=== PATIENT | male | born 1945 | race Caucasian/White ===

== ENCOUNTER 2021-06-25 15:01 | Inpatient (IN) ==
--- NOTE | 2021-06-25 16:34 | XRay Report ---
XR chest 1V portable CLINICAL HISTORY: sob TECHNIQUE: Single frontal radiograph of the chest was obtained. Comparison: None available at the time of this dictation. FINDINGS: No lines and tubes are seen. Cardiomegaly is noted. Bilateral Mariana B lines and cephalization of the vasculature noted. No evidence of pleural effusion or pneumothorax. IMPRESSION: Moderate pulmonary edema. Cardiomegaly. ACT 112: Negative or not required by law. Electronically signed by: Elias Gatica M.D. 06/25/2021 4:33 PM
[2021-06-25] MEDS ORDERED: dexAMETHasone**PF** 10 MG/ML VIAL IV ONE (16:37)
--- NOTE | 2021-06-25 16:43 | Emergency Department Note ---
Impression & Plan 2019 novel coronavirus-infected pneumonia (NCIP), Hypoxia, Atrial fibrillation, SALIMA (acute kidney injury) ED Provider Note Provider: Ed Quiroga MD DATE OF SERVICE: 06/25/2021 CHIEF COMPLAINT: Shortness of breath, Covid, fatigue HISTORY OF PRESENT ILLNESS: Patient is a 75-year-old gentleman history of A. fib currently maintained on Xarelto presenting here today reporting he began to feel ill approximately 5 to 6 days ago. Tested positive for Covid on Thursday. States he has had splint headache at times also heartburn symptoms at times. States has not had much of an appetite and reports some mild myalgias. Reports increased fatigue medicine as well as some significant shortness of breath at times prickly with exertion. Patient again endorses some heartburn at times but not currently. Denies significant chest pain at this time states his headaches resolved. States and states he has been having some fevers and took some Motrin around noon and that improved things. Patient states he has been taking his home Xarelto. Patient has not vaccinated for Covid. REVIEW OF SYSTEMS: A total of 10 review of systems was obtained and negative except as stated above in the HPI. PAST MEDICAL HISTORY: As noted above MEDICATIONS: Reviewed home medications with the patient SOCIAL HISTORY: Lives at home with , non-smoker PHYSICAL EXAM: GENERAL: alert and oriented in no acute distress on stretcher however fatigued appearing Head: normocephalic and atraumatic EYES: No injection, discharge or icterus. NECK: Trachea midline. Supple. ENT: Mucous membranes pink and moist. LUNGS: Airway patent. No retractions but mildly tachypneic. Breath sounds clear HEART: Irregular rate and rhythm. No chest wall tenderness ABDOMEN: Soft and non-tender, without guarding or rebound. SKIN: Acyanotic, warm, dry, without rashes EXTREMITIES: Without tenderness or deformity with mild trace bilateral edema. NEUROLOGICAL: No focal deficits. No aphasia. No facial droop or slurred speech. Ambulatory. EKG: Atrail fibrilation 70 bpm. No STEMI, No PVC noted. QTC 412. No priors CONTINUOUS CARDIAC MONITORING: was ordered and showed a heart rate of 70-90s bpm in atrial fibrillation Patient's laboratory studies and imaging reviewed. Differential includes Reactive airway disease, pneumonia, pneumothorax, COPD, CHF, infections, cardiac ischemia, pulmonary embolism, musculoskeletal, gastrointestinal, as well as other pathologies. IMPRESSION/MEDICAL DECISION MAKING: Patient presents approximately 6 days now hypoxic. Given dexamethasone with this. Covid testing from here sent to confirm; not vaccinated for Covid. Chest x-ray question some mild pulmonary edema. Patient states actually some decreased intake not convinced at this point is that significantly fluid overloaded. BNP was sent. On Xarelto lower suspicion for PE. Appears to be in rate controlled A. fib at this point. Basic labs obtained. No significant leukocytosis and minimal anemia. Mild hyponatremia 132. Mild AST elevation. No lipase elevation. Troponin is undetectable and proBNP is not significantly elevated. BUN is 37 and creatinine is 2.4. Patient states has had some brown urine again has been using a good amount of ibuprofen. Denies a history that he knows of CKD although states he does not get routine blood work. Will possibly give a small amount of IV fluids given the elevated creatinine and discussed with patient avoiding NSAIDs. Hospitalist team aware and will evaluate the p atient further care here as an inpatient given his hypoxia. DIAGNOSIS: COVID-19 pneumonia, hypoxia, SALIMA, atrial fibrillation DISPOSITION: Hospitalist will evaluate Patient was agreeable with this plan. Past Med/Surg History Social History Smoking Status: Never smoker Feels Safe at Home: Yes Allergies Allergies Allergy/AdvReac Type Severity Reaction Status Date / Time No Known Allergies Allergy Unverified 06/25/21 17:54 Home Meds Home Medications Medication Instructions Recorded Confirmed amlodipine 10 mg tablet (Norvasc) 10 mg PO QAM 06/25/21 06/25/21 flecainide 50 mg tablet 50 mg PO Q12H 06/25/21 06/25/21 lisinopril 5 mg tablet (Zestril) 5 mg PO QAM 06/25/21 06/25/21 metoprolol succinate 25 mg 25 mg PO QAM 06/25/21 06/25/21 tablet,extended release 24 hr (Toprol XL) rivaroxaban 20 mg tablet (Xarelto) 20 mg PO PM 06/25/21 06/25/21 Results & Data (ED) Vital Signs Vital Signs - 24 hr 06/25/21 15:06 06/25/21 15:13 06/25/21 17:00 Temperature 36.8 C Temperature Source Temporal Artery Scan Pulse Rate 93 H 72 Pulse Rate from SpO2 Sensor 70 Pulse Rhythm Regular Pulse Strength Normal Respiratory Rate 22 21 Respiratory Effort / Characteristics Non-Labored Spontaneous Respiratory Depth Normal Respiratory Pattern Regular Blood Pressure 106/63 111/54 L Blood Pressure Mean 77 73 Blood Pressure Position Sitting Pulse Oximetry 86 L 94 Oxygen Delivery Method Room Air Nasal Cannula Oxygen Flow Rate 2 Sepsis Recent Fever Within 48 Hours No Sepsis New/Unexplained Change in Mental Status N/A Sepsis Action Taken by Nursing No Action Required 06/25/21 17:30 Temperature Temperature Source Pulse Rate 75 Pulse Rate from SpO2 Sensor 77 Pulse Rhythm Pulse Strength Respiratory Rate 16 Respiratory Effort / Characteristics Respiratory Depth Respiratory Pattern Blood Pressure 115/60 Blood Pressure Mean 78 Blood Pressure Position Pulse Oximetry 94 Oxygen Delivery Method Oxygen Flow Rate Sepsis Recent Fever Within 48 Hours Sepsis New/Unexplained Change in Mental Status Sepsis Action Taken by Nursing Laboratory Data Result diagrams: 06/25/21 16:53 06/25/21 16:53 Lab Results 06/25/21 06/25/21 06/25/21 Range/Units 16:31 16:53 16:53 WBC 9.28 (4.8-10.8) K/uL RBC 4.81 (4.7-6.1) M/uL Hgb 13.4 L (14.0-18.0) g/dL Hct 39.6 L (42-52) % MCV 82.3 (80-100) fL MCH 27.9 (25-34) pg MCHC 33.8 (32-36) g/dL RDW Std Deviation 38.9 (36.4-46.3) fL RDW Coeff of Julieth 12.9 (11.5-14.5) % Plt Count 199 (130-400) K/uL MPV 9.8 (7.4-10.4) fL Immature Gran % (Auto) 0.2 % Neut % (Auto) 81.8 % Lymph % (Auto) 6.7 % Assumption % (Auto) 11.1 % Eos % (Auto) 0.0 % Baso % (Auto) 0.2 % Neut # (Auto) 7.59 H (1.4-6.5) K/uL Lymph # (Auto) 0.62 L (1.2-3.4) K/uL Assumption # (Auto) 1.03 H (0.11-0.59) K/uL Eos # (Auto) 0.00 (0-0.5) K/uL Baso # (Auto) 0.02 (0-0.2) K/uL Immature Gran # (Auto) 0.02 (0.00-0.02) K/uL Sodium 132 L (136-145) mmol/L Potassium 4.1 (3.5-5.1) mmol/L Chloride 102 (98-107) mmol/L Carbon Dioxide 22 (21-32) mmol/L Anion Gap 8.0 (3-11) BUN 37 H (7-18) mg/dl Creatinine 2.40 H (0.6-1.4) mg/dl Est Cr Clr Drug Dosing 32.9 ml/min Est GFR ( Amer) 29.3 ml/min Est GFR (Non-Af Amer) 25.3 ml/min Fasting Glucose 175 H (70-99) mg/dl Calcium 8.7 (8.5-10.1) mg/dl Magnesium 2.2 (1.8-2.4) mg/dl Total Bilirubin 0.7 (0.2-1) mg/dl AST 41 H (15-37) U/L ALT 43 (12-78) U/L Alkaline Phosphatase 66 (45-117) U/L Troponin I < 0.015 (0-0.045) ng/ml NT-Pro-B Natriuret Pep 505 (0-1800) pg/ml Total Protein 6.8 (6.4-8.2) gm/dl Albumin 2.6 L (3.4-5.0) gm/dl Globulin 4.2 H (2.5-4.0) gm/dl Albumin/Globulin Ratio 0.6 L (0.9-2) Lipase 339 (73-393) U/L COVID-19 Eval Order Covid19 at [facility] Imaging Data Radiologist's Impression: Chest X-Ray 06/25/21 16:16 XR chest 1V portable CLINICAL HISTORY: sob TECHNIQUE: Single frontal radiograph of the chest was obtained. Comparison: None available at the time of this dictation. FINDINGS: No lines and tubes are seen. Cardiomegaly is noted. Bilateral Mariana B lines and cephalization of the vasculature noted. No evidence of pleural effusion or pneu mothorax. IMPRESSION: Moderate pulmonary edema. Cardiomegaly. ACT 112: Negative or not required by law. Electronically signed by: Elias Gatica M.D. 06/25/2021 4:33 PM Discharge Plan Visit Data Chief Complaint: Shortness of Breath/Dyspnea Stated Complaint: HAS COVID,SOB,OXYGEN LEVELS ARE DOWN, ED Provider: Ed Quiroga Discharge Problem: 2019 novel coronavirus-infected pneumonia (NCIP), Hypoxia, Atrial fibrillation, SALIMA (acute kidney injury) Patient Disposition: Being Evaluated by Hospitalist Forms Stand Alone Forms: My [facility] [place] [facility] Prescriptions Prescriptions: No Action amlodipine [Norvasc] 10 mg tablet 10 mg PO QAM RF: 0 flecainide 50 mg tablet 50 mg PO Q12H RF: 0 lisinopril [Zestril] 5 mg tablet 5 mg PO QAM RF: 0 metoprolol succinate [Toprol XL] 25 mg tablet extended release 24 hr 25 mg PO QAM RF: 0 Xarelto 20 mg tablet 20 mg PO PM RF: 0 Referrals Referrals: PCP,NO [Physician] - Discharge Problem: Atrial fibrillation Qualifiers: Atrial fibrillation type: unspecified Qualified Code(s): I48.91 - Unspecified atrial fibrillation
[2021-06-25 17:01] LABS: Basophils # (auto) 0.02 K/uL (0-0.2); Basophils % (auto) 0.2 %; Hematocrit (blood only) 39.6 % (42-52); Hemoglobin 13.4 g/dL (14.0-18.0); Immature Granulocytes # (auto) 0.02 K/uL (0.00-0.02); Immature Granulocytes % (auto) 0.2 %; Lymphocytes # (auto) 0.62 K/uL (1.2-3.4); Lymphocytes % (auto) 6.7 %; Mean Corpuscular Hemoglobin 27.9 pg (25-34); Mean Corpuscular Hgb Conc 33.8 g/dL (32-36); Mean Corpuscular Volume 82.3 fL (80-100); Mean Platelet Volume 9.8 fL (7.4-10.4); Monocytes # (auto) 1.03 K/uL (0.11-0.59); Monocytes % (auto) 11.1 %; Neutrophils # (auto) 7.59 K/uL (1.4-6.5); Neutrophils % (auto) 81.8 %; Platelet Count 199 K/uL (130-400); RDW Coefficient of Variation 12.9 % (11.5-14.5); RDW Standard Deviation 38.9 fL (36.4-46.3); Red Blood Count 4.81 M/uL (4.7-6.1); White Blood Count 9.28 K/uL (4.8-10.8)
--- NOTE | 2021-06-25 17:15 | History & Physical Report ---
Date of Service June 25, 2021 Assessment & Plan (1) Acute respiratory failure with hypoxia: Plan: 75 y/o male w/ afib on Eliquis who presents w/ covid PNA, day 9 of symptoms (06/17/21 onset). He is saturating 95% on 3L nasal cannula and in no resp distress. - hypoxia likely 2/2 covid vs hypervolemia. cxr w/ moderate hypervolemia w/o opacities - no remdesivir because of gfr <30, reassess if renal function improves - otherwise, meets criteria w/ hypoxia <94 on room air - Mucinex - Incentive spirometry - Check echo in AM - hold on diuresis at this time, if worsened symptoms/clinically, diurese w/ caution given Cr of 2.4 - titrate supp O2 w/ goal sat of 90% (2) 2019 novel coronavirus-infected pneumonia (NCIP): Plan: - defer remdesivir because gfr <30, SALIMA - decadron IV 6mg daily - not candidate for baricitinib at this time because not requiring high flow - check crp, CK - recheck cxr in AM (3) Hypervolemia: Plan: - States his 2+ BLE is at baseline since his afib dx 7 yrs ago - Crackles at bases and BLE. cxr suggestive of moderate pulm edema - strict Is/Os. Defer hernandez at this time - caution w/ Lasix if need diuresis given SALIMA (4) Atrial fibrillation: Plan: - hold home Xarelto; start on therapeutic heparin drip - continue home flecainide, but renally dose (half of home dose). half dose (25 bid), starting first dose tomorrow AM - continue home metoprolol succinate - monitor on telemetry (5) SALIMA (acute kidney injury): Plan: - pt denies hx of CKD; baseline unknown - avoid nephrotoxic agents and renally dose - check FeNa labs. (6) Hypertension: Plan: - hold home lisinopril in setting of SALIMA - continue amlodipine (7) Blood glucose elevated: Plan: - low dose SSI Aspart w/ goal 140-180 - patient not on diabetes medications at home - check BSG ACHS - check A1C in AM Plan: FEN/GI: Low Na diet. No IV fluids ppx: heparin drip. SCDs code: full dispo: med/surg tele History of Present Illness Chief Complaint: dyspnea Primary Care Provider: NO PCP Geronimo Mcclain is a 75 y/o male w/ Afib on Eliquis and hypertension who presents w/ slightly worsening productive cough (white/guido sputum), SOB, BARAJAS, low grade fever (daily, ~100.4) since 8 days ago. He presents today because of persistent symptoms and because his family was concerned. Not covid immunized. Tested covid pos on 06/21/21. PCP in [place]. [employer] in [place]. Loose stool x 1 today. No subj fever/chills/myalgia. Not orthopneic. Some fatigue. Denies dyspnea at baseline and denies hx of asthma/copd, inhaler use, or CHF.5 days of dark dirty brown urine. Last meds this AM. He has not been taking medications for his symptoms other than Motrin today (denies using on previous days) ED course: 1L LR bolus. dexamethasone IV 6 mg x1. vitals: 86 on RA. now 95 on 3L. wbc 9.28. Hb 13.4. Na 132L. BUN 37. Cr 2.4. fasting glucose 175H. covid pending. Lipase wnl. NT proBNP 505. Allergies Allergy/AdvReac Type Severity Reaction Status Date / Time No Known Allergies Allergy Unverified 06/25/21 17:54 Home Medications Medication Instructions Recorded Confirmed Type amlodipine 10 mg tablet (Norvasc) 10 mg PO QAM 06/25/21 06/25/21 History flecainide 50 mg tablet 50 mg PO Q12H 06/25/21 06/25/21 History lisinopril 5 mg tablet (Zestril) 5 mg PO QAM 06/25/21 06/25/21 History metoprolol succinate 25 mg 25 mg PO QAM 06/25/21 06/25/21 History tablet,extended release 24 hr (Toprol XL) rivaroxaban 20 mg tablet (Xarelto) 20 mg PO PM 06/25/21 06/25/21 History Past Med/Surg History Medical History Atrial fibrillation Hypertension Surgical History H/O hernia repair H/O right knee surgery Social History Smoking Status: Never smoker Hx Alcohol Use: No Hx Substance Use: No Preferred Language: [place] Citizen [employer] Required: No Beliefs That Will Affect Care: None Current Living Situation: Spouse Other Information That Helps Us Care for You: No Feels Safe at Home: Yes Safety Concerns: Feels Safe At This Time Assistive Devices: None Review of Systems Review of Systems: All systems reviewed & are unremarkable except as noted in HPI & below Constitutional: Denies fever, chills. + fatigue. + decreased appetite x several days. Denies major dietary changes Eyes: Denies blurry vision, vision changes ENT: Denies sore throat, sinus pain. Denies loss of taste/smell. Cardiovascular: Denies chest pain, palpitations Respiratory: Denies shortness of breath Gastrointestinal: Denies abdominal pain, nausea, vomiting, Chronic constipation; last BM this AM, loose; previous BM 1 wk prior. Genitourinary: Denies urinary symptoms including dysuria. + dark brown urine x several days Musculoskeletal: Denies weakness, muscle aches/pain, joint aches/pain Neurological: Denies headache, numbness, tingling, focal weakness Physical Exam Physical Exam: General: A&Ox4. NAD. Cooperative. Slightly hard of hearing. HEENT: Atraumatic, normocephalic. EOMI. PERRL. Neck supple. No oropharyngeal erythema or exudate. Pulm: crackles at bases. No respiratory distress. Cardiac: IIR, -mrg. Radial pulses intact and symmetrical. 2+ BLE. Abdominal: Nontender, nondistended, soft. Obese abd. Integ: Warm, dry, intact Neuro: Normal strength and sensation of extremities. Results & Data Results & Data ([facility]) Vital Signs (Past 12 Hours) Vital Signs Temp Pulse Resp BP Pulse Ox 06/25/21 15:06 36.8 C 93 H 22 106/63 86 L Laboratory Results 06/25/21 16:53 06/25/21 16:53 Cardiac Enzymes 06/25/21 Range/Units 16:53 AST 41 H (15-37) U/L Troponin I < 0.015 (0-0.045) ng/ml CBC 06/25/21 Range/Units 16:53 WBC 9.28 (4.8-10.8) K/uL RBC 4.81 (4.7-6.1) M/uL Hgb 13.4 L (14.0-18.0) g/dL Hct 39.6 L (42-52) % Plt Count 199 (130-400) K/uL Neut # (Auto) 7.59 H (1.4-6.5) K/uL Lymph # (Auto) 0.62 L (1.2-3.4) K/uL Garvin # (Auto) 1.03 H (0.11-0.59) K/uL Eos # (Auto) 0.00 (0-0.5) K/uL Baso # (Auto) 0.02 (0-0.2) K/uL Comprehensive Metabolic Panel 06/25/21 Range/Units 16:53 Sodium 132 L (136-145) mmol/L Potassium 4.1 (3.5-5.1) mmol/L Chloride 102 (98-107) mmol/L Carbon Dioxide 22 (21-32) mmol/L BUN 37 H (7-18) mg/dl Creatinine 2.40 H (0.6-1.4) mg/dl Calcium 8.7 (8.5-10.1) mg/dl AST 41 H (15-37) U/L ALT 43 (12-78) U/L Alkaline Phosphatase 66 (45-117) U/L Total Protein 6.8 (6.4-8.2) gm/dl Albumin 2.6 L (3.4-5.0) gm/dl Intake and Output 06/25/21 06/25/21 06/25/21 06:59 14:59 22:59 Other: Weight 112.5 kg Patient Weight 06/26/21 06:59 Weight 112.5 kg Diagnostic Findings Chest X-Ray 06/25/21 16:16 XR chest 1V portable CLINICAL HISTORY: sob TECHNIQUE: Single frontal radiograph of the chest was obtained. Comparison: None available at the time of this dictation. FINDINGS: No lines and tubes are seen. Cardiomegaly is noted. Bilateral Mariana B lines and cephalization of the vasculature noted. No evidence of pleural effusion or pneumothorax. IMPRESSION: Moderate pulmonary edema. Cardiomegaly. ACT 112: Negative or not required by law. Electronically signed by: Elias Gatica M.D. 06/25/2021 4:33 PM ECG Additional Comments: ecg ordered Code Status & VTE Plan Code Status full VTE Prophylaxis Plan VTE Prophylaxis will be ordered: Yes Supervising Physician Co-Signing Physician Notes During face to face encounter with patient, obtained a history and physical examination. Discussed case with Dr. Singh and answered all of the patient's questions. I reviewed above note and agree with it. Patient will be admitted with COVID 19 infection. Will hold remdesevir due to low GFR. WILL PLACE ON DECADRON Resident Activity Tracking Resident Involvement: Resident Care Provided Care Provided: Adult Hospital Medicine (1) Atrial fibrillation Atrial fibrillation type: unspecified Qualified Code(s): I48.91 - Unspecified atrial fibrillation
[2021-06-25 17:24] LABS: Alanine Aminotransferase 43 U/L (12-78); Albumin Level 2.6 gm/dl (3.4-5.0); Aspartate Aminotransferase 41 U/L (15-37); Blood Urea Nitrogen 37 mg/dl (7-18); Calcium 8.7 mg/dl (8.5-10.1); Carbon Dioxide 22 mmol/L (21-32); Chloride 102 mmol/L (98-107); Creatinine Clr Calc Pharmacy 32.9 ml/min; Est GFR (African American) 29.3 ml/min; Est GFR (Non-African American) 25.3 ml/min; Glucose Fasting 175 mg/dl (70-99); Lipase 339 U/L (73-393); Magnesium 2.2 mg/dl (1.8-2.4); Potassium 4.1 mmol/L (3.5-5.1); Sodium 132 mmol/L (136-145)
[2021-06-25 17:29] LABS: Albumin Globulin Ratio 0.6 (0.9-2); Alkaline Phosphatase 66 U/L (45-117); Bilirubin,Total 0.7 mg/dl (0.2-1); Globulin 4.2 gm/dl (2.5-4.0); NT Pro B Type Natriuretic Pept 505 pg/ml (0-1800); Total Protein 6.8 gm/dl (6.4-8.2); Troponin I < 0.015 ng/ml (0-0.045)
[2021-06-25] MEDS ORDERED: LACTATED RINGER'S 500 ML IV ONE (17:36)
[2021-06-25] MEDS ORDERED: GLUCOSE 40% GEL 15 GM TUBE PO PRN (23:48)
[2021-06-25] MEDS ORDERED: GLUCOSE 10 TABS/TUBE PO PRN (23:48)
[2021-06-25] MEDS ORDERED: Heparin IV Adult Wt-Based Standard *NO* Bolus Protocol IV ONE (23:48)
[2021-06-25] MEDS ORDERED: GLUCAGON FOR INJ 1 MG VIAL SQ PRN (23:48)
[2021-06-25] MEDS ORDERED: CARBOHYDRATES FOR HYPOGLYCEMIA PO PRN (23:48)
[2021-06-25] MEDS ORDERED: POLYETHYLENE (MIRALAX) 17 GM PACK PO PRN (23:48)
[2021-06-25] MEDS ORDERED: HEPARIN SODIUM/DEXTROSE 25,000 UNITS/500 ML BAG IV SCH (23:48)
[2021-06-25] MEDS ORDERED: DEXTROSE 50% 50 ML SYRINGE IV PRN (23:48)
[2021-06-26] MEDS: guaiFENesin 600 MG TABCR PO SCH ×3 (01:24→21:37)
[2021-06-26] MEDS: HEPARIN SODIUM/DEXTROSE 25,000 UNITS/500 ML BAG IV SCH ×2 (01:42→17:11)
[2021-06-26] MEDS: INSULIN ASPART 100 UNITS/ML 3 ML PEN SC SCH ×5 (01:43→21:38)
[2021-06-26 08:17] LABS: Basophils # (auto) 0.01 K/uL (0-0.2); Basophils % (auto) 0.1 %; Hematocrit (blood only) 42.5 % (42-52); Hemoglobin 14.6 g/dL (14.0-18.0); Immature Granulocytes # (auto) 0.05 K/uL (0.00-0.02); Immature Granulocytes % (auto) 0.4 %; Lymphocytes # (auto) 0.68 K/uL (1.2-3.4); Lymphocytes % (auto) 5.5 %; Mean Corpuscular Hemoglobin 28.1 pg (25-34); Mean Corpuscular Hgb Conc 34.4 g/dL (32-36); Mean Corpuscular Volume 81.9 fL (80-100); Mean Platelet Volume 10.2 fL (7.4-10.4); Monocytes # (auto) 0.35 K/uL (0.11-0.59); Monocytes % (auto) 2.8 %; Neutrophils # (auto) 11.21 K/uL (1.4-6.5); Neutrophils % (auto) 91.2 %; Platelet Count 249 K/uL (130-400); RDW Standard Deviation 39.2 fL (36.4-46.3); Red Blood Count 5.19 M/uL (4.7-6.1)
--- NOTE | 2021-06-26 08:17 | Hospitalist Progress Note ---
Date of Service June 26, 2021 Assessment & Plan (1) Acute respiratory failure with hypoxia: Plan: 75 y/o male w/ afib on Eliquis who presents w/ covid PNA, day 9 of symptoms (06/17/21 onset). He is saturating 95% on 3L nasal cannula and in no resp distress. - hypoxia likely 2/2 covid vs hypervolemia. cxr w/ moderate hypervolemia w/o opacities - no remdesivir because of gfr <30, reassess if renal function improves - otherwise, meets criteria w/ hypoxia <94 on room air Patient is escalated to Vapotherm oxygen supplementation Patient meets criteria for renal dose adjusted baricitinib 2 mg daily - Mucinex - Incentive spirometry - -Given decompensation of oxygen status patient was given dose of diuretics in the face of his elevated creatinine (2) 2018 novel coronavirus-infected pneumonia (NCIP): Plan: - defer remdesivir because gfr <30, SALIMA - decadron IV 6mg daily, baricitinib at this time because now requiring high flow -CRP 15 (3) Hypervolemia: Plan: - States his 2+ BLE is at baseline since his afib dx 7 yrs ago - Crackles at bases and BLE. cxr suggestive of moderate pulm edema - strict Is/Os. Defer hernandez at this time -1 dose Lasix given in the face of unknown renal function baseline (4) Atrial fibrillation: Plan: - hold home Xarelto; start on therapeutic heparin drip - continue home flecainide, but renally dose (half of home dose). half dose (25 bid), starting first dose tomorrow AM - continue home metoprolol succinate - (5) SALIMA (acute kidney injury): Plan: - pt denies hx of CKD; baseline unknown -Creatinine remained flat over the first 2 checks Lasix given due to respiratory distress continue to follow renal function (6) Hypertension: Plan: - hold home lisinopril in setting of SALIMA - continue amlodipine (7) Blood glucose elevated: Plan: - low dose SSI Aspart w/ goal 140-180 - patient not on diabetes medications at home - check BSG ACHS -Hemoglobin A1c 7.4 Plan: FEN/GI: Low Na diet. No IV fluids ppx: heparin drip. SCDs code: full dispo: med/surg tele Family updated and relayed the severity of his illness. His 's first contact however his daughter, Aramis jhaveri [phone] could also be called Admission and Anticipated Discharge Date Admission Date: June 25, 2021 Subjective Patient is very fatigued and out of breath. He did escalate to needing high flow oxygen quickly this morning. I had a good discussion with him regarding the severity of his illness and also informed his family. He was coughing in the room otherwise having no other problems than his dyspnea Review of Systems Review of Systems: Moderate respiratory distress and fatigue no headache, no visual changes no speech or swallowing issues no chest pain, pressure or palpitations Shortness of breath at rest with minor exertion and with talking. Nonproductive coughing no abdominal pain, nausea or vomiting, diarrhea or constipation no dysuria, hematuria or frequency no focal joint pain or swelling no back pain, CVA tenderness or radicular pain no bruising, bleeding or rashes no focal signs of weakness or numbness or altered sensation no complaints of anxiety or depression.. Physical Exam Physical Exam: The patient appeared well nourished and normally developed. He is in moderate respiratory distress Vital signs as documented. Head exam is normocephalic atraumatic Neck is without JVD, thyromegaly, or carotid bruits. Lungs bilateral rales long-term up accessory muscle use for breathing Cardiac exam, Rhythm is regular.. No murmurs, rubs or gallops. Abdominal exam reveals normal bowel sounds, soft non tender, no masses Extremities are nonedematous and both pedal pulses are present Neurologic exam is alert and oriented, no focal loss of strength or sensation Skin is without bruises or rashes Psychologically is without concerns for anxiety or depression Results & Data Results & Data ([facility]) Vital Signs (Past 12 Hours) Vital Signs Temp Pulse Pulse Resp BP BP Pulse Ox 06/26/21 07:44 98.8 F 72 20 135/62 90 06/26/21 03:15 98.1 F 83 19 118/63 91 06/25/21 23:54 97.9 F 96 H 18 110/68 92 06/25/21 21:54 98.1 F 97 H 18 131/69 97 06/25/21 21:32 97.9 F 70 20 117/66 93 06/25/21 20:49 77 16 122/59 L 93 PG Care Time/CCT Total # of Minutes Spent Total Time Spent with Patient: Total time spent is greater than 50% in coordination of care (as documented) at patient's floor/unit and/or counseling patient: Coding Level of Care Code 72224 Subseq Hosp Care Lvl 3 Diagnoses Acute respiratory failure with hypoxia J96.01 2019 novel coronavirus-infected pneumonia (NCIP) U07.1; J12.82 Hypervolemia E87.70 Atrial fibrillation I48.91 Atrial fibrillation type: unspecified SALIMA (acute kidney injury) N17.9 Hypertension I10 Blood glucose elevated R73.9 (1) Atrial fibrillation Atrial fibrillation type: unspecified Qualified Code(s): I48.91 - Unspecified atrial fibrillation
[2021-06-26 08:46] LABS: Partial Thromboplastin Ratio 2.4
[2021-06-26 08:51] LABS: Albumin Globulin Ratio 0.5 (0.9-2); Albumin Level 2.4 gm/dl (3.4-5.0); BUN Creatinine Ratio 19.5 (10-20); Bilirubin,Total 0.6 mg/dl (0.2-1); C Reactive Protein 15.8 mg/dl (0-0.29); Calcium 8.4 mg/dl (8.5-10.1); Creatinine Clr Calc Pharmacy 33.9 ml/min; Est GFR (African American) 30.3 ml/min; Est GFR (Non-African American) 26.2 ml/min; Globulin 4.6 gm/dl (2.5-4.0); Potassium 4.7 mmol/L (3.5-5.1)
[2021-06-26 09:02] LABS: Estimated Average Glucose 166 mg/dl; Hemoglobin A1C 7.4 % (4.5-5.6)
[2021-06-26] MEDS: amLODIPine BESYLATE 5 MG TAB PO SCH (09:29)
[2021-06-26] MEDS: FLECAINIDE ACETATE 100 MG TABLET PO SCH ×2 (09:29→21:37)
[2021-06-26] MEDS: METOPROLOL SUCC 25MG EXT REL TAB PO SCH (09:29)
[2021-06-26] MEDS: dexAMETHasone 6 MG in SYRINGE 0 ML IV SCH (09:36)
--- NOTE | 2021-06-26 09:44 | XRay Report ---
XR chest 1V portable CLINICAL HISTORY: covid pna TECHNIQUE: Single frontal radiograph of the chest was obtained. Comparison: Comparison is made to chest one view 06/25/2021 FINDINGS: No lines and tubes are seen. The cardiomediastinal silhouette is normal. Interval development of janna t airspace opacities most prominent in the right upper lobe and possibly in the retrocardiac region a s well. Redemonstration of prominent pulmonary vasculature and Mariana B lines. No evidence of pleural effusion or pneumothorax. IMPRESSION: 1. Interval development of multifocal faint airspace opacities which may favored to represent pneumo essence in this patient with history of viral pneumonia, with or without superimposed atelectasis and/or aspiration. 2. Cardiomegaly and redemonstration of moderate pulmonary edema. ACT 112: Negative or not required by law. Electronically signed by: Elias Gatica M.D. 06/26/2021 9:42 AM
[2021-06-26 11:17] LABS: Appearance Urine Clear (Clear); Bacteria Urine Automated Negative (Negative); Bilirubin Urine Negative (Negative); Blood Urine 3+ (Negative); Color Urine Yellow; Glucose Urine UA Trace (Negative); Ketones Urine Negative (Negative); Leukocyte Esterase Urine Negative (Negative); Nitrite Urine Negative (Negative); Protein Urine 2+ (Negative); Specific Gravity Urine 1.017 (1.000-1.030); Urobilinogen Urine Negative (Negative)
--- NOTE | 2021-06-26 11:21 | Billing Data ---
Date of Service June 25, 2021 Coding Level of Care Code 98720 Initial Inpt Care Lvl 3
[2021-06-26] MEDS ORDERED: ALBUTEROL 0.083% NEBU SOLN 3 ML VIAL NEB STA (11:42)
[2021-06-26] MEDS ORDERED: FUROSEMIDE 40 MG in SYRINGE 0 ML IV ONE (11:42)
[2021-06-26] MEDS: ACETAMINOPHEN 325 MG TAB PO PRN (12:00)
[2021-06-26] MEDS ORDERED: FUROSEMIDE 40 MG/4 ML VIAL IV ONE (12:00)
[2021-06-26] MEDS: 2 mg Once Daily x14 days PO SCH (18:05)
[2021-06-27] MEDS: ACETAMINOPHEN 325 MG TAB PO PRN (04:02)
[2021-06-27] MEDS: HEPARIN SODIUM/DEXTROSE 25,000 UNITS/500 ML BAG IV SCH ×2 (07:07→23:59)
--- NOTE | 2021-06-27 07:57 | Hospitalist Progress Note ---
Date of Service June 27, 2021 Assessment & Plan (1) Acute respiratory failure with hypoxia: Plan: 75 y/o male w/ afib on Eliquis who presents w/ covid PNA, day 9 of symptoms (06/17/21 onset). He is saturating 95% on 3L nasal cannula and in no resp distress. - hypoxia 2/2 covid vs hypervolemia. cxr w/ moderate hypervolemia w/o opacities - no remdesivir because of gfr <30, continue to assess if renal function improves - otherwise, meets criteria w/ hypoxia <94 on room air Patient is escalated to Vapotherm oxygen supplementation, persistent oxygen need now on 60 L 100% will offer bipap at night to rest the patient Patient meets criteria for renal dose adjusted baricitinib 2 mg daily - Mucinex - Incentive spirometry -Out look extremly guarded (2) 2018 novel coronavirus-infected pneumonia (NCIP): Plan: - defer remdesivir because gfr <30, SALIMA - decadron IV 6mg daily, baricitinib at this time because now requiring high flow, renal dose adjusted -CRP 15 at persentation (3) Hypervolemia: Plan: - States his 2+ BLE is at baseline since his afib dx 7 yrs ago -1 dose Lasix given in the face of unknown renal function baseline clinically seems stable wtih volume status, bun has gone up with diuretics (4) Atrial fibrillation: Plan: - hold home Xarelto; started on therapeutic heparin drip - continue home flecainide, but renally dose (half of home dose). 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 No IV fluids ppx: heparin drip. SCDs code: full dispo: med/surg tele Family updated and relayed the severity of his illness. His 's first contact however his daughter, Aramis jhaveri [phone] could also be called Admission and Anticipated Discharge Date Admission Date: June 25, 2021 Subjective Patient is very fatigued and out of breath. He did escalate to needing high flow oxygen quickly this morning. I had a good discussion with him regarding the severity of his illness and also informed his family. He was coughing in the room otherwise having no other problems than his dyspnea Review of Systems Review of Systems: Moderate respiratory distress and fatigue no headache, no visual changes no speech or swallowing issues no chest pain, pressure or palpitations Shortness of breath at rest with minor exertion and with talking. Nonproductive coughing no abdominal pain, nausea or vomiting, diarrhea or constipation no dysuria, hematuria or frequency no focal joint pain minor LE swelling no back pain, CVA tenderness or radicular pain no bruising, bleeding or rashes no focal signs of weakness or numbness or altered sensation no complaints of anxiety or depression.. Physical Exam Physical Exam: The patient appeared well nourished and normally developed. He remains in moderate respiratory distress Vital signs as documented. Head exam is normocephalic atraumatic Neck is without JVD, thyromegaly, or carotid bruits. Lungs bilateral rales prison up accessory muscle use for breathing Cardiac exam, Rhythm is regular.. No murmurs, rubs or gallops. Abdominal exam reveals normal bowel sounds, soft non tender, no masses Extremities are trace edematous bilaterally and both pedal pulses are present Neurologic exam is alert and oriented, no focal loss of strength or sensation Skin is without bruises or rashes Psychologically is with concerns for anxiety Results & Data Results & Data ([facility]) Vital Signs (Past 12 Hours) Vital Signs Temp Pulse Pulse Resp BP Pulse Ox 06/27/21 07:37 98.4 F 64 20 123/49 L 92 06/27/21 05:45 98.6 F 90 06/27/21 05:07 90 06/27/21 03:54 100.9 F H 75 20 145/68 H 90 06/27/21 03:44 79 18 90 06/26/21 23:37 98.8 F 85 24 149/67 H 94 06/26/21 23:00 72 06/26/21 22:52 78 28 H 91 06/26/21 20:10 64 18 91 PG Care Time/CCT Total # of Minutes Spent Total Time Spent with Patient: Total time spent is greater than 50% in coordination of care (as documented) at patient's floor/unit and/or counseling patient: Coding Level of Care Code 25006 Subseq Hosp Care Lvl 3 Diagnoses Acute respiratory failure with hypoxia J96.01 2019 novel coronavirus-infected pneumonia (NCIP) U07.1; J12.82 Hypervolemia E87.70 Atrial fibrillation I48.91 Atrial fibrillation type: unspecified SALIMA (acute kidney injury) N17.9 Hypertension I10 Blood glucose elevated R73.9 (1) Atrial fibrillation Atrial fibrillation type: unspecified Qualified Code(s): I48.91 - Unspecified atrial fibrillation
[2021-06-27 08:38] LABS: Partial Thromboplastin Time 78.9 Seconds (21.0-31.0)
[2021-06-27 08:51] LABS: BUN Creatinine Ratio 22.1 (10-20); Calcium 8.2 mg/dl (8.5-10.1); Creatinine Clr Calc Pharmacy 31.1 ml/min; Est GFR (African American) 27.5 ml/min; Est GFR (Non-African American) 23.7 ml/min; Potassium 4.2 mmol/L (3.5-5.1)
[2021-06-27] MEDS: dexAMETHasone 6 MG in SYRINGE 0 ML IV SCH (08:52)
[2021-06-27] MEDS: FLECAINIDE ACETATE 100 MG TABLET PO SCH ×2 (08:53→20:12)
[2021-06-27] MEDS: amLODIPine BESYLATE 5 MG TAB PO SCH (08:54)
[2021-06-27] MEDS: METOPROLOL SUCC 25MG EXT REL TAB PO SCH (08:55)
[2021-06-27] MEDS: guaiFENesin 600 MG TABCR PO SCH ×2 (08:55→20:12)
[2021-06-27] MEDS: 2 mg Once Daily x14 days PO SCH (09:08)
[2021-06-27] MEDS: INSULIN ASPART 100 UNITS/ML 3 ML PEN SC SCH ×4 (09:15→20:13)
--- NOTE | 2021-06-27 12:00 | Electrocardiogram Report ---
Test Reason : Blood Pressure : / mmHG Vent. Rate : 070 BPM Atrial Rate : 394 BPM P-R Int : 000 ms QRS Dur : 096 ms QT Int : 382 ms P-R-T Axes : 000 -07 039 degrees QTc Int : 412 ms Atrial fibrillation Abnormal ECG No previous ECGs available Confirmed by Asher Keyes ([id number]) on 06/27/2021 11:59:40 AM Referred By: REFERRED SELF Confirmed By:Asher Keyes
[2021-06-27 16:44] LABS: Partial Thromboplastin Time 51.3 Seconds (21.0-31.0)
[2021-06-27] MEDS: CEFEPIME 2,000 MG in SYRINGE 0 ML IV SCH (20:19)
[2021-06-27] MEDS ORDERED: ACETAMINOPHEN 1000 MG/100 ML IV IV PRN (20:26)
[2021-06-28] MEDS ORDERED: MoRPHine SULFATE 2 MG/ML CARP IV STA (00:42)
[2021-06-28 06:32] LABS: Partial Thromboplastin Ratio 2.7
[2021-06-28 06:53] LABS: Albumin Level 2.3 gm/dl (3.4-5.0); BUN Creatinine Ratio 23.9 (10-20); Bilirubin Direct 0.3 mg/dl (0-0.2); Calcium 8.9 mg/dl (8.5-10.1); Creatinine Clr Calc Pharmacy 33.9 ml/min; Est GFR (African American) 30.7 ml/min; Est GFR (Non-African American) 26.5 ml/min; Potassium 4.6 mmol/L (3.5-5.1)
[2021-06-28 06:55] LABS: Bilirubin,Total 0.8 mg/dl (0.2-1); Total Protein 7.2 gm/dl (6.4-8.2)
[2021-06-28 07:02] LABS: Partial Thromboplastin Time 71.5 Seconds (21.0-31.0)
--- NOTE | 2021-06-28 07:14 | Hospitalist Progress Note ---
Date of Service June 28, 2021 Assessment & Plan (1) Acute respiratory failure with hypoxia: Plan: 75 y/o male w/ afib on Eliquis who presents w/ covid PNA, day 9 of symptoms (06/17/21 onset). Pt with rapid excalation to high flow then to bipap at 100% oxygen still with desaturations, decision to intubate 06/28, now on vent and proned able to reduce fio2 to 70% - no remdesivir because of gfr <30, continue to assess if renal function improves - otherwise, meets criteria w/ hypoxia <94 on room air Patient meets criteria for renal dose adjusted baricitinib 2 mg daily Dexamethasone iv -Out look extremly guarded (2) 2019 novel coronavirus-infected pneumonia (NCIP): Plan: - defer remdesivir because gfr <30, SALIMA - decadron IV 6mg daily, baricitinib at this time because oxygen , renal dose adjusted -CRP 15 at persentation (3) Hypervolemia: Plan: - States his 2+ BLE is at baseline since his afib dx 7 yrs ago - Lasix given in the face of unknown renal function baseline clinically seems stable wtih volume status, bun has gone up with diuretics (4) Atrial fibrillation: Plan: - hold home Xarelto; started on therapeutic heparin drip - continue home flecainide, but renally dose (half of home dose). half dose (25 bid), starting first dose tomorrow AM - have iv metoprolol available and change to scheduled if appears to need it - (5) SALIMA (acute kidney injury): Plan: - pt denies hx of CKD; baseline unknown -Creatinine remained flat over the first 2 checks Lasix given due to respiratory distress continue to follow renal function hailee with Chronic kidney disease stage 3-4 (6) Hypertension: Plan: - hold home lisinopril in setting of SALIMA - hold other antihypertensives (7) Blood glucose elevated: Plan: - low dose SSI Aspart w/ goal 140-180 - patient not on diabetes medications at home - check BSG ACHS -Hemoglobin A1c 7.4 Plan: FEN/GI: tube feeding ppx: heparin drip. SCDs code: full dispo: icu Family updated and relayed the severity of his illness. His 's first contact however his daughter, Aramis jhaveri [phone] could also be called Admission and Anticipated Discharge Date Admission Date: June 25, 2021 Subjective Patient is very fatigued and out of breath. He did escalate to needing high flow oxygen quickly this morning. I had a good discussion with him regarding the severity of his illness and also informed his family. He was coughing in the room otherwise having no other problems than his dyspnea. Review of Systems Review of Systems: Unobtainable due to endotracheal tube Physical Exam Physical Exam: The patient appeared in marked to severe distress Vital signs as documented. Chronic significant oxygen supplementation Head exam is normocephalic atraumatic Neck is without JVD, thyromegaly, no stridor Lungs are very poor air movement preintubation post extubation good air movement with rales Cardiac exam, Rhythm is regular.. No murmurs, rubs or gallops. Abdominal exam reveals normal bowel sounds, soft non tender, no masses Extremities are nonedematous and both pedal pulses are present Neurologic exam is alert and oriented prior to sedation after intubation Skin is without bruises or rashes Results & Data Results & Data ([facility]) Vital Signs (Past 12 Hours) Vital Signs Temp Pulse Pulse Resp BP BP Pulse Ox 06/28/21 04:24 97.7 F 60 18 149/64 H 91 06/28/21 04:09 63 06/28/21 03:34 58 L 36 H 91 06/28/21 02:18 60 32 H 90 06/27/21 23:24 97.5 F L 65 18 135/61 87 L 06/27/21 22:20 68 30 H 90 06/27/21 20:10 101.3 F H 75 16 144/53 H 92 PG Care Time/CCT Total # of Minutes Spent Total Time Spent with Patient: Total time spent is greater than 50% in coordination of care (as documented) at patient's floor/unit and/or counseling patient: Coding Level of Care Code 40579 Subseq Hosp Care Lvl 3 Diagnoses Acute respiratory failure with hypoxia J96.01 2019 novel coronavirus-infected pneumonia (NCIP) U07.1; J12.82 Hypervolemia E87.70 Atrial fibrillation I48.91 Atrial fibrillation type: unspecified SALIMA (acute kidney injury) N17.9 Hypertension I10 Blood glucose elevated R73.9 (1) Atrial fibrillation Atrial fibrillation type: unspecified Qualified Code(s): I48.91 - Unspecified atrial fibrillation
[2021-06-28] MEDS ORDERED: ICU PROTOCOL FOR HYPERGLYCEMIA PRN (08:18)
[2021-06-28] MEDS: dexAMETHasone 6 MG in SYRINGE 0 ML IV SCH (08:47)
[2021-06-28] MEDS: CEFEPIME 2,000 MG in SYRINGE 0 ML IV SCH ×2 (08:47→20:14)
[2021-06-28] MEDS: HEPARIN SODIUM/DEXTROSE 25,000 UNITS/500 ML BAG IV SCH ×2 (08:47→17:32)
[2021-06-28] MEDS: FLECAINIDE ACETATE 100 MG TABLET PO SCH ×2 (08:56→21:19)
[2021-06-28] MEDS: INSULIN ASPART 100 UNITS/ML 3 ML PEN SC SCH ×5 (09:02→21:17)
[2021-06-28] MEDS: 2 mg Once Daily x14 days PO SCH (09:05)
[2021-06-28] MEDS ORDERED: PROPOFOL IV EMULSION 10 MG/ML 100 ML VIAL IV ONE (10:13)
[2021-06-28] MEDS ORDERED: RAPID SEQUENCE INDUCTION BAG ONE (10:13)
[2021-06-28] MEDS ORDERED: VECURONIUM BROMIDE 10 MG VIAL IV ONE ×2 (10:24→14:29)
--- NOTE | 2021-06-28 11:08 | Procedure Note ---
Procedure Note Date of Service June 28, 2021 Note Procedure Date: Noted above Procedure: Endotracheal intubation Pre-procedure Diagnosis: Hypoxic respiratory failure secondary to COVID-19 pneumonia Post-procedure Diagnosis: same as above Prior to Procedure: Informed Consent: Risks and benefits were discussed with the patient and he opts to proceed Attending Staff: Susie Chiang DO The identity of the patient was confirmed and a bedside time out was performed. Description of Procedure: Patient was evaluated and required intubation for impending respiratory failure. The patient was prepared in the usual fashion. A video laryngoscope was used. A 8 mm inner diameter endotrachial tube was placed endotracheally to 23 cm at the teeth. A grade 1 view was obtained. The endotracheal tube was noted to pass through the vocal cords. Chest rise was bilateral. Bilateral breath sounds were heard without air sounds in the abdomen. Mist was noted in the endotracheal tube. End-tidal CO2 measurement was positive. Chest x-ray shows proper endotracheal tube placement. Complications: None Findings: Not applicable Specimens: Not applicable Estimated blood loss: Zero Coding CPT Codes Resuscitation - Resuscitation: [id number] Endotracheal Intubation, emergency ([id number]) [place] Procedure Codes (Charges) Resuscitation Resuscitation: [id number] Endotracheal Intubation, emergency
--- NOTE | 2021-06-28 11:09 | Procedure Note ---
Procedure Note Date of Service June 28, 2021 Note Procedure date: Noted above Procedure: Central venous access Pre-procedure indication: Need for vasoactive medication administration Post-procedure Diagnosis: same as above Prior to Procedure: Informed Consent: The risks, benefits, indications, potential complications, and alternatives were explained to the patient and verbal informed consent obtained. Attending Staff: Susie Chiang DO Resident/APC: Felix KDID Skin Prep: Chlorhexidine Anesthesia: 4 mL 1% lidocaine without epinephrine The identity of the patient was confirmed and a bedside time out was performed. Description of Procedure: After sterile prep and sterile drape utilizing standard sterile technique the superficial skin of the right subclavian area was anesthetized. The target vessel was identified and entered with an 18-gauge needle. Dark venous blood return was noted. A guidewire was inserted through the needle and into the vessel. The needle was withdrawn and a skin marilee was made. A tissue dilator was advanced via Seldinger technique and removed. A triple lumen catheter was inserted via Seldinger technique and the guidewire removed. All ports stuart and flushed easily. A Biopatch was placed, and the catheter was secured via silk suture. A sterile dressing was then applied. Complications: None Estimated blood loss: Trace Patient tolerated the procedure well. Coding CPT Codes Tubes, Drains, and Vasc Access - Tubes, Drains, and Vasc Access: [id number] Insertion Of Non-tunneled Catheter Age 4 Yrs> ([id number]) [facility] [place] Codes (Charges) Tubes, Drains, and Vasc Access Procedure 1: Tubes, Drains, and Vasc Access: [id number] Insertion Of Non-tunneled Catheter Age 4 Yrs>
--- NOTE | 2021-06-28 11:10 | Procedure Note ---
Procedure Note Date of Service June 28, 2021 Note Procedure date: Noted above Procedure: Radial artery cannulation Pre-procedure Diagnosis: Need for invasive monitoring Post-procedure Diagnosis: same as above Prior to Procedure: Informed Consent: The risks, benefits, indications, potential complications, and alternatives were explained to the patient and verbal informed consent obtained. Attending Staff: Susie Chiang DO Skin Prep: Chlorhexidine Anesthesia: 3 mL 1% lidocaine without epinephrine The identity of the patient was confirmed and a bedside time out was performed. Description of Procedure: After sterile prep and sterile drape utilizing standard sterile technique the superficial skin of the left radial artery was anesthetized. The target artery was identified via dynamic ultrasound guidance and entered with a 20-gauge arrow Angiocath. Pulsatile bright red blood return was noted. Via modified Seldinger technique the self-contained guidewire was advanced and the Angiocath advanced over the guidewire. The guidewire was removed and brisk arterial blood return was noted. The pressure monitor was connected, and the arterial line was secured via commercial securement device. A sterile dressing was then applied. Complications: None Estimated blood loss: Trace Patient tolerated the procedure well. Coding CPT Codes Tubes, Drains, and Vasc Access - Tubes, Drains, and Vasc Access: [id number] Place Catheter In Artery ([id number]) [facility] [place] ([place]arges) Tubes, Drains, and Vasc Access Procedure 1: Tubes, Drains, and Vasc Access: [id number] Place Catheter In Artery
[2021-06-28] MEDS ORDERED: STAT IV Infusion **Titration per Protocol STA ×3 (11:11→17:44)
[2021-06-28] MEDS ORDERED: PROPOFOL BOLUS FROM BAG IV PRN (11:11)
[2021-06-28] MEDS ORDERED: CISATRACURIUM BESYLATE IV SOLN 2 MG/ML 10 ML VIAL IV STA (11:11)
--- NOTE | 2021-06-28 11:14 | Critical Care Consultation ---
Date of Consultation June 28, 2021 Assessment & Plan (1) 2019 novel coronavirus-infected pneumonia (NCIP): Reason Critically Ill: 75-year-old male with history of atrial fibrillation on Eliquis and flecainide, hypertension, likely underlying CKD who presented with COVID-19 pneumonia. Requires ICU level care for intensive management of his respiratory status and mechanical ventilation. Neuro - Sedation: Propofol NMB: Nimbex Analgesia: Fentanyl Cardiac - Atrial fibrillation: * Rate controlled at present * Continue renally dosed flecainide, continue metoprolol * Continue to hold Xarelto with ongoing heparin drip. Hypertension: Stable at present. * Hold lisinopril in setting of SALIMA. * Continue amlodipine. Respiratory - Acute hypoxic respiratory failure: Primarily due to COVID-19 pneumonia. Continue dexamethasone, as outlined below. See ID. Accelerated respiratory decline now requiring ETT with mechanical ventilation Cannot rule out pulmonary bacterial superinfection at this time based on CXR. Continue cefepime for now, initiated 06/27. -- Check procal, CBC, sputum culture -- Consider narrowing / discontinuing based on results, clinical progress Patient appropriately anticoagulated, lower concern for PE at this time Appearance of pulmonary edema on CXRs raises question of hypervolemic contribution -- BNP normal on arrival -- No history of HFrEF. Has tolerated Lasix well, including his kidney function. -- Attempt to keep on sock drier side. Can trial Lasix 20mg IV depending on how initial trial on ventilator goes. - Check ABG GI - Will require OGT placement. Low Na diet. Close monitoring of fluid administration given concern for hypervolemia. Consult nutrition, appreciate aid in care RENAL/LYTES - Baseline Cr, CrCl unknown. Since arrival Cr 2.3 - 2.5. Possibly underlying CKD. Patient does not know of such history. Hold ACEI. Avoid nephrotoxic medications. Function stable despite diuresis. - ICU electrolyte replacement protocol - Monitor BMP - Stevens. Monitor I&Os. ENDO - No history of DM or thyroid disease. ICU hyperglycemia protocol. HEME - Stable H&H. Monitor with ongoing heparin gtt. ID - COVID-19 pneumonia, likely superimposed with ARDS Patient is not a candidate for remdesivir given CrCl < 30 Discontinue baricitinib given ETT w/ MV now Continue dexamethasone 6 mg X 10 days (initiated 06/26) Proceed with ETT and mechanical ventilation Lasix 20 mg IV daily Prone patient. Cefepime on-board out of concern for bacterial superinfection. See pulm above. Check labs, sputum culture now. INTEGUMENTARY - No acute needs LINES/IV ACCESS - RIGHT Subclavian CVC, LEFT A-line, ETT, PIV DVT PROPHYLAXIS - Heparin gtt Thank you for allowing us to be part of this patient's care. Please refer to Dr. Chiang's documentation for any further recommendations. (2) Acute respiratory failure with hypoxia: (3) Hypervolemia: (4) Atrial fibrillation: (5) Hypertension: Supervising Physician Co-Signing Physician Notes Dr. Washington was resident physician during care of patient. I separately evaluated patient for brar portions of the history and the exam. I was present during the critical portion of medical decision making, and I discussed the case with the resident. I generally agree with the findings and plan. Had discussion regarding intubation continued respiratory failure needing tracheostomy and he is comfortable with a tracheostomy should he need it. Patient critically ill due to hypoxic respiratory failure secondary to COVID-19 pneumonia I have personally spent 55 minutes of critical care time in the direct management of this patient. This is a life/limb threatening event. This includes time spent evaluating patient, direct bedside care, chart review, placing orders, interpretation of diagnostic studies, discussion with cons ultants, patient, and/or family members regarding treatment decisions, as well as other required patient management activities. This time is exclusive of all separately billable procedures, and teaching time and separate from and in addition to any other critical care service time. History of Present Illness Attending Physician: Aly Bar MD History of Present Illness This is a 75-year-old male with a history of atrial fibrillation on Eliquis, hypertension, and possible underlying CKD who presented with worsening shortness of breath, subsequently found to be in acute hypoxic respiratory failure secondary to COVID-19 pneumonia. Symptoms began on 06/17. Unfortunately, throughout his hospital course here despite intensive therapy, his respiratory distress continued to worsen. His supplemental oxygen need has quickly increased from nasal cannula to Vapotherm to BiPAP. He was not a candidate for remdesivir because of his renal function. He was started on baricitinib on 06/27. He was also started on Decadron 6 mg daily. Also started on cefepime shahram ly out of concerns for bacterail superinfection. Billboard Poster Helper was consulted because of worsening respiratory status to determine need for endotracheal intubation and mechanical ventilation. Allergies Allergy/AdvReac Type Severity Reaction Status Date / Time No Known Allergies Allergy Unverified 06/25/21 17:54 Home Medications Medication Instructions Recorded Confirmed Type amlodipine 10 mg tablet (Norvasc) 10 mg PO QAM 06/25/21 06/25/21 History flecainide 50 mg tablet 50 mg PO Q12H 06/25/21 06/25/21 History lisinopril 5 mg tablet (Zestril) 5 mg PO QAM 06/25/21 06/25/21 History metoprolol succinate 25 mg 25 mg PO QAM 06/25/21 06/25/21 History tablet,extended release 24 hr (Toprol XL) rivaroxaban 20 mg tablet (Xarelto) 20 mg PO PM 06/25/21 06/25/21 History Patient History Medical History Atrial fibrillation Hypertension Surgical History H/O hernia repair H/O right knee surgery Social History Smoking Status: Never smoker Hx Alcohol Use: No Hx Substance Use: No Preferred Language: Syriac Wool Spotter Required: No Beliefs That Will Affect Care: None Current Living Situation: Spouse Other Information That Helps Us Care for You: No Feels Safe at Home: Yes Safety Concerns: Feels Safe At This Time Assistive Devices: BiPap and Oxygen - Continuous Review of Systems Review of Systems: Unobtainable due to endotracheal tube and Unobtainable due to reduced consciousness Physical Exam Physical Exam: General: Sedated and mechanically ventilated 75-year-old gentleman who was prone in his hospital bed. HEENT: NCAT. Eyes - Sclera are white, anicteric, and without injection. Mouth - MMM. No JVD. Cardiac: Normal rate and regular rhythm; S1 and S2 present with no murmurs, rubs, or gallops. Pulmonary: Mechanically ventilated 75-year-old gentleman. Lung sounds heard throughout all lung hester. Abdominal: Abdomen was soft, nondistended, and non-tender to palpation. Extremities: Upper and lower extremities are warm and well perfused. Results & Data Results & Data ([facility]) Vital Signs (Past 12 Hours) Vital Signs Temp Pulse Pulse Resp BP BP Pulse Ox 06/28/21 08:10 75 34 H 94 06/28/21 07:41 36.8 C 74 22 180/54 H 92 06/28/21 04:24 36.5 C 60 18 149/64 H 91 06/28/21 04:09 63 06/28/21 03:34 58 L 36 H 91 06/28/21 02:18 60 32 H 90 06/27/21 23:24 36.4 C L 65 18 135/61 87 L (1) Atrial fibrillation Atrial fibrillation type: unspecified Qualified Code(s): I48.91 - Unspecified atrial fibrillation
[2021-06-28] MEDS ORDERED: CISATRACURIUM BOLUS FROM BAG IV ONE (11:30)
[2021-06-28] MEDS: fentaNYL DRIP 1,250 MCG/250 ML BAG IV SCH (11:39)
[2021-06-28] MEDS: CISATRACURIUM BESYLATE 40 MG in 0.9 % SODIUM CHLORIDE 80 ML IV SCH ×4 (11:44→22:01)
[2021-06-28] MEDS: propofoL 1,000 MG/100 ML VIAL IV SCH ×3 (11:45→22:00)
[2021-06-28] MEDS ORDERED: PHARMACY GLYCEMIC MGMT CONSULT PRN (11:57)
[2021-06-28] MEDS ORDERED: INSULIN GLARGINE SOLOSTAR 100 UNITS/ML 3 ML PEN SC ONE ×3 (12:00→21:00)
--- NOTE | 2021-06-28 12:01 | XRay Report ---
XR chest 1V portable CLINICAL HISTORY: lines COMPARISON STUDY: Chest radiograph 06/26/2021. FINDINGS: Tip of endotracheal tube is 5.7 cm above the sue. Tip of nasogastric tube/feeding tube i s within the gastric fundus. Right subclavian central line is in place. There is no pneumothorax. No definite pleural effusion is identified. There has been marked progression of extensive bilateral air space opacities since prior exam. Cardiomegaly is again noted. Patient is rotated. IMPRESSION: 1. Satisfactory positioning of lines and tubes. 2. Marked progression of extensive bilateral airspace opacities. These favor multifocal pneumonia. Pu lmonary edema could appear similar. ACT 112: Negative or not required by law. Electronically signed by: Joshua Smith M.D. 06/28/2021 12:00 PM
[2021-06-28] MEDS: ARTIFICIAL TEARS OP OINT 3.5 GM TUBE OP SCH ×3 (12:36→21:13)
--- NOTE | 2021-06-28 12:54 | Pharmacy Report ---
Pharmacy Glycemic Short Note 2 - Date of Service June 28, 2021 - Glycemic Short BSG Results (Last 24 hours): 06/27/21 06/27/21 06/28/21 17:06 20:04 05:23 Glucose 228 H POC Glucose 230 H 255 H 06/28/21 06/28/21 08:57 12:26 Glucose POC Glucose 202 H 250 H OUTPATIENT ANTIDIABETIC REGIMEN: * N/A * a1c 7.4% ASSESSMENT: * Patient admitted with COVID-19, no documented previous diagnosis of diabetes, A1c indicates diabetes * Patient intubated this morning, currently paralyzed with nimbex, sedated with propofol, fentanyl * BSGs have been running in the low to mid 200s since admission, patient was ordered a diet previously with a loose sliding scale * Patient now NPO, will tighten novolog to weight based stress of 3, administer 20 units of lantus (very conservative). If BSGs remain elevated may need to start insulin infusion. PLAN FOR INPATIENT GLYCEMIC CONTROL: * Hold outpatient oral diabetes medications * Basal insulin * Lantus 20 units x 1, scale for pm * Bolus insulin * NovoLog per scale ACHS or Q6hrs while NPO * Goal Range: Low 120 mg/dL - High 160 mg/dL * Correction Factor: 15 mg/dL/unit * Nutritional / Prandial insulin per carb ratio of 1 unit per 5 grams CHO consumed
[2021-06-28 13:06] LABS: Hemoglobin 13.2 g/dL (14.0-18.0); Mean Corpuscular Hemoglobin 28.3 pg (25-34); Mean Corpuscular Hgb Conc 33.8 g/dL (32-36); Mean Corpuscular Volume 83.7 fL (80-100); Mean Platelet Volume 9.6 fL (7.4-10.4); Platelet Count 403 K/uL (130-400); RDW Coefficient of Variation 13.6 % (11.5-14.5); RDW Standard Deviation 41.1 fL (36.4-46.3); Red Blood Count 4.66 M/uL (4.7-6.1)
[2021-06-28 13:32] LABS: Partial Thromboplastin Ratio 1.9
[2021-06-28 13:33] LABS: Partial Thromboplastin Time 49.3 Seconds (21.0-31.0)
[2021-06-28 13:34] LABS: Basophils # (auto) 0.04 K/uL (0-0.2); Basophils % (auto) 0.1 %; Immature Granulocytes # (auto) 0.44 K/uL (0.00-0.02); Immature Granulocytes % (auto) 1.4 %; Lymphocytes # (auto) 1.07 K/uL (1.2-3.4); Lymphocytes % (auto) 3.5 %; Monocytes % (auto) 6.8 %; Neutrophils # (auto) 27.15 K/uL (1.4-6.5); Neutrophils % (auto) 88.2 %
[2021-06-28] MEDS ORDERED: ETOMIDATE 2 MG/ML 20 ML VIAL IV ONE (14:29)
[2021-06-28] MEDS ORDERED: fentaNYL citrate 100 MCG/2 ML VIAL IV ONE (14:29)
[2021-06-28] MEDS ORDERED: SUCCINYLCHOLINE CHLORIDE 20 MG/ML 10 ML VIAL IV ONE (14:29)
[2021-06-28] MEDS: PEPTAMEN INTENSE VHP 1.0 CAL 1,000 ML BAG GT SCH ×2 (14:42→14:54)
[2021-06-28] MEDS ORDERED: SODIUM CHLORIDE 0.65% NA SOLN 45 ML (OCEAN) ONE (15:00)
[2021-06-28 16:23] LABS: iSTAT Art Bld Gas pCO2 Correct 62 mmHg (35-46); iSTAT Art Bld Gas pH Corrected 7.212 (7.35-7.45); iSTAT Arterial Blood Gas HCO3 25 meg/L (19-24); iSTAT Arterial Blood Gas pCO2 63 mmHg (35-46); iSTAT Arterial Blood Gas pO2 76 mmHg (80-95); iSTAT Arterial Blood Gas pO2 C 73; iSTAT Carbon Dioxide 27 mmol/L (24-31); iSTAT Hematocrit 39 % (42-52); iSTAT Hemoglobin 13.3 g/dl (14.0-18.0); iSTAT Potassium 5.3 mmol/L (3.3-5.0); iSTAT Site Art Line; iSTAT Sodium 132 mmol/L (135-144)
[2021-06-28] MEDS ORDERED: VECURONIUM BROMIDE 10 MG VIAL IV STA (16:38)
[2021-06-28] MEDS ORDERED: SEVERE STRESS LEVEL ONE (17:44)
[2021-06-28] MEDS ORDERED: INSULIN PROTOCOL GOAL RANGE ONE (17:44)
[2021-06-28] MEDS ORDERED: NovoLIN-R BOLUS FROM BAG IV ONE (18:00)
[2021-06-28] MEDS: ICU ELECTROLYTE REPLACEMENT PROTOCOL SCH (18:20)
[2021-06-28] MEDS: INSULIN REGULAR 250 UNITS in SODIUM CHLORIDE 0.9% 247.5 ML IV SCH ×2 (18:32→21:00)
[2021-06-29] MEDS: ARTIFICIAL TEARS OP OINT 3.5 GM TUBE OP SCH ×6 (00:09→20:08)
[2021-06-29] MEDS: CISATRACURIUM BESYLATE 40 MG in 0.9 % SODIUM CHLORIDE 80 ML IV SCH ×5 (03:30→20:34)
[2021-06-29 04:24] LABS: iSTAT Art Bld Gas pCO2 Correct 51 mmHg (35-46); iSTAT Art Bld Gas pH Corrected 7.314 (7.35-7.45); iSTAT Arterial Blood Gas HCO3 26 meg/L (19-24); iSTAT Arterial Blood Gas pCO2 52 mmHg (35-46); iSTAT Arterial Blood Gas pH 7.31 (7.35-7.45); iSTAT Arterial Blood Gas pO2 74 mmHg (80-95); iSTAT Arterial Blood Gas pO2 C 71; iSTAT Carbon Dioxide 27 mmol/L (24-31); iSTAT Hematocrit 38 % (42-52); iSTAT Hemoglobin 12.9 g/dl (14.0-18.0); iSTAT Potassium 4.7 mmol/L (3.3-5.0); iSTAT Site Art Line; iSTAT Sodium 135 mmol/L (135-144)
[2021-06-29] MEDS: fentaNYL DRIP 1,250 MCG/250 ML BAG IV SCH ×2 (04:38→20:30)
[2021-06-29] MEDS: propofoL 1,000 MG/100 ML VIAL IV SCH ×5 (04:39→20:30)
[2021-06-29] MEDS ORDERED: INSULIN GLARGINE SOLOSTAR 100 UNITS/ML 3 ML PEN SC ONE ×2 (07:30→21:00)
[2021-06-29 07:33] LABS: Basophils # (auto) 0.01 K/uL (0-0.2); Basophils % (auto) 0.1 %; Hematocrit (blood only) 35.8 % (42-52); Immature Granulocytes # (auto) 0.21 K/uL (0.00-0.02); Immature Granulocytes % (auto) 1.1 %; Lymphocytes # (auto) 1.23 K/uL (1.2-3.4); Lymphocytes % (auto) 6.5 %; Mean Corpuscular Hemoglobin 27.5 pg (25-34); Mean Corpuscular Hgb Conc 33.5 g/dL (32-36); Mean Corpuscular Volume 82.1 fL (80-100); Mean Platelet Volume 9.5 fL (7.4-10.4); Monocytes # (auto) 0.83 K/uL (0.11-0.59); Monocytes % (auto) 4.4 %; Neutrophils % (auto) 87.9 %; Platelet Count 339 K/uL (130-400); RDW Coefficient of Variation 13.7 % (11.5-14.5); RDW Standard Deviation 41.8 fL (36.4-46.3); Red Blood Count 4.36 M/uL (4.7-6.1); White Blood Count 18.98 K/uL (4.8-10.8)
[2021-06-29 07:48] LABS: BUN Creatinine Ratio 27.4 (10-20); Calcium 8.5 mg/dl (8.5-10.1); Creatinine Clr Calc Pharmacy 30.2 ml/min; Est GFR (African American) 26.8 ml/min; Est GFR (Non-African American) 23.1 ml/min; Magnesium 3.2 mg/dl (1.8-2.4); Potassium 4.6 mmol/L (3.5-5.1)
[2021-06-29 07:49] LABS: Phosphorus 5.8 mg/dl (2.5-4.9)
[2021-06-29 07:57] LABS: Partial Thromboplastin Time 51.8 Seconds (21.0-31.0)
--- NOTE | 2021-06-29 08:00 | XRay Report ---
XR chest 1V portable CLINICAL HISTORY: Respiratory failure. COMPARISON STUDY: Chest radiograph June 28, 2021. FINDINGS: Tip of endotracheal tube is 4.4 cm above the sue. Tip of nasogastric tube projects over the distal stomach. There is no pneumothorax. There has been significant improvement in bilateral air space opacities since prior exam. A right subclavian central line is in place. IMPRESSION: 1. Satisfactory positioning of lines and tubes. 2. No pneumothorax. 3. Persistent but significantly improved bilateral airspace opacities which favor pneumonia. ACT 112: Negative or not required by law. Electronically signed by: Joshua Smith M.D. 06/29/2021 7:58 AM
--- NOTE | 2021-06-29 08:52 | Critical Care Progress Note ---
Date of Service June 29, 2021 Assessment & Plan (1) 2019 novel coronavirus-infected pneumonia (NCIP): Plan: Reason Critically Ill: 75-year-old male with history of atrial fibrillation on Eliquis and flecainide, hypertension, likely underlying CKD who presented with COVID-19 pneumonia. Requires ICU level care for intensive management of his respiratory status and mechanical ventilation. Neuro - Sedation: Propofol NMB: Nimbex Analgesia: Fentanyl Cardiac - Atrial fibrillation: * Rate controlled at present * Continue renally dosed flecainide, continue metoprolol *Transition back to Xarelto to minimize additional fluids. Hypertension: Stable at present. * Hold lisinopril in setting of SALIMA. * Continue amlodipine. Respiratory - Acute hypoxic respiratory failure: Primarily due to COVID-19 pneumonia. Continue dexamethasone, as outlined below. See ID. Accelerated respiratory decline now requiring ETT with mechanical ventilation Cannot rule out pulmonary bacterial superinfection at this time based on CXR. Continue cefepime for now, initiated 06/27. Patient appropriately anticoagulated, lower concern for PE at this time GI -trickle tube feeds RENAL/LYTES - Baseline Cr, CrCl unknown. Since arrival Cr 2.3 - 2.5. Possibly underlying CKD. Patient does not know of such history. Hold ACEI. Avoid nephrotoxic medications. Function stable despite diuresis. - ICU electrolyte replacement protocol - Monitor BMP - Stevens. Monitor I&Os. ENDO - No history of DM or thyroid disease. ICU hyperglycemia protocol. HEME - Stable H&H. ID - COVID-19 pneumonia, likely superimposed with ARDS Patient is not a candidate for remdesivir given CrCl < 30 Discontinue baricitinib given ETT w/ MV now Continue dexamethasone 6 mg X 10 days (initiated 06/26) Lasix 20 mg IV daily Prone patient. INTEGUMENTARY - No acute needs LINES/IV ACCESS - RIGHT Subclavian CVC, LEFT A-line, ETT, PIV DVT PROPHYLAXIS -Xarelto (2) Acute respiratory failure with hypoxia: (3) Hypervolemia: (4) Atrial fibrillation: (5) Hypertension: Admission and Anticipated Discharge Date Admission Date: June 25, 2021 Supervising Physician Co-Signing Physician Notes I have personally spent 40 minutes of critical care time in the direct management of this patient. This is a life/limb threatening event. This includes time spent evaluating patient, direct bedside care, chart review, placing orders, interpretation of diagnostic studies, discussion with consultants, patient, and/or family members regarding treatment decisions, as well as other required patient management activities. This time is exclusive of all separately billable procedures, and teaching time and separate from and in addition to any other critical care service time. Subjective No overnight events, patient was returned to supine position in the morning Review of Systems Review of Systems: Unobtainable due to endotracheal tube Physical Exam Physical Exam: General: Sedated. nontoxic. Skin: Warm, dry, Head: Atraumatic Ears, nose, mouth and throat: airway obscured by endotracheal tube Cardiovascular: Normal peripheral perfusion Respiratory: Ventilator settings reviewed Gastrointestinal: Non distended Musculoskeletal: No deformity Results & Data Results & Data ([facility]) Vital Signs (Past 12 Hours) Vital Signs Temp Pulse Resp BP Pulse Ox Pulse Ox 06/29/21 06:51 52 L 20 96 06/29/21 05:30 36.3 C L 54 L 20 92 06/29/21 05:10 20 06/29/21 05:00 36.3 C L 59 L 20 06/29/21 04:30 36.4 C L 60 20 06/29/21 04:00 36.4 C L 61 20 94 06/29/21 03:33 62 20 95 06/29/21 03:30 36.5 C 59 L 20 06/29/21 03:00 36.4 C L 62 20 126/61 96 06/29/21 02:30 36.4 C L 63 20 06/29/21 02:00 36.3 C L 63 20 06/29/21 01:30 36.4 C L 63 20 130/61 95 06/29/21 01:00 36.4 C L 64 20 06/29/21 00:30 36.4 C L 63 20 06/29/21 00:00 36.4 C L 63 20 06/28/21 23:48 94 06/28/21 23:30 36.2 C L 64 20 06/28/21 23:15 20 97 06/28/21 23:00 36.5 C 61 26 H 130/54 L 93 06/28/21 22:30 36.7 C 58 L 20 06/28/21 22:00 36.8 C 59 L 20 06/28/21 21:30 36.8 C 60 20 06/28/21 21:00 36.8 C 63 20 103/51 L 94 Laboratory Results 06/29/21 06/29/21 06/29/21 Range/Units 08:47 08:29 07:16 WBC (4.8-10.8) K/uL RBC (4.7-6.1) M/uL Hgb (14.0-18.0) g/dL POC Hgb (14.0-18.0) g/dl Hct (42-52) % POC Hct (42-52) % MCV (80-100) fL MCH (25-34) pg MCHC (32-36) g/dL RDW Std Deviation (36.4-46.3) fL RDW Coeff of Julieth (11.5-14.5) % Plt Count (130-400) K/uL MPV (7.4-10.4) fL Immature Gran % (Auto) % Neut % (Auto) % Lymph % (Auto) % [place] % (Auto) % Eos % (Auto) % Baso % (Auto) % Neut # (Auto) (1.4-6.5) K/uL Lymph # (Auto) (1.2-3.4) K/uL [place] # (Auto) (0.11-0.59) K/uL Eos # (Auto) (0-0.5) K/uL Baso # (Auto) (0-0.2) K/uL Immature Gran # (Auto) (0.00-0.02) K/uL APTT (21.0-31.0) Seconds PTT Ratio Sample Site POC pH (7.35-7.45) POC pCO2 (35-46) mmHg POC pO2 (80-95) mmHg POC HCO3 (19-24) yadi/L POC Total CO2 (24-31) mmol/L POC Base Excess (-9-1.8) yadi/L ABG pH (Temp Correct) (7.35-7.45) ABG pCO2 (Temp Corrct (35-46) mmHg POC ABG pO2 at Pt Temp POC ABG O2 Sat (90-95) % Dave Test O2 Delivery Device POC O2 Rate Minute Ventilation Tidal Volume PEEP POC Sodium (135-144) mmol/L Sodium (136-145) mmol/L POC Potassium (3.3-5.0) mmol/L Potassium (3.5-5.1) mmol/L Chloride (98-107) mmol/L Carbon Dioxide (21-32) mmol/L Anion Gap (3-11) BUN (7-18) mg/dl Creatinine (0.6-1.4) mg/dl Est Cr Clr Drug Dosing ml/min Est GFR ( Amer) ml/min Est GFR (Non-Af Amer) ml/min BUN/Creatinine Ratio (10-20) Glucose (70-99) mg/dl POC Glucose 82 87 101 H (70-99) mg/dl Calcium (8.5-10.1) mg/dl Phosphorus (2.5-4.9) mg/dl Magnesium (1.8-2.4) mg/dl C-Reactive Protein (0-0.29) mg/dl Procalcitonin (0-0.5) ng/ml Nasal Screen MRSA (PCR) (Negative) 06/29/21 06/29/21 06/29/21 Range/Units 07:03 07:03 07:03 WBC 18.98 H D (4.8-10.8) K/uL RBC 4.36 L (4.7-6.1) M/uL Hgb 12.0 L (14.0-18.0) g/dL POC Hgb (14.0-18.0) g/dl Hct 35.8 L (42-52) % POC Hct (42-52) % MCV 82.1 (80-100) fL MCH 27.5 (25-34) pg MCHC 33.5 (32-36) g/dL RDW Std Deviation 41.8 (36.4-46.3) fL RDW Coeff of Julieth 13.7 (11.5-14.5) % Plt Count 339 (130-400) K/uL MPV 9.5 (7.4-10.4) fL Immature Gran % (Auto) 1.1 % Neut % (Auto) 87.9 % Lymph % (Auto) 6.5 % [place] % (Auto) 4.4 % Eos % (Auto) 0.0 % Baso % (Auto) 0.1 % Neut # (Auto) 16.70 H (1.4-6.5) K/uL Lymph # (Auto) 1.23 (1.2-3.4) K/uL [place] # (Auto) 0.83 H (0.11-0.59) K/uL Eos # (Auto) 0.00 (0-0.5) K/uL Baso # (Auto) 0.01 (0-0.2) K/uL Immature Gran # (Auto) 0.21 H (0.00-0.02) K/uL APTT 51.8 H* (21.0-31.0) Seconds PTT Ratio 2.0 Sample Site POC pH (7.35-7.45) POC pCO2 (35-46) mmHg POC pO2 (80-95) mmHg POC HCO3 (19-24) yadi/L POC Total CO2 (24-31) mmol/L POC Base Excess (-9-1.8) yadi/L ABG pH (Temp Correct) (7.35-7.45) ABG pCO2 (Temp Corrct (35-46) mmHg POC ABG pO2 at Pt Temp POC ABG O2 Sat (90-95) % Dave Test O2 Delivery Device POC O2 Rate Minute Ventilation Tidal Volume PEEP POC Sodium (135-144) mmol/L Sodium 135 L (136-145) mmol/L POC Potassium (3.3-5.0) mmol/L Potassium 4.6 (3.5-5.1) mmol/L Chloride 104 (98-107) mmol/L Carbon Dioxide 23 (21-32) mmol/L Anion Gap 8.0 (3-11) BUN 71 H (7-18) mg/dl Creatinine 2.58 H (0.6-1.4) mg/dl Est Cr Clr Drug Dosing 30.2 ml/min Est GFR ( Amer) 26.8 ml/min Est GFR (Non-Af Amer) 23.1 ml/min BUN/Creatinine Ratio 27.4 H (10-20) Glucose 86 (70-99) mg/dl POC Glucose (70-99) mg/dl Calcium 8.5 (8.5-10.1) mg/dl Phosphorus 5.8 H (2.5-4.9) mg/dl Magnesium 3.2 H (1.8-2.4) mg/dl C-Reactive Protein (0-0.29) mg/dl Procalcitonin (0-0.5) ng/ml Nasal Screen MRSA (PCR) (Negative) 06/29/21 06/29/21 06/29/21 Range/Units 06:01 05:15 04:09 WBC (4.8-10.8) K/uL RBC (4.7-6.1) M/uL Hgb (14.0-18.0) g/dL POC Hgb 12.9 L (14.0-18.0) g/dl Hct (42-52) % POC Hct 38 L (42-52) % MCV (80-100) fL MCH (25-34) pg MCHC (32-36) g/dL RDW Std Deviation (36.4-46.3) fL RDW Coeff of Julieth (11.5-14.5) % Plt Count (130-400) K/uL MPV (7.4-10.4) fL Immature Gran % (Auto) % Neut % (Auto) % Lymph % (Auto) % [place] % (Auto) % Eos % (Auto) % Baso % (Auto) % Neut # (Auto) (1.4-6.5) K/uL Lymph # (Auto) (1.2-3.4) K/uL [place] # (Auto) (0.11-0.59) K/uL Eos # (Auto) (0-0.5) K/uL Baso # (Auto) (0-0.2) K/uL Immature Gran # (Auto) (0.00-0.02) K/uL APTT (21.0-31.0) Seconds PTT Ratio Sample Site Art Line POC pH 7.31 L (7.35-7.45) POC pCO2 52 H (35-46) mmHg POC pO2 74 L (80-95) mmHg POC HCO3 26 H (19-24) yadi/L POC Total CO2 27 (24-31) mmol/L POC Base Excess 0.0 (-9-1.8) yadi/L ABG pH (Temp Correct) 7.314 L (7.35-7.45) ABG pCO2 (Temp Corrct 51 H (35-46) mmHg POC ABG pO2 at Pt Temp 71 POC ABG O2 Sat 93.0 (90-95) % Dave Test NA O2 Delivery Device Ventilator POC O2 Rate 20 Minute Ventilation 10 Tidal Volume 500 PEEP 12 POC Sodium 135 (135-144) mmol/L Sodium (136-145) mmol/L POC Potassium 4.7 (3.3-5.0) mmol/L Potassium (3.5-5.1) mmol/L Chloride (98-107) mmol/L Carbon Dioxide (21-32) mmol/L Anion Gap (3-11) BUN (7-18) mg/dl Creatinine (0.6-1.4) mg/dl Est Cr Clr Drug Dosing ml/min Est GFR ( Amer) ml/min Est GFR (Non-Af Amer) ml/min BUN/Creatinine Ratio (10-20) Glucose (70-99) mg/dl POC Glucose 102 H 115 H (70-99) mg/dl Calcium (8.5-10.1) mg/dl Phosphorus (2.5-4.9) mg/dl Magnesium (1.8-2.4) mg/dl C-Reactive Protein (0-0.29) mg/dl Procalcitonin (0-0.5) ng/ml Nasal Screen MRSA (PCR) (Negative) 06/29/21 06/29/21 06/29/21 Range/Units 04:07 03:08 02:07 WBC (4.8-10.8) K/uL RBC (4.7-6.1) M/uL Hgb (14.0-18.0) g/dL POC Hgb (14.0-18.0) g/dl Hct (42-52) % POC Hct (42-52) % MCV (80-100) fL MCH (25-34) pg MCHC (32-36) g/dL RDW Std Deviation (36.4-46.3) fL RDW Coeff of Julieth (11.5-14.5) % Plt Count (130-400) K/uL MPV (7.4-10.4) fL Immature Gran % (Auto) % Neut % (Auto) % Lymph % (Auto) % [place] % (Auto) % Eos % (Auto) % Baso % (Auto) % Neut # (Auto) (1.4-6.5) K/uL Lymph # (Auto) (1.2-3.4) K/uL [place] # (Auto) (0.11-0.59) K/uL Eos # (Auto) (0-0.5) K/uL Baso # (Auto) (0-0.2) K/uL Immature Gran # (Auto) (0.00-0.02) K/uL APTT (21.0-31.0) Seconds PTT Ratio Sample Site POC pH (7.35-7.45) POC pCO2 (35-46) mmHg POC pO2 (80-95) mmHg POC HCO3 (19-24) yadi/L POC Total CO2 (24-31) mmol/L POC Base Excess (-9-1.8) yadi/L ABG pH (Temp Correct) (7.35-7.45) ABG pCO2 (Temp Corrct (35-46) mmHg POC ABG pO2 at Pt Temp POC ABG O2 Sat (90-95) % Dave Test O2 Delivery Device POC O2 Rate Minute Ventilation Tidal Volume PEEP POC Sodium (135-144) mmol/L Sodium (136-145) mmol/L POC Potassium (3.3-5.0) mmol/L Potassium (3.5-5.1) mmol/L Chloride (98-107) mmol/L Carbon Dioxide (21-32) mmol/L Anion Gap (3-11) BUN (7-18) mg/dl Creatinine (0.6-1.4) mg/dl Est Cr Clr Drug Dosing ml/min Est GFR ( Amer) ml/min Est GFR (Non-Af Amer) ml/min BUN/Creatinine Ratio (10-20) Glucose (70-99) mg/dl POC Glucose 102 H 128 H 150 H (70-99) mg/dl Calcium (8.5-10.1) mg/dl Phosphorus (2.5-4.9) mg/dl Magnesium (1.8-2.4) mg/dl C-Reactive Protein (0-0.29) mg/dl Procalcitonin (0-0.5) ng/ml Nasal Screen MRSA (PCR) (Negative) 06/29/21 06/29/21 06/28/21 Range/Units 01:00 00:05 22:55 WBC (4.8-10.8) K/uL RBC (4.7-6.1) M/uL Hgb (14.0-18.0) g/dL POC Hgb (14.0-18.0) g/dl Hct (42-52) % POC Hct (42-52) % MCV (80-100) fL MCH (25-34) pg MCHC (32-36) g/dL RDW Std Deviation (36.4-46.3) fL RDW Coeff of Julieth (11.5-14.5) % Plt Count (130-400) K/uL MPV (7.4-10.4) fL Immature Gran % (Auto) % Neut % (Auto) % Lymph % (Auto) % [place] % (Auto) % Eos % (Auto) % Baso % (Auto) % Neut # (Auto) (1.4-6.5) K/uL Lymph # (Auto) (1.2-3.4) K/uL [place] # (Auto) (0.11-0.59) K/uL Eos # (Auto) (0-0.5) K/uL Baso # (Auto) (0-0.2) K/uL Immature Gran # (Auto) (0.00-0.02) K/uL APTT (21.0-31.0) Seconds PTT Ratio Sample Site POC pH (7.35-7.45) POC pCO2 (35-46) mmHg POC pO2 (80-95) mmHg POC HCO3 (19-24) yadi/L POC Total CO2 (24-31) mmol/L POC Base Excess (-9-1.8) yadi/L ABG pH (Temp Correct) (7.35-7.45) ABG pCO2 (Temp Corrct (35-46) mmHg POC ABG pO2 at Pt Temp POC ABG O2 Sat (90-95) % Dave Test O2 Delivery Device POC O2 Rate Minute Ventilation Tidal Volume PEEP POC Sodium (135-144) mmol/L Sodium (136-145) mmol/L POC Potassium (3.3-5.0) mmol/L Potassium (3.5-5.1) mmol/L Chloride (98-107) mmol/L Carbon Dioxide (21-32) mmol/L Anion Gap (3-11) BUN (7-18) mg/dl Creatinine (0.6-1.4) mg/dl Est Cr Clr Drug Dosing ml/min Est GFR ( Amer) ml/min Est GFR (Non-Af Amer) ml/min BUN/Creatinine Ratio (10-20) Glucose (70-99) mg/dl POC Glucose 172 H 206 H 243 H (70-99) mg/dl Calcium (8.5-10.1) mg/dl Phosphorus (2.5-4.9) mg/dl Magnesium (1.8-2.4) mg/dl C-Reactive Protein (0-0.29) mg/dl Procalcitonin (0-0.5) ng/ml Nasal Screen MRSA (PCR) (Negative) 06/28/21 06/28/21 06/28/21 Range/Units 22:09 21:06 20:04 WBC (4.8-10.8) K/uL RBC (4.7-6.1) M/uL Hgb (14.0-18.0) g/dL POC Hgb (14.0-18.0) g/dl Hct (42-52) % POC Hct (42-52) % MCV (80-100) fL MCH (25-34) pg MCHC (32-36) g/dL RDW Std Deviation (36.4-46.3) fL RDW Coeff of Julieth (11.5-14.5) % Plt Count (130-400) K/uL MPV (7.4-10.4) fL Immature Gran % (Auto) % Neut % (Auto) % Lymph % (Auto) % [place] % (Auto) % Eos % (Auto) % Baso % (Auto) % Neut # (Auto) (1.4-6.5) K/uL Lymph # (Auto) (1.2-3.4) K/uL [place] # (Auto) (0.11-0.59) K/uL Eos # (Auto) (0-0.5) K/uL Baso # (Auto) (0-0.2) K/uL Immature Gran # (Auto) (0.00-0.02) K/uL APTT (21.0-31.0) Seconds PTT Ratio Sample Site POC pH (7.35-7.45) POC pCO2 (35-46) mmHg POC pO2 (80-95) mmHg POC HCO3 (19-24) yadi/L POC Total CO2 (24-31) mmol/L POC Base Excess (-9-1.8) yadi/L ABG pH (Temp Correct) (7.35-7.45) ABG pCO2 (Temp Corrct (35-46) mmHg POC ABG pO2 at Pt Temp POC ABG O2 Sat (90-95) % Dave Test O2 Delivery Device POC O2 Rate Minute Ventilation Tidal Volume PEEP POC Sodium (135-144) mmol/L Sodium (136-145) mmol/L POC Potassium (3.3-5.0) mmol/L Potassium (3.5-5.1) mmol/L Chloride (98-107) mmol/L Carbon Dioxide (21-32) mmol/L Anion Gap (3-11) BUN (7-18) mg/dl Creatinine (0.6-1.4) mg/dl Est Cr Clr Drug Dosing ml/min Est GFR ( Amer) ml/min Est GFR (Non-Af Amer) ml/min BUN/Creatinine Ratio (10-20) Glucose (70-99) mg/dl POC Glucose 276 H 297 H 276 H (70-99) mg/dl Calcium (8.5-10.1) mg/dl Phosphorus (2.5-4.9) mg/dl Magnesium (1.8-2.4) mg/dl C-Reactive Protein (0-0.29) mg/dl Procalcitonin (0-0.5) ng/ml Nasal Screen MRSA (PCR) (Negative) 06/28/21 06/28/21 06/28/21 Range/Units 18:56 17:13 17:12 WBC (4.8-10.8) K/uL RBC (4.7-6.1) M/uL Hgb (14.0-18.0) g/dL POC Hgb (14.0-18.0) g/dl Hct (42-52) % POC Hct (42-52) % MCV (80-100) fL MCH (25-34) pg MCHC (32-36) g/dL RDW Std Deviation (36.4-46.3) fL RDW Coeff of Julieth (11.5-14.5) % Plt Count (130-400) K/uL MPV (7.4-10.4) fL Immature Gran % (Auto) % Neut % (Auto) % Lymph % (Auto) % [place] % (Auto) % Eos % (Auto) % Baso % (Auto) % Neut # (Auto) (1.4-6.5) K/uL Lymph # (Auto) (1.2-3.4) K/uL [place] # (Auto) (0.11-0.59) K/uL Eos # (Auto) (0-0.5) K/uL Baso # (Auto) (0-0.2) K/uL Immature Gran # (Auto) (0.00-0.02) K/uL APTT (21.0-31.0) Seconds PTT Ratio Sample Site POC pH (7.35-7.45) POC pCO2 (35-46) mmHg POC pO2 (80-95) mmHg POC HCO3 (19-24) yadi/L POC Total CO2 (24-31) mmol/L POC Base Excess (-9-1.8) yadi/L ABG pH (Temp Correct) (7.35-7.45) ABG pCO2 (Temp Corrct (35-46) mmHg POC ABG pO2 at Pt Temp POC ABG O2 Sat (90-95) % Dave Test O2 Delivery Device POC O2 Rate Minute Ventilation Tidal Volume PEEP POC Sodium (135-144) mmol/L Sodium (136-145) mmol/L POC Potassium (3.3-5.0) mmol/L Potassium (3.5-5.1) mmol/L Chloride (98-107) mmol/L Carbon Dioxide (21-32) mmol/L Anion Gap (3-11) BUN (7-18) mg/dl Creatinine (0.6-1.4) mg/dl Est Cr Clr Drug Dosing ml/min Est GFR ( Amer) ml/min Est GFR (Non-Af Amer) ml/min BUN/Creatinine Ratio (10-20) Glucose (70-99) mg/dl POC Glucose 335 H* 353 H* 318 H* (70-99) mg/dl Calcium (8.5-10.1) mg/dl Phosphorus (2.5-4.9) mg/dl Magnesium (1.8-2.4) mg/dl C-Reactive Protein (0-0.29) mg/dl Procalcitonin (0-0.5) ng/ml Nasal Screen MRSA (PCR) (Negative) 06/28/21 06/28/2106/28/21 Range/Units 16:08 12:50 12:50 WBC 30.80 H* (4.8-10.8) K/uL RBC 4.66 L (4.7-6.1) M/uL Hgb 13.2 L (14.0-18.0) g/dL POC Hgb 13.3 L (14.0-18.0) g/dl Hct 39.0 L (42-52) % POC Hct 39 L (42-52) % MCV 83.7 (80-100) fL MCH 28.3 (25-34) pg MCHC 33.8 (32-36) g/dL RDW Std Deviation 41.1 (36.4-46.3) fL RDW Coeff of Julieth 13.6 (11.5-14.5) % Plt Count 403 H (130-400) K/uL MPV 9.6 (7.4-10.4) fL Immature Gran % (Auto) 1.4 % Neut % (Auto) 88.2 % Lymph % (Auto) 3.5 % [place] % (Auto) 6.8 % Eos % (Auto) 0.0 % Baso % (Auto) 0.1 % Neut # (Auto) 27.15 H (1.4-6.5) K/uL Lymph # (Auto) 1.07 L (1.2-3.4) K/uL [place] # (Auto) 2.10 H (0.11-0.59) K/uL Eos # (Auto) 0.00 (0-0.5) K/uL Baso # (Auto) 0.04 (0-0.2) K/uL Immature Gran # (Auto) 0.44 H (0.00-0.02) K/uL APTT (21.0-31.0) Seconds PTT Ratio Sample Site Art Line POC pH 7.20 L (7.35-7.45) POC pCO2 63 H (35-46) mmHg POC pO2 76 L (80-95) mmHg POC HCO3 25 H (19-24) yadi/L POC Total CO2 27 (24-31) mmol/L POC Base Excess -3.0 (-9-1.8) yadi/L ABG pH (Temp Correct) 7.212 L (7.35-7.45) ABG pCO2 (Temp Corrct 62 H (35-46) mmHg POC ABG pO2 at Pt Temp 73 POC ABG O2 Sat 91.0 (90-95) % Dave Test NA O2 Delivery Device Ventilator POC O2 Rate 16 Minute Ventilation 8 Tidal Volume 500 PEEP 10 POC Sodium 132 L (135-144) mmol/L Sodium (136-145) mmol/L POC Potassium 5.3 H (3.3-5.0) mmol/L Potassium (3.5-5.1) mmol/L Chloride (98-107) mmol/L Carbon Dioxide (21-32) mmol/L Anion Gap (3-11) BUN (7-18) mg/dl Creatinine (0.6-1.4) mg/dl Est Cr Clr Drug Dosing ml/min Est GFR ( Amer) ml/min Est GFR (Non-Af Amer) ml/min BUN/Creatinine Ratio (10-20) Glucose (70-99) mg/dl POC Glucose (70-99) mg/dl Calcium (8.5-10.1) mg/dl Phosphorus (2.5-4.9) mg/dl Magnesium (1.8-2.4) mg/dl C-Reactive Protein 21.00 H (0-0.29) mg/dl Procalcitonin (0-0.5) ng/ml Nasal Screen MRSA (PCR) (Negative) 06/28/21 06/28/21 06/28/21 Range/Units 12:50 12:40 12:26 WBC (4.8-10.8) K/uL RBC (4.7-6.1) M/uL Hgb (14.0-18.0) g/dL POC Hgb (14.0-18.0) g/dl Hct (42-52) % POC Hct (42-52) % MCV (80-100) fL MCH (25-34) pg MCHC (32-36) g/dL RDW Std Deviation (36.4-46.3) fL RDW Coeff of Julieth (11.5-14.5) % Plt Count (130-400) K/uL MPV (7.4-10.4) fL Immature Gran % (Auto) % Neut % (Auto) % Lymph % (Auto) % [place] % (Auto) % Eos % (Auto) % Baso % (Auto) % Neut # (Auto) (1.4-6.5) K/uL Lymph # (Auto) (1.2-3.4) K/uL [place] # (Auto) (0.11-0.59) K/uL Eos # (Auto) (0-0.5) K/uL Baso # (Auto) (0-0.2) K/uL Immature Gran # (Auto) (0.00-0.02) K/uL APTT 49.3 H* (21.0-31.0) Seconds PTT Ratio 1.9 Sample Site POC pH (7.35-7.45) POC pCO2 (35-46) mmHg POC pO2 (80-95) mmHg POC HCO3 (19-24) yadi/L POC Total CO2 (24-31) mmol/L POC Base Excess (-9-1.8) yadi/L ABG pH (Temp Correct) (7.35-7.45) ABG pCO2 (Temp Corrct (35-46) mmHg POC ABG pO2 at Pt Temp POC ABG O2 Sat (90-95) % Dave Test O2 Delivery Device POC O2 Rate Minute Ventilation Tidal Volume PEEP POC Sodium (135-144) mmol/L Sodium (136-145) mmol/L POC Potassium (3.3-5.0) mmol/L Potassium (3.5-5.1) mmol/L Chloride (98-107) mmol/L Carbon Dioxide (21-32) mmol/L Anion Gap (3-11) BUN (7-18) mg/dl Creatinine (0.6-1.4) mg/dl Est Cr Clr Drug Dosing ml/min Est GFR ( Amer) ml/min Est GFR (Non-Af Amer) ml/min BUN/Creatinine Ratio (10-20) Glucose (70-99) mg/dl POC Glucose 250 H (70-99) mg/dl Calcium (8.5-10.1) mg/dl Phosphorus (2.5-4.9) mg/dl Magnesium (1.8-2.4) mg/dl C-Reactive Protein (0-0.29) mg/dl Procalcitonin (0-0.5) ng/ml Nasal Screen MRSA (PCR) Negative (Negative) 06/28/21 06/28/21 Range/Units 08:57 05:35 WBC (4.8-10.8) K/uL RBC (4.7-6.1) M/uL Hgb (14.0-18.0) g/dL POC Hgb (14.0-18.0) g/dl Hct (42-52) % POC Hct (42-52) % MCV (80-100) fL MCH (25-34) pg MCHC (32-36) g/dL RDW Std Deviation (36.4-46.3) fL RDW Coeff of Julieth (11.5-14.5) % Plt Count (130-400) K/uL MPV (7.4-10.4) fL Immature Gran % (Auto) % Neut % (Auto) % Lymph % (Auto) % [place] % (Auto) % Eos % (Auto) % Baso % (Auto) % Neut # (Auto) (1.4-6.5) K/uL Lymph # (Auto) (1.2-3.4) K/uL [place] # (Auto) (0.11-0.59) K/uL Eos # (Auto) (0-0.5) K/uL Baso # (Auto) (0-0.2) K/uL Immature Gran # (Auto) (0.00-0.02) K/uL APTT (21.0-31.0) Seconds PTT Ratio Sample Site POC pH (7.35-7.45) POC pCO2 (35-46) mmHg POC pO2 (80-95) mmHg POC HCO3 (19-24) yadi/L POC Total CO2 (24-31) mmol/L POC Base Excess (-9-1.8) yadi/L ABG pH (Temp Correct) (7.35-7.45) ABG pCO2 (Temp Corrct (35-46) mmHg POC ABG pO2 at Pt Temp POC ABG O2 Sat (90-95) % Dave Test O2 Delivery Device POC O2 Rate Minute Ventilation Tidal Volume PEEP POC Sodium (135-144) mmol/L Sodium (136-145) mmol/L POC Potassium (3.3-5.0) mmol/L Potassium (3.5-5.1) mmol/L Chloride (98-107) mmol/L Carbon Dioxide (21-32) mmol/L Anion Gap (3-11) BUN (7-18) mg/dl Creatinine (0.6-1.4) mg/dl Est Cr Clr Drug Dosing ml/min Est GFR ( Amer) ml/min Est GFR (Non-Af Amer) ml/min BUN/Creatinine Ratio (10-20) Glucose (70-99) mg/dl POC Glucose 202 H (70-99) mg/dl Calcium (8.5-10.1) mg/dl Phosphorus (2.5-4.9) mg/dl Magnesium (1.8-2.4) mg/dl C-Reactive Protein (0-0.29) mg/dl Procalcitonin 0.67 H (0-0.5) ng/ml Nasal Screen MRSA (PCR) (Negative) Coding Level of Care Code Critical Care 1st 30-74 mins Diagnoses 2019 novel coronavirus-infected pneumonia (NCIP) U07.1; J12.82 Acute respiratory failure with hypoxia J96.01 Hypervolemia E87.70 Atrial fibrillation I48.91 Atrial fibrillation type: unspecified Hypertension I10 (1) Atrial fibrillation Atrial fibrillation type: unspecified Qualified Code(s): I48.91 - Unspecified atrial fibrillation
[2021-06-29] MEDS ORDERED: bisacodyL 5 MG TABEC PO SCH (09:00)
[2021-06-29] MEDS: CEFEPIME 2,000 MG in SYRINGE 0 ML IV SCH ×2 (09:06→21:47)
[2021-06-29] MEDS: INSULIN ASPART 100 UNITS/ML 3 ML PEN SC SCH ×5 (09:07→20:07)
[2021-06-29] MEDS: FLECAINIDE ACETATE 100 MG TABLET PO SCH ×2 (09:09→20:11)
[2021-06-29] MEDS: dexAMETHasone 6 MG in SYRINGE 0 ML IV SCH (09:09)
[2021-06-29] MEDS: SENNA 8.6 MG TAB PO SCH (09:09)
[2021-06-29] MEDS: RIVAROXABAN 15 MG TAB PO SCH (10:17)
[2021-06-29] MEDS: ICU ELECTROLYTE REPLACEMENT PROTOCOL SCH ×2 (10:34→18:49)
--- NOTE | 2021-06-29 15:09 | Pharmacy Report ---
Pharmacy Glycemic Short Note 2 - Date of Service June 29, 2021 - Glycemic Short BSG Results (Last 24 hours): 06/28/21 06/28/21 06/28/21 17:12 17:13 18:56 Glucose POC Glucose 318 H* 353 H* 335 H* 06/28/21 06/28/21 06/28/21 20:04 21:06 22:09 Glucose POC Glucose 276 H 297 H 276 H 06/28/21 06/29/21 06/29/21 22:55 00:05 01:00 Glucose POC Glucose 243 H 206 H 172 H 06/29/21 06/29/21 06/29/21 02:07 03:08 04:07 Glucose POC Glucose 150 H 128 H 102 H 06/29/21 06/29/21 06/29/21 05:15 06:01 07:03 Glucose 86 POC Glucose 115 H 102 H 06/29/21 06/29/21 06/29/21 07:16 08:29 08:47 Glucose POC Glucose 101 H 87 82 06/29/21 06/29/21 06/29/21 09:05 09:33 10:15 Glucose POC Glucose 87 97 129 H 06/29/21 06/29/21 11:26 12:52 Glucose POC Glucose 124 H 129 H OUTPATIENT ANTIDIABETIC REGIMEN: * N/A * a1c 7.4% ASSESSMENT: 06/29: * Patient's BSG climbed up above 300 mg/dl yesterday evening. Insulin drip was started. * Insulin drip ran for around 8 hrs at an average of 8 units/hr. In addition pt received 20 units of Lantus and 19 units of Novolog bolus yesterday. * Patient needs estimated to be around 200 units of insulin per 24 hrs based on above. * Fasting BSG today was down to 101 mg/dl. Lantus 65 units x 1 dose given this AM. HS Lantus dose scale ordered based on BSG. * Currently on Peptamen tube feeds at rate of 10 ml/hr only. Novolog Q4h ordered to cover for tube feed. * Insulin drip rate was down to 3.1 this afternoon and BSG at goal. Drip was discontinued. * Novolog correction factor ordered starting at 16:00. * Patient continues to be IV Dexamethasone Q24h. Background 06/28/21: * Patient admitted with COVID-19, no documented previous diagnosis of diabetes, A1c indicates diabetes * Patient intubated this morning, currently paralyzed with nimbex, sedated with propofol, fentanyl * BSGs have been running in the low to mid 200s since admission, patient was ordered a diet previously with a loose sliding scale * Patient now NPO, will tighten novolog to weight based stress of 3, administer 20 units of lantus (very conservative). If BSGs remain elevated may need to start insulin infusion. PLAN FOR INPATIENT GLYCEMIC CONTROL: * Hold outpatient oral diabetes medications * Basal insulin * Lantus 65 units x 1 this AM * Lantus 20-30 units scale at HS based on BSG * Bolus insulin * NovoLog per scale Q4H * Goal Range: Low 120 mg/dL - High 150 mg/dL * Correction Factor: 15 mg/dL/unit * Nutritional / Prandial insulin per carb ratio of 1 unit per 4 grams CHO consumed to cover Peptamen tube feeds.
[2021-06-29] MEDS: LANSOPRAZOLE 30 MG SOLTAB PO SCH (16:04)
--- NOTE | 2021-06-29 16:44 | Hospitalist Progress Note ---
Date of Service June 29, 2021 Assessment & Plan (1) Acute respiratory failure with hypoxia: Plan: 75 y/o male w/ afib on xarelto who presents w/ covid PNA, day 9 of symptoms (06/17/21 onset). Pt with rapid excalation to high flow then to bipap at 100% oxygen still with desaturations, decision to intubate 06/28, now on vent and proned able to reduce fio2 - no remdesivir because of gfr <30, continue to assess if renal function improves - otherwise, meets criteria w/ hypoxia <94 on room air Patient meets criteria for renal dose adjusted baricitinib 2 mg daily Dexamethasone iv -Out look extremely guarded (2) 2019 novel coronavirus-infected pneumonia (NCIP): Plan: - defer remdesivir because gfr <30, SALIMA - decadron IV 6mg daily, baricitinib at this time because oxygen , renal dose adjusted -CRP 15 at persentation (3) Atrial fibrillation: Plan: -returns to home xarelto by icu team - continue home flecainide, but renally dose (half of home dose). 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 His 's first contact however his daughter, Juliana jhaveri [phone] could also be called Admission and Anticipated Discharge Date Admission Date: June 25, 2021 Subjective No overnight events, patient was initially proned, has had good reduction in Fio2, returned to supine position in the morning, remains paralysed Review of Systems Review of Systems: Unobtainable due to endotracheal tube Physical Exam Physical Exam: The patient appears appropriately sedated and paralysed Vital signs as documented. lessening oxygen supplementation Head exam is normocephalic atraumatic Neck is without JVD, thyromegaly, no stridor Lungs are coarse but good bilateral air movement Cardiac exam, Rhythm is regular.. No murmurs, rubs or gallops. Abdominal exam reveals normal bowel sounds, soft non tender, no masses Extremities are nonedematous and both pedal pulses are present Skin is without bruises or rashes Results & Data Results & Data ([facility]) Vital Signs (Past 12 Hours) Vital Signs Temp Pulse Resp BP Pulse Ox 06/29/21 15:00 52 L 20 99 06/29/21 14:30 55 L 20 98 06/29/21 14:00 97.5 F L 52 L 06/29/21 13:00 96.8 F L 47 L 20 107/55 L 89 L 06/29/21 12:00 96.8 F L 47 L 20 101/54 L 90 06/29/21 11:30 47 L 20 92 06/29/21 11:00 96.8 F L 47 L 20 104/52 L 92 06/29/21 10:00 96.8 F L 48 L 20 92 06/29/21 09:00 97.0 F L 49 L 20 97/53 L 91 06/29/21 08:00 96.6 F L 49 L 20 91 06/29/21 07:00 96.6 F L 52 L 20 115/55 L 90 06/29/21 06:51 52 L 20 96 06/29/21 05:30 97.3 F L 54 L 20 92 06/29/21 05:10 20 06/29/21 05:00 97.3 F L 59 L 20 PG Care Time/CCT Total # of Minutes Spent Total Time Spent with Patient: Total time spent is greater than 50% in coordination of care (as documented) at patient's floor/unit and/or counseling patient: Coding Level of Care Code 63933 Subseq Hosp Care Lvl 2 Diagnoses Acute respiratory failure with hypoxia J96.01 2019 novel coronavirus-infected pneumonia (NCIP) U07.1; J12.82 Atrial fibrillation I48.91 Atrial fibrillation type: unspecified SALIMA (acute kidney injury) N17.9 Hypertension I10 Blood glucose elevated R73.9 (1) Atrial fibrillation Atrial fibrillation type: unspecified Qualified Code(s): I48.91 - Unspecified atrial fibrillation
[2021-06-30] MEDS: INSULIN ASPART 100 UNITS/ML 3 ML PEN SC SCH ×7 (00:45→23:53)
[2021-06-30] MEDS: CISATRACURIUM BESYLATE 40 MG in 0.9 % SODIUM CHLORIDE 80 ML IV SCH ×4 (01:07→13:45)
[2021-06-30] MEDS: propofoL 1,000 MG/100 ML VIAL IV SCH ×6 (01:08→21:34)
[2021-06-30] MEDS: ARTIFICIAL TEARS OP OINT 3.5 GM TUBE OP SCH ×7 (02:13→23:56)
[2021-06-30 03:44] LABS: iSTAT Art Bld Gas pCO2 Correct 47 mmHg (35-46); iSTAT Art Bld Gas pH Corrected 7.313 (7.35-7.45); iSTAT Arterial Blood Gas HCO3 24 meg/L (19-24); iSTAT Arterial Blood Gas pCO2 47 mmHg (35-46); iSTAT Arterial Blood Gas pH 7.31 (7.35-7.45); iSTAT Arterial Blood Gas pO2 65 mmHg (80-95); iSTAT Arterial Blood Gas pO2 C 63; iSTAT Carbon Dioxide 25 mmol/L (24-31); iSTAT FiO2 50 %; iSTAT Hematocrit 32 % (42-52); iSTAT Hemoglobin 10.9 g/dl (14.0-18.0); iSTAT Potassium 5.4 mmol/L (3.3-5.0); iSTAT Site Art Line; iSTAT Sodium 133 mmol/L (135-144)
[2021-06-30 05:12] LABS: Basophils # (auto) 0.01 K/uL (0-0.2); Basophils % (auto) 0.1 %; Hematocrit (blood only) 33.3 % (42-52); Hemoglobin 10.9 g/dL (14.0-18.0); Immature Granulocytes # (auto) 0.35 K/uL (0.00-0.02); Lymphocytes % (auto) 6.9 %; Mean Corpuscular Hemoglobin 27.1 pg (25-34); Mean Corpuscular Hgb Conc 32.7 g/dL (32-36); Mean Corpuscular Volume 82.8 fL (80-100); Mean Platelet Volume 9.7 fL (7.4-10.4); Monocytes # (auto) 0.72 K/uL (0.11-0.59); Monocytes % (auto) 4.2 %; Neutrophils # (auto) 14.99 K/uL (1.4-6.5); Neutrophils % (auto) 86.8 %; Platelet Count 369 K/uL (130-400); RDW Coefficient of Variation 13.9 % (11.5-14.5); RDW Standard Deviation 42.4 fL (36.4-46.3); Red Blood Count 4.02 M/uL (4.7-6.1); White Blood Count 17.27 K/uL (4.8-10.8)
[2021-06-30 05:19] LABS: Partial Thromboplastin Ratio 1.1; Partial Thromboplastin Time 29.6 Seconds (21.0-31.0)
[2021-06-30 05:33] LABS: BUN Creatinine Ratio 31.9 (10-20); Calcium 8.3 mg/dl (8.5-10.1); Creatinine Clr Calc Pharmacy 27.6 ml/min; Est GFR (Non-African American) 20.7 ml/min; Magnesium 3.3 mg/dl (1.8-2.4); Phosphorus 6.1 mg/dl (2.5-4.9); Potassium 5.3 mmol/L (3.5-5.1)
[2021-06-30] MEDS: ICU ELECTROLYTE REPLACEMENT PROTOCOL SCH ×2 (05:59→18:07)
--- NOTE | 2021-06-30 07:54 | Hospitalist Progress Note ---
Date of Service June 30, 2021 Assessment & Plan (1) Acute respiratory failure with hypoxia: Plan: 75 y/o male w/ afib on xarelto who presents w/ covid PNA, day 9 of symptoms (06/17/21 onset). Pt with rapid excalation to high flow then to bipap at 100% oxygen still with desaturations, decision to intubate 06/28, now on vent and proned able to reduce fio2 - no remdesivir because of gfr <30, continue to assess if renal function improves - otherwise, meets criteria w/ hypoxia <94 on room air baricitinib daily started and stopped due to intubation Dexamethasone iv -Out look extremely guarded (2) 2019 novel coronavirus-infected pneumonia (NCIP): Plan: - defer remdesivir because gfr <30, SALIMA - decadron IV 6mg daily, baricitinib stopped when intubated -CRP 15 at presentation (3) Atrial fibrillation: Plan: -returns to home xarelto by icu team - continue home flecainide, but renally dose (half of home dose). 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 His 's first contact however his daughter, Juliana jhaveri [phone] could also be called Admission and Anticipated Discharge Date Admission Date: June 25, 2021 Subjective no events overnight, slight escalation in renal numbers prompting Nephrology consult, vent support about the same, sedated and paralysed Review of Systems Review of Systems: Unobtainable due to endotracheal tube Physical Exam Physical Exam: The patient appears appropriately sedated and paralysed Vital signs as documented. lessening oxygen supplementation Head exam is normocephalic atraumatic Neck is without JVD, thyromegaly, no stridor Lungs are coarse but good bilateral air movement Cardiac exam, Rhythm is regular.. No murmurs, rubs or gallops. Abdominal exam reveals normal bowel sounds, soft non tender, no masses Extremities are nonedematous and both pedal pulses are present Skin is without bruises or rashes Results & Data Results & Data ([facility]) Vital Signs (Past 12 Hours) Vital Signs Temp Pulse Resp BP Pulse Ox 06/30/21 05:00 98.1 F 52 L 20 98/47 L 92 06/30/21 04:00 98.1 F 52 L 20 99/46 L 90 06/30/21 03:30 52 L 20 90 06/30/21 03:00 98.1 F 54 L 20 90 06/30/21 02:28 55 L 06/30/21 02:00 98.1 F 55 L 20 101/48 L 98 06/30/21 01:00 98.1 F 58 L 20 96 06/30/21 00:00 98.1 F 54 L 20 90 06/29/21 23:34 54 L 20 91 06/29/21 23:00 98.1 F 54 L 20 91 06/29/21 22:00 98.4 F 53 L 20 90 06/29/21 21:00 52 L 20 89 L 06/29/21 20:10 52 L 20 91 06/29/21 20:00 51 L 20 91 PG Care Time/CCT Total # of Minutes Spent Total Time Spent with Patient: Total time spent is greater than 50% in coordination of care (as documented) at patient's floor/unit and/or counseling patient: Coding Level of Care Code 18421 Subseq Hosp Care Lvl 2 Diagnoses Acute respiratory failure with hypoxia J96.01 2019 novel coronavirus-infected pneumonia (NCIP) U07.1; J12.82 Atrial fibrillation I48.91 Atrial fibrillation type: unspecified SALIMA (acute kidney injury) N17.9 Hypertension I10 Blood glucose elevated R73.9 (1) Atrial fibrillation Atrial fibrillation type: unspecified Qualified Code(s): I48.91 - Unspecified atrial fibrillation
[2021-06-30] MEDS ORDERED: INSULIN GLARGINE SOLOSTAR 100 UNITS/ML 3 ML PEN SC ONE (08:00)
[2021-06-30] MEDS: dexAMETHasone 6 MG in SYRINGE 0 ML IV SCH (08:27)
[2021-06-30] MEDS: LANSOPRAZOLE 30 MG SOLTAB PO SCH (08:28)
[2021-06-30] MEDS: RIVAROXABAN 15 MG TAB PO SCH (08:28)
[2021-06-30] MEDS: FLECAINIDE ACETATE 100 MG TABLET PO SCH ×2 (08:29→20:20)
[2021-06-30] MEDS: SENNA 8.6 MG TAB PO SCH (08:29)
[2021-06-30] MEDS: fentaNYL DRIP 1,250 MCG/250 ML BAG IV SCH ×2 (08:30→21:35)
[2021-06-30] MEDS: CEFEPIME 2,000 MG in SYRINGE 0 ML IV SCH (08:33)
--- NOTE | 2021-06-30 09:06 | XRay Report ---
XR chest 1V portable CLINICAL HISTORY: tube placement TECHNIQUE: Single frontal radiograph of the chest was obtained. Comparison: Comparison is made to chest one view 06/29/2021 FINDINGS: Endotracheal tube measures 42 cm from the sue, essentially unchanged from prior exam. Enteric tube tip is within the stomach. The cardiomediastinal silhouette is normal. Bilateral airspace opacities are more conspicuous than on the prior exam. No pneumothorax or right effusion. There is likely left pleural effusion. IMPRESSION: 1. Satisfactory position of endotracheal and enteric tubes. 2. Bilateral airspace opacities are more conspicuous than on the prior exam. 3. Stable left pleural effusion. ACT 112: Negative or not required by law. Electronically signed by: Elias Gatica M.D. 06/30/2021 9:05 AM
[2021-06-30] MEDS ORDERED: FUROSEMIDE 40 MG in SYRINGE 0 ML IV ONE (10:45)
--- NOTE | 2021-06-30 11:01 | Nephrology Consultation ---
Date of Consultation June 30, 2021 Assessment & Plan (1) SALIMA (acute kidney injury): Clinically consistent with ATN. Non-oliguric. Baseline reported normal but creatinine not available. UA on admission demonstrating microscopic hematuria, proteinuria, and hyaline casts. Repeat UA/micro requested at this time. Rodney No emergent indication for dialysis. Furosemide 40 mg IV provided this AM to encourage urine output and kaluresis. Continue diuretics to encouraged even to slightly negative fluid balance. Medications appropriate for kidney function. Dose reduction of cefepime may be considered. (2) 2019 novel coronavirus-infected pneumonia (NCIP): Remains on Baricitinib renally dosed and Decadron. Cefepime dose adjustment may be considered. Prognosis is unfortunately guarded. (3) Hypertension: BP low but acceptable. Lisinopril held. History of Present Illness Reason for Consultation: SALIMA Requesting Physician: Aly Bar MD Attending Physician: Aly Bar MD History of Present Illness Mr. Geronimo Mcclain is a 75-year-old male with hypertension and atrial fibrillation admitted to [facility] on June 25 with COVID pneumonia. Geronimo limon page to the hospital with >1 week symptoms of shortness of breath, fevers, and cough. Unfortunately by June 30, his condition had progressed requiring intubation and mechanical ventilation. Geronimo remains on ventilator support, sedated, and paralyzed in the ICU this morning. I discussed his condition and reviewed the plan of care in detail with the bedside nurse and Dr. Chiang this AM. Creatinine on admission was 2.4 mg/dL. No verifiable baseline at this time but reported normal kidney function previously. Creatinine is now 2.8 mg/dL. Potassium slightly elevated at 5.4 mmol/L. Urine output >800 ml in the last shift. Net fluid balance for admission documented at +1.6 L. Geronimo has not been on diuretics. CXR demonstrating persistent BL airspace opacities and a stable left pleural effusion. Treatment includes cefepime, Baricitinib, and Decadron. Geronimo was reported to have take a small amount of Motrin prior to admission. Allergies Allergy/AdvReac Type Severity Reaction Status Date / Time No Known Allergies Allergy Unverified 06/25/21 17:54 Home Medications Medication Instructions Recorded Confirmed Type amlodipine 10 mg tablet (Norvasc) 10 mg PO QAM 06/25/21 06/25/21 History flecainide 50 mg tablet 50 mg PO Q12H 06/25/21 06/25/21 History lisinopril 5 mg tablet (Zestril) 5 mg PO QAM 06/25/21 06/25/21 History metoprolol succinate 25 mg 25 mg PO QAM 06/25/21 06/25/21 History tablet,extended release 24 hr (Toprol XL) rivaroxaban 20 mg tablet (Xarelto) 20 mg PO PM 06/25/21 06/25/21 History Patient History Medical History Atrial fibrillation Hypertension Surgical History H/O hernia repair H/O right knee surgery Social History Smoking Status: Never smoker Hx Alcohol Use: No Hx Substance Use: No Preferred Language: [place] Transport Technician Required: No Beliefs That Will Affect Care: None Current Living Situation: Spouse Other Information That Helps Us Care for You: No Feels Safe at Home: Yes Safety Concerns: Feels Safe At This Time Assistive Devices: Oxygen - Continuous Review of Systems Review of Systems: Unobtainable due to endotracheal tube Physical Exam Constitutional: well developed and + mechanically ventilated Eyes: + anicteric sclerae; no corneal abnormality Neck: normal visual inspection and trachea midline Respiratory: Auscultation: lungs clear to auscultation bilaterally, + rhonchi and + bronchovesicular breath sounds Cardiovascular: Rate/Rhythm: + bradycardic Heart Sounds: normal S1 and normal S2 Extremities: + pedal edema Gastrointestinal (Abdomen): Inspection/Auscultation: + abdomen distended Percussion/Palpation: abdomen soft and + dullness to percussion; abdomen not rigid Musculoskeletal: Extremities: no cyanosis and no clubbing Skin: normal turgor; no lesions Neurologic: Motor/Sensory: + abnormal movement (paralyzed) Genitourinary: Stevens with yellow urine in bag Results & Data ([facility]) Vital Signs (Past 12 Hours) Vital Signs Temp Pulse Resp BP Pulse Ox Pulse Ox 06/30/21 10:00 56 L 20 94 06/30/21 09:00 55 L 20 93 06/30/21 08:21 50 L 20 90 06/30/21 08:00 50 L 20 92 92 06/30/21 07:00 51 L 20 91 06/30/21 06:00 52 L 20 92 06/30/21 05:00 36.7 C 52 L 20 98/47 L 92 06/30/21 04:00 36.7 C 52 L 20 99/46 L 90 06/30/21 03:30 52 L 20 90 06/30/21 03:00 36.7 C 54 L 20 90 06/30/21 02:28 55 L 06/30/21 02:00 36.7 C 55 L 20 101/48 L 98 06/30/21 01:00 36.7 C 58 L 20 96 06/30/21 00:00 36.7 C 54 L 20 90 06/29/21 23:34 54 L 20 91 Laboratory Results Laboratory Results - last 24 hr 06/29/21 06/29/21 06/29/21 11:26 12:52 15:38 WBC RBC Hgb POC Hgb Hct POC Hct MCV MCH MCHC RDW Std Deviation RDW Coeff of Julieth Plt Count MPV Immature Gran % (Auto) Neut % (Auto) Lymph % (Auto) [place] % (Auto) Eos % (Auto) Baso % (Auto) Neut # (Auto) Lymph # (Auto) [place] # (Auto) Eos # (Auto) Baso # (Auto) Immature Gran # (Auto) APTT PTT Ratio Sample Site POC pH POC pCO2 POC pO2 POC HCO3 POC Total CO2 POC Base Excess ABG pH (Temp Correct) ABG pCO2 (Temp Corrct POC ABG pO2 at Pt Temp POC ABG O2 Sat Dave Test O2 Delivery Device POC O2 Rate POC FiO2 Tidal Volume PEEP POC Sodium Sodium POC Potassium Potassium Chloride Carbon Dioxide Anion Gap BUN Creatinine Est Cr Clr Drug Dosing Est GFR ( Amer) Est GFR (Non-Af Amer) BUN/Creatinine Ratio Glucose POC Glucose 124 H 129 H 171 H Calcium Phosphorus Magnesium 06/29/21 06/30/21 06/30/21 20:02 00:41 03:32 WBC RBC Hgb POC Hgb 10.9 L Hct POC Hct 32 L MCV MCH MCHC RDW Std Deviation RDW Coeff of Julieth Plt Count MPV Immature Gran % (Auto) Neut % (Auto) Lymph % (Auto) [place] % (Auto) Eos % (Auto) Baso % (Auto) Neut # (Auto) Lymph # (Auto) [place] # (Auto) Eos # (Auto) Baso # (Auto) Immature Gran # (Auto) APTT PTT Ratio Sample Site Art Line POC pH 7.31 L POC pCO2 47 H POC pO2 65 L POC HCO3 24 POC Total CO2 25 POC Base Excess -3.0 ABG pH (Temp Correct) 7.313 L ABG pCO2 (Temp Corrct 47 H POC ABG pO2 at Pt Temp 63 POC ABG O2 Sat 90.0 Dave Test NA O2 Delivery Device Ventilator POC O2 Rate 20 POC FiO2 50 Tidal Volume 500 PEEP 14 POC Sodium 133 L Sodium POC Potassium 5.4 H Potassium Chloride Carbon Dioxide Anion Gap BUN Creatinine Est Cr Clr Drug Dosing Est GFR ( Amer) Est GFR (Non-Af Amer) BUN/Creatinine Ratio Glucose POC Glucose 207 H 204 H Calcium Phosphorus Magnesium 06/30/21 06/30/21 06/30/21 03:43 04:50 04:50 WBC RBC Hgb POC Hgb Hct POC Hct MCV MCH MCHC RDW Std Deviation RDW Coeff of Julieth Plt Count MPV Immature Gran % (Auto) Neut % (Auto) Lymph % (Auto) [place] % (Auto) Eos % (Auto) Baso % (Auto) Neut # (Auto) Lymph # (Auto) [place] # (Auto) Eos # (Auto) Baso # (Auto) Immature Gran # (Auto) APTT 29.6 PTT Ratio 1.1 Sample Site POC pH POC pCO2 POC pO2 POC HCO3 POC Total CO2 POC Base Excess ABG pH (Temp Correct) ABG pCO2 (Temp Corrct POC ABG pO2 at Pt Temp POC ABG O2 Sat Dave Test O2 Delivery Device POC O2 Rate POC FiO2 Tidal Volume PEEP POC Sodium Sodium 132 L POC Potassium Potassium 5.3 H D Chloride 103 Carbon Dioxide 23 Anion Gap 6.0 BUN 90 H Creatinine 2.83 H Est Cr Clr Drug Dosing 27.6 Est GFR ( Amer) 24.0 Est GFR (Non-Af Amer) 20.7 BUN/Creatinine Ratio 31.9 H Glucose 184 H POC Glucose 169 H Calcium 8.3 L Phosphorus 6.1 H Magnesium 3.3 H 06/30/21 06/30/21 04:50 08:10 WBC 17.27 H RBC 4.02 L Hgb 10.9 L POC Hgb Hct 33.3 L POC Hct MCV 82.8 MCH 27.1 MCHC 32.7 RDW Std Deviation 42.4 RDW Coeff of Julieth 13.9 Plt Count 369 MPV 9.7 Immature Gran % (Auto) 2.0 Neut % (Auto) 86.8 Lymph % (Auto) 6.9 [place] % (Auto) 4.2 Eos % (Auto) 0.0 Baso % (Auto) 0.1 Neut # (Auto) 14.99 H Lymph # (Auto) 1.20 [place] # (Auto) 0.72 H Eos # (Auto) 0.00 Baso # (Auto) 0.01 Immature Gran # (Auto) 0.35 H APTT PTT Ratio Sample Site POC pH POC pCO2 POC pO2 POC HCO3 POC Total CO2 POC Base Excess ABG pH (Temp Correct) ABG pCO2 (Temp Corrct POC ABG pO2 at Pt Temp POC ABG O2 Sat Dave Test O2 Delivery Device POC O2 Rate POC FiO2 Tidal Volume PEEP POC Sodium Sodium POC Potassium Potassium Chloride Carbon Dioxide Anion Gap BUN Creatinine Est Cr Clr Drug Dosing Est GFR ( Amer) Est GFR (Non-Af Amer) BUN/Creatinine Ratio Glucose POC Glucose 164 H Calcium Phosphorus Magnesium PG Care Time/CCT Total # of Minutes Spent Total Time Spent with Patient: Total time spent is greater than 50% in coordination of care (as documented) at patient's floor/unit and/or counseling patient: Coding Level of Care Code 49443 Inpt Consult Level 4 Diagnoses SALIMA (acute kidney injury) N17.9 2019 novel coronavirus-infected pneumonia (NCIP) U07.1; J12.82 Hypertension I10
[2021-06-30] MEDS: PEPTAMEN INTENSE VHP 1.0 CAL 1,000 ML BAG GT SCH (12:50)
--- NOTE | 2021-06-30 14:05 | Critical Care Progress Note ---
Date of Service June 30, 2021 Assessment & Plan (1) 2019 novel coronavirus-infected pneumonia (NCIP): Plan: Reason Critically Ill: 75-year-old male with history of atrial fibrillation on Eliquis and flecainide, hypertension, likely underlying CKD who presented with COVID-19 pneumonia. Requires ICU level care for intensive management of his respiratory status and mechanical ventilation. Neuro - Sedation: Propofol NMB: Nimbex Analgesia: Fentanyl Cardiac - Atrial fibrillation: * Rate controlled at present * Continue renally dosed flecainide, continue metoprolol *Transition back to Xarelto to minimize additional fluids. Hypertension: Stable at present. * Hold lisinopril in setting of SALIMA. * Continue amlodipine. Respiratory - Acute hypoxic respiratory failure: Primarily due to COVID-19 pneumonia. Continue dexamethasone, as outlined below. See ID. Accelerated respiratory decline now requiring ETT with mechanical ventilation Cannot rule out pulmonary bacterial superinfection at this time based on CXR. Continue cefepime for now, initiated 06/27. Patient appropriately anticoagulated, lower concern for PE at this time GI -trickle tube feeds RENAL/LYTES - Baseline Cr, CrCl unknown. Since arrival Cr 2.3 - 2.5. Possibly underlying CKD. Patient does not know of such history. Hold ACEI. Avoid nephrotoxic medications. Function stable despite diuresis. -Worsening renal function renal consult -40 mg Lasix x1 - Stevens. Monitor I&Os. ENDO - No history of DM or thyroid disease. ICU hyperglycemia protocol. HEME - Stable H&H. ID - COVID-19 pneumonia, likely superimposed with ARDS Patient is not a candidate for remdesivir given CrCl < 30 Discontinue baricitinib given ETT w/ MV now Continue dexamethasone 6 mg X 10 days (initiated 06/26) Lasix 20 mg IV daily Prone patient. INTEGUMENTARY - No acute needs LINES/IV ACCESS - RIGHT Subclavian CVC, LEFT A-line, ETT, PIV DVT PROPHYLAXIS -Xarelto (2) Acute respiratory failure with hypoxia: (3) Hypervolemia: (4) Atrial fibrillation: (5) Hypertension: Admission and Anticipated Discharge Date Admission Date: June 25, 2021 Supervising Physician Co-Signing Physician Notes I have personally spent 40 minutes of critical care time in the direct management of this patient. This is a life/limb threatening event. This includes time spent evaluating patient, direct bedside care, chart review, placing orders, interpretation of diagnostic studies, discussion with consultants, patient, and/or family members regarding treatment decisions, as well as other required patient management activities. This time is exclusive of all separately billable procedures, and teaching time and separate from and in addition to any other critical care service time. Subjective No overnight events Review of Systems Review of Systems: Unobtainable due to endotracheal tube Physical Exam Physical Exam: General: Sedated. nontoxic. Skin: Warm, dry, Head: Atraumatic Ears, nose, mouth and throat: airway obscured by endotracheal tube Cardiovascular: Normal peripheral perfusion Respiratory: Ventilator settings reviewed Gastrointestinal: Non distended Musculoskeletal: No deformity Results & Data Results & [facility]) Vital Signs (Past 12 Hours) Vital Signs Temp Pulse Resp BP Pulse Ox Pulse Ox 06/30/21 12:06 20 06/30/21 12:00 36.6 C 51 L 20 93 06/30/21 11:00 36.6 C 53 L 20 92 06/30/21 10:00 56 L 20 94 06/30/21 09:00 55 L 20 93 06/30/21 08:21 50 L 20 90 06/30/21 08:00 50 L 20 92 92 06/30/21 07:00 51 L 20 91 06/30/21 06:00 52 L 20 92 06/30/21 05:00 36.7 C 52 L 20 98/47 L 92 06/30/21 04:00 36.7 C 52 L 20 99/46 L 90 06/30/21 03:30 52 L 20 90 06/30/21 03:00 36.7 C 54 L 20 90 06/30/21 02:28 55 L Laboratory Results 06/30/21 06/30/21 06/30/21 Range/Units 15:48 11:21 08:10 WBC (4.8-10.8) K/uL RBC (4.7-6.1) M/uL Hgb (14.0-18.0) g/dL POC Hgb (14.0-18.0) g/dl Hct (42-52) % POC Hct (42-52) % MCV (80-100) fL MCH (25-34) pg MCHC (32-36) g/dL RDW Std Deviation (36.4-46.3) fL RDW Coeff of Julieth (11.5-14.5) % Plt Count (130-400) K/uL MPV (7.4-10.4) fL Immature Gran % (Auto) % Neut % (Auto) % Lymph % (Auto) % [place] % (Auto) % Eos % (Auto) % Baso % (Auto) % Neut # (Auto) (1.4-6.5) K/uL Lymph # (Auto) (1.2-3.4) K/uL [place] # (Auto) (0.11-0.59) K/uL Eos # (Auto) (0-0.5) K/uL Baso # (Auto) (0-0.2) K/uL Immature Gran # (Auto) (0.00-0.02) K/uL APTT (21.0-31.0) Seconds PTT Ratio Sample Site POC pH (7.35-7.45) POC pCO2 (35-46) mmHg POC pO2 (80-95) mmHg POC HCO3 (19-24) yadi/L POC Total CO2 (24-31) mmol/L POC Base Excess (-9-1.8) yadi/L ABG pH (Temp Correct) (7.35-7.45) ABG pCO2 (Temp Corrct (35-46) mmHg POC ABG pO2 at Pt Temp POC ABG O2 Sat (90-95) % Dave Test O2 Delivery Device POC O2 Rate POC FiO2 % Tidal Volume PEEP POC Sodium (135-144) mmol/L Sodium (136-145) mmol/L POC Potassium (3.3-5.0) mmol/L Potassium (3.5-5.1) mmol/L Chloride (98-107) mmol/L Carbon Dioxide (21-32) mmol/L Anion Gap (3-11) BUN (7-18) mg/dl Creatinine (0.6-1.4) mg/dl Est Cr Clr Drug Dosing ml/min Est GFR ( Amer) ml/min Est GFR (Non-Af Amer) ml/min BUN/Creatinine Ratio (10-20) Glucose (70-99) mg/dl POC Glucose 171 H 149 H 164 H (70-99) mg/dl Calcium (8.5-10.1) mg/dl Phosphorus (2.5-4.9) mg/dl Magnesium (1.8-2.4) mg/dl 06/30/21 06/30/21 06/30/21 Range/Units 04:50 04:50 04:50 WBC 17.27 H (4.8-10.8) K/uL RBC 4.02 L (4.7-6.1) M/uL Hgb 10.9 L (14.0-18.0) g/dL POC Hgb (14.0-18.0) g/dl Hct 33.3 L (42-52) % POC Hct (42-52) % MCV 82.8 (80-100) fL MCH 27.1 (25-34) pg MCHC 32.7 (32-36) g/dL RDW Std Deviation 42.4 (36.4-46.3) fL RDW Coeff of Julieth 13.9 (11.5-14.5) % Plt Count 369 (130-400) K/uL MPV 9.7 (7.4-10.4) fL Immature Gran % (Auto) 2.0 % Neut % (Auto) 86.8 % Lymph % (Auto) 6.9 % Dolores % (Auto) 4.2 % Eos % (Auto) 0.0 % Baso % (Auto) 0.1 % Neut # (Auto) 14.99 H (1.4-6.5) K/uL Lymph # (Auto) 1.20 (1.2-3.4) K/uL [place] # (Auto) 0.72 H (0.11-0.59) K/uL Eos # (Auto) 0.00 (0-0.5) K/uL Baso # (Auto) 0.01 (0-0.2) K/uL Immature Gran # (Auto) 0.35 H (0.00-0.02) K/uL APTT 29.6 (21.0-31.0) Seconds PTT Ratio 1.1 Sample Site POC pH (7.35-7.45) POC pCO2 (35-46) mmHg POC pO2 (80-95) mmHg POC HCO3 (19-24) yadi/L POC Total CO2 (24-31) mmol/L POC Base Excess (-9-1.8) yadi/L ABG pH (Temp Correct) (7.35-7.45) ABG pCO2 (Temp Corrct (35-46) mmHg POC ABG pO2 at Pt Temp POC ABG O2 Sat (90-95) % Dave Test O2 Delivery Device POC O2 Rate POC FiO2 % Tidal Volume PEEP POC Sodium (135-144) mmol/L Sodium 132 L (136-145) mmol/L POC Potassium (3.3-5.0) mmol/L Potassium 5.3 H D (3.5-5.1) mmol/L Chloride 103 (98-107) mmol/L Carbon Dioxide 23 (21-32) mmol/L Anion Gap 6.0 (3-11) BUN 90 H (7-18) mg/dl Creatinine 2.83 H (0.6-1.4) mg/dl Est Cr Clr Drug Dosing 27.6 ml/min Est GFR ( Amer) 24.0 ml/min Est GFR (Non-Af Amer) 20.7 ml/min BUN/Creatinine Ratio 31.9 H (10-20) Glucose 184 H (70-99) mg/dl POC Glucose (70-99) mg/dl Calcium 8.3 L (8.5-10.1) mg/dl Phosphorus 6.1 H (2.5-4.9) mg/dl Magnesium 3.3 H (1.8-2.4) mg/dl 06/30/21 06/30/21 06/30/21 Range/Units 03:43 03:32 00:41 WBC (4.8-10.8) K/uL RBC (4.7-6.1) M/uL Hgb (14.0-18.0) g/dL POC Hgb 10.9 L (14.0-18.0) g/dl Hct (42-52) % POC Hct 32 L (42-52) % MCV (80-100) fL MCH (25-34) pg MCHC (32-36) g/dL RDW Std Deviation (36.4-46.3) fL RDW Coeff of Julieth (11.5-14.5) % Plt Count (130-400) K/uL MPV (7.4-10.4) fL Immature Gran % (Auto) % Neut % (Auto) % Lymph % (Auto) % [place] % (Auto) % Eos % (Auto) % Baso % (Auto) % Neut # (Auto) (1.4-6.5) K/uL Lymph # (Auto) (1.2-3.4) K/uL [place] # (Auto) (0.11-0.59) K/uL Eos # (Auto) (0-0.5) K/uL Baso # (Auto) (0-0.2) K/uL Immature Gran # (Auto) (0.00-0.02) K/uL APTT (21.0-31.0) Seconds PTT Ratio Sample Site Art Line POC pH 7.31 L (7.35-7.45) POC pCO2 47 H (35-46) mmHg POC pO2 65 L (80-95) mmHg POC HCO3 24 (19-24) yadi/L POC Total CO2 25 (24-31) mmol/L POC Base Excess -3.0 (-9-1.8) yadi/L ABG pH (Temp Correct) 7.313 L (7.35-7.45) ABG pCO2 (Temp Corrct 47 H (35-46) mmHg POC ABG pO2 at Pt Temp 63 POC ABG O2 Sat 90.0 (90-95) % Dave Test NA O2 Delivery Device Ventilator POC O2 Rate 20 POC FiO2 50 % Tidal Volume 500 PEEP 14 POC Sodium 133 L (135-144) mmol/L Sodium (136-145) mmol/L POC Potassium 5.4 H (3.3-5.0) mmol/L Potassium (3.5-5.1) mmol/L Chloride (98-107) mmol/L Carbon Dioxide (21-32) mmol/L Anion Gap (3-11) BUN (7-18) mg/dl Creatinine (0.6-1.4) mg/dl Est Cr Clr Drug Dosing ml/min Est GFR ( Amer) ml/min Est GFR (Non-Af Amer) ml/min BUN/Creatinine Ratio (10-20) Glucose (70-99) mg/dl POC Glucose 169 H 204 H (70-99) mg/dl Calcium (8.5-10.1) mg/dl Phosphorus (2.5-4.9) mg/dl Magnesium (1.8-2.4) mg/dl 06/29/21 Range/Units 20:02 WBC (4.8-10.8) K/uL RBC (4.7-6.1) M/uL Hgb (14.0-18.0) g/dL POC Hgb (14.0-18.0) g/dl Hct (42-52) % POC Hct (42-52) % MCV (80-100) fL MCH (25-34) pg MCHC (32-36) g/dL RDW Std Deviation (36.4-46.3) fL RDW Coeff of Julieth (11.5-14.5) % Plt Count (130-400) K/uL MPV (7.4-10.4) fL Immature Gran % (Auto) % Neut % (Auto) % Lymph % (Auto) % [place] % (Auto) % Eos % (Auto) % Baso % (Auto) % Neut # (Auto) (1.4-6.5) K/uL Lymph # (Auto) (1.2-3.4) K/uL [place] # (Auto) (0.11-0.59) K/uL Eos # (Auto) (0-0.5) K/uL Baso # (Auto) (0-0.2) K/uL Immature Gran # (Auto) (0.00-0.02) K/uL APTT (21.0-31.0) Seconds PTT Ratio Sample Site POC pH (7.35-7.45) POC pCO2 (35-46) mmHg POC pO2 (80-95) mmHg POC HCO3 (19-24) yadi/L POC Total CO2 (24-31) mmol/L POC Base Excess (-9-1.8) yadi/L ABG pH (Temp Correct) (7.35-7.45) ABG pCO2 (Temp Corrct (35-46) mmHg POC ABG pO2 at Pt Temp POC ABG O2 Sat (90-95) % Dave Test O2 Delivery Device POC O2 Rate POC FiO2 % Tidal Volume PEEP POC Sodium (135-144) mmol/L Sodium (136-145) mmol/L POC Potassium (3.3-5.0) mmol/L Potassium (3.5-5.1) mmol/L Chloride (98-107) mmol/L Carbon Dioxide (21-32) mmol/L Anion Gap (3-11) BUN (7-18) mg/dl Creatinine (0.6-1.4) mg/dl Est Cr Clr Drug Dosing ml/min Est GFR ( Amer) ml/min Est GFR (Non-Af Amer) ml/min BUN/Creatinine Ratio (10-20) Glucose (70-99) mg/dl POC Glucose 207 H (70-99) mg/dl Calcium (8.5-10.1) mg/dl Phosphorus (2.5-4.9) mg/dl Magnesium (1.8-2.4) mg/dl Coding Level of Care Code Critical Care 1st 30-74 mins Diagnoses 2019 novel coronavirus-infected pneumonia (NCIP) U07.1; J12.82 Acute respiratory failure with hypoxia J96.01 Hypervolemia E87.70 Atrial fibrillation I48.91 Atrial fibrillation type: unspecified Hypertension I10 (1) Atrial fibrillation Atrial fibrillation type: unspecified Qualified Code(s): I48.91 - Unspecified atrial fibrillation
--- NOTE | 2021-06-30 14:38 | Pharmacy Report ---
Pharmacy Glycemic Short Note 2 - Date of Service June 30, 2021 - Glycemic Short BSG Results (Last 24 hours): 06/29/21 06/29/21 06/30/21 15:38 20:02 00:41 Glucose POC Glucose 171 H 207 H 204 H 06/30/21 06/30/21 06/30/21 03:43 04:50 08:10 Glucose 184 H POC Glucose 169 H 164 H 06/30/21 11:21 Glucose POC Glucose 149 H OUTPATIENT ANTIDIABETIC REGIMEN: * N/A * a1c 7.4% ASSESSMENT: 06/30: * Pt received total of 95 units of just basal insulin yesterday in addition to 13 units of bolus and the insulin drip. * After the insulin drip was discontinued yesterday, the BSGs trended up to 207 last night. * Fasting BSG today was 184 mg/dl. Basal insulin decreased 15% this AM to prevent hypoglycemia since patient only getting trickle feeds with peptamen and serum creatinine worsening. Novolog correction factor tightened. * Basal HS dose continued on a scale based on BSG. 06/29: * Patient's BSG climbed up above 300 mg/dl yesterday evening. Insulin drip was started. * Insulin drip ran for around 8 hrs at an average of 8 units/hr. In addition pt received 20 units of Lantus and 19 units of Novolog bolus yesterday. * Patient needs estimated to be around 200 units of insulin per 24 hrs based on above. * Fasting BSG today was down to 101 mg/dl. Lantus 65 units x 1 dose given this AM. HS Lantus dose scale ordered based on BSG. * Currently on Peptamen tube feeds at rate of 10 ml/hr only. Novolog Q4h ordered to cover for tube feed. * Insulin drip rate was down to 3.1 this afternoon and BSG at goal. Drip was discontinued. * Novolog correction factor ordered starting at 16:00. * Patient continues to be IV Dexamethasone Q24h. Background 06/28/21: * Patient admitted with COVID-19, no documented previous diagnosis of diabetes, A1c indicates diabetes * Patient intubated this morning, currently paralyzed with nimbex, sedated with propofol, fentanyl * BSGs have been running in the low to mid 200s since admission, patient was ordered a diet previously with a loose sliding scale * Patient now NPO, will tighten novolog to weight based stress of 3, administer 20 units of lantus (very conservative). If BSGs remain elevated may need to start insulin infusion. PLAN FOR INPATIENT GLYCEMIC CONTROL: * Hold outpatient oral diabetes medications * Basal insulin * Lantus 55 units x 1 this AM * Lantus 20-30 units scale at HS based on BSG * Bolus insulin: CF tightened * NovoLog per scale Q4H * Goal Range: Low 120 mg/dL - High 150 mg/dL * Correction Factor: 10 mg/dL/unit * Nutritional / Prandial insulin per carb ratio of 1 unit per 4 grams CHO consumed to cover Peptamen tube feeds.
[2021-06-30 16:51] LABS: Calcium 8.4 mg/dl (8.5-10.1); Creatinine Clr Calc Pharmacy 29.4 ml/min; Est GFR (Non-African American) 22.4 ml/min; Potassium 5.4 mmol/L (3.5-5.1)
[2021-06-30] MEDS ORDERED: BUMETANIDE 1 MG in SYRINGE 0 ML IV ONE (18:00)
[2021-06-30] MEDS: INSULIN GLARGINE SOLOSTAR 100 UNITS/ML 3 ML PEN SC SCH (20:39)
[2021-07-01] MEDS: propofoL 1,000 MG/100 ML VIAL IV SCH ×9 (01:54→10:40)
[2021-07-01] MEDS: ARTIFICIAL TEARS OP OINT 3.5 GM TUBE OP SCH ×4 (04:13→15:49)
[2021-07-01] MEDS: INSULIN ASPART 100 UNITS/ML 3 ML PEN SC SCH ×5 (04:13→21:15)
[2021-07-01 04:47] LABS: Hemoglobin 11.7 g/dL (14.0-18.0); Mean Corpuscular Hemoglobin 27.7 pg (25-34); Mean Corpuscular Hgb Conc 33.4 g/dL (32-36); Mean Corpuscular Volume 82.9 fL (80-100); Mean Platelet Volume 9.4 fL (7.4-10.4); Platelet Count 421 K/uL (130-400); RDW Coefficient of Variation 14.1 % (11.5-14.5); RDW Standard Deviation 42.7 fL (36.4-46.3); Red Blood Count 4.22 M/uL (4.7-6.1); White Blood Count 16.02 K/uL (4.8-10.8)
[2021-07-01 04:59] LABS: Partial Thromboplastin Ratio 1.1; Partial Thromboplastin Time 28.5 Seconds (21.0-31.0)
[2021-07-01 04:59] LABS: iSTAT Art Bld Gas pCO2 Correct 47 mmHg (35-46); iSTAT Art Bld Gas pH Corrected 7.314 (7.35-7.45); iSTAT Arterial Blood Gas HCO3 24 meg/L (19-24); iSTAT Arterial Blood Gas pCO2 49 mmHg (35-46); iSTAT Arterial Blood Gas pO2 57 mmHg (80-95); iSTAT Arterial Blood Gas pO2 C 54; iSTAT Carbon Dioxide 25 mmol/L (24-31); iSTAT FiO2 35 %; iSTAT Hematocrit 34 % (42-52); iSTAT Hemoglobin 11.6 g/dl (14.0-18.0); iSTAT Potassium 5.1 mmol/L (3.3-5.0); iSTAT Site Art Line; iSTAT Sodium 134 mmol/L (135-144)
[2021-07-01 05:03] LABS: BUN Creatinine Ratio 38.9 (10-20); Calcium 8.4 mg/dl (8.5-10.1); Creatinine Clr Calc Pharmacy 28.6 ml/min; Est GFR (African American) 25.1 ml/min; Est GFR (Non-African American) 21.6 ml/min; Magnesium 3.5 mg/dl (1.8-2.4); Phosphorus 6.1 mg/dl (2.5-4.9); Potassium 5.1 mmol/L (3.5-5.1)
[2021-07-01 05:54] LABS: Basophils # (auto) 0.02 K/uL (0-0.2); Basophils % (auto) 0.1 %; Eosinophils # (auto) 0.01 K/uL (0-0.5); Eosinophils % (auto) 0.1 %; Immature Granulocytes # (auto) 0.97 K/uL (0.00-0.02); Immature Granulocytes % (auto) 6.1 %; Lymphocytes # (auto) 1.47 K/uL (1.2-3.4); Lymphocytes % (auto) 9.2 %; Neutrophils # (auto) 12.75 K/uL (1.4-6.5); Neutrophils % (auto) 79.5 %; RBC Morphology Unremarkable
[2021-07-01] MEDS: fentaNYL DRIP 1,250 MCG/250 ML BAG IV SCH ×3 (06:05→16:21)
[2021-07-01] MEDS: ICU ELECTROLYTE REPLACEMENT PROTOCOL SCH ×2 (06:07→18:29)
[2021-07-01] MEDS ORDERED: STAT IV Infusion **Titration per Protocol STA (06:28)
[2021-07-01] MEDS: MIDAZOLAM HCL 125 MG/250 ML BAG IV SCH (06:41)
[2021-07-01] MEDS ORDERED: CEFEPIME 2,000 MG in SYRINGE 0 ML IV SCH (08:00)
[2021-07-01] MEDS: FLECAINIDE ACETATE 100 MG TABLET PO SCH ×2 (08:13→21:02)
[2021-07-01] MEDS: RIVAROXABAN 15 MG TAB PO SCH (08:14)
[2021-07-01] MEDS: SENNA 8.6 MG TAB PO SCH (08:14)
[2021-07-01] MEDS: LANSOPRAZOLE 30 MG SOLTAB PO SCH (08:14)
[2021-07-01] MEDS: dexAMETHasone 6 MG in SYRINGE 0 ML IV SCH (08:16)
--- NOTE | 2021-07-01 08:32 | XRay Report ---
SINGLE VIEW CHEST CLINICAL HISTORY: Respiratory failure. Covid pneumonia FINDINGS: An AP, portable, upright chest radiograph is compared to study dated 06/30/2021. An endotra cheal tube comment a right subclavian central venous catheter, and an enteric tube are unchanged in p osition. The heart is enlarged noting atherosclerotic calcification of the thoracic aorta. Bilateral airspace opacities are similar to previous. Small pleural effusions are noted. No pneumothorax is see n. The skeletal structures are osteopenic. The bony thorax is grossly intact. IMPRESSION: 1. Stable lines and tubes. 2. Cardiomegaly. 3. Bilateral airspace opacities are unchanged and consistent with the reported history of a viral pne [place]or[place]. Radiographic follow-up to resolution is recommended. ACT 112: Negative or not required by law. Electronically signed by: Han Schmid M.D. 07/01/2021 8:30 AM
[2021-07-01] MEDS ORDERED: INSULIN GLARGINE SOLOSTAR 100 UNITS/ML 3 ML PEN SC SCH (09:00)
[2021-07-01] MEDS: CISATRACURIUM BESYLATE 40 MG in 0.9 % SODIUM CHLORIDE 80 ML IV SCH ×2 (09:12→09:14)
[2021-07-01] MEDS ORDERED: DOCUSATE SODIUM 100 MG CAP PO ONE (10:05)
--- NOTE | 2021-07-01 10:09 | Nephrology Progress Note ---
Date of Service July 01, 2021 Assessment & Plan (1) SALIMA (acute kidney injury): Plan: Clinically consistent with ATN. Non-oliguric. Prior labs requested from PCP to help determine baseline kidney function. UA on admission demonstrating microscopic hematuria, proteinuria, and hyaline casts. Repeat UA/micro sent overnight pending. Stevens to gravity. No emergent indication for dialysis. Continue Furosemide IV provided to encourage urine output and kaluresis. Goal to encouraged even to slightly negative fluid balance. Medications appropriate for kidney function. Dose reduction of cefepime may be considered. Given renal dysfunction, may consider alternatives to rivaroxaban for anticoagulation such as switching to apixaban or heparin as needed. I updated the patient's and daughter by phone this AM. We reviewed potential future indications for dialysis. (2) 2019 novel coronavirus-infected pneumonia (NCIP): Plan: Remains Decadron. Cefepime dose adjustment may be considered. Prognosis is unfortunately guarded. (3) Hypertension: Plan: Lisinopril held. Admission and Anticipated Discharge Date Admission Date: June 25, 2021 Subjective No acute events overnight. Hemodynamics stable. Weaning sedation this AM. Adequate urine output in response to IV furosemide yesterday. Noted that urine output did slow overnight but RN reported some improvement this AM after Stevens was repositioned. Review of Systems Review of Systems: Unobtainable due to endotracheal tube Physical Exam Constitutional: well developed and + mechanically ventilated Eyes: + anicteric sclerae; no corneal abnormality Neck: normal visual inspection and trachea midline Respiratory: Auscultation: lungs clear to auscultation bilaterally, + rhonchi and + bronchovesicular breath sounds Cardiovascular: Rate/Rhythm: + bradycardic Heart Sounds: normal S1 and normal S2 Extremities: + pedal edema Gastrointestinal (Abdomen): Inspection/Auscultation: + abdomen distended Percussion/Palpation: abdomen soft and + dullness to percussion; abdomen not rigid Musculoskeletal: Extremities: no cyanosis and no clubbing Skin: normal turgor; no lesions Neurologic: Motor/Sensory: + abnormal movement (paralyzed) Genitourinary: Stevens draining yellow urine Results & Data ([facility]) Vital Signs (Past 12 Hours) Vital Signs Temp Pulse Resp Pulse Ox 07/01/21 08:10 48 L 27 H 90 07/01/21 04:00 36.1 C L 53 L 20 93 07/01/21 03:00 42 L 20 91 07/01/21 02:00 44 L 20 91 07/01/21 01:00 44 L 20 90 07/01/21 00:00 45 L 20 91 06/30/21 23:50 45 L 20 90 06/30/21 23:20 48 L 06/30/21 23:00 45 L 20 90 Laboratory Results Laboratory Results - last 24 hr 06/30/21 06/30/21 06/30/21 11:21 15:48 16:20 WBC RBC Hgb POC Hgb Hct POC Hct MCV MCH MCHC RDW Std Deviation RDW Coeff of Julieth Plt Count MPV Immature Gran % (Auto) Neut % (Auto) Lymph % (Auto) [place] % (Auto) Eos % (Auto) Baso % (Auto) Neut # (Auto) Lymph # (Auto) [place] # (Auto) Eos # (Auto) Baso # (Auto) Immature Gran # (Auto) RBC Morphology APTT PTT Ratio Sample Site POC pH POC pCO2 POC pO2 POC HCO3 POC Total CO2 POC Base Excess ABG pH (Temp Correct) ABG pCO2 (Temp Corrct POC ABG pO2 at Pt Temp POC ABG O2 Sat Dave Test O2 Delivery Device POC O2 Rate POC FiO2 Tidal Volume PEEP POC Sodium Sodium 133 L POC Potassium Potassium 5.4 H Chloride 103 Carbon Dioxide 23 Anion Gap 7.0 BUN 96 H Creatinine 2.65 H Est Cr Clr Drug Dosing 29.4 Est GFR ( Amer) 26.0 Est GFR (Non-Af Amer) 22.4 BUN/Creatinine Ratio 36.0 H Glucose 185 H POC Glucose 149 H 171 H Calcium 8.4 L Phosphorus Magnesium Triglycerides 06/30/21 06/30/21 07/01/21 20:26 23:49 04:10 WBC RBC Hgb POC Hgb Hct POC Hct MCV MCH MCHC RDW Std Deviation RDW Coeff of Julieth Plt Count MPV Immature Gran % (Auto) Neut % (Auto) Lymph % (Auto) [place] % (Auto) Eos % (Auto) Baso % (Auto) Neut # (Auto) Lymph # (Auto) [place] # (Auto) Eos # (Auto) Baso # (Auto) Immature Gran # (Auto) RBC Morphology APTT PTT Ratio Sample Site POC pH POC pCO2 POC pO2 POC HCO3 POC Total CO2 POC Base Excess ABG pH (Temp Correct) ABG pCO2 (Temp Corrct POC ABG pO2 at Pt Temp POC ABG O2 Sat Dave Test O2 Delivery Device POC O2 Rate POC FiO2 Tidal Volume PEEP POC Sodium Sodium POC Potassium Potassium Chloride Carbon Dioxide Anion Gap BUN Creatinine Est Cr Clr Drug Dosing Est GFR ( Amer) Est GFR (Non-Af Amer) BUN/Creatinine Ratio Glucose POC Glucose 168 H 168 H 168 H Calcium Phosphorus Magnesium Triglycerides 07/01/21 07/01/21 07/01/21 04:36 04:36 04:36 WBC 16.02 H RBC 4.22 L Hgb 11.7 L POC Hgb Hct 35.0 L POC Hct MCV 82.9 MCH 27.7 MCHC 33.4 RDW Std Deviation 42.7 RDW Coeff of Julieth 14.1 Plt Count 421 H MPV 9.4 Immature Gran % (Auto) 6.1 Neut % (Auto) 79.5 Lymph % (Auto) 9.2 [place] % (Auto) 5.0 Eos % (Auto) 0.1 Baso % (Auto) 0.1 Neut # (Auto) 12.75 H Lymph # (Auto) 1.47 [place] # (Auto) 0.80 H Eos # (Auto) 0.01 Baso # (Auto) 0.02 Immature Gran # (Auto) 0.97 H RBC Morphology Unremarkable APTT 28.5 PTT Ratio 1.1 Sample Site POC pH POC pCO2 POC pO2 POC HCO3 POC Total CO2 POC Base Excess ABG pH (Temp Correct) ABG pCO2 (Temp Corrct POC ABG pO2 at Pt Temp POC ABG O2 Sat Dave Test O2 Delivery Device POC O2 Rate POC FiO2 Tidal Volume PEEP POC Sodium Sodium 135 L POC Potassium Potassium 5.1 Chloride 105 Carbon Dioxide 23 Anion Gap 7.0 BUN 106 H Creatinine 2.73 H Est Cr Clr Drug Dosing 28.6 Est GFR ( Amer) 25.1 Est GFR (Non-Af Amer) 21.6 BUN/Creatinine Ratio 38.9 H Glucose 158 H POC Glucose Calcium 8.4 L Phosphorus 6.1 H Magnesium 3.5 H Triglycerides 449 H 07/01/21 07/01/21 04:41 08:27 WBC RBC Hgb POC Hgb 11.6 L Hct POC Hct 34 L MCV MCH MCHC RDW Std Deviation RDW Coeff of Julieth Plt Count MPV Immature Gran % (Auto) Neut % (Auto) Lymph % (Auto) [place] % (Auto) Eos % (Auto) Baso % (Auto) Neut # (Auto) Lymph # (Auto) [place] # (Auto) Eos # (Auto) Baso # (Auto) Immature Gran # (Auto) RBC Morphology APTT PTT Ratio Sample Site Art Line POC pH 7.30 L POC pCO2 49 H POC pO2 57 L POC HCO3 24 POC Total CO2 25 POC Base Excess -2.0 ABG pH (Temp Correct) 7.314 L ABG pCO2 (Temp Corrct 47 H POC ABG pO2 at Pt Temp 54 POC ABG O2 Sat 86.0 L Dave Test NA O2 Delivery Device Ventilator POC O2 Rate 20 POC FiO2 35 Tidal Volume 500 PEEP 14 POC Sodium 134 L Sodium POC Potassium 5.1 H Potassium Chloride Carbon Dioxide Anion Gap BUN Creatinine Est Cr Clr Drug Dosing Est GFR ( Amer) Est GFR (Non-Af Amer) BUN/Creatinine Ratio Glucose POC Glucose 122 H Calcium Phosphorus Magnesium Triglycerides PG Care Time/CCT Total # of Minutes Spent Total Time Spent with Patient: Total time spent is greater than 50% in coordination of care (as documented) at patient's floor/unit and/or counseling patient: Coding Level of Care Code 16932 Subseq Hosp Care Lvl 3 Diagnoses SALIMA (acute kidney injury) N17.9 2019 novel coronavirus-infected pneumonia (NCIP) U07.1; J12.82 Hypertension I10
[2021-07-01] MEDS ORDERED: BUMETANIDE 1 MG in SYRINGE 0 ML IV ONE (10:30)
[2021-07-01 10:40] LABS: Appearance Urine Cloudy (Clear); Bacteria Urine Automated Negative (Negative); Bilirubin Urine Negative (Negative); Blood Urine 1+ (Negative); Color Urine Yellow; Glucose Urine UA Negative (Negative); Ketones Urine Negative (Negative); Leukocyte Esterase Urine Trace (Negative); Nitrite Urine Negative (Negative); Protein Urine Trace (Negative); Specific Gravity Urine 1.016 (1.000-1.030); Urobilinogen Urine Negative (Negative)
--- NOTE | 2021-07-01 11:10 | Critical Care Progress Note ---
Date of Service July 01, 2021 Assessment & Plan (1) ARDS (adult respiratory distress syndrome): (2) Ventilator dependence: (3) 2019 novel coronavirus-infected pneumonia (NCIP): (4) Acute respiratory failure with hypoxia: (5) Hypervolemia: (6) Atrial fibrillation: (7) Hypertension: Plan: Reason Critically Ill: 75-year-old male with history of atrial fibrillation on Eliquis and flecainide, hypertension, likely underlying CKD who presented with COVID-19 pneumonia. Requires ICU level care for intensive management of his respiratory status and mechanical ventilation. Neuro - Weaning propofol and fentanyl as able. Currently on Versed as well. We will try to keep the Versed infusion reasonably low to 3 to 4 mg/h. Triglyceride levels elevated on propofol. Propofol dose reduced from 40 mg to 20 mg continuously. Cardiac - Atrial fibrillation: Renally dosed flecainide. Will transition from Xarelto to heparin infusion tomorrow. Patient received Xarelto today. We will start heparin infusion possibly tomorrow. Hypertension: Controlled with the use of continuous sedation. Respiratory - ARDS secondary to COVID-19 pneumonia. Was previously on baricitinib, but this was discontinued when the patient was intubated. Continue 10 days of Decadron. Continue lung protective ventilation strategy. FiO2 requirements have de creased. GI -increasing tube feeds. Continue bowel regimen while on high doses of sedatives. Lansoprazole for prophylaxis. We will repeat triglyceride levels tomorrow. Likely elevated secondary to propofol. RENAL/LYTES -SALIMA. Baseline is unknown. Monitor urine output. No indication for hemodialysis at this present time. Looks fairly euvolemic. - Stevens. Monitor I&Os. ENDO - No history of DM or thyroid disease. ICU hyperglycemia protocol. HEME - Stable H&H. ID -baricitinib discontinued due to intubation. Continue Decadron. No significant concern for superimposed infection at this time. Sputum and blood cultures negative. Leukocytosis appears to have plateaued. Repeat procalcitonin trending. Will likely discontinue cefepime if procalcitonin is improving. Procalcitonin may be elevated due to SALIMA. Procalcitonin continues to be elevated, will need 7 days of cefepime. INTEGUMENTARY - No acute needs LINES/IV ACCESS - RIGHT Subclavian CVC, LEFT A-line, ETT, PIV DVT PROPHYLAXIS -Xarelto on hold. He did receive a dose of Xarelto today 07/01/2021. Will consider initiation of heparin drip tomorrow. CRITICAL CARE TIME - I have personally spent 45 minutes of critical care time in the direct management of this patient. This is a life/limb threatening event. This includes time spent evaluating patient, direct bedside care, chart review, placing orders, interpretation of diagnostic studies, discussion with consultants, patient, and family members, as well as other required patient management activities. This time is exclusive of all separately billable procedures, and teaching time and separate from and in addition to any other critical care service time. Admission and Anticipated Discharge Date Admission Date: June 25, 2021 Subjective Patient seen and examined this morning. Heavily sedated. Unable to obtain review of systems. No significant events overnight. Review of Systems Review of Systems: Unobtainable due to endotracheal tube and Unobtainable due to reduced consciousness Physical Exam Physical Exam: Constitutional: Patient intubated and sedated. No obvious distress. Eyes: Pupils are equal round and reactive to light. Conjunctivae are normal. Anicteric sclera. Ears nose, mouth and throat: Endotracheal tube in place. Neck: Trachea is midline. Visual inspection is normal. Respiratory: Coarse lung sounds on the ventilator. No wheezes. Cardiovascular: Regular rate and rhythm. No murmurs. 1+ pitting edema in the lower extremities. Gastrointestinal: Normal bowel sounds, soft, nontender and nondistended. No hepatosplenomegaly noted. Musculoskeletal: No cyanosis. Patient is able to move all extremities. Skin: No rashes, warm dry and intact. Neurologic: Difficult to assess given intubation and sedation status. Psychiatric: Unable to assess as the patient is intubated. Results & Data Results & Data ([facility]) Vital Signs (Past 12 Hours) Vital Signs Temp Pulse Resp Pulse Ox 07/01/21 08:10 48 L 27 H 90 07/01/21 04:00 97.0 F L 53 L 20 93 07/01/21 03:00 42 L 20 91 07/01/21 02:00 44 L 20 91 07/01/21 01:00 44 L 20 90 07/01/21 00:00 45 L 20 91 06/30/21 23:50 45 L 20 90 06/30/21 23:20 48 L 06/30/21 23:00 45 L 20 90 Vital signs, labs and imaging were personally reviewed Coding Level of Care Code Critical Care 1st 30-74 mins Diagnoses 2019 novel coronavirus-infected pneumonia (NCIP) U07.1; J12.82 Acute respiratory failure with hypoxia J96.01 Hypervolemia E87.70 Atrial fibrillation I48.91 Atrial fibrillation type: unspecified Hypertension I10 Ventilator dependence Z99.11 ARDS (adult respiratory distress syndrome) J80 Time Spent (min) 45 (1) Atrial fibrillation Atrial fibrillation type: unspecified Qualified Code(s): I48.91 - Unspecified atrial fibrillation
[2021-07-01 11:24] LABS: Uric Acid Crystals Urine Present (None Prsent)
[2021-07-01 11:25] LABS: Mucus Urine Present (None Prsent)
[2021-07-01] MEDS: MIDAZOLAM BOLUS FROM BAG IV PRN (11:45)
[2021-07-01] MEDS: PEPTAMEN INTENSE VHP 1.0 CAL 1,000 ML BAG GT SCH (11:54)
[2021-07-01] MEDS: TUBE FEEDING WATER FLUSH OG SCH ×2 (11:54→15:49)
--- NOTE | 2021-07-01 13:40 | Pharmacy Report ---
Pharmacy Glycemic Short Note 2 - Date of Service July 01, 2021 - Glycemic Short BSG Results (Last 24 hours): 06/30/21 06/30/21 06/30/21 15:48 16:20 20:26 Glucose 185 H POC Glucose 171 H 168 H 06/30/21 07/01/21 07/01/21 23:49 04:10 04:36 Glucose 158 H POC Glucose 168 H 168 H 07/01/21 07/01/21 08:27 11:33 Glucose POC Glucose 122 H 101 H OUTPATIENT ANTIDIABETIC REGIMEN: * N/A * a1c 7.4% ASSESSMENT: 07/01: * Pt received 97 units of insulin yesterday, 85 units of which were basal. * BSGs well controlled today. Pt received 50 units of lantus this morning and wi ll continue with a scale this evening. * TFs to begin titrating to go this aftertoon. Will monitor effects on BSG. 06/30: * Pt received total of 95 units of just basal insulin yesterday in addition to 13 units of bolus and the insulin drip. * After the insulin drip was discontinued yesterday, the BSGs trended up to 207 last night. * Fasting BSG today was 184 mg/dl. Basal insulin decreased 15% this AM to prevent hypoglycemia since patient only getting trickle feeds with peptamen and serum creatinine worsening. Novolog correction factor tightened. * Basal HS dose continued on a scale based on BSG. 06/29: * Patient's BSG climbed up above 300 mg/dl yesterday evening. Insulin drip was started. * Insulin drip ran for around 8 hrs at an average of 8 units/hr. In addition pt received 20 units of Lantus and 19 units of Novolog bolus yesterday. * Patient needs estimated to be around 200 units of insulin per 24 hrs based on above. * Fasting BSG today was down to 101 mg/dl. Lantus 65 units x 1 dose given this AM. HS Lantus dose scale ordered based on BSG. * Currently on Peptamen tube feeds at rate of 10 ml/hr only. Novolog Q4h ordered to cover for tube feed. * Insulin drip rate was down to 3.1 this afternoon and BSG at goal. Drip was discontinued. * Novolog correction factor ordered starting at 16:00. * Patient continues to be IV Dexamethasone Q24h. Background 06/28/21: * Patient admitted with COVID-19, no documented previous diagnosis of diabetes, A1c indicates diabetes * Patient intubated this morning, currently paralyzed with nimbex, sedated with propofol, fentanyl * BSGs have been running in the low to mid 200s since admission, patient was ordered a diet previously with a loose sliding scale * Patient now NPO, will tighten novolog to weight based stress of 3, administer 20 units of lantus (very conservative). If BSGs remain elevated may need to start insulin infusion. PLAN FOR INPATIENT GLYCEMIC CONTROL: * Hold outpatient oral diabetes medications * Basal insulin * Lantus 50 units x 1 this AM * Lantus 10-20-30 units scale at HS based on BSG * Bolus insulin: CF tightened * NovoLog per scale Q4H * Goal Range: Low 120 mg/dL - High 150 mg/dL * Correction Factor: 10 mg/dL/unit * Nutritional / Prandial insulin per carb ratio of 1 unit per 4 grams CHO consumed to cover Peptamen tube feeds.
[2021-07-01] MEDS: INSULIN GLARGINE SOLOSTAR 100 UNITS/ML 3 ML PEN SC SCH (21:17)
--- NOTE | 2021-07-01 22:18 | Hospitalist Progress Note ---
Date of Service July 01, 2021 Assessment & Plan (1) Acute respiratory failure with hypoxia: Plan: 75 y/o male w/ afib on xarelto who presents w/ covid PNA, day 9 of symptoms (06/17/21 onset). Pt with rapid excalation to high flow then to bipap at 100% oxygen still with desaturations, decision to intubate 06/28, now on ventilator - no remdesivir because of gfr <30, continue to assess if renal function improves - otherwise, meets criteria w/ hypoxia <94 on room air baricitinib daily started and stopped due to intubation Dexamethasone 6mg IV daily -Out look extremely guarded (2) 2019 novel coronavirus-infected pneumonia (NCIP): Plan: - defer remdesivir because gfr <30, SALIMA - decadron IV 6mg daily, baricitinib stopped when intubated (3) Atrial fibrillation: Plan: - continue Xarelto - continue home flecainide, but renally dose (half of home dose). 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 His 's first contact however his daughter, Juliana jhaveri [phone] could also be called Admission and Anticipated Discharge Date Admission Date: June 25, 2021 Subjective remains intubated, sedated nephrology following ICU managing reviewed chart and lab work Review of Systems Review of Systems: Unobtainable due to endotracheal tube and Unobtainable due to reduced consciousness Physical Exam Physical Exam: General: well developed, well nourished, mechanically ventilated, sedated Neck: supple, trachea midline, normal thyroid Lungs: clear to auscultation bilaterally, symmetric chest movement Heart: regular S1 and S2, no murmur, peripheral pulses normal, capillary refill normal, no edema Abdomen: soft, NT, ND, + BS, no hepatomegaly, normal to percussion Extremities: normal in appearance, no cyanosis, no petechiae Neuro: sedated, no focal motor deficits, CN II-XII intact Skin: warm, dry, no rash, normal turgor Psych: sedated Results & Data Results & Data ([facility]) Vital Signs (Past 12 Hours) Vital Signs Temp Pulse Resp Pulse Ox 07/01/21 20:15 62 29 H 91 07/01/21 18:00 37.0 C 58 L 22 90 07/01/21 17:00 58 L 25 H 92 07/01/21 16:00 60 23 92 07/01/21 15:00 59 L 20 90 07/01/21 14:53 59 L 30 H 91 07/01/21 14:00 57 L 25 H 91 07/01/21 13:00 57 L 17 91 07/01/21 12:00 53 L 25 H 91 07/01/21 11:33 51 L 30 H 90 07/01/21 11:00 54 L 20 89 L Laboratory Results Laboratory Results - last 24 hr 06/30/21 07/01/21 07/01/21 23:49 04:10 04:36 WBC RBC Hgb POC Hgb Hct POC Hct MCV MCH MCHC RDW Std Deviation RDW Coeff of Jluieth Plt Count MPV Immature Gran % (Auto) Neut % (Auto) Lymph % (Auto) [place] % (Auto) Eos % (Auto) Baso % (Auto) Neut # (Auto) Lymph # (Auto) [place] # (Auto) Eos # (Auto) Baso # (Auto) Immature Gran # (Auto) RBC Morphology APTT PTT Ratio Sample Site POC pH POC pCO2 POC pO2 POC HCO3 POC Total CO2 POC Base Excess ABG pH (Temp Correct) ABG pCO2 (Temp Corrct POC ABG pO2 at Pt Temp POC ABG O2 Sat Dave Test O2 Delivery Device POC O2 Rate POC FiO2 Tidal Volume PEEP POC Sodium Sodium 135 L POC Potassium Potassium 5.1 Chloride 105 Carbon Dioxide 23 Anion Gap 7.0 BUN 106 H Creatinine 2.73 H Est Cr Clr Drug Dosing 28.6 Est GFR ( Amer) 25.1 Est GFR (Non-Af Amer) 21.6 BUN/Creatinine Ratio 38.9 H Glucose 158 H POC Glucose 168 H 168 H Calcium 8.4 L Phosphorus 6.1 H Magnesium 3.5 H Triglycerides 449 H Procalcitonin Urine Color Urine Appearance Urine pH Ur Specific [place] Urine Protein Urine Glucose (UA) Urine Ketones Urine Blood Urine Nitrite Urine Bilirubin Urine Urobilinogen Ur Leukocyte Esterase Urine WBC (Auto) Urine RBC (Auto) U Hyaline Cast (Auto) U Epithel Cells (Auto) Urine Bacteria (Auto) Uric Acid Crystals Granular Casts Urine Mucus Urine Yeast 07/01/21 07/01/21 07/01/21 04:36 04:36 04:41 WBC 16.02 H RBC 4.22 L Hgb 11.7 L POC Hgb 11.6 L Hct 35.0 L POC Hct 34 L MCV 82.9 MCH 27.7 MCHC 33.4 RDW Std Deviation 42.7 RDW Coeff of Julieth 14.1 Plt Count 421 H MPV 9.4 Immature Gran % (Auto) 6.1 Neut % (Auto) 79.5 Lymph % (Auto) 9.2 [place] % (Auto) 5.0 Eos % (Auto) 0.1 Baso % (Auto) 0.1 Neut # (Auto) 12.75 H Lymph # (Auto) 1.47 [place] # (Auto) 0.80 H Eos # (Auto) 0.01 Baso # (Auto) 0.02 Immature Gran # (Auto) 0.97 H RBC Morphology Unremarkable APTT 28.5 PTT Ratio 1.1 Sample Site Art Line POC pH 7.30 L POC pCO2 49 H POC pO2 57 L POC HCO3 24 POC Total CO2 25 POC Base Excess -2.0 ABG pH (Temp Correct) 7.314 L ABG pCO2 (Temp Corrct 47 H POC ABG pO2 at Pt Temp 54 POC ABG O2 Sat 86.0 L Dave Test NA O2 Delivery Device Ventilator POC O2 Rate 20 POC FiO2 35 Tidal Volume 500 PEEP 14 POC Sodium 134 L Sodium POC Potassium 5.1 H Potassium Chloride Carbon Dioxide Anion Gap BUN Creatinine Est Cr Clr Drug Dosing Est GFR ( Amer) Est GFR (Non-Af Amer) BUN/Creatinine Ratio Glucose POC Glucose Calcium Phosphorus Magnesium Triglycerides Procalcitonin Urine Color Urine Appearance Urine pH Ur Specific [place] Urine Protein Urine Glucose (UA) Urine Ketones Urine Blood Urine Nitrite Urine Bilirubin Urine Urobilinogen Ur Leukocyte Esterase Urine WBC (Auto) Urine RBC (Auto) U Hyaline Cast (Auto) U Epithel Cells (Auto) Urine Bacteria (Auto) Uric Acid Crystals Granular Casts Urine Mucus Urine Yeast 07/01/21 07/01/21 07/01/21 08:27 09:00 10:24 WBC RBC Hgb POC Hgb Hct POC Hct MCV MCH MCHC RDW Std Deviation RDW Coeff of Julieth Plt Count MPV Immature Gran % (Auto) Neut % (Auto) Lymph % (Auto) [place] % (Auto) Eos % (Auto) Baso % (Auto) Neut # (Auto) Lymph # (Auto) [place] # (Auto) Eos # (Auto) Baso # (Auto) Immature Gran # (Auto) RBC Morphology APTT PTT Ratio Sample Site POC pH POC pCO2 POC pO2 POC HCO3 POC Total CO2 POC Base Excess ABG pH (Temp Correct) ABG pCO2 (Temp Corrct POC ABG pO2 at Pt Temp POC ABG O2 Sat Dave Test O2 Delivery Device POC O2 Rate POC FiO2 Tidal Volume PEEP POC Sodium Sodium POC Potassium Potassium Chloride Carbon Dioxide Anion Gap BUN Creatinine Est Cr Clr Drug Dosing Est GFR ( Amer) Est GFR (Non-Af Amer) BUN/Creatinine Ratio Glucose POC Glucose 122 H Calcium Phosphorus Magnesium Triglycerides Procalcitonin 0.43 Urine Color Yellow Urine Appearance Cloudy A Urine pH 5.0 Ur Specific [place] 1.016 Urine Protein Trace H Urine Glucose (UA) Negative Urine Ketones Negative Urine Blood 1+ H Urine Nitrite Negative Urine Bilirubin Negative Urine Urobilinogen Negative Ur Leukocyte Esterase Trace H Urine WBC (Auto) 1-5 Urine RBC (Auto) 5-10 H U Hyaline Cast (Auto) 1-5 U Epithel Cells (Auto) 10-20 H Urine Bacteria (Auto) Negative Uric Acid Crystals Present A Granular Casts 1-5 H Urine Mucus Present A Urine Yeast Not Reportable 07/01/21 07/01/21 07/01/21 11:33 15:53 21:07 WBC RBC Hgb POC Hgb Hct POC Hct MCV MCH MCHC RDW Std Deviation RDW Coeff of Julieth Plt Count MPV Immature Gran % (Auto) Neut % (Auto) Lymph % (Auto) [place] % (Auto) Eos % (Auto) Baso % (Auto) Neut # (Auto) Lymph # (Auto) [place] # (Auto) Eos # (Auto) Baso # (Auto) Immature Gran # (Auto) RBC Morphology APTT PTT Ratio Sample Site POC pH POC pCO2 POC pO2 POC HCO3 POC Total CO2 POC Base Excess ABG pH (Temp Correct) ABG pCO2 (Temp Corrct POC ABG pO2 at Pt Temp POC ABG O2 Sat Dave Test O2 Delivery Device POC O2 Rate POC FiO2 Tidal Volume PEEP POC Sodium Sodium POC Potassium Potassium Chloride Carbon Dioxide Anion Gap BUN Creatinine Est Cr Clr Drug Dosing Est GFR ( Amer) Est GFR (Non-Af Amer) BUN/Creatinine Ratio Glucose POC Glucose 101 H 106 H 111 H Calcium Phosphorus Magnesium Triglycerides Procalcitonin Urine Color Urine Appearance Urine pH Ur Specific [place] Urine Protein Urine Glucose (UA) Urine Ketones Urine Blood Urine Nitrite Urine Bilirubin Urine Urobilinogen Ur Leukocyte Esterase Urine WBC (Auto) Urine RBC (Auto) U Hyaline Cast (Auto) U Epithel Cells (Auto) Urine Bacteria (Auto) Uric Acid Crystals Granular Casts Urine Mucus Urine Yeast Medications Administered Current Inpatient Medications Albuterol (Albuterol 0.083% Nebu Soln 3 Ml Vial) 2.5 mg NEB Q6R PRN PRN Reason: sob Stop: 07/26/21 11:41 Dextrose (Dextrose 50% 50 Ml Syringe) 25 - 50 ml IV UD PRN; Protocol PRN Reason: Hypoglycemia Protocol Stop: 07/25/21 23:47 Fentanyl Citrate (Fentanyl Bolus From Bag) 50 mcg IV Q60M PRN PRN Reason: Pain or Agitation Stop: 07/12/21 11:10 Flecainide Acetate (Flecainide Acetate 100 Mg Tablet) 25 mg PO BID KYLE Stop: 07/26/21 08:59 Last Admin: 07/01/21 21:02 Dose: 25 mg Documented by: Glucagon (Glucagon For Inj 1 Mg Vial) 1 mg SQ UD PRN; Protocol PRN Reason: Hypoglycemia Protocol Stop: 07/25/21 23:47 Glucose (Glucose 10 Tabs/Tube) 4 - 8 tabs PO UD PRN; Protocol PRN Reason: Hypoglycemia Protocol Stop: 07/25/21 23:47 Glucose (Glucose 40% Gel 15 Gm Tube) 15 - 30 gm PO UD PRN; Protocol PRN Reason: Hypoglycemia Protocol Stop: 07/25/21 23:47 Dexamethasone 6 mg/ Syringe 1.5 mls @ 1 mls/min IV Q24H [facility] Stop: 07/26/21 08:59 Last Admin: 07/01/21 08:16 Dose: 1 mls/min Documented by: Fentanyl Citrate (Fentanyl Drip) 1,250 mcg in 250 mls @ 20 mls/hr IV .[id number] [facility]; Protocol Stop: 07/12/21 11:14 Last Titration: 07/01/21 21:15 Dose: 100 mcg/hr, 20 mls/hr Documented by: Midazolam HCl (Versed) 125 mg in 250 mls @ 8 mls/hr IV .[id number] [facility]; Protocol Stop: 07/31/21 06:29 Last Titration: 07/01/21 21:24 Dose: 4 mg/hr, 8 mls/hr Documented by: Insulin Aspart (Insulin Aspart 100 Units/Ml 3 Ml Pen) 0 units SC Q4 [facility] Stop: 07/29/21 07:59 Last Admin: 07/01/21 21:15 Dose: Not Given Documented by: Insulin Glargine (Insulin Glargine Solostar 100 Units/Ml 3 Ml Pen) 0 units SC HS [facility]; Protocol Stop: 07/30/21 20:59 Last Admin: 07/01/21 21:17 Dose: 20 units Documented by: Insulin Glargine (Insulin Glargine Solostar 100 Units/Ml 3 Ml Pen) 50 units SC [facility] Stop: 07/31/21 08:59 Last Admin: 07/01/21 08:50 Dose: 50 units Documented by: Lansoprazole (Lansoprazole 30 Mg Soltab) 30 mg PO QAM [facility] Stop: 07/29/21 11:14 Last Admin: 07/01/21 08:14 Dose: 30 mg Documented by: Midazolam HCl (Midazolam Bolus From Bag) 2 mg IV Q60M PRN PRN Reason: Sedation Stop: 07/31/21 06:27 Last Admin: 07/01/21 11:45 Dose: 2 mg Documented by: Miscellaneous (Carbohydrates For Hypoglycemia ) 15 - 30 gm PO UD PRN PRN Reason: Hypoglycemia Protocol Stop: 07/25/21 23:47 Miscellaneous (Icu Electrolyte Replacement Protocol) 1 ea N/A BID@ [facility]; Protocol Stop: 07/05/21 17:59 Last Admin: 07/01/21 18:29 Dose: Not Given Documented by: Miscellaneous Information (Pharmacy Glycemic Mgmt Consult) 1 ea N/A UD PRN PRN Reason: Consult Stop: 07/28/21 11:56 Multi-Ingredient Cream (Artificial Tears Op Oint 3.5 Gm Tube) 1 appln OP Q4H KYLE Stop: 07/28/21 11:14 Last Admin: 07/01/21 15:49 Dose: 1 appln Documented by: Nutritional Formula (Peptamen Intense Vhp 1.0 [place] 1,000 Ml Bag) 1,000 ml GT CONT KYLE; Protocol Stop: 07/28/21 12:14 Last Admin: 07/01/21 11:54 Dose: 1,000 ml Documented by: Polyethylene Glycol (Polyethylene (Miralax) 17 Gm Pack) 17 gm PO DAILY PRN PRN Reason: Constipation Stop: 07/25/21 23:47 Polyethylene Glycol (Polyethylene (Miralax) 17 Gm Pack) 17 gm PO DAILY KYLE Stop: 08/01/21 08:59 Sennosides (Senna 8.6 Mg Tab) 17.2 mg PO QAM KYLE Stop: 07/29/21 08:59 Last Admin: 07/01/21 08:14 Dose: 17.2 mg Documented by: Sterile Water (Tube Feeding Water Flush) 30 ml OG Q4H KYLE Stop: 07/31/21 11:29 Last Admin: 07/01/21 15:49 Dose: 30 ml Documented by: PG Care Time/CCT Total # of Minutes Spent Total Time Spent with Patient: Total time spent is greater than 50% in coordination of care (as documented) at patient's floor/unit and/or counseling patient: Coding Level of Care Code 84423 Subseq Hosp Care Lvl 2 Diagnoses Acute respiratory failure with hypoxia J96.01 2019 novel coronavirus-infected pneumonia (NCIP) U07.1; J12.82 Atrial fibrillation I48.91 Atrial fibrillation type: unspecified SALIMA (acute kidney injury) N17.9 Hypertension I10 Blood glucose elevated R73.9 (1) Atrial fibrillation Atrial fibrillation type: unspecified Qualified Code(s): I48.91 - Unspecified atrial fibrillation
[2021-07-02] MEDS: INSULIN ASPART 100 UNITS/ML 3 ML PEN SC SCH ×6 (01:16→21:32)
[2021-07-02] MEDS: ARTIFICIAL TEARS OP OINT 3.5 GM TUBE OP SCH ×7 (01:17→21:37)
[2021-07-02] MEDS: TUBE FEEDING WATER FLUSH OG SCH ×7 (01:17→21:37)
[2021-07-02] MEDS: fentaNYL DRIP 1,250 MCG/250 ML BAG IV SCH ×4 (01:46→17:07)
[2021-07-02 04:21] LABS: iSTAT Arterial Blood Gas HCO3 24 meg/L (19-24); iSTAT Arterial Blood Gas pCO2 51 mmHg (35-46); iSTAT Arterial Blood Gas pH 7.29 (7.35-7.45); iSTAT Arterial Blood Gas pO2 58 mmHg (80-95); iSTAT Carbon Dioxide 26 mmol/L (24-31); iSTAT FiO2 50 %; iSTAT Site Art Line
[2021-07-02] MEDS ORDERED: STAT IV Infusion **Titration per Protocol STA (04:56)
[2021-07-02 04:58] LABS: Hematocrit (blood only) 38.1 % (42-52); Hemoglobin 12.4 g/dL (14.0-18.0); Mean Corpuscular Hemoglobin 27.7 pg (25-34); Mean Corpuscular Hgb Conc 32.5 g/dL (32-36); Mean Platelet Volume 9.5 fL (7.4-10.4); Platelet Count 501 K/uL (130-400); RDW Standard Deviation 43.4 fL (36.4-46.3); Red Blood Count 4.48 M/uL (4.7-6.1); White Blood Count 21.48 K/uL (4.8-10.8)
[2021-07-02 05:21] LABS: ALC (manual) 0.77 K/uL (1.2-3.4); ANC (manual) 18.39 K/uL (1.4-6.5); Lymphocytes # (manual) 0.77 K/uL (1.2-3.4); Lymphocytes % (manual) 3.6 %; Metamyelocytes # (manual) 0.97 K/uL (0-0); Metamyelocytes % (manual) 4.5 %; Monocytes # (manual) 0.58 K/uL (0.11-0.59); Monocytes % (manual) 2.7 %; Myelocytes # (manual) 0.77 K/uL (0-0); Myelocytes % (manual) 3.6 %; Neutrophils # (manual) 18.39 K/uL (1.4-6.5); Neutrophils % (manual) 85.6 %; RBC Morphology Unremarkable
[2021-07-02] MEDS: DEXMEDETOMIDINE HCL 400 MCG in 0.9 % SODIUM CHLORIDE 96 ML IV SCH ×5 (05:21→23:31)
[2021-07-02 05:22] LABS: BUN Creatinine Ratio 44.2 (10-20); Calcium 8.7 mg/dl (8.5-10.1); Creatinine Clr Calc Pharmacy 34.9 ml/min; Est GFR (Non-African American) 27.6 ml/min; Magnesium 3.4 mg/dl (1.8-2.4); Potassium 5.1 mmol/L (3.5-5.1)
[2021-07-02 05:27] LABS: Phosphorus 4.9 mg/dl (2.5-4.9)
[2021-07-02] MEDS ORDERED: VECURONIUM BROMIDE 10 MG VIAL IV ONE (06:26)
[2021-07-02] MEDS ORDERED: VECURONIUM BROMIDE 10 MG VIAL IV STA (06:34)
[2021-07-02] MEDS: ICU ELECTROLYTE REPLACEMENT PROTOCOL SCH ×2 (07:19→17:34)
--- NOTE | 2021-07-02 08:21 | XRay Report ---
XR chest 1V portable CLINICAL HISTORY: tube placement TECHNIQUE: Single frontal radiograph of the chest was obtained. Comparison: Comparison is made to chest one view 07/01/2091 FINDINGS: Endotracheal and enteric tubes are unchanged. Stable appearance of right subclavian catheter. The car diomediastinal silhouette is stable. Multifocal airspace opacities are unchanged. No pneumothorax or right effusion. Left effusion cannot be excluded. IMPRESSION: Lines and tubes are stable. Multifocal airspace opacities are unchanged. ACT 112: Negative or not required by law. Electronically signed by: Elias Gatica M.D. 07/02/2021 8:20 AM
[2021-07-02] MEDS: dexAMETHasone 6 MG in SYRINGE 0 ML IV SCH (08:41)
[2021-07-02] MEDS: POLYETHYLENE (MIRALAX) 17 GM PACK PO SCH (08:42)
[2021-07-02] MEDS: FLECAINIDE ACETATE 100 MG TABLET PO SCH ×2 (08:42→21:37)
[2021-07-02] MEDS: SENNA 8.6 MG TAB PO SCH (08:42)
[2021-07-02] MEDS: LANSOPRAZOLE 30 MG SOLTAB PO SCH (08:43)
--- NOTE | 2021-07-02 08:58 | Critical Care Progress Note ---
Date of Service July 02, 2021 Assessment & Plan (1) ARDS (adult respiratory distress syndrome): (2) Ventilator dependence: (3) 2019 novel coronavirus-infected pneumonia (NCIP): (4) Acute respiratory failure with hypoxia: (5) Hypervolemia: (6) Atrial fibrillation: (7) Hypertension: Plan: Reason Critically Ill: 75-year-old male with history of atrial fibrillation on Eliquis and flecainide, hypertension, likely underlying CKD who presented with COVID-19 pneumonia. Requires ICU level care for intensive management of his respiratory status and mechanical ventilation. Neuro - Currently on propofol, fentanyl, Versed and Precedex. Trying to minimize all doses of sedation as much as possible. Maintain RASS of -1-0. Cardiac - Atrial fibrillation: Renally dosed flecainide. Discontinue Xarelto and start heparin drip. Hypertension: Controlled with the use of continuous sedation. Respiratory - ARDS secondary to COVID-19 pneumonia. Was previously on baricitinib, but this was discontinued when the patient was intubated. Continue 10 days of Decadron. Continue lung protective ventilation strategy. FiO2 requirements are f luctuating. FiO2 needs have increased today. He has an increasing left lower lobe infiltrate. We will continue to monitor. GI -increasing tube feeds. Continue bowel regimen while on high doses of sedatives. Lansoprazole for prophylaxis. Triglyceride levels trending down with propofol infusion dose being decreased. RENAL/LYTES -SALIMA. Baseline is unknown. Monitor urine output. No indication for hemodialysis at this present time. Looks fairly euvolemic. Renal on board. Creatinine improving. - Stevens. Monitor I&Os. ENDO - No history of DM or thyroid disease. ICU hyperglycemia protocol. HEME - Stable H&H. Heparin infusion. ID -baricitinib discontinued due to mechanical ventilation. Continue Decadron. No significant concern for superimposed infection at this time. Sputum and blood cultures negative. Procalcitonin trended down to 0.43. Repeat procalcitonin level today. INTEGUMENTARY - No acute needs LINES/IV ACCESS - RIGHT Subclavian CVC, LEFT A-line, ETT, PIV DVT PROPHYLAXIS -Heparin infusion CRITICAL CARE TIME - I have personally spent 44 minutes of critical care time in the direct management of this patient. This is a life/limb threatening event. This includes time spent evaluating patient, direct bedside care, chart review, placing orders, interpretation of diagnostic studies, discussion with consultants, patient, and family members, as well as other required patient management activities. This time is exclusive of all separately billable procedures, and teaching time and separate from and in addition to any other critical care service time. Admission and Anticipated Discharge Date Admission Date: June 25, 2021 Subjective Patient seen and examined at bedside. Review of systems limited due to patient's sedation status. Currently requiring high amounts of ventilatory support. Review of Systems Review of Systems: Unobtainable due to endotracheal tube and Unobtainable due to reduced consciousness Physical Exam Physical Exam: Constitutional: Patient intubated and sedated. No obvious distress. Eyes: Pupils are equal round and reactive to light. Conjunctivae are normal. Anicteric sclera. Ears nose, mouth and throat: Endotracheal tube in place. Neck: Trachea is midline. Visual inspection is normal. Respiratory: Coarse lung sounds on the ventilator. No wheezes. Cardiovascular: Regular rate and rhythm. No murmurs. 1+ pitting edema in the lower extremities. Gastrointestinal: Normal bowel sounds, soft, nontender and nondistended. No hepatosplenomegaly noted. Musculoskeletal: No cyanosis. Patient is able to move all extremities. Skin: No rashes, warm dry and intact. Neurologic: Difficult to assess given intubation and sedation status. Psychiatric: Unable to assess as the patient is intubated. Results & Data Results & Data ([facility]) Vital Signs (Past 12 Hours) Vital Signs Temp Pulse Resp Pulse Ox 07/02/21 08:04 67 30 H 93 07/02/21 07:00 62 25 H 92 07/02/21 06:00 99.0 F 72 23 85 L 07/02/21 05:00 75 24 90 07/02/21 04:39 68 28 H 89 L 07/02/21 04:00 66 27 H 90 07/02/21 03:00 99.7 F H 63 25 H 91 07/02/21 02:00 61 26 H 94 07/02/21 01:00 99.5 F 62 18 93 07/02/21 00:00 62 22 93 07/01/21 23:52 60 07/01/21 23:00 63 22 92 07/01/21 22:52 60 26 H 98 07/01/21 22:00 99.1 F 62 22 89 L 07/01/21 21:00 60 23 94 chest x-ray with increasing infiltrate on the left side. Coding Level of Care Code Critical Care 1st 30-74 mins Diagnoses ARDS (adult respiratory distress syndrome) J80 Ventilator dependence Z99.11 2019 novel coronavirus-infected pneumonia (NCIP) U07.1; J12.82 Acute respiratory failure with hypoxia J96.01 Hypervolemia E87.70 Atrial fibrillation I48.91 Atrial fibrillation type: unspecified Hypertension I10 Time Spent (min) 44 (1) Atrial fibrillation Atrial fibrillation type: unspecified Qualified Code(s): I48.91 - Unspecified atrial fibrillation
[2021-07-02] MEDS ORDERED: Heparin IV Adult Wt-Based Standard *NO* Bolus Protocol IV SCH (09:13)
[2021-07-02] MEDS: MIDAZOLAM HCL 125 MG/250 ML BAG IV SCH (09:13)
[2021-07-02] MEDS ORDERED: BUMETANIDE 1 MG in SYRINGE 0 ML IV ONE (10:02)
--- NOTE | 2021-07-02 10:02 | Nephrology Progress Note ---
Date of Service July 02, 2021 Assessment & Plan (1) SALIMA (acute kidney injury): Plan: Clinically consistent with ATN. Non-oliguric. No prior labs available at this time for baseline kidney function assessment. Repeat UA demonstrating granular casts c/w ATN. Stevens to gravity. No emergent indication for dialysis. Continue Bumex IV to encourage urine output and kaluresis. Goal to encouraged even to slightly negative fluid balance. Medications appropriate for kidney function. Rivaroxaban has been switched to heparin. I reviewed the plan of care with Dr. Whitmore this AM. . (2) 2019 novel coronavirus-infected pneumonia (NCIP): Plan: Remains Decadron. Cefepime dose adjustment as needed for renal dysfunction. (3) Hypertension: Plan: Lisinopril held. Admission and Anticipated Discharge Date Admission Date: June 25, 2021 Subjective No acute events overnight. Remains ventilated. Sedation again being weaned this morning during my evaluation. Hemodynamically stable. No fevers or chills. Review of Systems Review of Systems: Unobtainable due to endotracheal tube Physical Exam Constitutional: well developed and + mechanically ventilated Eyes: + anicteric sclerae; no corneal abnormality Neck: normal visual inspection and trachea midline Respiratory: Auscultation: lungs clear to auscultation bilaterally, + rhonchi and + bronchovesicular breath sounds Cardiovascular: Rate/Rhythm: + bradycardic Heart Sounds: normal S1 and normal S2 Extremities: + pedal edema Gastrointestinal (Abdomen): Inspection/Auscultation: + abdomen distended Percussion/Palpation: abdomen soft and + dullness to percussion; abdomen not rigid Musculoskeletal: Extremities: no cyanosis and no clubbing Skin: normal turgor; no lesions Neurologic: Motor/Sensory: no fasciculations sedated Results & Data ([facility]) Vital Signs (Past 12 Hours) Vital Signs Temp Pulse Resp Pulse Ox 07/02/21 08:04 67 30 H 93 07/02/21 07:00 62 25 H 92 07/02/21 06:00 37.2 C 72 23 85 L 07/02/21 05:00 75 24 90 07/02/21 04:39 68 28 H 89 L 07/02/21 04:00 66 27 H 90 07/02/21 03:00 37.6 C H 63 25 H 91 07/02/21 02:00 61 26 H 94 10/26/21 01:00 37.5 C 62 18 93 07/02/21 00:00 62 22 93 07/01/21 23:52 60 07/01/21 23:00 63 22 92 07/01/21 22:52 60 26 H 98 07/01/21 22:00 37.3 C 62 22 89 L Laboratory Results Laboratory Results - last 24 hr 07/01/21 07/01/21 07/01/21 09:00 10:24 11:33 WBC RBC Hgb Hct MCV MCH MCHC RDW Std Deviation RDW Coeff of Julieth Plt Count MPV Neutrophils % (Manual) Lymphocytes % (Manual) Monocytes % (Manual) Metamyelocytes % (Man) Myelocytes % (Man) Neutrophils # (Manual) Total Absolute Neuts Lymphocytes # (Manual) Total Abs Lymphocytes Monocytes # (Manual) Metamyelocytes # (Man) Myelocytes # (Manual) RBC Morphology Sample Site POC pH POC pCO2 POC pO2 POC HCO3 POC Total CO2 POC Base Excess POC ABG O2 Sat Dave Test O2 Delivery Device POC O2 Rate POC FiO2 Tidal Volume PEEP Sodium Potassium Chloride Carbon Dioxide Anion Gap BUN Creatinine Est Cr Clr Drug Dosing Est GFR ( Amer) Est GFR (Non-Af Amer) BUN/Creatinine Ratio Glucose POC Glucose 101 H Calcium Phosphorus Magnesium Triglycerides Procalcitonin 0.43 Urine Color Yellow Urine Appearance Cloudy A Urine pH 5.0 Ur Specific Gould 1.016 Urine Protein Trace H Urine Glucose (UA) Negative Urine Ketones Negative Urine Blood 1+ H Urine Nitrite Negative Urine Bilirubin Negative Urine Urobilinogen Negative Ur Leukocyte Esterase Trace H Urine WBC (Auto) 1-5 Urine RBC (Auto) 5-10 H U Hyaline Cast (Auto) 1-5 U Epithel Cells (Auto) 10-20 H Urine Bacteria (Auto) Negative Uric Acid Crystals Present A Granular Casts 1-5 H Urine Mucus Present A Urine Yeast Not Reportable 07/01/21 07/01/21 07/02/21 15:53 21:07 00:41 WBC RBC Hgb Hct MCV MCH MCHC RDW Std Deviation RDW Coeff of Julieth Plt Count MPV Neutrophils % (Manual) Lymphocytes % (Manual) Monocytes % (Manual) Metamyelocytes % (Man) Myelocytes % (Man) Neutrophils # (Manual) Total Absolute Neuts Lymphocytes # (Manual) Total Abs Lymphocytes Monocytes # (Manual) Metamyelocytes # (Man) Myelocytes # (Manual) RBC Morphology Sample Site POC pH POC pCO2 POC pO2 POC HCO3 POC Total CO2 POC Base Excess POC ABG O2 Sat Dave Test O2 Delivery Device POC O2 Rate POC FiO2 Tidal Volume PEEP Sodium Potassium Chloride Carbon Dioxide Anion Gap BUN Creatinine Est Cr Clr Drug Dosing Est GFR ( Amer) Est GFR (Non-Af Amer) BUN/Creatinine Ratio Glucose POC Glucose 106 H 111 H 82 Calcium Phosphorus Magnesium Triglycerides Procalcitonin Urine Color Urine Appearance Urine pH Ur Specific Gould Urine Protein Urine Glucose (UA) Urine Ketones Urine Blood Urine Nitrite Urine Bilirubin Urine Urobilinogen Ur Leukocyte Esterase Urine WBC (Auto) Urine RBC (Auto) U Hyaline Cast (Auto) U Epithel Cells (Auto) Urine Bacteria (Auto) Uric Acid Crystals Granular Casts Urine Mucus Urine Yeast 07/02/21 07/02/21 07/02/21 04:06 04:07 04:32 WBC RBC Hgb Hct MCV MCH MCHC RDW Std Deviation RDW Coeff of Julieth Plt Count MPV Neutrophils % (Manual) Lymphocytes % (Manual) Monocytes % (Manual) Metamyelocytes % (Man) Myelocytes % (Man) Neutrophils # (Manual) Total Absolute Neuts Lymphocytes # (Manual) Total Abs Lymphocytes Monocytes # (Manual) Metamyelocytes # (Man) Myelocytes # (Manual) RBC Morphology Sample Site Art Line POC pH 7.29 L POC pCO2 51 H POC pO2 58 L POC HCO3 24 POC Total CO2 26 POC Base Excess -2.0 POC ABG O2 Sat 86.0 L Dave Test NA O2 Delivery Device Ventilator POC O2 Rate 25 POC FiO2 50 Tidal Volume 350 PEEP 8 Sodium 138 Potassium 5.1 Chloride 110 H Carbon Dioxide 26 Anion Gap 2.0 L BUN 99 H Creatinine 2.23 H D Est Cr Clr Drug Dosing 34.9 Est GFR ( Amer) 32.0 Est GFR (Non-Af Amer) 27.6 BUN/Creatinine Ratio 44.2 H Glucose 116 H POC Glucose 69 L* Calcium 8.7 Phosphorus 4.9 D Magnesium 3.4 H Triglycerides 239 H Procalcitonin Urine Color Urine Appearance Urine pH Ur Specific Gould Urine Protein Urine Glucose (UA) Urine Ketones Urine Blood Urine Nitrite Urine Bilirubin Urine Urobilinogen Ur Leukocyte Esterase Urine WBC (Auto) Urine RBC (Auto) U Hyaline Cast (Auto) U Epithel Cells (Auto) Urine Bacteria (Auto) Uric Acid Crystals Granular Casts Urine Mucus Urine Yeast 07/02/21 07/02/21 07/02/21 04:32 04:37 08:33 WBC 21.48 H RBC 4.48 L Hgb 12.4 L Hct 38.1 L MCV 85.0 MCH 27.7 MCHC 32.5 RDW Std Deviation 43.4 RDW Coeff of Julieth 14.0 Plt Count 501 H MPV 9.5 Neutrophils % (Manual) 85.6 Lymphocytes % (Manual) 3.6 Monocytes % (Manual) 2.7 Metamyelocytes % (Man) 4.5 Myelocytes % (Man) 3.6 Neutrophils # (Manual) 18.39 H Total Absolute Neuts 18.39 H Lymphocytes # (Manual) 0.77 L Total Abs Lymphocytes 0.77 L Monocytes # (Manual) 0.58 Metamyelocytes # (Man) 0.97 H Myelocytes # (Manual) 0.77 H RBC Morphology Unremarkable Sample Site POC pH POC pCO2 POC pO2 POC HCO3 POC Total CO2 POC Base Excess POC ABG O2 Sat Dave Test O2 Delivery Device POC O2 Rate POC FiO2 Tidal Volume PEEP Sodium Potassium Chloride Carbon Dioxide Anion Gap BUN Creatinine Est Cr Clr Drug Dosing Est GFR ( Amer) Est GFR (Non-Af Amer) BUN/Creatinine Ratio Glucose POC Glucose 100 H Calcium Phosphorus Magnesium Triglycerides Procalcitonin 0.42 Urine Color Urine Appearance Urine pH Ur Specific Gould Urine Protein Urine Glucose (UA) Urine Ketones Urine Blood Urine Nitrite Urine Bilirubin Urine Urobilinogen Ur Leukocyte Esterase Urine WBC (Auto) Urine RBC (Auto) U Hyaline Cast (Auto) U Epithel Cells (Auto) Urine Bacteria (Auto) Uric Acid Crystals Granular Casts Urine Mucus Urine Yeast 07/02/21 09:15 WBC RBC Hgb Hct MCV MCH MCHC RDW Std Deviation RDW Coeff of Julieth Plt Count MPV Neutrophils % (Manual) Lymphocytes % (Manual) Monocytes % (Manual) Metamyelocytes % (Man) Myelocytes % (Man) Neutrophils # (Manual) Total Absolute Neuts Lymphocytes # (Manual) Total Abs Lymphocytes Monocytes # (Manual) Metamyelocytes # (Man) Myelocytes # (Manual) RBC Morphology Sample Site POC pH POC pCO2 POC pO2 POC HCO3 POC Total CO2 POC Base Excess POC ABG O2 Sat Dave Test O2 Delivery Device POC O2 Rate POC FiO2 Tidal Volume PEEP Sodium Potassium Chloride Carbon Dioxide Anion Gap BUN Creatinine Est Cr Clr Drug Dosing Est GFR ( Amer) Est GFR (Non-Af Amer) BUN/Creatinine Ratio Glucose POC Glucose 70 Calcium Phosphorus Magnesium Triglycerides Procalcitonin Urine Color Urine Appearance Urine pH Ur Specific Gould Urine Protein Urine Glucose (UA) Urine Ketones Urine Blood Urine Nitrite Urine Bilirubin Urine Urobilinogen Ur Leukocyte Esterase Urine WBC (Auto) Urine RBC (Auto) U Hyaline Cast (Auto) U Epithel Cells (Auto) Urine Bacteria (Auto) Uric Acid Crystals Granular Casts Urine Mucus Urine Yeast PG Care Time/CCT Total # of Minutes Spent Total Time Spent with Patient: Total time spent is greater than 50% in coordinat ion of care (as documented) at patient's floor/unit and/or counseling patient: Coding Level of Care Code 12842 Subseq Hosp Care Lvl 3 Diagnoses SALIMA (acute kidney injury) N17.9 2019 novel coronavirus-infected pneumonia (NCIP) U07.1; J12.82 Hypertension I10
[2021-07-02] MEDS: HEPARIN SODIUM/DEXTROSE 25,000 UNITS/500 ML BAG IV SCH (10:17)
[2021-07-02] MEDS: DOCUSATE SODIUM SYRUP 100 MG/10 ML UDC PO SCH ×2 (10:25→21:23)
[2021-07-02] MEDS: PEPTAMEN INTENSE VHP 1.0 CAL 1,000 ML BAG GT SCH (12:22)
[2021-07-02] MEDS ORDERED: INSULIN GLARGINE SOLOSTAR 100 UNITS/ML 3 ML PEN SC SCH (12:45)
--- NOTE | 2021-07-02 13:21 | Pharmacy Report ---
Pharmacy Glycemic Short Note 2 - Date of Service July 02, 2021 - Glycemic Short BSG Results (Last 24 hours): 07/01/21 07/01/21 07/02/21 15:53 21:07 00:41 Glucose POC Glucose 106 H 111 H 82 07/02/21 07/02/21 07/02/21 04:06 04:32 04:37 Glucose 116 H POC Glucose 69 L* 100 H 07/02/21 07/02/21 09:15 12:10 Glucose POC Glucose 70 132 H OUTPATIENT ANTIDIABETIC REGIMEN: * N/A * a1c 7.4% ASSESSMENT: 07/02: * Pt received 73 units of insulin yesterday, 70 of which were basal. BSG did trend down this morning ([phone] mg/dL) despite continued titration of TFs and IV dexamethasone. Patient Scr remains elevated which can also contribute to delayed basal elimination. * Will decrease Lantus dose significantly today and will wait until midday to redose with lantus to ensure BSG is trending back up. 07/01: * Pt received 97 units of insulin yesterday, 85 units of which were basal. * BSGs well controlled today. Pt received 50 units of lantus this morning and will continue with a scale this evening. * TFs to begin titrating to go this aftertoon. Will monitor effects on BSG. 06/30: * Pt received total of 95 units of just basal insulin yesterday in addition to 13 units of bolus and the insulin drip. * After the insulin drip was discontinued yesterday, the BSGs trended up to 207 last night. * Fasting BSG today was 184 mg/dl. Basal insulin decreased 15% this AM to prevent hypoglycemia since patient only getting trickle feeds with peptamen and serum creatinine worsening. Novolog correction factor tightened. * Basal HS dose continued on a scale based on BSG. 06/29: * Patient's BSG climbed up above 300 mg/dl yesterday evening. Insulin drip was started. * Insulin drip ran for around 8 hrs at an average of 8 units/hr. In addition pt received 20 units of Lantus and 19 units of Novolog bolus yesterday. * Patient needs estimated to be around 200 units of insulin per 24 hrs based on above. * Fasting BSG today was down to 101 mg/dl. Lantus 65 units x 1 dose given this AM. HS Lantus dose scale ordered based on BSG. * Currently on Peptamen tube feeds at rate of 10 ml/hr only. Novolog Q4h ordered to cover for tube feed. * Insulin drip rate was down to 3.1 this afternoon and BSG at goal. Drip was discontinued. * Novolog correction factor ordered starting at 16:00. * Patient continues to be IV Dexamethasone Q24h. Background 06/28/21: * Patient admitted with COVID-19, no documented previous diagnosis of diabetes, A1c indicates diabetes * Patient intubated this morning, currently paralyzed with nimbex, sedated with propofol, fentanyl * BSGs have been running in the low to mid 200s since admission, patient was ordered a diet previously with a loose sliding scale * Patient now NPO, will tighten novolog to weight based stress of 3, administer 20 units of lantus (very conservative). If BSGs remain elevated may need to start insulin infusion. PLAN FOR INPATIENT GLYCEMIC CONTROL: * Hold outpatient oral diabetes medications * Basal insulin * Lantus 35 units x 1 at lunchtime * Lantus 0-10 units scale at HS based on BSG * Bolus insulin: CF tightened * NovoLog per scale Q4H * Goal Range: Low 120 mg/dL - High 150 mg/dL * Correction Factor: 10 mg/dL/unit * Nutritional / Prandial insulin per carb ratio of 1 unit per 4 grams CHO consumed to cover Peptamen tube feeds.
[2021-07-02 16:37] LABS: Partial Thromboplastin Ratio 2.3
[2021-07-02 17:08] LABS: Partial Thromboplastin Time 61.6 Seconds (21.0-31.0)
--- NOTE | 2021-07-02 17:35 | Hospitalist Progress Note ---
Date of Service July 02, 2021 Assessment & Plan (1) Acute respiratory failure with hypoxia: Plan: 75 y/o male who presents w/ covid PNA, day 9 of symptoms (06/17/21 onset). Pt with rapid escalation to high flow then to bipap at 100% oxygen still with desaturations, decision to intubate 06/28, now on ventilator baricitinib daily started and stopped due to intubation Dexamethasone 6mg IV daily requiring sedation, on PEEP 10 and FiO2 55% today will assess every day for SBT but not ready yet updated his daughter over the phone (2) 2019 novel coronavirus-infected pneumonia (NCIP): Plan: - defer remdesivir because gfr <30, SALIMA - decadron IV 6mg daily, baricitinib stopped when intubated mechanical ventilation since 06/28 (3) Atrial fibrillation: Plan: - continue heparin drip - continue home flecainide, but renally dose (half of home dose). half dose (25 bid) - have iv metoprolol available and change to scheduled if appears to need it (4) SALIMA (acute kidney injury): Plan: - pt denies hx of CKD; baseline unknown -Creatinine remained flat over the first 2 checks seems Euvolemic likley with Chronic kidney disease stage 3-4 Cr is improving, down to 2.1 from 2.7, making urine with Bumex nephrology following and managing, appreciate their assistance no need for HD (5) Hypertension: Plan: - hold home lisinopril in setting of SALIMA - hold other antihypertensives (6) Blood glucose elevated: Plan: - low dose SSI Aspart w/ goal 140-180 - patient not on diabetes medications at home - check BSG ACHS -Hemoglobin A1c 7.4 sugars stable Plan: FEN/GI: tube feeding ppx: shae SCDs code: full dispo: icu Family updated and relayed the severity of his illness. long talk with his daughter Juliana Terrell Admission and Anticipated Discharge Date Admission Date: June 25, 2021 Subjective patient remains on PEEP of 10 and FiO2 55% this afternoon Cr improving, responding well to Bumex, K is stable, appreciate nephrology input, likely ATN that is slowly resolving spoke with Dr. Whitmore about plan spoke with patients nurse at the bedside called patient's daughter to provide update discussed that we will try for spontaneous breathing trial each day, right now it is not possible, PEEP and FiO2 too high need to wean back on sedation, have him following commands for this to be possible told her we take this one day at a time she and family need to discuss if the patient would want a tracheostomy if we reach day 10 and he is not improving, she understands updated her that renal function is improving, anticipate he will fully recover in that regard, no indication for dialysis Review of Systems Review of Systems: Unobtainable due to endotracheal tube and Unobtainable due to reduced consciousness Physical Exam Physical Exam: General: well developed, well nourished, mechanically ventilated, sedated Neck: supple, trachea midline, normal thyroid Lungs: clear to auscultation bilaterally, symmetric chest movement Heart: regular S1 and S2, no murmur, peripheral pulses normal, capillary refill normal, no edema Abdomen: soft, NT, ND, + BS, no hepatomegaly, normal to percussion Extremities: normal in appearance, no cyanosis, no petechiae Neuro: sedated, no focal motor deficits, CN II-XII intact Skin: warm, dry, no rash, normal turgor Psych: sedated Results & Data Results & Data ([facility]) Vital Signs (Past 12 Hours) Vital Signs Temp Pulse Resp BP Pulse Ox 07/02/21 15:38 51 L 29 H 90 07/02/21 13:00 52 L 20 91 07/02/21 12:00 54 L 16 125/56 L 90 07/02/21 11:59 54 L 30 H 88 L 07/02/21 11:00 51 L 19 86 L 07/02/21 10:00 54 L 19 92 07/02/21 09:00 55 L 19 90 07/02/21 08:04 67 30 H 93 07/02/21 08:00 58 L 20 92 07/02/21 07:00 62 25 H 92 07/02/21 06:00 37.2 C 72 23 85 L Laboratory Results Laboratory Results - last 24 hr 07/01/21 07/02/21 07/02/21 21:07 00:41 04:06 WBC RBC Hgb Hct MCV MCH MCHC RDW Std Deviation RDW Coeff of Julieth Plt Count MPV Neutrophils % (Manual) Lymphocytes % (Manual) Monocytes % (Manual) Metamyelocytes % (Man) Myelocytes % (Man) Neutrophils # (Manual) Total Absolute Neuts Lymphocytes # (Manual) Total Abs Lymphocytes Monocytes # (Manual) Metamyelocytes # (Man) Myelocytes # (Manual) RBC Morphology APTT PTT Ratio Sample Site POC pH POC pCO2 POC pO2 POC HCO3 POC Total CO2 POC Base Excess POC ABG O2 Sat Dave Test O2 Delivery Device POC O2 Rate POC FiO2 Tidal Volume PEEP Sodium Potassium Chloride Carbon Dioxide Anion Gap BUN Creatinine Est Cr Clr Drug Dosing Est GFR ( Amer) Est GFR (Non-Af Amer) BUN/Creatinine Ratio Glucose POC Glucose 111 H 82 69 L* Calcium Phosphorus Magnesium Triglycerides Procalcitonin 07/02/21 07/02/21 07/02/21 04:07 04:32 04:32 WBC 21.48 H RBC 4.48 L Hgb 12.4 L Hct 38.1 L MCV 85.0 MCH 27.7 MCHC 32.5 RDW Std Deviation 43.4 RDW Coeff of Julieth 14.0 Plt Count 501 H MPV 9.5 Neutrophils % (Manual) 85.6 Lymphocytes % (Manual) 3.6 Monocytes % (Manual) 2.7 Metamyelocytes % (Man) 4.5 Myelocytes % (Man) 3.6 Neutrophils # (Manual) 18.39 H Total Absolute Neuts 18.39 H Lymphocytes # (Manual) 0.77 L Total Abs Lymphocytes 0.77 L Monocytes # (Manual) 0.58 Metamyelocytes # (Man) 0.97 H Myelocytes # (Manual) 0.77 H RBC Morphology Unremarkable APTT PTT Ratio Sample Site Art Line POC pH 7.29 L POC pCO2 51 H POC pO2 58 L POC HCO3 24 POC Total CO2 26 POC Base Excess -2.0 POC ABG O2 Sat 86.0 L Dave Test NA O2 Delivery Device Ventilator POC O2 Rate 25 POC FiO2 50 Tidal Volume 350 PEEP 8 Sodium 138 Potassium 5.1 Chloride 110 H Carbon Dioxide 26 Anion Gap 2.0 L BUN 99 H Creatinine 2.23 H D Est Cr Clr Drug Dosing 34.9 Est GFR ( Amer) 32.0 Est GFR (Non-Af Amer) 27.6 BUN/Creatinine Ratio 44.2 H Glucose 116 H POC Glucose Calcium 8.7 Phosphorus 4.9 D Magnesium 3.4 H Triglycerides 239 H Procalcitonin 07/02/21 07/02/21 07/02/21 04:37 08:33 09:15 WBC RBC Hgb Hct MCV MCH MCHC RDW Std Deviation RDW Coeff of Julieth Plt Count MPV Neutrophils % (Manual) Lymphocytes % (Manual) Monocytes % (Manual) Metamyelocytes % (Man) Myelocytes % (Man) Neutrophils # (Manual) Total Absolute Neuts Lymphocytes # (Manual) Total Abs Lymphocytes Monocytes # (Manual) Metamyelocytes # (Man) Myelocytes # (Manual) RBC Morphology APTT PTT Ratio Sample Site POC pH POC pCO2 POC pO2 POC HCO3 POC Total CO2 POC Base Excess POC ABG O2 Sat Dave Test O2 Delivery Device POC O2 Rate POC FiO2 Tidal Volume PEEP Sodium Potassium Chloride Carbon Dioxide Anion Gap BUN Creatinine Est Cr Clr Drug Dosing Est GFR ( Amer) Est GFR (Non-Af Amer) BUN/Creatinine Ratio Glucose POC Glucose 100 H 70 Calcium Phosphorus Magnesium Triglycerides Procalcitonin 0.42 07/02/21 07/02/21 07/02/21 12:10 16:11 16:12 WBC RBC Hgb Hct MCV MCH MCHC RDW Std Deviation RDW Coeff of Julieth Plt Count MPV Neutrophils % (Manual) Lymphocytes % (Manual) Monocytes % (Manual) Metamyelocytes % (Man) Myelocytes % (Man) Neutrophils # (Manual) Total Absolute Neuts Lymphocytes # (Manual) Total Abs Lymphocytes Monocytes # (Manual) Metamyelocytes # (Man) Myelocytes # (Manual) RBC Morphology APTT 61.6 H* PTT Ratio 2.3 Sample Site POC pH POC pCO2 POC pO2 POC HCO3 POC Total CO2 POC Base Excess POC ABG O2 Sat Dave Test O2 Delivery Device POC O2 Rate POC FiO2 Tidal Volume PEEP Sodium Potassium Chloride Carbon Dioxide Anion Gap BUN Creatinine Est Cr Clr Drug Dosing Est GFR ( Amer) Est GFR (Non-Af Amer) BUN/Creatinine Ratio Glucose POC Glucose 132 H 186 H Calcium Phosphorus Magnesium Triglycerides Procalcitonin Medications Administered Current Inpatient Medications Albuterol (Albuterol 0.083% Nebu Soln 3 Ml Vial) 2.5 mg NEB Q6R PRN PRN Reason: sob Stop: 07/26/21 11:41 Dextrose (Dextrose 50% 50 Ml Syringe) 25 - 50 ml IV UD PRN; Protocol PRN Reason: Hypoglycemia Protocol Stop: 07/25/21 23:47 Last Admin: 07/02/21 04:09 Dose: 25 ml Documented by: Docusate Sodium (Docusate Sodium Syrup 100 Mg/10 Ml Udc) 100 mg PO BID KYLE Stop: 08/01/21 10:14 Last Admin: 07/02/21 10:25 Dose: 100 mg Documented by: Fentanyl Citrate (Fentanyl Bolus From Bag) 50 mcg IV Q60M PRN PRN Reason: Pain or Agitation Stop: 07/12/21 11:10 Flecainide Acetate (Flecainide Acetate 100 Mg Tablet) 25 mg PO BID [facility] Stop: 07/26/21 08:59 Last Admin: 07/02/21 08:42 Dose: 25 mg Documented by: Glucagon (Glucagon For Inj 1 Mg Vial) 1 mg SQ UD PRN; Protocol PRN Reason: Hypoglycemia Protocol Stop: 07/25/21 23:47 Glucose (Glucose 10 Tabs/Tube) 4 - 8 tabs PO UD PRN; Protocol PRN Reason: Hypoglycemia Protocol Stop: 07/25/21 23:47 Glucose (Glucose 40% Gel 15 Gm Tube) 15 - 30 gm PO UD PRN; Protocol PRN Reason: Hypoglycemia Protocol Stop: 07/25/21 23:47 Dexamethasone 6 mg/ Syringe 1.5 mls @ 1 mls/min IV Q24H [facility] Stop: 07/26/21 08:59 Last Admin: 07/02/21 08:41 Dose: 1 mls/min Documented by: Fentanyl Citrate (Fentanyl Drip) 1,250 mcg in 250 mls @ 30 mls/hr IV .Q8H20M [facility]; Protocol Stop: 07/12/21 11:14 Last Admin: 07/02/21 17:07 Dose: 150 mcg/hr, 30 mls/hr Documented by: Midazolam HCl (Versed) 125 mg in 250 mls @ 8 mls/hr IV .[id number] [facility]; Protocol Stop: 07/31/21 06:29 Last Admin: 07/02/21 09:13 Dose: 4 mg/hr, 8 mls/hr Documented by: Dexmedetomidine HCl 400 mcg/ (Sodium Chloride) 100 mls @ 21.82 mls/hr IV .Q4H35M [facility]; Protocol Stop: 07/06/21 04:59 Last Admin: 07/02/21 13:51 Dose: 0.8 mcg/kg/hr, 21.8 mls/hr Documented by: Heparin Sodium/Dextrose (Heparin Sodium/Dextrose) 25,000 units in 500 mls @ 31 mls/hr IV .Q16H8M [facility]; Protocol Stop: 08/01/21 09:29 Last Titration: 07/02/21 17:14 Dose: 1,550 units/hr, 31 mls/hr Documented by: Insulin Aspart (Insulin Aspart 100 Units/Ml 3 Ml Pen) 0 units SC Q4 [facility] Stop: 07/29/21 07:59 Last Admin: 07/02/21 16:45 Dose: 8 units Documented by: Insulin Glargine (Insulin Glargine Solostar 100 Units/Ml 3 Ml Pen) 0 units SC HS [facility]; Protocol Stop: 07/30/21 20:59 Last Admin: 07/01/21 21:17 Dose: 20 units Documented by: Lansoprazole (Lansoprazole 30 Mg Soltab) 30 mg PO QAM [facility] Stop: 07/29/21 11:14 Last Admin: 07/02/21 08:43 Dose: 30 mg Documented by: Midazolam HCl (Midazolam Bolus From Bag) 2 mg IV Q60M PRN PRN Reason: Sedation Stop: 07/31/21 06:27 Last Admin: 07/01/21 11:45 Dose: 2 mg Documented by: Miscellaneous (Carbohydrates For Hypoglycemia ) 15 - 30 gm PO UD PRN PRN Reason: Hypoglycemia Protocol Stop: 07/25/21 23:47 Miscellaneous (Icu Electrolyte Replacement Protocol) 1 ea N/A BID@ [facility]; Protocol Stop: 07/05/21 17:59 Last Admin: 07/02/21 07:19 Dose: 1 ea Documented by: Miscellaneous Information (Pharmacy Glycemic Mgmt Consult) 1 ea N/A UD PRN PRN Reason: Consult Stop: 07/28/21 11:56 Multi-Ingredient Cream (Artificial Tears Op Oint 3.5 Gm Tube) 1 appln OP Q4H [facility] Stop: 07/28/21 11:14 Last Admin: 07/02/21 14:51 Dose: 1 appln Documented by: Nutritional Formula (Peptamen Intense Vhp 1.0 [place] 1,000 Ml Bag) 1,000 ml GT CONT [facility]; Protocol Stop: 07/28/21 12:14 Last Admin: 07/02/21 12:22 Dose: 1,000 ml Documented by: Polyethylene Glycol (Polyethylene (Miralax) 17 Gm Pack) 17 gm PO DAILY PRN PRN Reason: Constipation Stop: 07/25/21 23:47 Polyethylene Glycol (Polyethylene (Miralax) 17 Gm Pack) 17 gm PO DAILY KYLE Stop: 08/01/21 08:59 Last Admin: 07/02/21 08:42 Dose: 17 gm Documented by: Sennosides (Senna 8.6 Mg Tab) 17.2 mg PO QAM KYLE Stop: 07/29/21 08:59 Last Admin: 07/02/21 08:42 Dose: 17.2 mg Documented by: Sterile Water (Tube Feeding Water Flush) 30 ml OG Q4H KYLE Stop: 07/31/21 11:29 Last Admin: 07/02/21 15:38 Dose: 30 ml Documented by: PG Care Time/CCT Total # of Minutes Spent Total Time Spent: 32 Total Time Spent with Patient: Total time spent is greater than 50% in coordination of care (as documented) at patient's floor/unit and/or counseling patient: Coding Level of Care Code 62558 Subseq Hosp Care Lvl 3 (25 - SIGNIFICANT, SEPARATELY IDENTIFIABLE ) Diagnoses Acute respiratory failure with hypoxia J96.01 2019 novel coronavirus-infected pneumonia (NCIP) U07.1; J12.82 Atrial fibrillation I48.91 Atrial fibrillation type: unspecified SALIMA (acute kidney injury) N17.9 Hypertension I10 Blood glucose elevated R73.9 (1) Atrial fibrillation Atrial fibrillation type: unspecified Qualified Code(s): I48.91 - Unspecified atrial fibrillation
[2021-07-02] MEDS: INSULIN GLARGINE SOLOSTAR 100 UNITS/ML 3 ML PEN SC SCH (21:34)
[2021-07-03] MEDS: INSULIN ASPART 100 UNITS/ML 3 ML PEN SC SCH ×6 (00:15→20:34)
[2021-07-03] MEDS: ARTIFICIAL TEARS OP OINT 3.5 GM TUBE OP SCH ×7 (00:17→23:13)
[2021-07-03] MEDS: TUBE FEEDING WATER FLUSH OG SCH ×6 (00:17→20:28)
[2021-07-03] MEDS: HEPARIN SODIUM/DEXTROSE 25,000 UNITS/500 ML BAG IV SCH (02:05)
[2021-07-03] MEDS: fentaNYL DRIP 1,250 MCG/250 ML BAG IV SCH ×4 (02:07→22:31)
[2021-07-03 03:46] LABS: iSTAT Art Bld Gas pCO2 Correct 48 mmHg (35-46); iSTAT Arterial Blood Gas HCO3 24 meg/L (19-24); iSTAT Arterial Blood Gas pCO2 47 mmHg (35-46); iSTAT Arterial Blood Gas pH 7.32 (7.35-7.45); iSTAT Arterial Blood Gas pO2 51 mmHg (80-95); iSTAT Arterial Blood Gas pO2 C 52; iSTAT Carbon Dioxide 26 mmol/L (24-31); iSTAT FiO2 50 %; iSTAT Hematocrit 34 % (42-52); iSTAT Hemoglobin 11.6 g/dl (14.0-18.0); iSTAT Site Art Line; iSTAT Sodium 138 mmol/L (135-144)
[2021-07-03] MEDS: DEXMEDETOMIDINE HCL 400 MCG in 0.9 % SODIUM CHLORIDE 96 ML IV SCH ×5 (04:01→22:31)
[2021-07-03 04:10] LABS: Basophils # (auto) 0.02 K/uL (0-0.2); Basophils % (auto) 0.1 %; Eosinophils # (auto) 0.02 K/uL (0-0.5); Eosinophils % (auto) 0.1 %; Hematocrit (blood only) 36.1 % (42-52); Immature Granulocytes # (auto) 0.95 K/uL (0.00-0.02); Immature Granulocytes % (auto) 4.7 %; Lymphocytes # (auto) 0.47 K/uL (1.2-3.4); Lymphocytes % (auto) 2.3 %; Mean Corpuscular Hgb Conc 33.2 g/dL (32-36); Mean Corpuscular Volume 84.1 fL (80-100); Mean Platelet Volume 9.3 fL (7.4-10.4); Monocytes # (auto) 1.02 K/uL (0.11-0.59); Neutrophils # (auto) 17.77 K/uL (1.4-6.5); Neutrophils % (auto) 87.8 %; Platelet Count 452 K/uL (130-400); RDW Coefficient of Variation 14.4 % (11.5-14.5); RDW Standard Deviation 44.4 fL (36.4-46.3); Red Blood Count 4.29 M/uL (4.7-6.1); White Blood Count 20.25 K/uL (4.8-10.8)
[2021-07-03 04:22] LABS: Base Excess ABG -2.9 mEq/L (-9-1.8); HCO3 ABG 23 mmol/L (19-24); Oxygen Saturation ABG 86.8 % (90-95); PCO2 ABG 45 mmHg (35-46); PO2 ABG 53 mmHg (80-95); pH ABG 7.33 (7.35-7.45)
[2021-07-03 04:24] LABS: Allen Test POS (Pos)
[2021-07-03 04:33] LABS: Partial Thromboplastin Ratio 3.3
[2021-07-03 05:00] LABS: Partial Thromboplastin Time 86.2 Seconds (21.0-31.0)
[2021-07-03 05:07] LABS: BUN Creatinine Ratio 50.4 (10-20); Calcium 8.9 mg/dl (8.5-10.1); Creatinine Clr Calc Pharmacy 38.3 ml/min; Est GFR (African American) 36.5 ml/min; Est GFR (Non-African American) 31.5 ml/min; Magnesium 3.2 mg/dl (1.8-2.4); Phosphorus 4.2 mg/dl (2.5-4.9); Potassium 6.1 mmol/L (3.5-5.1)
[2021-07-03] MEDS ORDERED: DEXTROSE 50% 50 ML SYRINGE IV STA ×2 (05:10→20:01)
[2021-07-03] MEDS ORDERED: CALCIUM GLUCONATE 10% 1,000 MG in SODIUM CHLORIDE 0.9% 50 ML IV ONE (05:13)
[2021-07-03] MEDS ORDERED: INSULIN HUMAN REGULAR PER UNIT 10 UNITS in SYRINGE 0 ML IV STA (05:14)
[2021-07-03] MEDS: ICU ELECTROLYTE REPLACEMENT PROTOCOL SCH ×2 (05:57→15:29)
--- NOTE | 2021-07-03 07:14 | XRay Report ---
XR chest 1V portable HISTORY: 75 years-old Male tube placement acute respiratory failure COMPARISON: Chest radiograph 07/02/2021 TECHNIQUE: Portable AP view of the chest FINDINGS: Endotracheal tube overlies the midline, 2.9 cm superior to the sue. Right subclavian central venou s catheter distal tip is noted in the expected location of the inferior SVC. An enteric tube courses below the diaphragm with distal tip outside the [id number]. No pneumothorax. Probable small pleura l effusions. Extensive left greater the right bilateral airspace opacities have mildly progressed. No acute fracture. IMPRESSION: 1. Lines and tubes as above. 2. Mild progression of the bilateral airspace opacities suggestive of multifocal pneumonia. ACT 112: Negative or not required by law. The above report was generated using voice recognition software. It may contain grammatical, syntax o r spelling errors. Electronically signed by: Renny Mcfarland M.D. 07/03/2021 7:12 AM
[2021-07-03] MEDS: dexAMETHasone 6 MG in SYRINGE 0 ML IV SCH (08:14)
[2021-07-03] MEDS: FLECAINIDE ACETATE 100 MG TABLET PO SCH ×2 (08:14→20:30)
[2021-07-03] MEDS: DOCUSATE SODIUM SYRUP 100 MG/10 ML UDC PO SCH ×2 (08:14→20:30)
[2021-07-03] MEDS: SENNA 8.6 MG TAB PO SCH (08:15)
[2021-07-03] MEDS: LANSOPRAZOLE 30 MG SOLTAB PO SCH (08:15)
[2021-07-03] MEDS: POLYETHYLENE (MIRALAX) 17 GM PACK PO SCH (08:15)
[2021-07-03] MEDS ORDERED: INSULIN GLARGINE SOLOSTAR 100 UNITS/ML 3 ML PEN SC SCH (09:00)
[2021-07-03 09:10] LABS: BUN Creatinine Ratio 50.5 (10-20); Calcium 9.4 mg/dl (8.5-10.1); Creatinine Clr Calc Pharmacy 39.7 ml/min; Est GFR (African American) 38.1 ml/min; Est GFR (Non-African American) 32.9 ml/min; Potassium 6.2 mmol/L (3.5-5.1)
[2021-07-03] MEDS ORDERED: SODIUM POLYSTYRENE SULFONATE 15G/60ML SUSP PO STA (10:01)
--- NOTE | 2021-07-03 10:14 | Nephrology Progress Note ---
Date of Service July 03, 2021 Assessment & Plan (1) SALIMA (acute kidney injury): Plan: Clinically consistent with ATN. Non-oliguric. Creatinine relatively stable. No emergent indication for dialysis but hyperkalemia concerning. SPS provided this AM. Repeat labs pending. Continue Bumex IV to encourage urine output and kaluresis. Goal to encouraged even to slightly negative fluid balance. Will discuss options with nutrition regarding low potassium tube feed such as Nutren. Medications appropriate for kidney function. I reviewed the plan of care with the ICU team this AM. (2) 2019 novel coronavirus-infected pneumonia (NCIP): Plan: Remains Decadron. Cefepime dose adjustment as needed for renal dysfunction. (3) Hypertension: Plan: Lisinopril held. Admission and Anticipated Discharge Date Admission Date: June 25, 2021 Subjective No acute events overnight. Excellent urine output. Remains ventilator dependent. No fevers or chills. Review of Systems Review of Systems: All systems reviewed & are unremarkable except as noted in HPI & below Physical Exam Constitutional: well developed and + mechanically ventilated Eyes: + anicteric sclerae; no corneal abnormality Neck: normal visual inspection and trachea midline Respiratory: Auscultation: lungs clear to auscultation bilaterally, + rhonchi and + bronchovesicular breath sounds Cardiovascular: Rate/Rhythm: + bradycardic Heart Sounds: normal S1 and normal S2 Extremities: + pedal edema Gastrointestinal (Abdomen): Inspection/Auscultation: + abdomen distended Percussion/Palpation: abdomen soft and + dullness to percussion; abdomen not rigid Musculoskeletal: Extremities: no cyanosis and no clubbing Skin: normal turgor; no lesions Neurologic: Motor/Sensory: no fasciculations Results & Data ([facility]) Vital Signs (Past 12 Hours) Vital Signs Temp Pulse Resp Pulse Ox 07/03/21 07:41 59 L 30 H 92 07/03/21 06:00 51 L 18 92 07/03/21 05:00 49 L 20 92 07/03/21 04:00 37.4 C 50 L 27 H 88 L 07/03/21 03:45 50 L 26 H 88 L 07/03/21 03:00 50 L 18 92 07/03/21 02:00 48 L 14 93 07/03/21 01:21 48 L 07/03/21 01:20 48 L 07/03/21 01:00 47 L 25 H 92 07/03/21 00:00 37.1 C 48 L 14 92 07/02/21 23:00 48 L 19 93 07/02/21 22:38 48 L 28 H 91 Laboratory Results Laboratory Results - last 24 hr 07/02/21 07/02/21 07/02/21 12:10 16:11 16:12 WBC RBC Hgb POC Hgb Hct POC Hct MCV MCH MCHC RDW Std Deviation RDW Coeff of Julieth Plt Count MPV Immature Gran % (Auto) Neut % (Auto) Lymph % (Auto) [place] % (Auto) Eos % (Auto) Baso % (Auto) Neut # (Auto) Lymph # (Auto) [place] # (Auto) Eos # (Auto) Baso # (Auto) Immature Gran # (Auto) APTT 61.6 H* PTT Ratio 2.3 Sample Site POC pH POC pCO2 POC pO2 POC HCO3 POC Total CO2 POC Base Excess ABG pH ABG pH (Temp Correct) ABG pCO2 ABG pCO2 (Temp Corrct ABG pO2 POC ABG pO2 at Pt Temp ABG HCO3 POC ABG O2 Sat ABG O2 Saturation ABG Base Excess Dave Test Barometric Pressure Oxygen Given O2 Delivery Device POC O2 Rate POC FiO2 Tidal Volume PEEP POC Sodium Sodium POC Potassium Potassium Chloride Carbon Dioxide Anion Gap BUN Creatinine Est Cr Clr Drug Dosing Est GFR ( Amer) Est GFR (Non-Af Amer) BUN/Creatinine Ratio Glucose POC Glucose 132 H 186 H Calcium Phosphorus Magnesium 07/02/21 07/03/21 07/03/21 21:29 00:09 03:30 WBC RBC Hgb POC Hgb Hct POC Hct MCV MCH MCHC RDW Std Deviation RDW Coeff of Julieth Plt Count MPV Immature Gran % (Auto) Neut % (Auto) Lymph % (Auto) [place] % (Auto) Eos % (Auto) Baso % (Auto) Neut # (Auto) Lymph # (Auto) [place] # (Auto) Eos # (Auto) Baso # (Auto) Immature Gran # (Auto) APTT PTT Ratio Sample Site POC pH POC pCO2 POC pO2 POC HCO3 POC Total CO2 POC Base Excess ABG pH ABG pH (Temp Correct) ABG pCO2 ABG pCO2 (Temp Corrct ABG pO2 POC ABG pO2 at Pt Temp ABG HCO3 POC ABG O2 Sat ABG O2 Saturation ABG Base Excess Dave Test Barometric Pressure Oxygen Given O2 Delivery Device POC O2 Rate POC FiO2 Tidal Volume PEEP POC Sodium Sodium POC Potassium Potassium Chloride Carbon Dioxide Anion Gap BUN Creatinine Est Cr Clr Drug Dosing Est GFR ( Amer) Est GFR (Non-Af Amer) BUN/Creatinine Ratio Glucose POC Glucose 212 H 186 H 167 H Calcium Phosphorus Magnesium 07/03/21 07/03/21 07/03/21 03:33 03:59 03:59 WBC RBC Hgb POC Hgb 11.6 L Hct POC Hct 34 L MCV MCH MCHC RDW Std Deviation RDW Coeff of Julieth Plt Count MPV Immature Gran % (Auto) Neut % (Auto) Lymph % (Auto) [place] % (Auto) Eos % (Auto) Baso % (Auto) Neut # (Auto) Lymph # (Auto) [place] # (Auto) Eos # (Auto) Baso # (Auto) Immature Gran # (Auto) APTT 86.2 H* PTT Ratio 3.3 Sample Site Art Line POC pH 7.32 L POC pCO2 47 H POC pO2 51 L POC HCO3 24 POC Total CO2 26 POC Base Excess -2.0 ABG pH ABG pH (Temp Correct) 7.320 L ABG pCO2 ABG pCO2 (Temp Corrct 48 H ABG pO2 POC ABG pO2 at Pt Temp 52 ABG HCO3 POC ABG O2 Sat 83.0 L ABG O2 Saturation ABG Base Excess Dave Test NA Barometric Pressure Oxygen Given O2 Delivery Device Ventilator POC O2 Rate 25 POC FiO2 50 Tidal Volume 350 PEEP 8 POC Sodium 138 Sodium 140 POC Potassium 6.0 H Potassium 6.1 H* D Chloride 112 H Carbon Dioxide 24 Anion Gap 4.0 BUN 101 H Creatinine 2.00 H Est Cr Clr Drug Dosing 38.3 Est GFR ( Amer) 36.5 Est GFR (Non-Af Amer) 31.5 BUN/Creatinine Ratio 50.4 H Glucose 187 H POC Glucose Calcium 8.9 Phosphorus 4.2 Magnesium 3.2 H 07/03/21 07/03/21 07/03/21 03:59 04:02 08:11 WBC 20.25 H RBC 4.29 L Hgb 12.0 L POC Hgb Hct 36.1 L POC Hct MCV 84.1 MCH 28.0 MCHC 33.2 RDW Std Deviation 44.4 RDW Coeff of Julieth 14.4 Plt Count 452 H MPV 9.3 Immature Gran % (Auto) 4.7 Neut % (Auto) 87.8 Lymph % (Auto) 2.3 [place] % (Auto) 5.0 Eos % (Auto) 0.1 Baso % (Auto) 0.1 Neut # (Auto) 17.77 H Lymph # (Auto) 0.47 L [place] # (Auto) 1.02 H Eos # (Auto) 0.02 Baso # (Auto) 0.02 Immature Gran # (Auto) 0.95 H APTT PTT Ratio Sample Site POC pH POC pCO2 POC pO2 POC HCO3 POC Total CO2 POC Base Excess ABG pH 7.33 L ABG pH (Temp Correct) ABG pCO2 45 ABG pCO2 (Temp Corrct ABG pO2 53 L POC ABG pO2 at Pt Temp ABG HCO3 23 POC ABG O2 Sat ABG O2 Saturation 86.8 L ABG Base Excess -2.9 Dave Test POS Barometric Pressure 726.7 Oxygen Given 50 FIO2 O2 Delivery Device POC O2 Rate POC FiO2 Tidal Volume PEEP POC Sodium Sodium 141 POC Potassium Potassium 6.2 H* Chloride 113 H Carbon Dioxide 21 Anion Gap 7.0 BUN 98 H Creatinine 1.93 H Est Cr Clr Drug Dosing 39.7 Est GFR ( Amer) 38.1 Est GFR (Non-Af Amer) 32.9 BUN/Creatinine Ratio 50.5 H Glucose 216 H POC Glucose Calcium 9.4 Phosphorus Magnesium 07/03/21 08:29 WBC RBC Hgb POC Hgb Hct POC Hct MCV MCH MCHC RDW Std Deviation RDW Coeff of Julieth Plt Count MPV Immature Gran % (Auto) Neut % (Auto) Lymph % (Auto) [place] % (Auto) Eos % (Auto) Baso % (Auto) Neut # (Auto) Lymph # (Auto) [place] # (Auto) Eos # (Auto) Baso # (Auto) Immature Gran # (Auto) APTT PTT Ratio Sample Site POC pH POC pCO2 POC pO2 POC HCO3 POC Total CO2 POC Base Excess ABG pH ABG pH (Temp Correct) ABG pCO2 ABG pCO2 (Temp Corrct ABG pO2 POC ABG pO2 at Pt Temp ABG HCO3 POC ABG O2 Sat ABG O2 Saturation ABG Base Excess Dave Test Barometric Pressure Oxygen Given O2 Delivery Device POC O2 Rate POC FiO2 Tidal Volume PEEP POC Sodium Sodium POC Potassium Potassium Chloride Carbon Dioxide Anion Gap BUN Creatinine Est Cr Clr Drug Dosing Est GFR ( Amer) Est GFR (Non-Af Amer) BUN/Creatinine Ratio Glucose POC Glucose 210 H Calcium Phosphorus Magnesium PG Care Time/CCT Total # of Minutes Spent Total Time Spent with Patient: Total time spent is greater than 50% in coordination of care (as documented) at patient's floor/unit and/or counseling patient: Coding Level of Care Code 38859 Subseq Hosp Care Lvl 3 Diagnoses SALIMA (acute kidney injury) N17.9 2019 novel coronavirus-infected pneumonia (NCIP) U07.1; J12.82 Hypertension I10
[2021-07-03] MEDS ORDERED: PEPTAMEN INTENSE VHP 1.0 CAL 1,000 ML BAG GT SCH (10:15)
--- NOTE | 2021-07-03 11:06 | Procedure Note ---
Procedure Note: Bronchoscopy Procedure Timeout completed prior to the bronchoscopy. Consent signed and on the chart. Consent obtained from the patient's daughter as patient is currently obtunded and intubated. Continuous sedation was infusing at the time of the bronchoscopy. See nursing notes. Bronchoscope was inserted via the endotracheal tube. Trachea appeared to be normal caliber. Sue sharp. Endotracheal tube 2 to 3 cm above the sue. Significant bloody secretions noted emanating from the left mainstem bronchus. Bilateral tracheobronchial tree inspection was completed to the segmental region. Thick secretions from the left mainstem and lower lobe bronchus were aspirated. Bronchial washing was performed on the left lung with 60 mL of saline. Approximately 40 mL was aspirated back. Right lung had thin secretions that were aspirated. Patient oxygenation improved post bronchoscopy. No significant complications were seen. Recommendations: Hold heparin drip for 24 hours. Bronchoscopy sample sent for culture and cytology. Findings consistent with mucous plugging.
--- NOTE | 2021-07-03 11:16 | XRay Report ---
XR chest 1V portable CLINICAL HISTORY: s/p bronchoscopy COMPARISON STUDY: Chest radiograph July 03, 2021 at 6:41 AM. FINDINGS: The tip of the endotracheal tube is 3.6 cm above the sue. Tip of feeding tube is below t he lower aspect of this image. Right subclavian central line is in place. No pneumothorax is present. There may be a trace left pleural effusion. Extensive bilateral airspace opacities are noted. These have improved since prior exam. IMPRESSION: 1. No pneumothorax. 2. Extensive bilateral airspace opacities, improved since prior exam. ACT 112: Negative or not required by law. Electronically signed by: Joshua Smith M.D. 07/03/2021 11:14 AM
[2021-07-03] MEDS: NOVASOURCE RENAL 2.0 CAL 1000ML BAG OG SCH (12:53)
--- NOTE | 2021-07-03 13:05 | Critical Care Progress Note ---
Date of Service July 03, 2021 Assessment & Plan (1) ARDS (adult respiratory distress syndrome): (2) Ventilator dependence: (3) 2019 novel coronavirus-infected pneumonia (NCIP): (4) Acute respiratory failure with hypoxia: (5) Hypervolemia: (6) Atrial fibrillation: (7) Hypertension: Plan: Reason Critically Ill: 75-year-old male with history of atrial fibrillation on Eliquis and flecainide, hypertension, likely underlying CKD who presented with COVID-19 pneumonia. Requires ICU level care for intensive management of his respiratory status and mechanical ventilation. Neuro - Currently on fentanyl, Versed and Precedex. Trying to minimize all doses of sedation as much as possible. Maintain RASS of -1 to 0. Cardiac - Atrial fibrillation: Renally dosed flecainide. We will hold heparin drip today given bloody secretions noted on bronchoscopy. Hypertension: Controlled with the use of continuous sedation. Respiratory - ARDS secondary to COVID-19 pneumonia. Was previously on baricitinib, but this was discontinued when the patient was intubated. Continue 10 days total of Decadron. Continue lung protective ventilation strategy. Status post bronchoscopy today with aspiration of mucous plugs from the left lung. Post bronchoscopy chest x-ray has improved. Oxygenation also improved post bronchoscopy. He continues to have evidence of moderate to severe ARDS. Will initiate MetaNebs twice daily with albuterol. GI -continue tube feeds. Continue bowel regimen while on high doses of sedati ves. Lansoprazole for prophylaxis. Triglyceride levels trending down with propofol infusion dose being decreased. RENAL/LYTES -SALIMA. Baseline is unknown. Monitor urine output. No indication for hemodialysis at this present time. Hyperkalemic earlier today treated with Kayexalate and insulin. Nephrology following. Will adjust tube feeds to a renal formulation due to hyperkalemia. LUBA - Stevens. Monitor I&Os. ENDO - No history of DM or thyroid disease. ICU hyperglycemia protocol. HEME - Stable H&H. Heparin infusion. ID -baricitinib discontinued due to mechanical ventilation. Continue Decadron. Bronchoscopy culture sent on 07/03/2021. MRSA screen - 06/28/2021. Procalcitonin level 0.42 on 07/02/2021. Persistent leukocytosis. If patient spikes a fever, will start antibiotics. LINES/IV ACCESS - RIGHT Subclavian CVC, LEFT A-line, ETT, PIV DVT PROPHYLAXIS -Heparin infusion on hold for today. We will initiate DVT prophylaxis and SCDs. Patient's daughter updated over the phone. CRITICAL CARE TIME - I have personally spent 41 minutes of critical care time in the direct management of this patient. This is a life/limb threatening event. This includes time spent evaluating patient, direct bedside care, chart review, placing orders, interpretation of diagnostic studies, discussion with consultants, patient, and family members, as well as other required patient management activities. This time is exclusive of all separately billable procedures, and teaching time and separate from and in addition to any other critical care service time. Admission and Anticipated Discharge Date Admission Date: June 25, 2021 Subjective Patient seen and examined this morning. Patient with worsening hypoxia requiring increasing FiO2 and PEEP. Review of Systems Review of Systems: Unobtainable due to endotracheal tube and Unobtainable due to reduced consciousness Physical Exam Physical Exam: Constitutional: Patient intubated and sedated. No obvious distress. Eyes: Pupils are equal round and reactive to light. Conjunctivae are normal. Anicteric sclera. Ears nose, mouth and throat: Endotracheal tube in place. Neck: Trachea is midline. Visual inspection is normal. Respiratory: Coarse lung sounds on the ventilator. No wheezes. Cardiovascular: Regular rate and rhythm. No murmurs. 1+ pitting edema in the lower extremities. Gastrointestinal: Normal bowel sounds, soft, nontender and nondistended. No hepatosplenomegaly noted. Musculoskeletal: No cyanosis. Patient is able to move all extremities. Skin: No rashes, warm dry and intact. Neurologic: Difficult to assess given intubation and sedation status. Psychiatric: Unable to assess as the patient is intubated. Results & Data Results & Data ([facility]) Vital Signs (Past 12 Hours) Vital Signs Temp Pulse Resp Pulse Ox 07/03/21 11:50 56 L 31 H 96 07/03/21 07:41 59 L 30 H 92 07/03/21 06:00 51 L 18 92 07/03/21 05:00 49 L 20 92 07/03/21 04:00 99.3 F 50 L 27 H 88 L 07/03/21 03:45 50 L 26 H 88 L 07/03/21 03:00 50 L 18 92 07/03/21 02:00 48 L 14 93 07/03/21 01:21 48 L 07/03/21 01:20 48 L 07/03/21 01:00 47 L 25 H 92 Chest x-ray with increasing infiltrate on the left. Coding Level of Care Code Critical Care 1st 30-74 mins Diagnoses ARDS (adult respiratory distress syndrome) J80 Ventilator dependence Z99.11 2019 novel coronavirus-infected pneumonia (NCIP) U07.1; J12.82 Acute respiratory failure with hypoxia J96.01 Hypervolemia E87.70 Atrial fibrillation I48.91 Atrial fibrillation type: unspecified Hypertension I10 Time Spent (min) 41 (1) Atrial fibrillation Atrial fibrillation type: unspecified Qualified Code(s): I48.91 - Unspecified atrial fibrillation
[2021-07-03 19:15] LABS: Albumin Level 1.6 gm/dl (3.4-5.0); Calcium 9.5 mg/dl (8.5-10.1); Creatinine Clr Calc Pharmacy 36.7 ml/min; Est GFR (African American) 34.6 ml/min; Est GFR (Non-African American) 29.9 ml/min; Phosphorus 4.9 mg/dl (2.5-4.9); Potassium 7.2 mmol/L (3.5-5.1)
[2021-07-03] MEDS ORDERED: SODIUM BICARB 8.4% INJ 50 MEQ/50 ML SYR IV STA (19:39)
[2021-07-03 19:40] LABS: BUN Creatinine Ratio 49.7 (10-20)
[2021-07-03] MEDS ORDERED: PATIROMER CALCIUM SORBITEX 8.4 GM PACK PO STA (19:56)
[2021-07-03] MEDS ORDERED: SODIUM POLYSTYRENE SULFONATE 15G/60ML SUSP PO ONE (20:00)
[2021-07-03] MEDS ORDERED: CALCIUM GLUCONATE 10% 2,000 MG in SODIUM CHLORIDE 0.9% 50 ML IV ONE (20:00)
[2021-07-03] MEDS ORDERED: INSULIN HUMAN REGULAR PER UNIT 10 UNITS in SYRINGE 9.9 ML IV ONE (20:15)
[2021-07-03] MEDS ORDERED: BUMETANIDE 2 MG in SYRINGE 0 ML IV ONE (20:30)
[2021-07-03] MEDS: INSULIN GLARGINE SOLOSTAR 100 UNITS/ML 3 ML PEN SC SCH (20:58)
--- NOTE | 2021-07-03 21:11 | Hospitalist Progress Note ---
Date of Service July 03, 2021 Assessment & Plan (1) Acute respiratory failure with hypoxia: Plan: 75 y/o male who presents w/ covid PNA, day 9 of symptoms (06/17/21 onset). Pt with rapid escalation to high flow then to bipap at 100% oxygen still with desaturations, decision to intubate 06/28, now on ventilator baricitinib daily started and stopped due to intubation Dexamethasone 6mg IV daily bronchoscopy 07/03, found to have mucous plugging, suctioned out oxygen requirements improved after bronchoscopy (2) ARDS (adult respiratory distress syndrome): Plan: dexamethasone goal negative net fluids with Bumex intubated, high PEEP and low volume, low FiO2 (3) 2019 novel coronavirus-infected pneumonia (NCIP): Plan: - defer remdesivir because gfr <30, SALIMA - decadron IV 6mg daily, baricitinib stopped when intubated mechanical ventilation since 06/28 (4) SALIMA (acute kidney injury): Plan: likely ATN using Bumex to try to improve urine output K is rising, not a good sign, up to 6 this morning, up to 7 despite Kayexalate and Bumex nephrology following BUN going up, Cr was 1.9 this morning, now 2.0 (5) Hyperkalemia: Plan: difficult to improve gave Bumex and Kayexalate changed tube feeds to low K formula up to 7 this evening (6) Atrial fibrillation: Plan: - stop heparin drip with bleeding on bronchoscopy - continue home flecainide, but renally dose (half of home dose). half dose (25 bid) - have iv metoprolol available and change to scheduled if appears to need it (7) Hypertension: Plan: - hold home lisinopril in setting of SALIMA - hold other antihypertensives (8) Blood glucose elevated: Plan: - low dose SSI Aspart w/ goal 140-180 - patient not on diabetes medications at home - check BSG ACHS -Hemoglobin A1c 7.4 sugars stable Plan: FEN/GI: tube feeding ppx: shae SCDs code: full dispo: icu Family updated and relayed the severity of his illness. long talk with his daughter Juliana Terrell Admission and Anticipated Discharge Date Admission Date: June 25, 2021 Subjective patient had bronchoscopy today with Dr. Whitmore, large mucous plug removed, some bleeding oxygen saturations and requirements improved after bronchoscopy Cr improved to 1.9 but having issues with K rising, gave Kayexalate and using Bumex to remove K appreciate recommendations from Dr. Lee I updated daughter over the phone Review of Systems Review of Systems: Unobtainable due to endotracheal tube and Unobtainable due to reduced consciousness Physical Exam Physical Exam: General: well developed, well nourished, mechanically ventilated, sedated Neck: supple, trachea midline, normal thyroid Lungs: clear to auscultation bilaterally, symmetric chest movement Heart: regular S1 and S2, no murmur, peripheral pulses normal, capillary refill normal, no edema Abdomen: soft, NT, ND, + BS, no hepatomegaly, normal to percussion Extremities: normal in appearance, no cyanosis, no petechiae Neuro: sedated, no focal motor deficits, CN II-XII intact Skin: warm, dry, no rash, normal turgor Psych: sedated Results & Data Results & Data ([facility]) Vital Signs (Past 12 Hours) Vital Signs Temp Pulse Resp Pulse Ox 07/03/21 18:00 37.6 C H 51 L 25 H 91 07/03/21 17:00 50 L 22 95 07/03/21 16:00 37.6 C H 52 L 20 94 07/03/21 15:23 54 L 32 H 94 07/03/21 15:00 57 L 25 H 94 07/03/21 14:00 57 L 21 96 07/03/21 13:00 37.8 C H 56 L 28 H 97 07/03/21 12:00 58 L 26 H 95 07/03/21 11:50 56 L 31 H 96 07/03/21 11:00 61 29 H 95 07/03/21 10:00 56 L 23 95 Laboratory Results Laboratory Results - last 24 hr 07/02/21 07/03/21 07/03/21 21:29 00:09 03:30 WBC RBC Hgb POC Hgb Hct POC Hct MCV MCH MCHC RDW Std Deviation RDW Coeff of Julieth Plt Count MPV Immature Gran % (Auto) Neut % (Auto) Lymph % (Auto) [place] % (Auto) Eos % (Auto) Baso % (Auto) Neut # (Auto) Lymph # (Auto) [place] # (Auto) Eos # (Auto) Baso # (Auto) Immature Gran # (Auto) APTT PTT Ratio Sample Site POC pH POC pCO2 POC pO2 POC HCO3 POC Total CO2 POC Base Excess ABG pH ABG pH (Temp Correct) ABG pCO2 ABG pCO2 (Temp Corrct ABG pO2 POC ABG pO2 at Pt Temp ABG HCO3 POC ABG O2 Sat ABG O2 Saturation ABG Base Excess Dave Test Barometric Pressure Oxygen Given O2 Delivery Device POC O2 Rate POC FiO2 Tidal Volume PEEP POC Sodium Sodium POC Potassium Potassium Chloride Carbon Dioxide Anion Gap BUN Creatinine Est Cr Clr Drug Dosing Est GFR ( Amer) Est GFR (Non-Af Amer) BUN/Creatinine Ratio Glucose POC Glucose 212 H 186 H 167 H Calcium Phosphorus Magnesium Albumin 07/03/21 07/03/21 07/03/21 03:33 03:59 03:59 WBC RBC Hgb POC Hgb 11.6 L Hct POC Hct 34 L MCV MCH MCHC RDW Std Deviation RDW Coeff of Julieth Plt Count MPV Immature Gran % (Auto) Neut % (Auto) Lymph % (Auto) [place] % (Auto) Eos % (Auto) Baso % (Auto) Neut # (Auto) Lymph # (Auto) [place] # (Auto) Eos # (Auto) Baso # (Auto) Immature Gran # (Auto) APTT 86.2 H* PTT Ratio 3.3 Sample Site Art Line POC pH 7.32 L POC pCO2 47 H POC pO2 51 L POC HCO3 24 POC Total CO2 26 POC Base Excess -2.0 ABG pH ABG pH (Temp Correct) 7.320 L ABG pCO2 ABG pCO2 (Temp Corrct 48 H ABG pO2 POC ABG pO2 at Pt Temp 52 ABG HCO3 POC ABG O2 Sat 83.0 L ABG O2 Saturation ABG Base Excess Dave Test NA Barometric Pressure Oxygen Given O2 Delivery Device Ventilator POC O2 Rate 25 POC FiO2 50 Tidal Volume 350 PEEP 8 POC Sodium 138 Sodium 140 POC Potassium 6.0 H Potassium 6.1 H* D Chloride 112 H Carbon Dioxide 24 Anion Gap 4.0 BUN 101 H Creatinine 2.00 H Est Cr Clr Drug Dosing 38.3 Est GFR ( Amer) 36.5 Est GFR (Non-Af Amer) 31.5 BUN/Creatinine Ratio 50.4 H Glucose 187 H POC Glucose Calcium 8.9 Phosphorus 4.2 Magnesium 3.2 H Albumin 07/03/21 07/03/2121 03:59 04:02 08:11 WBC 20.25 H RBC 4.29 L Hgb 12.0 L POC Hgb Hct 36.1 L POC Hct MCV 84.1 MCH 28.0 MCHC 33.2 RDW Std Deviation 44.4 RDW Coeff of Julieth 14.4 Plt Count 452 H MPV 9.3 Immature Gran % (Auto) 4.7 Neut % (Auto) 87.8 Lymph % (Auto) 2.3 [place] % (Auto) 5.0 Eos % (Auto) 0.1 Baso % (Auto) 0.1 Neut # (Auto) 17.77 H Lymph # (Auto) 0.47 L [place] # (Auto) 1.02 H Eos # (Auto) 0.02 Baso # (Auto) 0.02 Immature Gran # (Auto) 0.95 H APTT PTT Ratio Sample Site POC pH POC pCO2 POC pO2 POC HCO3 POC Total CO2 POC Base Excess ABG pH 7.33 L ABG pH (Temp Correct) ABG pCO2 45 ABG pCO2 (Temp Corrct ABG pO2 53 L POC ABG pO2 at Pt Temp ABG HCO3 23 POC ABG O2 Sat ABG O2 Saturation 86.8 L ABG Base Excess -2.9 Dave Test POS Barometric Pressure 726.7 Oxygen Given 50 FIO2 O2 Delivery Device POC O2 Rate POC FiO2 Tidal Volume PEEP POC Sodium Sodium 141 POC Potassium Potassium 6.2 H* Chloride 113 H Carbon Dioxide 21 Anion Gap 7.0 BUN 98 H Creatinine 1.93 H Est Cr Clr Drug Dosing 39.7 Est GFR ( Amer) 38.1 Est GFR (Non-Af Amer) 32.9 BUN/Creatinine Ratio 50.5 H Glucose 216 H POC Glucose Calcium 9.4 Phosphorus Magnesium Albumin 07/03/21 07/03/21 07/03/21 08:29 11:54 15:26 WBC RBC Hgb POC Hgb Hct POC Hct MCV MCH MCHC RDW Std Deviation RDW Coeff of Julieth Plt Count MPV Immature Gran % (Auto) Neut % (Auto) Lymph % (Auto) [place] % (Auto) Eos % (Auto) Baso % (Auto) Neut # (Auto) Lymph # (Auto) [place] # (Auto) Eos # (Auto) Baso # (Auto) Immature Gran # (Auto) APTT PTT Ratio Sample Site POC pH POC pCO2 POC pO2 POC HCO3 POC Total CO2 POC Base Excess ABG pH ABG pH (Temp Correct) ABG pCO2 ABG pCO2 (Temp Corrct ABG pO2 POC ABG pO2 at Pt Temp ABG HCO3 POC ABG O2 Sat ABG O2 Saturation ABG Base Excess Dave Test Barometric Pressure Oxygen Given O2 Delivery Device POC O2 Rate POC FiO2 Tidal Volume PEEP POC Sodium Sodium POC Potassium Potassium Chloride Carbon Dioxide Anion Gap BUN Creatinine Est Cr Clr Drug Dosing Est GFR ( Amer) Est GFR (Non-Af Amer) BUN/Creatinine Ratio Glucose POC Glucose 210 H 151 H 165 H Calcium Phosphorus Magnesium Albumin 07/03/21 07/03/21 07/03/21 18:17 20:34 20:57 WBC RBC Hgb POC Hgb Hct POC Hct MCV MCH MCHC RDW Std Deviation RDW Coeff of Julieth Plt Count MPV Immature Gran % (Auto) Neut % (Auto) Lymph % (Auto) [place] % (Auto) Eos % (Auto) Baso % (Auto) Neut # (Auto) Lymph # (Auto) [place] # (Auto) Eos # (Auto) Baso # (Auto) Immature Gran # (Auto) APTT PTT Ratio Sample Site POC pH POC pCO2 POC pO2 POC HCO3 POC Total CO2 POC Base Excess ABG pH ABG pH (Temp Correct) ABG pCO2 ABG pCO2 (Temp Corrct ABG pO2 POC ABG pO2 at Pt Temp ABG HCO3 POC ABG O2 Sat ABG O2 Saturation ABG Base Excess Dave Test Barometric Pressure Oxygen Given O2 Delivery Device POC O2 Rate POC FiO2 Tidal Volume PEEP POC Sodium Sodium 140 POC Potassium Potassium 7.2 H* D Chloride 114 H Carbon Dioxide 22 Anion Gap 4.0 BUN 104 H Creatinine 2.09 H Est Cr Clr Drug Dosing 36.7 Est GFR ( Amer) 34.6 Est GFR (Non-Af Amer) 29.9 BUN/Creatinine Ratio 49.7 H Glucose 169 H POC Glucose 196 H 241 H Calcium 9.5 Phosphorus 4.9 Magnesium Albumin 1.6 L Medications Administered Current Inpatient Medications Albuterol (Albuterol 0.083% Nebu Soln 3 Ml Vial) 2.5 mg NEB Q6R PRN PRN Reason: sob Stop: 07/26/21 11:41 Dextrose (Dextrose 50% 50 Ml Syringe) 25 - 50 ml IV UD PRN; Protocol PRN Reason: Hypoglycemia Protocol Stop: 07/25/21 23:47 Last Admin: 07/02/21 04:09 Dose: 25 ml Documented by: Docusate Sodium (Docusate Sodium Syrup 100 Mg/10 Ml Udc) 100 mg PO BID [facility] Stop: 08/01/21 10:14 Last Admin: 07/03/21 20:30 Dose: 100 mg Documented by: Enteral Nutritional Formula (Novasource Renal 2.0 [place] 1000ml Bag) 1,000 ml OG UD [facility]; Protocol Stop: 08/02/21 11:44 Last Admin: 07/03/21 12:53 Dose: 1,000 ml Documented by: Fentanyl Citrate (Fentanyl Bolus From Bag) 50 mcg IV Q60M PRN PRN Reason: Pain or Agitation Stop: 07/12/21 11:10 Flecainide Acetate (Flecainide Acetate 100 Mg Tablet) 25 mg PO BID [facility] Stop: 07/26/21 08:59 Last Admin: 07/03/21 20:30 Dose: 25 mg Documented by: Glucagon (Glucagon For Inj 1 Mg Vial) 1 mg SQ UD PRN; Protocol PRN Reason: Hypoglycemia Protocol Stop: 07/25/21 23:47 Glucose (Glucose 10 Tabs/Tube) 4 - 8 tabs PO UD PRN; Protocol PRN Reason: Hypoglycemia Protocol Stop: 07/25/21 23:47 Glucose (Glucose 40% Gel 15 Gm Tube) 15 - 30 gm PO UD PRN; Protocol PRN Reason: Hypoglycemia Protocol Stop: 07/25/21 23:47 Dexamethasone 6 mg/ Syringe 1.5 mls @ 1 mls/min IV Q24H [facility] Stop: 07/05/21 09:02 Last Admin: 07/03/21 08:14 Dose: 1 mls/min Documented by: Fentanyl Citrate (Fentanyl Drip) 1,250 mcg in 250 mls @ 40 mls/hr IV .Q6H15M [facility]; Protocol Stop: 07/12/21 11:14 Last Titration: 07/03/21 18:59 Dose: 200 mcg/hr, 40 mls/hr Documented by: Midazolam HCl (Versed) 125 mg in 250 mls @ 6 mls/hr IV .O38Y78H [facility]; Protocol Stop: 07/31/21 06:29 Last Titration: 07/03/21 18:59 Dose: 3 mg/hr, 6 mls/hr Documented by: Dexmedetomidine HCl 400 mcg/ (Sodium Chloride) 100 mls @ 21.82 mls/hr IV .Q4H35M [facility]; Protocol Stop: 07/06/21 04:59 Last Titration: 07/03/21 20:58 Dose: 0.6 mcg/kg/hr, 16.4 mls/hr Documented by: Heparin Sodium/Dextrose (Heparin Sodium/Dextrose) 25,000 units in 500 mls @ 0 mls/hr IV .Q0M [facility]; Protocol Stop: 08/01/21 09:29 Last Titration: 07/03/21 18:59 Dose: 0 units/hr, 0 mls/hr Documented by: Insulin Aspart (Insulin Aspart 100 Units/Ml 3 Ml Pen) 0 units SC Q4 [facility] Stop: 07/29/21 07:59 Last Admin: 07/03/21 20:34 Dose: 5 units Documented by: Insulin Glargine (Insulin Glargine Solostar 100 Units/Ml 3 Ml Pen) 0 units SC HS [facility]; Protocol Stop: 07/30/21 20:59 Last Admin: 07/03/21 20:58 Dose: 10 units Documented by: Insulin Glargine (Insulin Glargine Solostar 100 Units/Ml 3 Ml Pen) 45 units SC QAM [facility] Stop: 08/02/21 08:59 Last Admin: 07/03/21 08:31 Dose: 45 units Documented by: Lansoprazole (Lansoprazole 30 Mg Soltab) 30 mg PO QAM [facility] Stop: 07/29/21 11:14 Last Admin: 07/03/21 08:15 Dose: 30 mg Documented by: Midazolam HCl (Midazolam Bolus From Bag) 2 mg IV Q60M PRN PRN Reason: Sedation Stop: 07/31/21 06:27 Last Admin: 07/01/21 11:45 Dose: 2 mg Documented by: Miscellaneous (Carbohydrates For Hypoglycemia ) 15 - 30 gm PO UD PRN PRN Reason: Hypoglycemia Protocol Stop: 07/25/21 23:47 Miscellaneous (Icu Electrolyte Replacement Protocol) 1 ea N/A BID@06,18 [facility]; Protocol Stop: 07/05/21 17:59 Last Admin: 07/03/21 15:29 Dose: Not Given Documented by: Miscellaneous Information (Pharmacy Glycemic Mgmt Consult) 1 ea N/A UD PRN PRN Reason: Consult Stop: 07/28/21 11:56 Multi-Ingredient Cream (Artificial Tears Op Oint 3.5 Gm Tube) 1 appln OP Q4H [facility] Stop: 07/28/21 11:14 Last Admin: 07/03/21 20:28 Dose: 1 appln Documented by: Polyethylene Glycol (Polyethylene (Miralax) 17 Gm Pack) 17 gm PO DAILY PRN PRN Reason: Constipation Stop: 07/25/21 23:47 Polyethylene Glycol (Polyethylene (Miralax) 17 Gm Pack) 17 gm PO DAILY [facility] Stop: 08/01/21 08:59 Last Admin: 07/03/21 08:15 Dose: 17 gm Documented by: Sennosides (Senna 8.6 Mg Tab) 17.2 mg PO QAM [facility] Stop: 07/29/21 08:59 Last Admin: 07/03/21 08:15 Dose: 17.2 mg Documented by: Sterile Water (Tube Feeding Water Flush) 30 ml OG Q4H [facility] Stop: 07/31/21 11:29 Last Admin: 07/03/21 20:28 Dose: Not Given Documented by: PG Care Time/CCT Total # of Minutes Spent Total Time Spent with Patient: Total time spent is greater than 50% in coordination of care (as documented) at patient's floor/unit and/or counseling patient: Coding Level of Care Code 89741 Subseq Hosp Care Lvl 3 Diagnoses Acute respiratory failure with hypoxia J96.01 2019 novel coronavirus-infected pneumonia (NCIP) U07.1; J12.82 Atrial fibrillation I48.91 Atrial fibrillation type: unspecified SALIMA (acute kidney injury) N17.9 Hypertension I10 Blood glucose elevated R73.9 Hyperkalemia E87.5 ARDS (adult respiratory distress syndrome) J80 (1) Atrial fibrillation Atrial fibrillation type: unspecified Qualified Code(s): I48.91 - Unspecified atrial fibrillation
[2021-07-04] MEDS: INSULIN ASPART 100 UNITS/ML 3 ML PEN SC SCH ×6 (00:08→20:24)
[2021-07-04 00:47] LABS: Calcium 9.9 mg/dl (8.5-10.1); Creatinine Clr Calc Pharmacy 37.6 ml/min; Est GFR (African American) 35.6 ml/min; Est GFR (Non-African American) 30.7 ml/min; Potassium 6.7 mmol/L (3.5-5.1)
[2021-07-04] MEDS ORDERED: SODIUM BICARB 8.4% INJ 50 MEQ/50 ML SYR IV STA (00:56)
[2021-07-04] MEDS ORDERED: DEXTROSE 50% 50 ML SYRINGE IV STA (00:56)
[2021-07-04] MEDS ORDERED: PATIROMER CALCIUM SORBITEX 8.4 GM PACK PO STA (00:59)
[2021-07-04] MEDS ORDERED: INSULIN HUMAN REGULAR PER UNIT 10 UNITS in SYRINGE 9.9 ML IV STA (01:02)
[2021-07-04] MEDS: ARTIFICIAL TEARS OP OINT 3.5 GM TUBE OP SCH ×5 (04:40→19:07)
[2021-07-04 04:53] LABS: iSTAT Art Bld Gas pCO2 Correct 64 mmHg (35-46); iSTAT Art Bld Gas pH Corrected 7.281 (7.35-7.45); iSTAT Arterial Blood Gas HCO3 31 meg/L (19-24); iSTAT Arterial Blood Gas pCO2 69 mmHg (35-46); iSTAT Arterial Blood Gas pH 7.26 (7.35-7.45); iSTAT Arterial Blood Gas pO2 77 mmHg (80-95); iSTAT Arterial Blood Gas pO2 C 70; iSTAT Carbon Dioxide 33 mmol/L (24-31); iSTAT FiO2 50 %; iSTAT Hematocrit 36 % (42-52); iSTAT Hemoglobin 12.2 g/dl (14.0-18.0); iSTAT Potassium 6.1 mmol/L (3.3-5.0); iSTAT Site Art Line; iSTAT Sodium 142 mmol/L (135-144)
[2021-07-04] MEDS: fentaNYL DRIP 1,250 MCG/250 ML BAG IV SCH ×5 (04:56→17:41)
[2021-07-04] MEDS: MIDAZOLAM HCL 125 MG/250 ML BAG IV SCH ×2 (04:56→16:32)
[2021-07-04 05:29] LABS: Basophils # (auto) 0.02 K/uL (0-0.2); Basophils % (auto) 0.1 %; Eosinophils # (auto) 0.02 K/uL (0-0.5); Eosinophils % (auto) 0.1 %; Hematocrit (blood only) 37.5 % (42-52); Hemoglobin 12.1 g/dL (14.0-18.0); Immature Granulocytes # (auto) 0.66 K/uL (0.00-0.02); Immature Granulocytes % (auto) 3.1 %; Lymphocytes # (auto) 0.66 K/uL (1.2-3.4); Lymphocytes % (auto) 3.1 %; Mean Corpuscular Hemoglobin 28.2 pg (25-34); Mean Corpuscular Hgb Conc 32.3 g/dL (32-36); Mean Corpuscular Volume 87.4 fL (80-100); Mean Platelet Volume 9.6 fL (7.4-10.4); Monocytes # (auto) 0.54 K/uL (0.11-0.59); Monocytes % (auto) 2.5 %; Neutrophils # (auto) 19.61 K/uL (1.4-6.5); Neutrophils % (auto) 91.1 %; Platelet Count 471 K/uL (130-400); RDW Coefficient of Variation 14.5 % (11.5-14.5); RDW Standard Deviation 46.5 fL (36.4-46.3); Red Blood Count 4.29 M/uL (4.7-6.1); White Blood Count 21.51 K/uL (4.8-10.8)
[2021-07-04 06:06] LABS: BUN Creatinine Ratio 50.5 (10-20); Calcium 9.6 mg/dl (8.5-10.1); Creatinine Clr Calc Pharmacy 37.6 ml/min; Est GFR (African American) 35.4 ml/min; Est GFR (Non-African American) 30.6 ml/min; Magnesium 3.2 mg/dl (1.8-2.4); Phosphorus 5.8 mg/dl (2.5-4.9); Potassium 6.2 mmol/L (3.5-5.1)
[2021-07-04] MEDS: ICU ELECTROLYTE REPLACEMENT PROTOCOL SCH ×2 (06:23→18:08)
[2021-07-04] MEDS: DEXMEDETOMIDINE HCL 400 MCG in 0.9 % SODIUM CHLORIDE 96 ML IV SCH ×3 (07:51→07:53)
[2021-07-04] MEDS: dexAMETHasone 6 MG in SYRINGE 0 ML IV SCH (08:48)
[2021-07-04] MEDS: LANSOPRAZOLE 30 MG SOLTAB PO SCH (08:49)
[2021-07-04] MEDS: ALBUTEROL 0.083% NEBU SOLN 3 ML VIAL NEB PRN ×2 (08:49→20:11)
[2021-07-04] MEDS: POLYETHYLENE (MIRALAX) 17 GM PACK PO SCH (08:49)
[2021-07-04] MEDS: DOCUSATE SODIUM SYRUP 100 MG/10 ML UDC PO SCH ×2 (08:49→20:28)
[2021-07-04] MEDS: SENNA 8.6 MG TAB PO SCH (08:50)
[2021-07-04] MEDS: FLECAINIDE ACETATE 100 MG TABLET PO SCH (08:51)
[2021-07-04] MEDS ORDERED: INSULIN GLARGINE SOLOSTAR 100 UNITS/ML 3 ML PEN SC SCH (09:00)
--- NOTE | 2021-07-04 09:00 | XRay Report ---
XR chest 1V portable CLINICAL HISTORY: Resp failure TECHNIQUE: Single frontal radiograph of the chest was obtained. Comparison: Comparison is made to chest one view 07/03/2021 FINDINGS: Lines and tubes are stable. The cardiomediastinal silhouette is stable. Multifocal airspace opacities are minimally improved from prior exam. No evidence of pleural effusion or pneumothorax. IMPRESSION: Previously noted multifocal airspace opacities are minimally improved. ACT 112: Negative or not required by law. Electronically signed by: Elias Gatica M.D. 07/04/2021 8:58 AM
--- NOTE | 2021-07-04 09:05 | Hospitalist Progress Note ---
Date of Service July 04, 2021 Assessment & Plan (1) Acute respiratory failure with hypoxia: Plan: 75 y/o male who presents w/ covid PNA, day 9 of symptoms when he was admitted (06/17/21 onset). Pt with rapid escalation to high flow then to bipap at 100% oxygen still with desaturations, decision to intubate 06/28, now on ventilator baricitinib daily started and stopped due to intubation Dexamethasone 6mg IV daily x 10 days bronchoscopy 07/03, found to have mucous plugging, suctioned out oxygen requirements improved after bronchoscopy and left sided aeration improved desaturated further today during HD line placement, up to PEEP 12 and FiO2 100% CXR after procedure shows no PTX poor prognosis (2) ARDS (adult respiratory distress syndrome): Plan: dexamethasone goal negative net fluids with Bumex, will now attempt HD, possible UF intubated, high PEEP and low volume, low FiO2 (3) 2019 novel coronavirus-infected pneumonia (NCIP): Plan: - defer remdesivir because gfr <30, SALIMA - decadron IV 6mg daily, baricitinib stopped when intubated mechanical ventilation since 06/28 (4) SALIMA (acute kidney injury): Plan: likely ATN, getting worse, BUN and Cr trending up, not making enough urine cannot keep potassium normal despite Bumex and potassium binders HD catheter placed 07/04 for emergent HD nephrology following (5) Hyperkalemia: Plan: difficult to improve gave Bumex and Kayexalate changed tube feeds to low K formula still up at 6.8 and then patient went into afib with RVR HD cath placed, emergent HD to get K down (6) Atrial fibrillation: Plan: - stopped heparin drip with bleeding on bronchoscopy went into RVR rates 150, hypotensive on 07/04 resolved with amiodarone bolus 150mg could be due to K of 6.8, will lower with HD (7) Hypertension: Plan: - hold home lisinopril in setting of SALIMA - hold other antihypertensives (8) Blood glucose elevated: Plan: - low dose SSI Aspart w/ goal 140-180 - patient not on diabetes medications at home - check BSG ACHS -Hemoglobin A1c 7.4 sugars stable Plan: FEN/GI: tube feeding ppx: shae SCDs code: full dispo: icu Family updated and relayed the severity of his illness. long talk with his daughter Juliana Terrell, she was able to visit outside room today will keep her updated this weekend remains full code Admission and Anticipated Discharge Date Admission Date: June 25, 2021 Subjective potassium going up today and BUN/Cr trending up tried to fix potassium but still up at 6.8 patient went into afib with RVR, hypotensive, finally resolved with Amiodarone 150mg IV bolus Dr. Whitmore discussed with Dr. Lee, placed HD catheter and will perform emergent HD to lower K and remove fluid while placing the HD catheter, patient's saturations dropped, now up to 12 PEEP and FiO2 100% CXR after line placement without pneumothorax Dr. Whitmore spoke with patient's daughter, consent for HD line I spoke with her after the procedure, discussed that he is getting worse, the past two days have not gone well yesterday with the mucous plug and bronchoscopy and today's events the more systems that are not working the worse the prognosis she understands, will remain full code, continue to escalate care as needed Review of Systems Review of Systems: Unobtainable due to endotracheal tube and Unobtainable due to reduced consciousness Physical Exam Physical Exam: General: well developed, well nourished, mechanically ventilated, sedated Neck: supple, trachea midline, normal thyroid Lungs: clear to auscultation bilaterally, symmetric chest movement Heart: regular S1 and S2, no murmur, peripheral pulses normal, capillary refill normal, no edema Abdomen: soft, NT, ND, + BS, no hepatomegaly, normal to percussion Extremities: normal in appearance, no cyanosis, no petechiae Neuro: sedated, no focal motor deficits, CN II-XII intact Skin: warm, dry, no rash, normal turgor Psych: sedated Results & Data Results & Data ([facility]) Vital Signs (Past 12 Hours) Vital Signs Temp Pulse Resp BP Pulse Ox 07/04/21 07:16 64 07/04/21 06:30 36.9 C 63 22 110/47 L 95 07/04/21 06:00 36.9 C 62 26 H 107/46 L 94 07/04/21 05:30 36.9 C 56 L 24 116/48 L 86 L 07/04/21 05:00 35.7 C L 53 L 25 H 113/43 L 89 L 07/04/21 04:30 35.4 C L 51 L 25 H 107/43 L 93 07/04/21 04:00 35.5 C L 48 L 25 H 121/47 L 92 07/04/21 03:42 47 L 25 H 91 07/04/21 03:30 35.5 C L 25 H 116/44 L 89 L 07/04/21 03:00 35.6 C L 46 L 25 H 120/43 L 86 L 07/04/21 02:30 35.5 C L 47 L 25 H 121/43 L 89 L 07/04/21 02:00 35.6 C L 44 L 25 H 114/49 L 86 L 07/04/21 01:30 35.6 C L 44 L 25 H 130/46 L 93 07/04/21 01:00 35.6 C L 41 L 25 H 110/45 L 91 07/04/21 00:30 35.7 C L 40 L 25 H 103/44 L 90 07/04/21 00:00 35.8 C L 41 L 25 H 108/45 L 93 07/03/21 23:30 36.0 C L 44 L 25 H 114/50 L 94 07/03/21 23:13 46 L 28 H 92 07/03/21 23:00 36.1 C L 44 L 25 H 113/47 L 93 07/03/21 22:30 36.2 C L 45 L 25 H 113/49 L 93 07/03/21 22:00 36.3 C L 45 L 25 H 118/53 L 91 07/03/21 21:30 36.4 C L 47 L 25 H 126/52 L 89 L Laboratory Results Laboratory Results - last 24 hr 07/03/21 07/03/21 07/03/21 08:11 11:54 15:26 WBC RBC Hgb POC Hgb Hct POC Hct MCV MCH MCHC RDW Std Deviation RDW Coeff of Julieth Plt Count MPV Immature Gran % (Auto) Neut % (Auto) Lymph % (Auto) Bonner % (Auto) Eos % (Auto) Baso % (Auto) Neut # (Auto) Lymph # (Auto) Bonner # (Auto) Eos # (Auto) Baso # (Auto) Immature Gran # (Auto) Sample Site POC pH POC pCO2 POC pO2 POC HCO3 POC Total CO2 POC Base Excess ABG pH (Temp Correct) ABG pCO2 (Temp Corrct POC ABG pO2 at Pt Temp POC ABG O2 Sat Dave Test O2 Delivery Device POC O2 Rate POC FiO2 Tidal Volume PEEP POC Sodium Sodium 141 POC Potassium Potassium 6.2 H* Chloride 113 H Carbon Dioxide 21 Anion Gap 7.0 BUN 98 H Creatinine 1.93 H Est Cr Clr Drug Dosing 39.7 Est GFR ( Amer) 38.1 Est GFR (Non-Af Amer) 32.9 BUN/Creatinine Ratio 50.5 H Glucose 216 H POC Glucose 151 H 165 H Calcium 9.4 Phosphorus Magnesium Total Creatine Kinase Albumin 07/03/21 07/03/21 07/03/21 18:17 20:34 20:57 WBC RBC Hgb POC Hgb Hct POC Hct MCV MCH MCHC RDW Std Deviation RDW Coeff of Julieth Plt Count MPV Immature Gran % (Auto) Neut % (Auto) Lymph % (Auto) Bonner % (Auto) Eos % (Auto) Baso % (Auto) Neut # (Auto) Lymph # (Auto) Bonner # (Auto) Eos # (Auto) Baso # (Auto) Immature Gran # (Auto) Sample Site POC pH POC pCO2 POC pO2 POC HCO3 POC Total CO2 POC Base Excess ABG pH (Temp Correct) ABG pCO2 (Temp Corrct POC ABG pO2 at Pt Temp POC ABG O2 Sat Dave Test O2 Delivery Device POC O2 Rate POC FiO2 Tidal Volume PEEP POC Sodium Sodium 140 POC Potassium Potassium 7.2 H* D Chloride 114 H Carbon Dioxide 22 Anion Gap 4.0 BUN 104 H Creatinine 2.09 H Est Cr Clr Drug Dosing 36.7 Est GFR ( Amer) 34.6 Est GFR (Non-Af Amer) 29.9 BUN/Creatinine Ratio 49.7 H Glucose 169 H POC Glucose 196 H 241 H Calcium 9.5 Phosphorus 4.9 Magnesium Total Creatine Kinase Albumin 1.6 L 07/04/21 07/04/21 07/04/21 00:05 00:07 04:24 WBC RBC Hgb POC Hgb Hct POC Hct MCV MCH MCHC RDW Std Deviation RDW Coeff of Julieth Plt Count MPV Immature Gran % (Auto) Neut % (Auto) Lymph % (Auto) Bonner % (Auto) Eos % (Auto) Baso % (Auto) Neut # (Auto) Lymph # (Auto) Bonner # (Auto) Eos # (Auto) Baso # (Auto) Immature Gran # (Auto) Sample Site POC pH POC pCO2 POC pO2 POC HCO3 POC Total CO2 POC Base Excess ABG pH (Temp Correct) ABG pCO2 (Temp Corrct POC ABG pO2 at Pt Temp POC ABG O2 Sat Dave Test O2 Delivery Device POC O2 Rate POC FiO2 Tidal Volume PEEP POC Sodium Sodium 139 POC Potassium Potassium 6.7 H* Chloride 111 H Carbon Dioxide 25 Anion Gap 4.0 BUN 106 H Creatinine 2.04 H Est Cr Clr Drug Dosing 37.6 Est GFR ( Amer) 35.6 Est GFR (Non-Af Amer) 30.7 BUN/Creatinine Ratio 52.0 H Glucose 198 H POC Glucose 173 H 158 H Calcium 9.9 Phosphorus Magnesium Total Creatine Kinase 594 H Albumin 07/04/21 07/04/21 07/04/21 04:38 05:04 05:04 WBC 21.51 H RBC 4.29 L Hgb 12.1 L POC Hgb 12.2 L Hct 37.5 L POC Hct 36 L MCV 87.4 MCH 28.2 MCHC 32.3 RDW Std Deviation 46.5 H RDW Coeff of Julieth 14.5 Plt Count 471 H MPV 9.6 Immature Gran % (Auto) 3.1 Neut % (Auto) 91.1 Lymph % (Auto) 3.1 Bonner % (Auto) 2.5 Eos % (Auto) 0.1 Baso % (Auto) 0.1 Neut # (Auto) 19.61 H Lymph # (Auto) 0.66 L Bonner # (Auto) 0.54 Eos # (Auto) 0.02 Baso # (Auto) 0.02 Immature Gran # (Auto) 0.66 H Sample Site Art Line POC pH 7.26 L POC pCO2 69 H POC pO2 77 L POC HCO3 31 H POC Total CO2 33 H POC Base Excess 4.0 H ABG pH (Temp Correct) 7.281 L ABG pCO2 (Temp Corrct 64 H POC ABG pO2 at Pt Temp 70 POC ABG O2 Sat 92.0 Dave Test NA O2 Delivery Device Ventilator POC O2 Rate 25 POC FiO2 50 Tidal Volume 350 PEEP 14 POC Sodium 142 Sodium 142 POC Potassium 6.1 H* Potassium 6.2 H* Chloride 109 H Carbon Dioxide 26 Anion Gap 7.0 BUN 103 H Creatinine 2.05 H Est Cr Clr Drug Dosing 37.6 Est GFR ( Amer) 35.4 Est GFR (Non-Af Amer) 30.6 BUN/Creatinine Ratio 50.5 H Glucose 175 H POC Glucose Calcium 9.6 Phosphorus 5.8 H Magnesium 3.2 H Total Creatine Kinase Albumin 07/04/21 07:38 WBC RBC Hgb POC Hgb Hct POC Hct MCV MCH MCHC RDW Std Deviation RDW Coeff of Julieth Plt Count MPV Immature Gran % (Auto) Neut % (Auto) Lymph % (Auto) Bonner % (Auto) Eos % (Auto) Baso % (Auto) Neut # (Auto) Lymph # (Auto) Bonner # (Auto) Eos # (Auto) Baso # (Auto) Immature Gran # (Auto) Sample Site POC pH POC pCO2 POC pO2 POC HCO3 POC Total CO2 POC Base Excess ABG pH (Temp Correct) ABG pCO2 (Temp Corrct POC ABG pO2 at Pt Temp POC ABG O2 Sat Dave Test O2 Delivery Device POC O2 Rate POC FiO2 Tidal Volume PEEP POC Sodium Sodium POC Potassium Potassium Chloride Carbon Dioxide Anion Gap BUN Creatinine Est Cr Clr Drug Dosing Est GFR ( Amer) Est GFR (Non-Af Amer) BUN/Creatinine Ratio Glucose POC Glucose 138 H Calcium Phosphorus Magnesium Total Creatine Kinase Albumin Medications Administered Current Inpatient Medications Albuterol (Albuterol 0.083% Nebu Soln 3 Ml Vial) 2.5 mg NEB Q6R PRN PRN Reason: sob Stop: 07/26/21 11:41 Last Admin: 07/04/21 08:49 Dose: 2.5 mg Documented by: Dextrose (Dextrose 50% 50 Ml Syringe) 25 - 50 ml IV UD PRN; Protocol PRN Reason: Hypoglycemia Protocol Stop: 07/25/21 23:47 Last Admin: 07/02/21 04:09 Dose: 25 ml Documented by: Docusate Sodium (Docusate Sodium Syrup 100 Mg/10 Ml Udc) 100 mg PO BID KYLE Stop: 08/01/21 10:14 Last Admin: 07/04/21 08:49 Dose: 100 mg Documented by: Enteral Nutritional Formula (Novasource Renal 2.0 Kingsley 1000ml Bag) 1,000 ml OG UD KYLE; Protocol Stop: 08/02/21 11:44 Last Admin: 07/03/21 12:53 Dose: 1,000 ml Documented by: Fentanyl Citrate (Fentanyl Bolus From Bag) 50 mcg IV Q60M PRN PRN Reason: Pain or Agitation Stop: 07/12/21 11:10 Flecainide Acetate (Flecainide Acetate 100 Mg Tablet) 25 mg PO BID [facility] Stop: 07/26/21 08:59 Last Admin: 07/04/21 08:51 Dose: 25 mg Documented by: Glucagon (Glucagon For Inj 1 Mg Vial) 1 mg SQ UD PRN; Protocol PRN Reason: Hypoglycemia Protocol Stop: 07/25/21 23:47 Glucose (Glucose 10 Tabs/Tube) 4 - 8 tabs PO UD PRN; Protocol PRN Reason: Hypoglycemia Protocol Stop: 07/25/21 23:47 Glucose (Glucose 40% Gel 15 Gm Tube) 15 - 30 gm PO UD PRN; Protocol PRN Reason: Hypoglycemia Protocol Stop: 07/25/21 23:47 Dexamethasone 6 mg/ Syringe 1.5 mls @ 1 mls/min IV Q24H [facility] Stop: 07/05/21 09:02 Last Admin: 07/04/21 08:48 Dose: 1 mls/min Documented by: Fentanyl Citrate (Fentanyl Drip) 1,250 mcg in 250 mls @ 40 mls/hr IV .Q6H15M [facility]; Protocol Stop: 07/12/21 11:14 Last Admin: 07/04/21 07:53 Dose: Not Given Documented by: Midazolam HCl (Versed) 125 mg in 250 mls @ 6 mls/hr IV .[id number] KYLE; Protocol Stop: 07/31/21 06:29 Last Titration: 07/04/21 07:08 Dose: 3 mg/hr, 6 mls/hr Documented by: Dexmedetomidine HCl 400 mcg/ (Sodium Chloride) 100 mls @ 0 mls/hr IV .Q0M KYLE; Protocol Stop: 07/06/21 04:59 Last Admin: 07/04/21 07:53 Dose: Not Given Documented by: Heparin Sodium/Dextrose (Heparin Sodium/Dextrose) 25,000 units in 500 mls @ 0 mls/hr IV .Q0M KYLE; Protocol Stop: 08/01/21 09:29 Last Titration: 07/04/21 07:08 Dose: 0 units/hr, 0 mls/hr Documented by: Insulin Aspart (Insulin Aspart 100 Units/Ml 3 Ml Pen) 0 units SC Q4 KYLE Stop: 07/29/21 07:59 Last Admin: 07/04/21 07:50 Dose: Not Given Documented by: Insulin Glargine (Insulin Glargine Solostar 100 Units/Ml 3 Ml Pen) 0 units SC HS [facility]; Protocol Stop: 07/30/21 20:59 Last Admin: 07/03/21 20:58 Dose: 10 units Documented by: Insulin Glargine (Insulin Glargine Solostar 100 Units/Ml 3 Ml Pen) [facility] Stop: 08/03/21 08:59 Lansoprazole (Lansoprazole 30 Mg Soltab) 30 mg PO QAM [facility] Stop: 07/29/21 11:14 Last Admin: 07/04/21 08:49 Dose: 30 mg Documented by: Midazolam HCl (Midazolam Bolus From Bag) 2 mg IV Q60M PRN PRN Reason: Sedation Stop: 07/31/21 06:27 Last Admin: 07/01/21 11:45 Dose: 2 mg Documented by: Miscellaneous (Carbohydrates For Hypoglycemia ) 15 - 30 gm PO UD PRN PRN Reason: Hypoglycemia Protocol Stop: 07/25/21 23:47 Miscellaneous (Icu Electrolyte Replacement Protocol) 1 ea N/A BID@,18 [facility]; Protocol Stop: 07/05/21 17:59 Last Admin: 07/04/21 06:23 Dose: 1 ea Documented by: Miscellaneous Information (Pharmacy Glycemic Mgmt Consult) 1 ea N/A UD PRN PRN Reason: Consult Stop: 07/28/21 11:56 Multi-Ingredient Cream (Artificial Tears Op Oint 3.5 Gm Tube) 1 appln OP Q4H [facility] Stop: 07/28/21 11:14 Last Admin: 07/04/21 07:53 Dose: 1 appln Documented by: Polyethylene Glycol (Polyethylene (Miralax) 17 Gm Pack) 17 gm PO DAILY PRN PRN Reason: Constipation Stop: 07/25/21 23:47 Polyethylene Glycol (Polyethylene (Miralax) 17 Gm Pack) 17 gm PO DAILY [facility] Stop: 08/01/21 08:59 Last Admin: 07/04/21 08:49 Dose: 17 gm Documented by: Sennosides (Senna 8.6 Mg Tab) 17.2 mg PO QAM [facility] Stop: 07/29/21 08:59 Last Admin: 07/04/21 08:50 Dose: 17.2 mg Documented by: Sterile Water (Tube Feeding Water Flush) 30 ml OG Q4H KYLE Stop: 07/31/21 11:29 Last Admin: 07/03/21 20:28 Dose: Not Given Documented by: PG Care Time/CCT Total # of Minutes Spent Total Time Spent with Patient: Total time spent is greater than 50% in coordination of care (as documented) at patient's floor/unit and/or counseling patient: Coding Level of Care Code 68100 Subseq Hosp Care Lvl 3 Diagnoses Acute respiratory failure with hypoxia J96.01 ARDS (adult respiratory distress syndrome) J80 2019 novel coronavirus-infected pneumonia (NCIP) U07.1; J12.82 SALIMA (acute kidney injury) N17.9 Hyperkalemia E87.5 Atrial fibrillation I48.91 Atrial fibrillation type: unspecified Hypertension I10 Blood glucose elevated R73.9 (1) Atrial fibrillation Atrial fibrillation type: unspecified Qualified Code(s): I48.91 - Unspecified atrial fibrillation
--- NOTE | 2021-07-04 09:47 | Nephrology Progress Note ---
Date of Service July 04, 2021 Assessment & Plan (1) SALIMA (acute kidney injury): Plan: Clinically consistent with ATN. Non-oliguric. Creatinine relatively stable. No emergent indication for dialysis but hyperkalemia concerning. Continue Bumex IV to encourage urine output and kaluresis. Repeat labs this afternoon. TF held overnight. May restart renal appropriate TF today. Medications appropriate for kidney function. I reviewed the plan of care with the ICU team this AM. (2) 2019 novel coronavirus-infected pneumonia (NCIP): Plan: Remains Decadron. Cefepime dose adjustment as needed for renal dysfunction. (3) Hypertension: Plan: Lisinopril held. Admission and Anticipated Discharge Date Admission Date: June 25, 2021 Subjective Potassium improved with patiromer and bumex overnight. I spoke to the patient's daughter yesterday and reviewed goals of care. Remains non-oliguric. I discussed the patient with Dr. Lu and Dr. Whitmore in the ICU this morning and reviewed the plan of care with the [facility] nurse. Review of Systems Review of Systems: Unobtainable due to endotracheal tube Physical Exam Constitutional: well developed and + mechanically ventilated Eyes: + anicteric sclerae; no corneal abnormality Neck: normal visual inspection and trachea midline Respiratory: Auscultation: lungs clear to auscultation bilaterally, + rhonchi and + bronchovesicular breath sounds Cardiovascular: Rate/Rhythm: + bradycardic Heart Sounds: normal S1 and normal S2 Extremities: + pedal edema Gastrointestinal (Abdomen): Inspection/Auscultation: + abdomen distended Percussion/Palpation: abdomen soft and + dullness to percussion; abdomen not rigid Musculoskeletal: Extremities: no cyanosis and no clubbing Skin: normal turgor; no lesions Neurologic: Motor/Sensory: no fasciculations Results & Data ([facility]) Vital Signs (Past 12 Hours) Vital Signs Temp Pulse Resp BP Pulse Ox 07/04/21 07:16 64 07/04/21 06:30 36.9 C 63 22 110/47 L 95 07/04/21 06:00 36.9 C 62 26 H 107/46 L 94 07/04/21 05:30 36.9 C 56 L 24 116/48 L 86 L 07/04/21 05:00 35.7 C L 53 L 25 H 113/43 L 89 L 07/04/21 04:30 35.4 C L 51 L 25 H 107/43 L 93 07/04/21 04:00 35.5 C L 48 L 25 H 121/47 L 92 07/04/21 03:42 47 L 25 H 91 07/04/21 03:30 35.5 C L 25 H 116/44 L 89 L 07/04/21 03:00 35.6 C L 46 L 25 H 120/43 L 86 L 07/04/21 02:30 35.5 C L 47 L 25 H 121/43 L 89 L 07/04/21 02:00 35.6 C L 44 L 25 H 114/49 L 86 L 07/04/21 01:30 35.6 C L 44 L 25 H 130/46 L 93 07/04/21 01:00 35.6 C L 41 L 25 H 110/45 L 91 07/04/21 00:30 35.7 C L 40 L 25 H 103/44 L 90 07/04/21 00:00 35.8 C L 41 L 25 H 108/45 L 93 07/03/21 23:30 36.0 C L 44 L 25 H 114/50 L 94 07/03/21 23:13 46 L 28 H 92 07/03/21 23:00 36.1 C L 44 L 25 H 113/47 L 93 07/03/21 22:30 36.2 C L 45 L 25 H 113/49 L 93 07/03/21 22:00 36.3 C L 45 L 25 H 118/53 L 91 Laboratory Results Laboratory Results - last 24 hr 07/03/21 07/03/21 07/03/21 11:54 15:26 18:17 WBC RBC Hgb POC Hgb Hct POC Hct MCV MCH MCHC RDW Std Deviation RDW Coeff of Julieth Plt Count MPV Immature Gran % (Auto) Neut % (Auto) Lymph % (Auto) Cocke % (Auto) Eos % (Auto) Baso % (Auto) Neut # (Auto) Lymph # (Auto) Cocke # (Auto) Eos # (Auto) Baso # (Auto) Immature Gran # (Auto) Sample Site POC pH POC pCO2 POC pO2 POC HCO3 POC Total CO2 POC Base Excess ABG pH (Temp Correct) ABG pCO2 (Temp Corrct POC ABG pO2 at Pt Temp POC ABG O2 Sat Dave Test O2 Delivery Device POC O2 Rate POC FiO2 Tidal Volume PEEP POC Sodium Sodium 140 POC Potassium Potassium 7.2 H* D Chloride 114 H Carbon Dioxide 22 Anion Gap 4.0 BUN 104 H Creatinine 2.09 H Est Cr Clr Drug Dosing 36.7 Est GFR ( Amer) 34.6 Est GFR (Non-Af Amer) 29.9 BUN/Creatinine Ratio 49.7 H Glucose 169 H POC Glucose 151 H 165 H Calcium 9.5 Phosphorus 4.9 Magnesium Total Creatine Kinase Albumin 1.6 L 07/03/21 07/03/21 07/04/21 20:34 20:57 00:05 WBC RBC Hgb POC Hgb Hct POC Hct MCV MCH MCHC RDW Std Deviation RDW Coeff of Julieth Plt Count MPV Immature Gran % (Auto) Neut % (Auto) Lymph % (Auto) Cocke % (Auto) Eos % (Auto) Baso % (Auto) Neut # (Auto) Lymph # (Auto) Cocke # (Auto) Eos # (Auto) Baso # (Auto) Immature Gran # (Auto) Sample Site POC pH POC pCO2 POC pO2 POC HCO3 POC Total CO2 POC Base Excess ABG pH (Temp Correct) ABG pCO2 (Temp Corrct POC ABG pO2 at Pt Temp POC ABG O2 Sat Dave Test O2 Delivery Device POC O2 Rate POC FiO2 Tidal Volume PEEP POC Sodium Sodium 139 POC Potassium Potassium 6.7 H* Chloride 111 H Carbon Dioxide 25 Anion Gap 4.0 BUN 106 H Creatinine 2.04 H Est Cr Clr Drug Dosing 37.6 Est GFR ( Amer) 35.6 Est GFR (Non-Af Amer) 30.7 BUN/Creatinine Ratio 52.0 H Glucose 198 H POC Glucose 196 H 241 H Calcium 9.9 Phosphorus Magnesium Total Creatine Kinase 594 H Albumin 07/04/21 07/04/21 07/04/21 00:07 04:24 04:38 WBC RBC Hgb POC Hgb 12.2 L Hct POC Hct 36 L MCV MCH MCHC RDW Std Deviation RDW Coeff of Julieth Plt Count MPV Immature Gran % (Auto) Neut % (Auto) Lymph % (Auto) Cocke % (Auto) Eos % (Auto) Baso % (Auto) Neut # (Auto) Lymph # (Auto) Cocke # (Auto) Eos # (Auto) Baso # (Auto) Immature Gran # (Auto) Sample Site Art Line POC pH 7.26 L POC pCO2 69 H POC pO2 77 L POC HCO3 31 H POC Total CO2 33 H POC Base Excess 4.0 H ABG pH (Temp Correct) 7.281 L ABG pCO2 (Temp Corrct 64 H POC ABG pO2 at Pt Temp 70 POC ABG O2 Sat 92.0 Dave Test NA O2 Delivery Device Ventilator POC O2 Rate 25 POC FiO2 50 Tidal Volume 350 PEEP 14 POC Sodium 142 Sodium POC Potassium 6.1 H* Potassium Chloride Carbon Dioxide Anion Gap BUN Creatinine Est Cr Clr Drug Dosing Est GFR ( Amer) Est GFR (Non-Af Amer) BUN/Creatinine Ratio Glucose POC Glucose 173 H 158 H Calcium Phosphorus Magnesium Total Creatine Kinase Albumin 07/04/21 07/04/21 07/04/21 05:04 05:04 07:38 WBC 21.51 H RBC 4.29 L Hgb 12.1 L POC Hgb Hct 37.5 L POC Hct MCV 87.4 MCH 28.2 MCHC 32.3 RDW Std Deviation 46.5 H RDW Coeff of Julieth 14.5 Plt Count 471 H MPV 9.6 Immature Gran % (Auto) 3.1 Neut % (Auto) 91.1 Lymph % (Auto) 3.1 Cocke % (Auto) 2.5 Eos % (Auto) 0.1 Baso % (Auto) 0.1 Neut # (Auto) 19.61 H Lymph # (Auto) 0.66 L Cocke # (Auto) 0.54 Eos # (Auto) 0.02 Baso # (Auto) 0.02 Immature Gran # (Auto) 0.66 H Sample Site POC pH POC pCO2 POC pO2 POC HCO3 POC Total CO2 POC Base Excess ABG pH (Temp Correct) ABG pCO2 (Temp Corrct POC ABG pO2 at Pt Temp POC ABG O2 Sat Dave Test O2 Delivery Device POC O2 Rate POC FiO2 Tidal Volume PEEP POC Sodium Sodium 142 POC Potassium Potassium 6.2 H* Chloride 109 H Carbon Dioxide 26 Anion Gap 7.0 BUN 103 H Creatinine 2.05 H Est Cr Clr Drug Dosing 37.6 Est GFR ( Amer) 35.4 Est GFR (Non-Af Amer) 30.6 BUN/Creatinine Ratio 50.5 H Glucose 175 H POC Glucose 138 H Calcium 9.6 Phosphorus 5.8 H Magnesium 3.2 H Total Creatine Kinase Albumin PG Care Time/CCT Total # of Minutes Spent Total Time Spent with Patient: Total time spent is greater than 50% in coordination of care (as documented) at patient's floor/unit and/or counseling patient: Coding Level of Care Code 07756 Subseq Hosp Care Lvl 3 Diagnoses SALIMA (acute kidney injury) N17.9 2019 novel coronavirus-infected pneumonia (NCIP) U07.1; J12.82 Hypertension I10
[2021-07-04] MEDS: INSULIN GLARGINE SOLOSTAR 100 UNITS/ML 3 ML PEN SC SCH ×2 (11:39→20:25)
[2021-07-04 13:10] LABS: Albumin Level 1.6 gm/dl (3.4-5.0); BUN Creatinine Ratio 50.1 (10-20); Calcium 10.1 mg/dl (8.5-10.1); Creatinine Clr Calc Pharmacy 35.6 ml/min; Est GFR (African American) 33.1 ml/min; Est GFR (Non-African American) 28.5 ml/min; Phosphorus 4.4 mg/dl (2.5-4.9); Potassium 6.8 mmol/L (3.5-5.1)
[2021-07-04] MEDS ORDERED: INSULIN HUMAN REGULAR PER UNIT 10 UNITS in SYRINGE 0 ML IV STA (13:19)
--- NOTE | 2021-07-04 13:19 | Critical Care Progress Note ---
Date of Service July 04, 2021 Assessment & Plan (1) ARDS (adult respiratory distress syndrome): (2) Ventilator dependence: (3) 2019 novel coronavirus-infected pneumonia (NCIP): (4) Acute respiratory failure with hypoxia: (5) Hypervolemia: (6) Atrial fibrillation: (7) Hypertension: Plan: Reason Critically Ill: 75-year-old male with history of atrial fibrillation on Eliquis and flecainide, hypertension, likely underlying CKD who presented with COVID-19 pneumonia. Requires ICU level care for intensive management of his respiratory status and mechanical ventilation. Neuro - Continue to wean sedation as able. Cardiac - Atrial fibrillation: He had an episode of bradycardia last night. We will hold flecainide. Holding anticoagulation due to bloody secretions noted from endotracheal tube and from bronchoscopy. Hypertension: Controlled with the use of continuous sedation. Respiratory - ARDS secondary to COVID-19 pneumonia. Was previously on baricitinib, but this was discontinued when the patient was intubated. Continue 10 days total of Decadron. Continue lung protective ventilation strategy. Status post bronchos copy today with aspiration of mucous plugs from the left lung 07/03/2021. Post bronchoscopy chest x-ray has improved. Moderate normal slick noted on bronchoscopy. Continue MetaNebs twice daily and percussive therapy. GI -continue tube feeds. Continue bowel regimen while on high doses of sedatives. Lansoprazole for prophylaxis. Triglyceridemia secondary to protocol. RENAL/LYTES -SALIMA. Baseline is unknown. Monitor urine output. Continues with hyperkalemia. Receiving potassium binders. Diuretics per nephrology. Latest potassium level 6.8. May require hemodialysis to improve hyperkalemia. - Stevens. Monitor I&Os. ENDO - No history of DM or thyroid disease. ICU hyperglycemia protocol. HEME - Stable H&H. Heparin infusion. ID -baricitinib discontinued due to mechanical ventilation. Continue Decadron for 10 days total Bronchoscopy culture sent on 07/03/2021. MRSA screen - 06/28/2021. Procalcitonin level 0.42 on 07/02/2021. Persistent leukocytosis. If patient spikes a fever, will start antibiotics. LINES/IV ACCESS - RIGHT Subclavian CVC, LEFT A-line, ETT, PIV DVT PROPHYLAXIS -Heparin infusion on hold for today. SCDs. CRITICAL CARE TIME - I have personally spent 42 minutes of critical care time in the direct management of this patient. This is a life/limb threatening event. This includes time spent evaluating patient, direct bedside care, chart review, placing orders, interpretation of diagnostic studies, discussion with consultants, patient, and family members, as well as other required patient management activities. This time is exclusive of all separately billable procedures, and teaching time and separate from and in addition to any other critical care service time. Admission and Anticipated Discharge Date Admission Date: June 25, 2021 Subjective Patient seen and examined this morning. Continues to hypoxia. Currently on continuous sedation. No significant changes compared to yesterday. Continues to be febrile. Review of Systems Review of Systems: Unobtainable due to endotracheal tube and Unobtainable due to reduced consciousness Physical Exam Physical Exam: Constitutional: Patient intubated and sedated. No obvious distress. Eyes: Pupils are equal round and reactive to light. Conjunctivae are normal. Anicteric sclera. Ears nose, mouth and throat: Endotracheal tube in place. Neck: Trachea is midline. Visual inspection is normal. Respiratory: Coarse lung sounds on the ventilator. No wheezes. Cardiovascular: Regular rate and rhythm. No murmurs. 1+ pitting edema in the lower extremities. Gastrointestinal: Normal bowel sounds, soft, nontender and nondistended. No hepatosplenomegaly noted. Musculoskeletal: No cyanosis. Patient is able to move all extremities. Skin: No rashes, warm dry and intact. Neurologic: Difficult to assess given intubation and sedation status. Psychiatric: Unable to assess as the patient is intubated. Results & Data Results & Data ([facility]) Vital Signs (Past 12 Hours) Vital Signs Temp Pulse Resp BP Pulse Ox 07/04/21 12:30 101.1 F H 79 25 H 88 L 07/04/21 12:00 74 22 91 07/04/21 11:30 79 19 94 07/04/21 11:00 76 23 94 07/04/21 10:30 100.8 F H 77 18 125/50 L 93 07/04/21 10:00 78 18 90 07/04/21 09:30 75 21 89 L 07/04/21 09:00 72 26 H 92 07/04/21 08:30 68 24 94 07/04/21 08:00 64 27 H 94 07/04/21 07:30 66 25 H 96 07/04/21 07:16 64 07/04/21 07:00 67 25 H 96 07/04/21 06:30 98.4 F 63 22 110/47 L 95 07/04/21 06:00 98.4 F 62 26 H 107/46 L 94 07/04/21 05:30 98.4 F 56 L 24 116/48 L 86 L 07/04/21 05:00 96.3 F L 53 L 25 H 113/43 L 89 L 07/04/21 04:30 95.7 F L 51 L 25 H 107/43 L 93 07/04/21 04:00 95.9 F L 48 L 25 H 121/47 L 92 07/04/21 03:42 47 L 25 H 91 07/04/21 03:30 95.9 F L 25 H 116/44 L 89 L 07/04/21 03:00 96.1 F L 46 L 25 H 120/43 L 86 L 07/04/21 02:30 95.9 F L 47 L 25 H 121/43 L 89 L 07/04/21 02:00 96.1 F L 44 L 25 H 114/49 L 86 L 07/04/21 01:30 96.1 F L 44 L 25 H 130/46 L 93 vital signs, labs and imaging personally reviewed Coding Level of Care Code Critical Care 1st 30-74 mins Diagnoses ARDS (adult respiratory distress syndrome) J80 Ventilator dependence Z99.11 2019 novel coronavirus-infected pneumonia (NCIP) U07.1; J12.82 Acute respiratory failure with hypoxia J96.01 Hypervolemia E87.70 Atrial fibrillation I48.91 Atrial fibrillation type: unspecified Hypertension I10 Time Spent (min) 42 (1) Atrial fibrillation Atrial fibrillation type: unspecified Qualified Code(s): I48.91 - Unspecified atrial fibrillation
[2021-07-04] MEDS ORDERED: DEXTROSE 50% 50 ML SYRINGE IV ONE (13:45)
[2021-07-04] MEDS ORDERED: INSULIN HUMAN REGULAR PER UNIT 10 UNITS in SYRINGE 9.9 ML IV ONE (13:46)
[2021-07-04] MEDS ORDERED: ADENOSINE IV SOLN 3 MG/ML 2 ML VIAL IV ONE (13:55)
[2021-07-04] MEDS ORDERED: CALCIUM GLUCONATE 10% 1,000 MG in SODIUM CHLORIDE 0.9% 50 ML IV ONE (14:00)
[2021-07-04] MEDS ORDERED: AMIODARONE 360MG / 200ML D5W IV ONE (14:09)
--- NOTE | 2021-07-04 15:03 | Procedure Note ---
Procedure Note Date of Service July 04, 2021 Note 13 cm triple-lumen dialysis catheter Procedure: Right internal Jugular Central Line Placement Indication: Central Drug Administration, Poor Venous Access, Multiple Lab Draws Necessary, etc. Anesthesia: Continuous sedation infusing/8 mL l1% Consent was signed and placed on the chart prior to procedure. Indication, risks, and benefits were explained at length. A time-out was completed verifying correct patient, procedure, site, positioning, and implants(s) or special equipment if applicable. Patients right neck was cleansed and draped in the typical sterile fashion using Chloraprep. The Internal Jugular Vein and Carotid Artery were identified using ultrasound. The superficial tissue was anesthetized using 8 mL of 1% lidocaine without epinephrine under direct visualization with the ultrasound. After adequate anesthetization was achieved, the Internal Jugular vein was cannulated under direct ultrasound guidance using an introducer needle on a syringe. Good venous blood return was maintained prior to removal of syringe from introducer needle. Using Seldinger Technique, a guide wire was advanced through the introducer needle without resistance. The introducer needle was removed and ultrasound images were obtained of the guide wire within the Internal Jugular Vein and saved to the patients medical record. A small incision was made in penetrating fashion at the guide wire insertion site utilizing an 11 blade scalpel. The dilator was advanced to the vessel without resistance. The dilator was exchanged for the triple lumen catheter which was advanced into the vessel without resistance. The guide wire was removed intact from the catheter without issue. Claves were placed on each catheter tip with confirmation of good blood flow from each lumen. Each port was easily flushed with sterile saline. The catheter was placed at 13 cm and sutured in place. BioPatch was applied to the catheter and a sterile Tegaderm dressing was applied over the catheter with careful attention to sterility. Patient tolerated procedure well. No immediate complications were met. Post procedure x-ray was completed, placement was appropriate and no pneumothorax was noted. Coding CPT Codes Tubes, Drains, and Vasc Access - Tubes, Drains, and Vasc Access: [id number] Insertion of cannula for hemodialysis ([id number]) Tubes, Drains, and Vasc Access - Tubes, Drains, and Vasc Access: [id number] Ultrasound Guidance For Vascular ([id number]) [facility] [place] (Charges) Tubes, Drains, and Vasc Access Procedure 2: Tubes, Drains, and Vasc Access: [id number] Insertion of cannula for hemodialysis Procedure 3: Tubes, Drains, and Vasc Access: [id number] Ultrasound Guidance For Vascular
--- NOTE | 2021-07-04 15:07 | Communication Note ---
Date of Service: July 04, 2021 Patient was having atrial fibrillation with rapid ventricular response with rates in the 150s. Potassium level was noted to be 6.8. 1 g of calcium chlo ride given. 10 units of regular insulin given. Crash cart brought to the bedside. Pads placed on chest. Patient was hypotensive. 150 mg of IV amiodarone was infused. Heart rates improved significantly in the low 100s. I discussed the case with the patient's outside b2b sales and we agreed that the next best course of action will be dialysis to bring down the recalcitrant potassium levels. I discussed the issues with the patient's daughter over the phone. I reiterated that he was critically ill. We discussed CODE STATUS and she indicated that she would like for him to remain a full code at this time. I placed a dialysis catheter. During the course of these events, patient became more hypoxemic and is currently requiring 100% FiO2 and a PEEP of 12. Chest x- ray is pending. Hopefully, with the initiation of hemodialysis, we will be able to bring down the potassium levels and remove fluid to help improve his cardiac arrhythmia and oxygenation, respectively Coding Level of Care Code Critical Care [facility] 30 min Time Spent (min) 39
--- NOTE | 2021-07-04 15:34 | XRay Report ---
XR chest 1V portable HISTORY: 75 years-old Male s/p line placement acute respiratory failure COMPARISON: Chest radiograph of same day at 6:48 AM TECHNIQUE: Portable AP view of the chest FINDINGS: Endotracheal tube overlies the midline, 2.9 cm superior to the sue. Right IJ central venous cathet er distal tip terminates in the expected location of the brachiocephalic SVC confluence. Right subcla vian central venous catheter is noted with distal tip in the region of the upper SVC. A feeding tube is present with distal tip in the expected location of the distal stomach versus proximal duodenum. N o pneumothorax. Cardiomegaly with interstitial coarsening and patchy bilateral airspace opacities red emonstrated. Suspected trace pleural effusions. No acute fracture. IMPRESSION: 1. Lines and tubes as above. No pneumothorax. 2. Unchanged left greater than right bilateral airspace opacities. ACT 112: Negative or not required by law. The above report was generated using voice recognition software. It may contain grammatical, syntax o r spelling errors. Electronically signed by: Renny Mcfarland M.D. 07/04/2021 3:32 PM
[2021-07-04] MEDS ORDERED: 0.2 MICRON FILTER SET 1 EA IV ONE (16:00)
[2021-07-04] MEDS ORDERED: AMIODARONE / D5W 360 MG/200 ML BAG IV ONE (16:00)
--- NOTE | 2021-07-04 16:10 | Pharmacy Report ---
Pharmacy Glycemic Short Note 2 - Date of Service July 04, 2021 - Glycemic Short BSG Results (Last 24 hours): 07/03/21 07/03/21 07/03/21 18:17 20:34 20:57 Glucose 169 H POC Glucose 196 H 241 H 07/04/21 07/04/21 07/04/21 00:05 00:07 04:24 Glucose 198 H POC Glucose 173 H 158 H 07/04/21 07/04/21 07/04/21 05:04 07:38 11:35 Glucose 175 H POC Glucose 138 H 157 H 07/04/21 12:03 Glucose 170 H POC Glucose OUTPATIENT ANTIDIABETIC REGIMEN: * N/A * a1c 7.4% ASSESSMENT: 07/04: * Pt received 55 units of basal insulin yesterday and 30 units of bolus. 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 Of note, tube feeds were switched to [employer] yesterday, held last evening and restarted this morning. Total Lantus dose will be slightly increased today (8-15%). * Patient remains on IV dexamethasone. Scr 2.17 mg/dL today. 07/02: * Pt received 73 units of insulin yesterday, 70 of which were basal. BSG did trend down this morning ([phone] mg/dL) despite continued titration of TFs and IV dexamethasone. Patient Scr remains elevated which can also contribute to delayed basal elimination. * Will decrease Lantus dose significantly today and will wait until midday to redose with lantus to ensure BSG is trending back up. 07/01: * Pt received 97 units of insulin yesterday, 85 units of which were basal. * BSGs well controlled today. Pt received 50 units of lantus this morning and will continue with a scale this evening. * TFs to begin titrating to go this aftertoon. Will monitor effects on BSG. 06/30: * Pt received total of 95 units of just basal insulin yesterday in addition to 13 units of bolus and the insulin drip. * After the insulin drip was discontinued yesterday, the BSGs trended up to 207 last night. * Fasting BSG today was 184 mg/dl. Basal insulin decreased 15% this AM to prevent hypoglycemia since patient only getting trickle feeds with peptamen and serum creatinine worsening. Novolog correction factor tightened. * Basal HS dose continued on a scale based on BSG. 06/29: * Patient's BSG climbed up above 300 mg/dl yesterday evening. Insulin drip was started. * Insulin drip ran for around 8 hrs at an average of 8 units/hr. In addition pt received 20 units of Lantus and 19 units of Novolog bolus yesterday. * Patient needs estimated to be around 200 units of insulin per 24 hrs based on above. * Fasting BSG today was down to 101 mg/dl. Lantus 65 units x 1 dose given this AM. HS Lantus dose scale ordered based on BSG. * Currently on Peptamen tube feeds at rate of 10 ml/hr only. Novolog Q4h ordered to cover for tube feed. * Insulin drip rate was down to 3.1 this afternoon and BSG at goal. Drip was discontinued. * Novolog correction factor ordered starting at 16:00. * Patient continues to be IV Dexamethasone Q24h. Background 06/28/21: * Patient admitted with COVID-19, no documented previous diagnosis of diabetes, A1c indicates diabetes * Patient intubated this morning, currently paralyzed with nimbex, sedated with propofol, fentanyl * BSGs have been running in the low to mid 200s since admission, patient was ordered a diet previously with a loose sliding scale * Patient now NPO, will tighten novolog to weight based stress of 3, administer 20 units of lantus (very conservative). If BSGs remain elevated may need to start insulin infusion. PLAN FOR INPATIENT GLYCEMIC CONTROL: * Hold outpatient oral diabetes medications * Basal insulin * Lantus 50 units qam (given ~1100 today) * Lantus 10-15 units scale at HS based on BSG * Bolus insulin: CF tightened * NovoLog per scale Q4H * Goal Range: Low 120 mg/dL - High 150 mg/dL * Correction Factor: 10 mg/dL/unit * Nutritional / Prandial insulin per carb ratio of 1 unit per 4 grams CHO consumed to cover [employer] tube feeds.
[2021-07-04 19:14] LABS: Hepatitis B Surface Ab Quant 3.65 mIU/mL (>or=10mIU/mL Immune); Hepatitis B Surface Antibody Non-Immune
[2021-07-04 19:25] LABS: Hepatitis B Surf Ag Rflx Conf Neg (Neg)
[2021-07-04] MEDS: AMIODARONE / D5W 360 MG/200 ML BAG IV SCH (20:23)
[2021-07-04] MEDS: NOREPINEPHRINE/D5W 8 MG/508 ML BAG IV SCH (20:38)
[2021-07-04] MEDS ORDERED: NOREPINEPHRINE/D5W 8 MG/508 ML IV ONE (20:38)
[2021-07-04] MEDS ORDERED: STAT IV Infusion **Titration per Protocol STA (20:38)
[2021-07-04] MEDS: HEPARIN SOD 5,000 UNIT/0.5 ML VIAL SQ SCH (20:52)
[2021-07-05] MEDS: ARTIFICIAL TEARS OP OINT 3.5 GM TUBE OP SCH ×6 (00:05→19:17)
[2021-07-05] MEDS: INSULIN ASPART 100 UNITS/ML 3 ML PEN SC SCH ×6 (00:08→19:34)
[2021-07-05] MEDS: fentaNYL DRIP 1,250 MCG/250 ML BAG IV SCH ×7 (03:13→23:16)
[2021-07-05 03:45] LABS: iSTAT Art Bld Gas pCO2 Correct 57 mmHg (35-46); iSTAT Art Bld Gas pH Corrected 7.304 (7.35-7.45); iSTAT Arterial Blood Gas HCO3 28 meg/L (19-24); iSTAT Arterial Blood Gas pCO2 55 mmHg (35-46); iSTAT Arterial Blood Gas pH 7.31 (7.35-7.45); iSTAT Arterial Blood Gas pO2 63 mmHg (80-95); iSTAT Arterial Blood Gas pO2 C 67; iSTAT Carbon Dioxide 30 mmol/L (24-31); iSTAT FiO2 50 %; iSTAT Hematocrit 33 % (42-52); iSTAT Hemoglobin 11.2 g/dl (14.0-18.0); iSTAT Potassium 5.9 mmol/L (3.3-5.0); iSTAT Site Art Line; iSTAT Sodium 141 mmol/L (135-144)
[2021-07-05 05:02] LABS: BUN Creatinine Ratio 39.3 (10-20); Calcium 9.8 mg/dl (8.5-10.1); Creatinine Clr Calc Pharmacy 32.7 ml/min; Est GFR (African American) 29.9 ml/min; Est GFR (Non-African American) 25.8 ml/min; Magnesium 2.9 mg/dl (1.8-2.4); Phosphorus 4.6 mg/dl (2.5-4.9)
[2021-07-05] MEDS: ICU ELECTROLYTE REPLACEMENT PROTOCOL SCH (05:11)
[2021-07-05] MEDS: HEPARIN SOD 5,000 UNIT/0.5 ML VIAL SQ SCH (05:12)
[2021-07-05 05:23] LABS: Hematocrit (blood only) 35.8 % (42-52); Mean Corpuscular Hemoglobin 27.4 pg (25-34); Mean Corpuscular Hgb Conc 30.7 g/dL (32-36); Mean Corpuscular Volume 89.1 fL (80-100); Mean Platelet Volume 9.7 fL (7.4-10.4); Platelet Count 488 K/uL (130-400); RDW Coefficient of Variation 14.8 % (11.5-14.5); RDW Standard Deviation 48.6 fL (36.4-46.3); Red Blood Count 4.02 M/uL (4.7-6.1); White Blood Count 24.42 K/uL (4.8-10.8)
[2021-07-05] MEDS: MIDAZOLAM BOLUS FROM BAG IV PRN (05:50)
--- NOTE | 2021-07-05 06:35 | Electrocardiogram Report ---
Test Reason : Blood Pressure : / mmHG Vent. Rate : 142 BPM Atrial Rate : 141 BPM P-R Int : 000 ms QRS Dur : 132 ms QT Int : 266 ms P-R-T Axes : 000 037 024 degrees QTc Int : 409 ms Poor data quality, interpretation may be adversely affected Atrial fibrillation with rapid ventricular response Marked ST abnormality, possible lateral subendocardial injury Abnormal ECG When compared with ECG of 25-JUN-2021 18:02, Vent. rate has increased BY [address] now depressed in Lateral leads T wave inversion no longer evident in Anterior leads Confirmed by Luis Caldwell ([id number]) on 07/05/2021 6:35:30 AM Referred By: REFERRED SELF Confirmed By:Luis Caldwell
[2021-07-05] MEDS ORDERED: HEPARIN SOD (PORCINE) 1000 UNIT/ML IV ONE (07:00)
[2021-07-05] MEDS ORDERED: SODIUM CHLORIDE 0.9% 1000ML 1,000 ML IV PRN (07:00)
[2021-07-05 07:26] LABS: Basophils # (auto) 0.03 K/uL (0-0.2); Basophils % (auto) 0.1 %; Eosinophils # (auto) 0.01 K/uL (0-0.5); Immature Granulocytes # (auto) 0.39 K/uL (0.00-0.02); Immature Granulocytes % (auto) 1.6 %; Lymphocytes # (auto) 0.44 K/uL (1.2-3.4); Lymphocytes % (auto) 1.8 %; Monocytes # (auto) 1.57 K/uL (0.11-0.59); Monocytes % (auto) 6.4 %; Neutrophils # (auto) 21.98 K/uL (1.4-6.5); Neutrophils % (auto) 90.1 %
[2021-07-05] MEDS: ALBUTEROL 0.083% NEBU SOLN 3 ML VIAL NEB PRN ×2 (08:10→20:23)
[2021-07-05] MEDS: LANSOPRAZOLE 30 MG SOLTAB PO SCH (09:12)
[2021-07-05] MEDS: DOCUSATE SODIUM SYRUP 100 MG/10 ML UDC PO SCH ×2 (09:12→19:35)
[2021-07-05] MEDS: SENNA 8.6 MG TAB PO SCH (09:12)
[2021-07-05] MEDS: dexAMETHasone 6 MG in SYRINGE 0 ML IV SCH (09:12)
[2021-07-05] MEDS: POLYETHYLENE (MIRALAX) 17 GM PACK PO SCH (09:12)
[2021-07-05] MEDS: AMIODARONE / D5W 360 MG/200 ML BAG IV SCH (09:13)
[2021-07-05] MEDS: INSULIN GLARGINE SOLOSTAR 100 UNITS/ML 3 ML PEN SC SCH ×2 (09:25→19:35)
--- NOTE | 2021-07-05 09:30 | XRay Report ---
XR chest 1V portable HISTORY: Respiratory failure. COMPARISON: Chest 06/26/2021. FINDINGS: No pneumothorax. Lines and tubes remain unchanged in position with the endotracheal tube te rminating 3.1 cm from the sue. There is a catheter overlying the left side of the chest with the t ip terminating at the right lung base. This is likely external to the patient. The right central veno us catheter terminates at the SVC. Feeding tube terminates in a postpyloric position. The heart remai ns mildly enlarged. Patchy bilateral airspace opacities persist. IMPRESSION: 1. Satisfactory support line placement. No pneumothorax. 2. No change in the patchy bilateral airspace opacities consistent with a multifocal pneumonia. ACT 112: Negative or not required by law. Electronically signed by: Eder Lutz M.D. 07/05/2021 9:29 AM
[2021-07-05] MEDS ORDERED: Heparin IV Adult Wt-Based Standard *NO* Bolus Protocol IV SCH (10:00)
[2021-07-05] MEDS ORDERED: AMIODARONE 200 MG TAB PO ONE ×2 (10:12→10:30)
--- NOTE | 2021-07-05 10:20 | Nephrology Progress Note ---
Date of Service July 05, 2021 Assessment & Plan (1) SALIMA (acute kidney injury): Plan: Started HD yesterday for SALIMA. Remains non-oliguric. Unfortunately, treatment complicated by hemodynamic instability and poor Qb. Will attempt 2nd treatment today for additional clearance. Orders entered into EMR and reviewed with dialysis nurse IV Bumeparisa and patiromer provided this AM as well. I reviewed imaging and the plan of care with Dr. Whitmore this AM. Will attempt use of RIJ HD catheter again today and if unsuccessful, will require new catheter. Medications appropriate for kidney function. Prognosis guarded. (2) 2019 novel coronavirus-infected pneumonia (NCIP): Plan: Remains Decadron. Cefepime dose adjustment as needed for renal dysfunction. (3) Hypertension: Plan: Lisinopril held. (4) Hyperkalemia: Plan: Patiromer 8.4 gm this AM. Bumex to encourage urine output and kaluresis. HD ordered for today. Admission and Anticipated Discharge Date Admission Date: June 25, 2021 Subjective Remains critically ill. Amio gtt infusing. HD yesterday complicated by hemodynamic instability. Poor Qb via catheter. Review of Systems Review of Systems: Unobtainable due to cognitive status Physical Exam 2 Constitutional: + ill appearing and + mechanically ventilated Eyes: + anicteric sclerae; no corneal abnormality Neck: normal visual inspection and trachea midline RIJ TDC with pigtail and R subclavian catheter Respiratory: Auscultation: + rhonchi and + bronchovesicular breath sounds Cardiovascular: Rate/Rhythm: + bradycardic Heart Sounds: normal S1 and normal S2 Extremities: + edema (dependent) Gastrointestinal (Abdomen): Inspection/Auscultation: + abdomen distended Percussion/Palpation: abdomen soft and + dullness to percussion; abdomen not rigid Musculoskeletal: Extremities: no cyanosis and no clubbing Skin: normal turgor; no lesions Neurologic: Motor/Sensory: no fasciculations Results & Data ([facility]) Vital Signs (Past 12 Hours) Vital Signs Temp Pulse Pulse Resp BP Pulse Ox 07/05/21 08:24 64 28 H 91 07/05/21 08:22 65 94 07/05/21 05:30 37.7 C H 66 25 H 118/51 L 92 07/05/21 04:30 37.5 C 61 25 H 129/51 L 88 L 10/29/21 04:00 37.7 C H 61 25 H 127/47 L 87 L 07/05/21 03:38 67 31 H 92 07/05/21 03:30 37.7 C H 67 25 H 132/50 L 92 07/05/21 03:00 37.6 C H 69 25 H 138/49 L 93 07/05/21 02:30 37.6 C H 66 25 H 135/50 L 93 07/05/21 02:00 37.6 C H 68 25 H 131/50 L 92 07/05/21 01:30 37.5 C 68 25 H 138/49 L 92 07/05/21 01:00 37.4 C 72 25 H 126/50 L 93 07/05/21 00:30 37.3 C 67 25 H 129/49 L 92 07/05/21 00:00 37.3 C 64 25 H 123/50 L 93 07/04/21 23:30 37.3 C 66 25 H 127/51 L 96 07/04/21 23:25 65 25 H 90 07/04/21 23:00 75 25 H 132/57 L 95 07/04/21 22:30 77 25 H 109/43 L 93 Laboratory Results Laboratory Results - last 24 hr 07/04/21 07/04/21 07/04/21 11:35 12:03 17:01 WBC RBC Hgb POC Hgb Hct POC Hct MCV MCH MCHC RDW Std Deviation RDW Coeff of Julieth Plt Count MPV Immature Gran % (Auto) Neut % (Auto) Lymph % (Auto) [place] % (Auto) Eos % (Auto) Baso % (Auto) Neut # (Auto) Lymph # (Auto) [place] # (Auto) Eos # (Auto) Baso # (Auto) Immature Gran # (Auto) Sample Site POC pH POC pCO2 POC pO2 POC HCO3 POC Total CO2 POC Base Excess ABG pH (Temp Correct) ABG pCO2 (Temp Corrct POC ABG pO2 at Pt Temp POC ABG O2 Sat Dave Test O2 Delivery Device POC O2 Rate Minute Ventilation POC FiO2 Tidal Volume PEEP POC Sodium Sodium 142 POC Potassium Potassium 6.8 H* Chloride 110 H Carbon Dioxide 27 Anion Gap 5.0 BUN 109 H Creatinine 2.17 H Est Cr Clr Drug Dosing 35.6 Est GFR ( Amer) 33.1 Est GFR (Non-Af Amer) 28.5 BUN/Creatinine Ratio 50.1 H Glucose 170 H POC Glucose 157 H 235 H Calcium 10.1 Phosphorus 4.4 D Magnesium Albumin 1.6 L Hep Bs Antigen Hep Bs Antibody Hep Bs Antibody, Quant Hep B Core IgM Ab 07/04/21 07/04/21 07/04/21 18:29 18:29 20:23 WBC RBC Hgb POC Hgb Hct POC Hct MCV MCH MCHC RDW Std Deviation RDW Coeff of Julieth Plt Count MPV Immature Gran % (Auto) Neut % (Auto) Lymph % (Auto) [place] % (Auto) Eos % (Auto) Baso % (Auto) Neut # (Auto) Lymph # (Auto) [place] # (Auto) Eos # (Auto) Baso # (Auto) Immature Gran # (Auto) Sample Site POC pH POC pCO2 POC pO2 POC HCO3 POC Total CO2 POC Base Excess ABG pH (Temp Correct) ABG pCO2 (Temp Corrct POC ABG pO2 at Pt Temp POC ABG O2 Sat Dave Test O2 Delivery Device POC O2 Rate Minute Ventilation POC FiO2 Tidal Volume PEEP POC Sodium Sodium POC Potassium Potassium Chloride Carbon Dioxide Anion Gap BUN Creatinine Est Cr Clr Drug Dosing Est GFR ( Amer) Est GFR (Non-Af Amer) BUN/Creatinine Ratio Glucose POC Glucose 203 H Calcium Phosphorus Magnesium Albumin Hep Bs Antigen Neg Hep Bs Antibody Non-Immune Hep Bs Antibody, Quant 3.65 L Hep B Core IgM Ab Pending 07/05/21 07/05/21 07/05/21 00:03 03:30 04:09 WBC RBC Hgb POC Hgb 11.2 L Hct POC Hct 33 L MCV MCH MCHC RDW Std Deviation RDW Coeff of Julieth Plt Count MPV Immature Gran % (Auto) Neut % (Auto) Lymph % (Auto) [place] % (Auto) Eos % (Auto) Baso % (Auto) Neut # (Auto) Lymph # (Auto) [place] # (Auto) Eos # (Auto) Baso # (Auto) Immature Gran # (Auto) Sample Site Art Line POC pH 7.31 L POC pCO2 55 H POC pO2 63 L POC HCO3 28 H POC Total CO2 30 POC Base Excess 2.0 H ABG pH (Temp Correct) 7.304 L ABG pCO2 (Temp Corrct 57 H POC ABG pO2 at Pt Temp 67 POC ABG O2 Sat 89.0 L Dave Test NA O2 Delivery Device Ventilator POC O2 Rate 25 Minute Ventilation 9.7 POC FiO2 50 Tidal Volume 350 PEEP 12 POC Sodium 141 Sodium POC Potassium 5.9 H Potassium Chloride Carbon Dioxide Anion Gap BUN Creatinine Est Cr Clr Drug Dosing Est GFR ( Amer) Est GFR (Non-Af Amer) BUN/Creatinine Ratio Glucose POC Glucose 124 H 170 H Calcium Phosphorus Magnesium Albumin Hep Bs Antigen Hep Bs Antibody Hep Bs Antibody, Quant Hep B Core IgM Ab 07/05/21 07/05/21 07/05/21 04:17 04:19 09:19 WBC 24.42 H RBC 4.02 L Hgb 11.0 L POC Hgb Hct 35.8 L POC Hct MCV 89.1 MCH 27.4 MCHC 30.7 L RDW Std Deviation 48.6 H RDW Coeff of Julieth 14.8 H Plt Count 488 H MPV 9.7 Immature Gran % (Auto) 1.6 Neut % (Auto) 90.1 Lymph % (Auto) 1.8 [place] % (Auto) 6.4 Eos % (Auto) 0.0 Baso % (Auto) 0.1 Neut # (Auto) 21.98 H Lymph # (Auto) 0.44 L [place] # (Auto) 1.57 H Eos # (Auto) 0.01 Baso # (Auto) 0.03 Immature Gran # (Auto) 0.39 H Sample Site POC pH POC pCO2 POC pO2 POC HCO3 POC Total CO2 POC Base Excess ABG pH (Temp Correct) ABG pCO2 (Temp Corrct POC ABG pO2 at Pt Temp POC ABG O2 Sat Dave Test O2 Delivery Device POC O2 Rate Minute Ventilation POC FiO2 Tidal Volume PEEP POC Sodium Sodium 142 POC Potassium Potassium 6.0 H Chloride 110 H Carbon Dioxide 27 Anion Gap 5.0 BUN 93 H Creatinine 2.36 H Est Cr Clr Drug Dosing 32.7 Est GFR ( Amer) 29.9 Est GFR (Non-Af Amer) 25.8 BUN/Creatinine Ratio 39.3 H Glucose 185 H POC Glucose 168 H Calcium 9.8 Phosphorus 4.6 Magnesium 2.9 H Albumin Hep Bs Antigen Hep Bs Antibody Hep Bs Antibody, Quant Hep B Core IgM Ab PG Care Time/CCT Total # of Minutes Spent Total Time Spent with Patient: Total time spent is greater than 50% in coordination of care (as documented) at patient's floor/unit and/or counseling patient: Coding Level of Care Code 07632 Subseq Hosp Care Lvl 3 Diagnoses SALIMA (acute kidney injury) N17.9 2019 novel coronavirus-infected pneumonia (NCIP) U07.1; J12.82 Hypertension I10 Hyperkalemia E87.5
[2021-07-05] MEDS ORDERED: PATIROMER CALCIUM SORBITEX 8.4 GM PACK PO ONE (10:21)
[2021-07-05] MEDS ORDERED: BUMETANIDE 1 MG in SYRINGE 0 ML IV ONE (10:45)
[2021-07-05 10:55] LABS: Partial Thromboplastin Ratio 1.2; Partial Thromboplastin Time 31.5 Seconds (21.0-31.0)
[2021-07-05] MEDS: HEPARIN SODIUM/DEXTROSE 25,000 UNITS/500 ML BAG IV SCH (11:09)
--- NOTE | 2021-07-05 11:29 | Critical Care Progress Note ---
Date of Service July 05, 2021 Assessment & Plan (1) ARDS (adult respiratory distress syndrome): (2) Ventilator dependence: (3) 2019 novel coronavirus-infected pneumonia (NCIP): (4) Acute respiratory failure with hypoxia: (5) Hypervolemia: (6) Atrial fibrillation: (7) Hypertension: (8) Hyperkalemia: Plan: Reason Critically Ill: 75-year-old male with history of atrial fibrillation on Eliquis and flecainide, hypertension, likely underlying CKD who presented with COVID-19 pneumonia. Requires ICU level care for intensive management of his respiratory status and mechanical ventilation. Neuro - Continue to wean sedation as able. Cardiac - Atrial fibrillation: Atrial fibrillation with rapid ventricular response noted 07/04/2021. Likely precipitated from hypoxemia and hyperkalemia. He became hemodynamically unstable yesterday. Amiodarone infusion was initiated along with bolus. He has converted to a normal sinus rhythm. We will initiate heparin infusion today as there is no further bleeding noted from the endotracheal tube. Transition to oral amiodarone 200 mg twice daily. Flecainide on hold. Heart rate in the 60s this morning. Echo and cardiology consult placed. Repeat EKG today. Hypertension: Controlled with the use of continuous sedation. Respiratory - ARDS secondary to COVID-19 pneumonia. Was previously on baricitinib, but this was discontinued when the patient was intubated. 10 days total of Decadron. Continue lung protective ventilation strategy. Status post bronchoscopy with aspiration of mucous plugs from the left lung 07/03/2021. Post bronchoscopy chest x-ray has improved. Moderate normal slick noted on bronchoscopy. Continue MetaNebs twice daily and percussive therapy. GI -continue tube feeds. Continue bowel regimen while on high doses of sedatives. Lansoprazole for prophylaxis. Hyper triglyceridemia secondary to protocol. RENAL/LYTES -SALIMA. Baseline is unknown. Monitor urine output. Continues with hyperkalemia. Receiving potassium binders. Diuretics per nephrology. Underwent hemodialysis 07/04/2021 and will repeat a session today. Hemodialysis catheter with poor flow yesterday, but this may have been related to hypotension. LUBA - Rodney. Monitor I&Os. ENDO - No history of DM or thyroid disease. ICU hyperglycemia protocol. HEME - Stable H&H. Heparin infusion. ID -baricitinib discontinued due to mechanical ventilation. Decadron for 10 days total Bronchoscopy culture sent on 07/03/2021. MRSA screen - 06/28/2021. Procalcitonin level 0.42 on 07/02/2021. Persistent leukocytosis. If patient spikes a fever, will start antibiotics. LINES/IV ACCESS - RIGHT Subclavian CVC, LEFT A-line, ETT, PIV DVT PROPHYLAXIS -Heparin infusion on hold for today. SCDs. CRITICAL CARE TIME - I have personally spent 42 minutes of critical care time in the direct management of this patient. This is a life/limb threatening event. This includes time spent evaluating patient, direct bedside care, chart review, placing orders, interpretation of diagnostic studies, discussion with consultants, patient, and family members, as well as other required patient management activities. This time is exclusive of all separately billable procedures, and teaching time and separate from and in addition to any other critical care service time. Admission and Anticipated Discharge Date Admission Date: June 25, 2021 Subjective Patient seen and examined this morning. Required Levophed overnight during hemodialysis. Hemodialysis session was limited due to poor flow from the hemodialysis catheter. Review of Systems Review of Systems: Unobtainable due to cognitive status Physical Exam Physical Exam: Constitutional: Patient intubated and sedated. No obvious distress. Eyes: Pupils are equal round and reactive to light. Conjunctivae are normal. Anicteric sclera. Ears nose, mouth and throat: Endotracheal tube in place. Neck: Trachea is midline. Visual inspection is normal. Respiratory: Coarse lung sounds on the ventilator. No wheezes. Cardiovascular: Regular rate and rhythm. No murmurs. 1+ pitting edema in the lower extremities. Gastrointestinal: Normal bowel sounds, soft, nontender and nondistended. No hepatosplenomegaly noted. Musculoskeletal: No cyanosis. Patient is able to move all extremities. Skin: No rashes, warm dry and intact. Neurologic: Difficult to assess given intubation and sedation status. Psychiatric: Unable to assess as the patient is intubated. Results & Data Results & Data ([facility]) Vital Signs (Past 12 Hours) Vital Signs Temp Pulse Pulse Resp BP Pulse Ox 07/05/21 11:16 64 28 H 90 07/05/21 08:24 64 28 H 91 07/05/21 08:22 65 94 07/05/21 05:30 99.9 F H 66 25 H 118/51 L 92 07/05/21 04:30 99.5 F 61 25 H 129/51 L 88 L 07/05/21 04:00 99.9 F H 61 25 H 127/47 L 87 L 07/05/21 03:38 67 31 H 92 07/05/21 03:30 99.9 F H 67 25 H 132/50 L 92 07/05/21 03:00 99.7 F H 69 25 H 138/49 L 93 07/05/21 02:30 99.7 F H 66 25 H 135/50 L 93 07/05/21 02:00 99.7 F H 68 25 H 131/50 L 92 07/05/21 01:30 99.5 F 68 25 H 138/49 L 92 07/05/21 01:00 99.3 F 72 25 H 126/50 L 93 07/05/21 00:30 99.1 F 67 25 H 129/49 L 92 07/05/21 00:00 99.1 F 64 25 H 123/50 L 93 07/04/21 23:30 99.1 F 66 25 H 127/51 L 96 07/04/21 23:25 65 25 H 90 vital signs, labs and imaging reviewed. Coding Level of Care Code Critical Care 1st 30-74 mins Diagnoses ARDS (adult respiratory distress syndrome) J80 Ventilator dependence Z99.11 2019 novel coronavirus-infected pneumonia (NCIP) U07.1; J12.82 Acute respiratory failure with hypoxia J96.01 Hypervolemia E87.70 Atrial fibrillation I48.91 Atrial fibrillation type: unspecified Hypertension I10 Hyperkalemia E87.5 Time Spent (min) 42 (1) Atrial fibrillation Atrial fibrillation type: unspecified Qualified Code(s): I48.91 - Unspecified atrial fibrillation
--- NOTE | 2021-07-05 11:48 | Pharmacy Report ---
Pharmacy Glycemic Short Note 2 - Date of Service July 05, 2021 - Glycemic Short BSG Results (Last 24 hours): 07/04/21 07/04/21 07/04/21 12:03 17:01 20:23 Glucose 170 H POC Glucose 235 H 203 H 07/05/21 07/05/21 07/05/21 00:03 04:09 04:17 Glucose 185 H POC Glucose 124 H 170 H 07/05/21 07/05/21 09:19 11:19 Glucose POC Glucose 168 H 186 H OUTPATIENT ANTIDIABETIC REGIMEN: * N/A * a1c 7.4% ASSESSMENT: 07/05: * 104 units SQ insulin given over last 24 hours: 65 units basal + 39 units prandial * Mild hyperglycemia noted in the evening yesterday due to peak effects of IV steroid * Today is the last day of dexamethasone 6mg IV Q AM (unless renewed). Will decrease Lantus dose starting tomorrow AM due to this change. * Tube feeds continue at this time and have been titrated up to 35cc/hr as of this AM. * Current Novolog parameters will be continued as amiodarone gtt (mixed in D5W) has been d/c'd and due to upcoming dc of steroid 07/04: * Pt received 55 units of basal insulin yesterday and 30 units of bolus. 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 Of note, tube feeds were switched to [employer] yesterday, held last evening and restarted this morning. Total Lantus dose will be slightly increased today (8-15%). * Patient remains on IV dexamethasone. Scr 2.17 mg/dL today. 07/02: * Pt received 73 units of insulin yesterday, 70 of which were basal. BSG did trend down this morning ([phone] mg/dL) despite continued titration of TFs and IV dexamethasone. Patient Scr remains elevated which can also contribute to delayed basal elimination. * Will decrease Lantus dose significantly today and will wait until midday to redose with lantus to ensure BSG is trending back up. Background 06/28/21: * Patient admitted with COVID-19, no documented previous diagnosis of diabetes, A1c indicates diabetes * Patient intubated this morning, currently paralyzed with nimbex, sedated with propofol, fentanyl * BSGs have been running in the low to mid 200s since admission, patient was ordered a diet previously with a loose sliding scale * Patient now NPO, will tighten novolog to weight based stress of 3, administer 20 units of lantus (very conservative). If BSGs remain elevated may need to start insulin infusion. PLAN FOR INPATIENT GLYCEMIC CONTROL: * Hold outpatient oral diabetes medications * Basal insulin * Lantus 50 units this AM, then reduce to 25 units Q AM tomorrow 07/06 * Lantus 10-15 units scale at HS based on BSG * Bolus insulin: * NovoLog per scale Q4H * Goal Range: Low 120 mg/dL - High 150 mg/dL * Correction Factor: 10 mg/dL/unit * Nutritional / Prandial insulin per carb ratio of 1 unit per 4 grams CHO consumed to cover [employer] tube feeds.
[2021-07-05] MEDS: MIDAZOLAM HCL 125 MG/250 ML BAG IV SCH (13:15)
--- NOTE | 2021-07-05 15:13 | Hospitalist Progress Note ---
Date of Service July 05, 2021 Assessment & Plan (1) Acute respiratory failure with hypoxia: Plan: 75 y/o male who presents w/ covid PNA, day 9 of symptoms when he was admitted (06/17/21 onset). Pt with rapid escalation to high flow then to bipap at 100% oxygen still with desaturations, decision to intubate 06/28, now on ventilator baricitinib daily started and stopped due to intubation Dexamethasone 6mg IV daily x 10 days bronchoscopy 07/03, found to have mucous plugging, suctioned out oxygen requirements improved after bronchoscopy and left sided aeration improved very poor prognosis PEEP 12 and FiO2 50%, not making progress on ventilatory, hemodynamically unstable with afib RVR and then hypotension with HD (2) ARDS (adult respiratory distress syndrome): Plan: dexamethasone goal negative net fluids with Bumex, attempted HD on 07/04, only 600mL removed, hypotensive, had to stop attempt HD again today intubated, high PEEP of 12 and FiO2 50% (3) 2018 novel coronavirus-infected pneumonia (NCIP): Plan: - defer remdesivir because gfr <30, SALIMA - decadron IV 6mg daily, baricitinib stopped when intubated mechanical ventilation since 06/28, not improving (4) SALIMA (acute kidney injury): Plan: likely ATN, getting worse, BUN and Cr trended up, non-oliguric with Bumex cannot keep potassium normal despite Bumex and potassium binders HD catheter placed 07/04 for emergent HD, did not tolerate full HD session due to hypotension try for HD again today nephrology following (5) Hyperkalemia: Plan: difficult to improve gave Bumex and Kayexalate changed tube feeds to low K formula down to 6.0 this morning from 6.8 attempting HD to remove potassium, could not tolerate first attempt (6) Atrial fibrillation: Plan: went into RVR rates 150, hypotensive on 07/04 resolved with amiodarone bolus 150mg continue Amiodarone 200mg BID and heparin drip for anticoagulation (7) Blood glucose elevated: Plan: - low dose SSI Aspart w/ goal 140-180 - patient not on diabetes medications at home - check BSG ACHS -Hemoglobin A1c 7.4 sugars stable Plan: FEN/GI: tube feeding ppx: heparin drip code: full dispo: icu Family updated and relayed the severity of his illness. long talk with his daughter Juliana Terrell will keep her updated this weekend remains full code Admission and Anticipated Discharge Date Admission Date: June 25, 2021 Subjective attempted HD yesterday, did not tolerate, required Levophed, very hypotensive he is non-oliguric, got Bumex this morning, plan to try HD again today requiring increased PEEP and FiO2 today discussed with Dr. Whitmore and Dr. Lee will call daughter this afternoon after she does a Zoom visit Review of Systems Review of Systems: Unobtainable due to endotracheal tube and Unobtainable due to reduced consciousness Physical Exam Physical Exam: General: well developed, well nourished, mechanically ventilated, sedated Neck: supple, trachea midline, normal thyroid Lungs: clear to auscultation bilaterally, symmetric chest movement Heart: regular S1 and S2, no murmur, peripheral pulses normal, capillary refill normal, no edema Abdomen: soft, NT, ND, + BS, no hepatomegaly, normal to percussion Extremities: normal in appearance, no cyanosis, no petechiae Neuro: sedated, no focal motor deficits, CN II-XII intact Skin: warm, dry, no rash, normal turgor Psych: sedated Results & Data Results & Data ([facility]) Vital Signs (Past 12 Hours) Vital Signs Temp Pulse Pulse Resp BP Pulse Ox 07/05/21 13:30 37.8 C H 66 18 93 07/05/21 13:00 37.9 C H 68 20 94 07/05/21 12:30 37.9 C H 67 19 93 07/05/21 12:00 37.8 C H 69 17 91 07/05/21 11:30 37.7 C H 66 20 92 07/05/21 11:16 64 28 H 90 07/05/21 11:00 37.9 C H 66 23 93 07/05/21 10:30 38.0 C H 67 18 94 07/05/21 10:00 38.0 C H 68 15 92 07/05/21 09:30 37.9 C H 64 22 92 07/05/21 09:00 37.8 C H 64 23 92 07/05/21 08:30 37.8 C H 65 18 93 07/05/21 08:24 64 28 H 91 07/05/21 08:22 65 94 07/05/21 08:00 37.7 C H 64 22 95 07/05/21 07:30 37.8 C H 66 29 H 95 07/05/21 07:00 38.0 C H 64 21 94 07/05/21 06:30 38.0 C H 66 20 96 07/05/21 06:00 37.8 C H 64 19 95 07/05/21 05:30 37.7 C H 66 25 H 118/51 L 92 07/05/21 04:30 37.5 C 61 25 H 129/51 L 88 L 07/05/21 04:00 37.7 C H 61 25 H 127/47 L 87 L 07/05/21 03:38 67 31 H 92 07/05/21 03:30 37.7 C H 67 25 H 132/50 L 92 Laboratory Results Laboratory Results - last 24 hr 07/04/21 07/04/21 07/04/21 17:01 18:29 18:29 WBC RBC Hgb POC Hgb Hct POC Hct MCV MCH MCHC RDW Std Deviation RDW Coeff of Julieth Plt Count MPV Immature Gran % (Auto) Neut % (Auto) Lymph % (Auto) Will % (Auto) Eos % (Auto) Baso % (Auto) Neut # (Auto) Lymph # (Auto) Will # (Auto) Eos # (Auto) Baso # (Auto) Immature Gran # (Auto) APTT PTT Ratio Sample Site POC pH POC pCO2 POC pO2 POC HCO3 POC Total CO2 POC Base Excess ABG pH (Temp Correct) ABG pCO2 (Temp Corrct POC ABG pO2 at Pt Temp POC ABG O2 Sat Dave Test O2 Delivery Device POC O2 Rate Minute Ventilation POC FiO2 Tidal Volume PEEP POC Sodium Sodium POC Potassium Potassium Chloride Carbon Dioxide Anion Gap BUN Creatinine Est Cr Clr Drug Dosing Est GFR ( Amer) Est GFR (Non-Af Amer) BUN/Creatinine Ratio Glucose POC Glucose 235 H Calcium Phosphorus Magnesium Hep Bs Antigen Neg Hep Bs Antibody Non-Immune Hep Bs Antibody, Quant 3.65 L Hep B Core IgM Ab Pending 07/04/21 07/05/21 07/05/21 20:23 00:03 03:30 WBC RBC Hgb POC Hgb 11.2 L Hct POC Hct 33 L MCV MCH MCHC RDW Std Deviation RDW Coeff of Julieth Plt Count MPV Immature Gran % (Auto) Neut % (Auto) Lymph % (Auto) Will % (Auto) Eos % (Auto) Baso % (Auto) Neut # (Auto) Lymph # (Auto) Will # (Auto) Eos # (Auto) Baso # (Auto) Immature Gran # (Auto) APTT PTT Ratio Sample Site Art Line POC pH 7.31 L POC pCO2 55 H POC pO2 63 L POC HCO3 28 H POC Total CO2 30 POC Base Excess 2.0 H ABG pH (Temp Correct) 7.304 L ABG pCO2 (Temp Corrct 57 H POC ABG pO2 at Pt Temp 67 POC ABG O2 Sat 89.0 L Dave Test NA O2 Delivery Device Ventilator POC O2 Rate 25 Minute Ventilation 9.7 POC FiO2 50 Tidal Volume 350 PEEP 12 POC Sodium 141 Sodium POC Potassium 5.9 H Potassium Chloride Carbon Dioxide Anion Gap BUN Creatinine Est Cr Clr Drug Dosing Est GFR ( Amer) Est GFR (Non-Af Amer) BUN/Creatinine Ratio Glucose POC Glucose 203 H 124 H Calcium Phosphorus Magnesium Hep Bs Antigen Hep Bs Antibody Hep Bs Antibody, Quant Hep B Core IgM Ab 07/05/21 07/05/21 07/05/21 04:09 04:17 04:19 WBC 24.42 H RBC 4.02 L Hgb 11.0 L POC Hgb Hct 35.8 L POC Hct MCV 89.1 MCH 27.4 MCHC 30.7 L RDW Std Deviation 48.6 H RDW Coeff of Julieth 14.8 H Plt Count 488 H MPV 9.7 Immature Gran % (Auto) 1.6 Neut % (Auto) 90.1 Lymph % (Auto) 1.8 Will % (Auto) 6.4 Eos % (Auto) 0.0 Baso % (Auto) 0.1 Neut # (Auto) 21.98 H Lymph # (Auto) 0.44 L Will # (Auto) 1.57 H Eos # (Auto) 0.01 Baso # (Auto) 0.03 Immature Gran # (Auto) 0.39 H APTT PTT Ratio Sample Site POC pH POC pCO2 POC pO2 POC HCO3 POC Total CO2 POC Base Excess ABG pH (Temp Correct) ABG pCO2 (Temp Corrct POC ABG pO2 at Pt Temp POC ABG O2 Sat Dave Test O2 Delivery Device POC O2 Rate Minute Ventilation POC FiO2 Tidal Volume PEEP POC Sodium Sodium 142 POC Potassium Potassium 6.0 H Chloride 110 H Carbon Dioxide 27 Anion Gap 5.0 BUN 93 H Creatinine 2.36 H Est Cr Clr Drug Dosing 32.7 Est GFR ( Amer) 29.9 Est GFR (Non-Af Amer) 25.8 BUN/Creatinine Ratio 39.3 H Glucose 185 H POC Glucose 170 H Calcium 9.8 Phosphorus 4.6 Magnesium 2.9 H Hep Bs Antigen Hep Bs Antibody Hep Bs Antibody, Quant Hep B Core IgM Ab 07/05/21 07/05/21 07/05/21 09:19 10:25 11:19 WBC RBC Hgb POC Hgb Hct POC Hct MCV MCH MCHC RDW Std Deviation RDW Coeff of Julieth Plt Count MPV Immature Gran % (Auto) Neut % (Auto) Lymph % (Auto) Will % (Auto) Eos % (Auto) Baso % (Auto) Neut # (Auto) Lymph # (Auto) Will # (Auto) Eos # (Auto) Baso # (Auto) Immature Gran # (Auto) APTT 31.5 H PTT Ratio 1.2 Sample Site POC pH POC pCO2 POC pO2 POC HCO3 POC Total CO2 POC Base Excess ABG pH (Temp Correct) ABG pCO2 (Temp Corrct POC ABG pO2 at Pt Temp POC ABG O2 Sat Dave Test O2 Delivery Device POC O2 Rate Minute Ventilation POC FiO2 Tidal Volume PEEP POC Sodium Sodium POC Potassium Potassium Chloride Carbon Dioxide Anion Gap BUN Creatinine Est Cr Clr Drug Dosing Est GFR ( Amer) Est GFR (Non-Af Amer) BUN/Creatinine Ratio Glucose POC Glucose 168 H 186 H Calcium Phosphorus Magnesium Hep Bs Antigen Hep Bs Antibody Hep Bs Antibody, Quant Hep B Core IgM Ab Medications Administered Current Inpatient Medications Albuterol (Albuterol 0.083% Nebu Soln 3 Ml Vial) 2.5 mg NEB Q6R PRN PRN Reason: sob Stop: 07/26/21 11:41 Last Admin: 07/05/21 08:10 Dose: 2.5 mg Documented by: Amiodarone HCl (Amiodarone 200 Mg Tab) 200 mg PO BIDM KYLE Stop: 08/04/21 16:59 Dextrose (Dextrose 50% 50 Ml Syringe) 25 - 50 ml IV UD PRN; Protocol PRN Reason: Hypoglycemia Protocol Stop: 07/25/21 23:47 Last Admin: 07/02/21 04:09 Dose: 25 ml Documented by: Docusate Sodium (Docusate Sodium Syrup 100 Mg/10 Ml Udc) 100 mg PO BID KYLE Stop: 08/01/21 10:14 Last Admin: 07/05/21 09:12 Dose: 100 mg Documented by: Enteral Nutritional Formula (Novasource Renal 2.0 Kingsley 1000ml Bag) 1,000 ml OG UD KYLE; Protocol Stop: 08/02/21 11:44 Last Admin: 07/03/21 12:53 Dose: 1,000 ml Documented by: Fentanyl Citrate (Fentanyl Bolus From Bag) 50 mcg IV Q60M PRN PRN Reason: Pain or Agitation Stop: 07/12/21 11:10 Glucagon (Glucagon For Inj 1 Mg Vial) 1 mg SQ UD PRN; Protocol PRN Reason: Hypoglycemia Protocol Stop: 07/25/21 23:47 Glucose (Glucose 10 Tabs/Tube) 4 - 8 tabs PO UD PRN; Protocol PRN Reason: Hypoglycemia Protocol Stop: 07/25/21 23:47 Glucose (Glucose 40% Gel 15 Gm Tube) 15 - 30 gm PO UD PRN; Protocol PRN Reason: Hypoglycemia Protocol Stop: 07/25/21 23:47 Fentanyl Citrate (Fentanyl Drip) 1,250 mcg in 250 mls @ 40 mls/hr IV .Q6H15M SC H; Protocol Stop: 07/12/21 11:14 Last Admin: 07/05/21 13:27 Dose: Not Given Documented by: Midazolam HCl (Versed) 125 mg in 250 mls @ 10 mls/hr IV .Q25H KYLE; Protocol Stop: 07/31/21 06:29 Last Admin: 07/05/21 13:15 Dose: 5 mg/hr, 10 mls/hr Documented by: Dexmedetomidine HCl 400 mcg/ (Sodium Chloride) 100 mls @ 0 mls/hr IV .Q0M KYLE; Protocol Stop: 07/06/21 04:59 Last Titration: 07/05/21 07:10 Dose: 0 mcg/kg/hr, 0 mls/hr Documented by: Norepinephrine Bitartrate (Levophed/D5w) 8 mg in 508 mls @ 0 mls/hr IV .Q0M KYLE; Protocol Stop: 08/03/21 20:44 Last Titration: 07/05/21 07:10 Dose: 0 mcg/kg/min, 0 mls/hr Documented by: Heparin Sodium/Dextrose (Heparin Sodium/Dextrose) 25,000 units in 500 mls @ 31 mls/hr IV .Q16H8M [facility]; Protocol Stop: 08/04/21 09:44 Last Admin: 07/05/21 11:09 Dose: 1,550 units/hr, 31 mls/hr Documented by: Insulin Aspart (Insulin Aspart 100 Units/Ml 3 Ml Pen) 0 units SC Q4 [facility] Stop: 07/29/21 07:59 Last Admin: 07/05/21 11:37 Dose: 12 units Documented by: Insulin Glargine (Insulin Glargine Solostar 100 Units/Ml 3 Ml Pen) 0 units SC HS [facility]; Protocol Stop: 07/30/21 20:59 Last Admin: 07/04/21 20:25 Dose: 15 units Documented by: Insulin Glargine (Insulin Glargine Solostar 100 Units/Ml 3 Ml Pen) 50 units SC QAM [facility] Stop: 07/05/21 23:59 Last Admin: 07/05/21 09:25 Dose: 50 units Documented by: Insulin Glargine (Insulin Glargine Solostar 100 Units/Ml 3 Ml Pen) 25 units SC QAM [facility] Stop: 08/05/21 08:59 Lansoprazole (Lansoprazole 30 Mg Soltab) 30 mg PO QAM [facility] Stop: 07/29/21 11:14 Last Admin: 07/05/21 09:12 Dose: 30 mg Documented by: Midazolam HCl (Midazolam Bolus From Bag) 2 mg IV Q60M PRN PRN Reason: Sedation Stop: 07/31/21 06:27 Last Admin: 07/05/21 05:50 Dose: 2 mg Documented by: Miscellaneous (Carbohydrates For Hypoglycemia ) 15 - 30 gm PO UD PRN PRN Reason: Hypoglycemia Protocol Stop: 07/25/21 23:47 Miscellaneous (Icu Electrolyte Replacement Protocol) 1 ea N/A BID@ [facility]; Protocol Stop: 07/05/21 17:59 Last Admin: 07/05/21 05:11 Dose: 1 ea Documented by: Miscellaneous Information (Pharmacy Glycemic Mgmt Consult) 1 ea N/A UD PRN PRN Reason: Consult Stop: 07/28/21 11:56 Multi-Ingredient Cream (Artificial Tears Op Oint 3.5 Gm Tube) 1 appln OP Q4H KYLE Stop: 07/28/21 11:14 Last Admin: 07/05/21 11:10 Dose: 1 appln Documented by: Polyethylene Glycol (Polyethylene (Miralax) 17 Gm Pack) 17 gm PO DAILY PRN PRN Reason: Constipation Stop: 07/25/21 23:47 Polyethylene Glycol (Polyethylene (Miralax) 17 Gm Pack) 17 gm PO DAILY KYLE Stop: 08/01/21 08:59 Last Admin: 07/05/21 09:12 Dose: 17 gm Documented by: Sennosides (Senna 8.6 Mg Tab) 17.2 mg PO QAM KYLE Stop: 07/29/21 08:59 Last Admin: 07/05/21 09:12 Dose: 17.2 mg Documented by: Sterile Water (Tube Feeding Water Flush) 30 ml OG Q4H KYLE Stop: 07/31/21 11:29 Last Admin: 07/03/21 20:28 Dose: Not Given Documented by: PG Care Time/CCT Total # of Minutes Spent Total Time Spent with Patient: Total time spent is greater than 50% in coordination of care (as documented) at patient's floor/unit and/or counseling patient: Coding Level of Care Code 84313 Subseq Hosp Care Lvl 3 Diagnoses Acute respiratory failure with hypoxia J96.01 ARDS (adult respiratory distress syndrome) J80 2019 novel coronavirus-infected pneumonia (NCIP) U07.1; J12.82 SALIMA (acute kidney injury) N17.9 Hyperkalemia E87.5 Atrial fibrillation I48.91 Atrial fibrillation type: unspecified Blood glucose elevated R73.9 (1) Atrial fibrillation Atrial fibrillation type: unspecified Qualified Code(s): I48.91 - Unspecified atrial fibrillation
[2021-07-05] MEDS: AMIODARONE 200 MG TAB PO SCH (16:10)
--- NOTE | 2021-07-05 16:54 | XCELERA ---
[id number]
--- NOTE | 2021-07-05 17:12 | Cardiology Consultation ---
Date of Consultation July 05, 2021 Assessment & Plan (1) Atrial fibrillation: We do not have much insight into his usual pattern of atrial fibrillation. However, he appears to have been maintained on a low dose of flecainide as a prophylaxis. He was appropriately anticoagulated. It is not surprising that he did develop some atrial fibrillation given his acute illness. There were also likely some electrolyte and volume derangements which may have contributed. Unfortunately, he did develop some hemodynamic compromise likely related to the high ventricular rates. He appears to have normal LV function. He did have some EKG changes concerning for ischemia at high rates as well. No known history of coronary disease, but certainly in his demographic this would be common. At this point treatment is simply supportive. Hopefully with continued amiodarone in the oral form we will see less atrial fibrillation. Amiodarone may also blunt the ventricular response which would reduce his chance of hemodynamic compromise. Electrolytes and volume status are being addressed by dialysis. Reducing his chance of developing cardiac ischemia is also supportive and would involve continued good oxygenation, maintaining adequate hemoglobin levels, blood pressure and heart rates. Recurrent episodes of atrial fibrillation with high ventricular rates or compromised hemodynamics could be treated with additional bolus infusions of amiodarone. This would also likely necessitate an increase in his oral dose over time. Hopefully as his clinical condition improves we will see less atrial fibrillation and will be better tolerated. With respect to anticoagulation, there does not appear to be an urgency for systemic anticoagulation. Given his renal dysfunction he is not a good candidate for return to the NOACs. There is no urgent indication for return to systemic heparinization, although if safe, this would be adequate to reduce his risk of stroke. Very low risk of systemic embolization from atrial fibrillation in the short term. History of Present Illness Reason for Consultation: Atrial fibrillation Requesting Physician: Haim Attending Physician: Elias Lu, DO History of Present Illness The patient is a 75-year-old gentleman with a history of paroxysmal atrial fibrillation who is followed by an outside architect in training. It seems that his treatment for atrial fibrillation involved daily flecainide, metoprolol and rivaroxaban. The patient presented to the hospital on June 25 with progressive symptoms of dyspnea. He was known to have an infection with COVID- 19. He was discovered to be hypoxic. He also an element of renal ins ufficiency. He has had a declining clinical course since admission and did require intubation and mechanical ventilation. Additionally, he became aneuric and had electrolyte abnormalities which have recently require dialysis in administration of potassium binders. In this setting the patient did develop atrial fibrillation with high ventricular rates. He had hemodynamic compromise with transition to this rhythm in the associated high rates. The patient had not been on flecainide for several days. He was administered amiodarone infusion did return to a sinus rhythm. Patient did require some pressor support during this episode. Allergies Allergy/AdvReac Type Severity Reaction Status Date / Time No Known Allergies Allergy Unverified 06/25/21 17:54 Home Medications Medication Instructions Recorded Confirmed Type amlodipine 10 mg tablet (Norvasc) 10 mg PO QAM 06/25/21 06/25/21 History flecainide 50 mg tablet 50 mg PO Q12H 06/25/21 06/25/21 History lisinopril 5 mg tablet (Zestril) 5 mg PO QAM 06/25/21 06/25/21 History metoprolol succinate 25 mg 25 mg PO QAM 06/25/21 06/25/21 History tablet,extended release 24 hr (Toprol XL) rivaroxaban 20 mg tablet (Xarelto) 20 mg PO PM 06/25/21 06/25/21 History Patient History Medical History (Updated 07/05/21 @ 11:28 by Juan Ramon Whitmore MD) ARDS (adult respiratory distress syndrome) Atrial fibrillation Hyperkalemia Hypertension Ventilator dependence Surgical History H/O hernia repair H/O right knee surgery Social History Smoking Status: Never smoker Hx Alcohol Use: No Hx Substance Use: No Preferred Language: Marshallese 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 Normal rhythm. No murmurs. Pulses: The patient has palpable radial pulses bilaterally that are equal in intensity Extremities: No cyanosis or clubbing. Edema of the hands and feet. Skin: I did not appreciate any rashes on examination today. Results & Data ([facility]) Vital Signs (Past 12 Hours) Vital Signs Temp Pulse Pulse Resp BP Pulse Ox 07/05/21 16:20 66 30 H 92 07/05/21 15:30 37.8 C H 67 6 L 92 07/05/21 15:00 37.8 C H 62 19 93 07/05/21 14:30 37.9 C H 65 21 91 07/05/21 14:00 37.8 C H 66 21 94 07/05/21 13:30 37.8 C H 66 18 93 07/05/21 13:00 37.9 C H 68 20 94 07/05/21 12:30 37.9 C H 67 19 93 07/05/21 12:00 37.8 C H 69 17 91 07/05/21 11:30 37.7 C H 66 20 92 07/05/21 11:16 64 28 H 90 07/05/21 11:00 37.9 C H 66 23 93 07/05/21 10:30 38.0 C H 67 18 94 07/05/21 10:00 38.0 C H 68 15 92 07/05/21 09:30 37.9 C H 64 22 92 07/05/21 09:00 37.8 C H 64 23 92 07/05/21 08:30 37.8 C H 65 18 93 07/05/21 08:24 64 28 H 91 07/05/21 08:22 65 94 07/05/21 08:00 37.7 C H 64 22 95 07/05/21 07:30 37.8 C H 66 29 H 95 07/05/21 07:00 38.0 C H 64 21 94 07/05/21 06:30 38.0 C H 66 20 96 07/05/21 06:00 37.8 C H 64 19 95 07/05/21 05:30 37.7 C H 66 25 H 118/51 L 92 Laboratory Results Abnormal Lab Results 07/04/21 07/04/21 07/05/21 18:29 20:23 00:03 WBC RBC Hgb POC Hgb Hct POC Hct MCV MCH MCHC RDW Std Deviation RDW Coeff of Julieth Plt Count MPV Immature Gran % (Auto) Neut % (Auto) Lymph % (Auto) Ada % (Auto) Eos % (Auto) Baso % (Auto) Neut # (Auto) Lymph # (Auto) Ada # (Auto) Eos # (Auto) Baso # (Auto) Immature Gran # (Auto) APTT PTT Ratio Sample Site POC pH POC pCO2 POC pO2 POC HCO3 POC Total CO2 POC Base Excess ABG pH (Temp Correct) ABG pCO2 (Temp Corrct POC ABG pO2 at Pt Temp POC ABG O2 Sat Dave Test O2 Delivery Device POC O2 Rate Minute Ventilation POC FiO2 Tidal Volume PEEP POC Sodium Sodium POC Potassium Potassium Chloride Carbon Dioxide Anion Gap BUN Creatinine Est Cr Clr Drug Dosing Est GFR ( Amer) Est GFR (Non-Af Amer) BUN/Creatinine Ratio Glucose POC Glucose 203 H 124 H Calcium Phosphorus Magnesium Hep Bs Antigen Neg Hep Bs Antibody Non-Immune Hep Bs Antibody, Quant 3.65 L 07/05/21 07/05/21 07/05/21 03:30 04:09 04:17 WBC RBC Hgb POC Hgb 11.2 L Hct POC Hct 33 L MCV MCH MCHC RDW Std Deviation RDW Coeff of Julieth Plt Count MPV Immature Gran % (Auto) Neut % (Auto) Lymph % (Auto) Ada % (Auto) Eos % (Auto) Baso % (Auto) Neut # (Auto) Lymph # (Auto) Ada # (Auto) Eos # (Auto) Baso # (Auto) Immature Gran # (Auto) APTT PTT Ratio Sample Site Art Line POC pH 7.31 L POC pCO2 55 H POC pO2 63 L POC HCO3 28 H POC Total CO2 30 POC Base Excess 2.0 H ABG pH (Temp Correct) 7.304 L ABG pCO2 (Temp Corrct 57 H POC ABG pO2 at Pt Temp 67 POC ABG O2 Sat 89.0 L Dave Test NA O2 Delivery Device Ventilator POC O2 Rate 25 Minute Ventilation 9.7 POC FiO2 50 Tidal Volume 350 PEEP 12 POC Sodium 141 Sodium 142 POC Potassium 5.9 H Potassium 6.0 H Chloride 110 H Carbon Dioxide 27 Anion Gap 5.0 BUN 93 H Creatinine 2.36 H Est Cr Clr Drug Dosing 32.7 Est GFR ( Amer) 29.9 Est GFR (Non-Af Amer) 25.8 BUN/Creatinine Ratio 39.3 H Glucose 185 H POC Glucose 170 H Calcium 9.8 Phosphorus 4.6 Magnesium 2.9 H Hep Bs Antigen Hep Bs Antibody Hep Bs Antibody, Quant 07/05/21 07/05/21 07/05/21 04:19 09:19 10:25 WBC 24.42 H RBC 4.02 L Hgb 11.0 L POC Hgb Hct 35.8 L POC Hct MCV 89.1 MCH 27.4 MCHC 30.7 L RDW Std Deviation 48.6 H RDW Coeff of Julieth 14.8 H Plt Count 488 H MPV 9.7 Immature Gran % (Auto) 1.6 Neut % (Auto) 90.1 Lymph % (Auto) 1.8 Ada % (Auto) 6.4 Eos % (Auto) 0.0 Baso % (Auto) 0.1 Neut # (Auto) 21.98 H Lymph # (Auto) 0.44 L Ada # (Auto) 1.57 H Eos # (Auto) 0.01 Baso # (Auto) 0.03 Immature Gran # (Auto) 0.39 H APTT 31.5 H PTT Ratio 1.2 Sample Site POC pH POC pCO2 POC pO2 POC HCO3 POC Total CO2 POC Base Excess ABG pH (Temp Correct) ABG pCO2 (Temp Corrct POC ABG pO2 at Pt Temp POC ABG O2 Sat Dave Test O2 Delivery Device POC O2 Rate Minute Ventilation POC FiO2 Tidal Volume PEEP POC Sodium Sodium POC Potassium Potassium Chloride Carbon Dioxide Anion Gap BUN Creatinine Est Cr Clr Drug Dosing Est GFR ( Amer) Est GFR (Non-Af Amer) BUN/Creatinine Ratio Glucose POC Glucose 168 H Calcium Phosphorus Magnesium Hep Bs Antigen Hep Bs Antibody Hep Bs Antibody, Quant 07/05/21 07/05/21 11:19 16:15 WBC RBC Hgb POC Hgb Hct POC Hct MCV MCH MCHC RDW Std Deviation RDW Coeff of Julieth Plt Count MPV Immature Gran % (Auto) Neut % (Auto) Lymph % (Auto) Ada % (Auto) Eos % (Auto) Baso % (Auto) Neut # (Auto) Lymph # (Auto) Ada # (Auto) Eos # (Auto) Baso # (Auto) Immature Gran # (Auto) APTT PTT Ratio Sample Site POC pH POC pCO2 POC pO2 POC HCO3 POC Total CO2 POC Base Excess ABG pH (Temp Correct) ABG pCO2 (Temp Corrct POC ABG pO2 at Pt Temp POC ABG O2 Sat Dave Test O2 Delivery Device POC O2 Rate Minute Ventilation POC FiO2 Tidal Volume PEEP POC Sodium Sodium POC Potassium Potassium Chloride Carbon Dioxide Anion Gap BUN Creatinine Est Cr Clr Drug Dosing Est GFR ( Amer) Est GFR (Non-Af Amer) BUN/Creatinine Ratio Glucose POC Glucose 186 H 257 H Calcium Phosphorus Magnesium Hep Bs Antigen Hep Bs Antibody Hep Bs Antibody, Quant Diagnostic Findings Echocardiogram performed today revealed preserved LV systolic function. Preserved RV function. Mild aortic insufficiency. Elevated estimated pulmonary pressures. Chest x-ray obtained today revealed findings consistent with multifocal pneumonia ECG Additional Comments: EKG obtained today revealed normal sinus rhythm with T-wave inversions in the anterior precordial leads. PG Care Time/CCT Total # of Minutes Spent Total Time Spent with Patient: Total time spent is greater than 50% in coordination of care (as documented) at patient's floor/unit and/or counseling patient: Coding Level of Care Code 00392 Initial Inpt Care Lvl 3 Diagnoses Atrial fibrillation I48.91 Atrial fibrillation type: unspecified (1) Atrial fibrillation Atrial fibrillation type: unspecified Qualified Code(s): I48.91 - Unspecified atrial fibrillation
[2021-07-05 17:49] LABS: Partial Thromboplastin Ratio 2.3
[2021-07-05 18:09] LABS: Partial Thromboplastin Time 60.5 Seconds (21.0-31.0)
--- NOTE | 2021-07-05 18:15 | Electrocardiogram Report ---
Test Reason : Blood Pressure : / mmHG Vent. Rate : 066 BPM Atrial Rate : 066 BPM P-R Int : 162 ms QRS Dur : 100 ms QT Int : 366 ms P-R-T Axes : 039 008 072 degrees QTc Int : 383 ms Normal sinus rhythm Abnormal ECG When compared with ECG of 04-JUL-2021 14:03, Sinus rhythm has replaced Atrial fibrillation Vent. rate has decreased BY [address] less depressed in Lateral leads Nonspecific T wave abnormality no longer evident in Inferior leads T wave inversion now evident in Anterior leads Confirmed by Jose Miranda ([id number]) on 07/05/2021 6:14:50 PM Referred By: REFERRED SELF Confirmed By:Mingo Miranda
[2021-07-05] MEDS: NOREPINEPHRINE/D5W 8 MG/508 ML BAG IV SCH (19:51)
[2021-07-05] MEDS ORDERED: AMIODARONE / D5W 150 MG/100 ML BAG IV STA (20:03)
[2021-07-05] MEDS ORDERED: 0.2 MICRON FILTER SET 1 EA IV ONE (20:03)
[2021-07-05] MEDS ORDERED: STAT IV Infusion **Titration per Protocol STA (22:38)
[2021-07-05] MEDS ORDERED: PHENYLEPHRINE HCL 20 MG in DEXTROSE 5% 500 ML IV SCH (22:45)
[2021-07-05 23:22] LABS: BUN Creatinine Ratio 33.1 (10-20); Calcium 9.5 mg/dl (8.5-10.1); Creatinine Clr Calc Pharmacy 30.6 ml/min; Est GFR (African American) 27.9 ml/min
[2021-07-06] MEDS ORDERED: 0.2 MICRON FILTER SET 1 EA IV ONE (00:30)
[2021-07-06] MEDS ORDERED: AMIODARONE / D5W 150 MG/100 ML BAG IV STA (00:30)
[2021-07-06] MEDS: HEPARIN SODIUM/DEXTROSE 25,000 UNITS/500 ML BAG IV SCH (00:43)
[2021-07-06] MEDS: INSULIN ASPART 100 UNITS/ML 3 ML PEN SC SCH ×2 (00:44→05:05)
[2021-07-06] MEDS: ARTIFICIAL TEARS OP OINT 3.5 GM TUBE OP SCH ×3 (00:44→07:48)
[2021-07-06] MEDS ORDERED: DEXTROSE 50% 50 ML SYRINGE IV ONE (00:47)
[2021-07-06] MEDS ORDERED: CALCIUM CHLORIDE 10% 500 MG in SODIUM CHLORIDE 0.9% 50 ML IV STA (00:47)
[2021-07-06] MEDS ORDERED: INSULIN HUMAN REGULAR PER UNIT 5 UNITS in SYRINGE 4.95 ML IV STA (00:57)
[2021-07-06] MEDS ORDERED: VECURONIUM BROMIDE 10 MG VIAL IV STA (01:09)
[2021-07-06] MEDS: fentaNYL DRIP 1,250 MCG/250 ML BAG IV SCH ×4 (01:48→11:24)
[2021-07-06] MEDS: PHENYLEPHRINE HCL 80 MG in DEXTROSE 5% 500 ML IV SCH ×4 (02:00→10:20)
[2021-07-06] MEDS: NOVASOURCE RENAL 2.0 CAL 1000ML BAG OG SCH (02:57)
[2021-07-06 04:54] LABS: iSTAT Art Bld Gas pCO2 Correct 112 mmHg (35-46); iSTAT Arterial Blood Gas HCO3 23 meg/L (19-24); iSTAT Arterial Blood Gas pCO2 102 mmHg (35-46); iSTAT Arterial Blood Gas pH 6.97 (7.35-7.45); iSTAT Arterial Blood Gas pO2 61 mmHg (80-95); iSTAT Arterial Blood Gas pO2 C 70; iSTAT Carbon Dioxide 26 mmol/L (24-31); iSTAT FiO2 70 %; iSTAT Hematocrit 36 % (42-52); iSTAT Hemoglobin 12.2 g/dl (14.0-18.0); iSTAT Potassium 6.1 mmol/L (3.3-5.0); iSTAT Site Art Line; iSTAT Sodium 136 mmol/L (135-144)
[2021-07-06] MEDS ORDERED: ACETAMINOPHEN 1,000 MG/100 ML VIAL IV PRN (05:27)
[2021-07-06 05:50] LABS: Partial Thromboplastin Ratio 4.1
[2021-07-06 05:55] LABS: Partial Thromboplastin Time 107.3 Seconds (21.0-31.0)
[2021-07-06 06:33] LABS: ALC (manual) 0.61 K/uL (1.2-3.4); ANC (manual) 34.94 K/uL (1.4-6.5); Hematocrit (blood only) 36.9 % (42-52); Lymphocytes # (manual) 0.61 K/uL (1.2-3.4); Lymphocytes % (manual) 1.6 %; Mean Corpuscular Hemoglobin 27.8 pg (25-34); Mean Corpuscular Hgb Conc 29.8 g/dL (32-36); Mean Corpuscular Volume 93.2 fL (80-100); Metamyelocytes # (manual) 2.53 K/uL (0-0); Metamyelocytes % (manual) 6.6 %; Monocytes # (manual) 0.31 K/uL (0.11-0.59); Monocytes % (manual) 0.8 %; Neutrophils # (manual) 34.94 K/uL (1.4-6.5); Nucleated RBC % (auto) 0.3 %; Platelet Count 562 K/uL (130-400); RBC Morphology Unremarkable; RDW Coefficient of Variation 15.2 % (11.5-14.5); RDW Standard Deviation 51.9 fL (36.4-46.3); Red Blood Count 3.96 M/uL (4.7-6.1)
[2021-07-06] MEDS ORDERED: SODIUM BICARB 8.4% INJ 50 MEQ/50 ML SYR IV STA (06:33)
[2021-07-06 06:35] LABS: BUN Creatinine Ratio 23.6 (10-20); Calcium 9.3 mg/dl (8.5-10.1); Creatinine Clr Calc Pharmacy 19.9 ml/min; Est GFR (African American) 16.5 ml/min; Est GFR (Non-African American) 14.3 ml/min; Potassium 6.4 mmol/L (3.5-5.1)
[2021-07-06] MEDS ORDERED: SODIUM BICARB 8.4% INJ 50 MEQ/50 ML SYR IV ONE (06:36)
[2021-07-06] MEDS ORDERED: PIPERACILL/TAZOBAC CONSULT ACTIVE PRN (06:40)
[2021-07-06] MEDS ORDERED: SEVERE STRESS LEVEL ONE (06:45)
[2021-07-06] MEDS ORDERED: PIPERACILLIN/TAZOBACTAM 3.375 GM in DEXTROSE 5% 100 ML IV SCH (06:45)
[2021-07-06] MEDS ORDERED: STAT IV Infusion **Titration per Protocol STA (06:45)
[2021-07-06] MEDS ORDERED: INSULIN PROTOCOL GOAL RANGE ONE (06:45)
[2021-07-06 06:47] LABS: Beta-Hydroxybutyrate 0.99 mg/dl (0.2-2.81)
--- NOTE | 2021-07-06 06:54 | Procedure Note ---
Procedure Note Date of Service July 06, 2021 Note Procedure: Arterial Line Placement Attending: Dr. Whitmore APC: Dev Ortega PA-C Indication: Hemodynamic monitoring Anesthesia: None Emergent Consent implied in the setting of clinical deterioration and need for close hemodynamic monitoring, ABG monitoring, frequent lab draws, etc. A time-out was completed verifying correct patient, procedure, site, positioning, and implant(s) or special equipment if applicable. Allens test was performed to ensure adequate perfusion. Patients RIGHT wrist was prepped and draped in the usual sterile fashion. Ultrasound guidance was used to aid needle placement. A 20g Arrow arterial line was introduced into the RIGHT Radial artery. Catheter was threaded, and the needle was removed with appropriate blood return. Good waveform was observed. The patient tolerated the procedure well. Confirmation of placement with ultrasound. Blood Loss: Minimal Complications: None Procedural Ultrasound Guidance: Procedure Date: 07/06/2021 Indication: Hemodynamic Monitoring, Frequent ABGs/Lab draws. Attending: Dr. Whitmore APC: Dev Ortega PA-C Artery Identified: YES Line confirmed in Artery with ultrasound: YES Complications: NONE Patient tolerated procedure: WELL Coding CPT Codes Tubes, Drains, and Vasc Access - Tubes, Drains, and Vasc Access: [id number] Insertion Catheter, Artery ([id number]) [facility] [place] Codes (Charges) Tubes, Drains, and Vasc Access Procedure 4: Tubes, Drains, and Vasc Access: [id number] Insertion Catheter, Artery
[2021-07-06] MEDS ORDERED: VANCOMYCIN CONSULT ACTIVE PRN (07:09)
[2021-07-06] MEDS ORDERED: PIPERACILLIN/TAZOBACTAM 4.5 GM in DEXTROSE 5% 100 ML IV ONE (07:15)
[2021-07-06] MEDS ORDERED: NovoLIN-R BOLUS FROM BAG IV ONE (07:30)
[2021-07-06] MEDS ORDERED: INSULIN REGULAR 250 UNITS in SODIUM CHLORIDE 0.9% 247.5 ML IV SCH (07:30)
[2021-07-06] MEDS ORDERED: INSULIN ASPART 100 UNITS/ML 3 ML PEN SC SCH (07:30)
[2021-07-06] MEDS ORDERED: VANCOMYCIN HCL 2,000 MG in SODIUM CHLORIDE 0.9% 500 ML IV ONE (07:45)
--- NOTE | 2021-07-06 07:50 | XRay Report ---
XR chest 1V portable HISTORY: Respiratory failure. Follow-up. COMPARISON: Chest 07/05/2021. Delayed. FINDINGS: Lines and tubes remain in good position with the endotracheal tube terminating 3.5 cm from the sue. Progressive airspace opacities within the right mid to lower lung zone. The left lung air space opacities persist. The heart remains mildly enlarged. Possible trace left pleural effusion, unc hanged. No pneumothorax. IMPRESSION: 1. Satisfactory support line placement. 2. Progressive airspace opacities within the right mid to lower lung zone. The left lung airspace opa cities persist. ACT 112: Negative or not required by law. Electronically signed by: Eder Lutz M.D. 07/06/2021 7:49 AM
[2021-07-06] MEDS: NOREPINEPHRINE/D5W 8 MG/508 ML BAG IV SCH (08:20)
[2021-07-06 08:56] LABS: iSTAT Art Bld Gas pCO2 Correct 98 mmHg (35-46); iSTAT Art Bld Gas pH Corrected 6.935 (7.35-7.45); iSTAT Arterial Blood Gas HCO3 20 meg/L (19-24); iSTAT Arterial Blood Gas pCO2 89 mmHg (35-46); iSTAT Arterial Blood Gas pH 6.96 (7.35-7.45); iSTAT Arterial Blood Gas pO2 53 mmHg (80-95); iSTAT Arterial Blood Gas pO2 C 61; iSTAT Carbon Dioxide 23 mmol/L (24-31); iSTAT FiO2 70 %; iSTAT Hematocrit 34 % (42-52); iSTAT Hemoglobin 11.6 g/dl (14.0-18.0); iSTAT Potassium 6.1 mmol/L (3.3-5.0); iSTAT Site Art Line; iSTAT Sodium 135 mmol/L (135-144)
[2021-07-06] MEDS ORDERED: INSULIN GLARGINE SOLOSTAR 100 UNITS/ML 3 ML PEN SC SCH (09:00)
[2021-07-06] MEDS ORDERED: metroNIDAZOLE 500 MG/100 ML BAG IV SCH (09:00)
[2021-07-06] MEDS: MIDAZOLAM HCL 125 MG/250 ML BAG IV SCH (09:08)
--- NOTE | 2021-07-06 09:45 | Nephrology Progress Note ---
Date of Service July 06, 2021 Assessment & Plan (1) SALIMA (acute kidney injury): Plan: * HD provided yesterday. Clearance limited due to poor flow from temporary catheter. Patient remains hyperkalemic, azotemic and mildly acidemic. * Plan of care discussed w/ ICU and hospitalist teams. Family meeting scheduled for later this am. Anticipate transfer to comfort measures * No further Nephrology evaluation indicated at this time. Will sign off. Please call if further assistance is needed (2) 2019 novel coronavirus-infected pneumonia (NCIP): (3) Hypertension: (4) Hyperkalemia: Admission and Anticipated Discharge Date Admission Date: June 25, 2021 Subjective Dialysis provided yesterday. Temporary catheter had poor flow. Only 2 hours completed due to frequent alarms. Review of Systems Review of Systems: Unobtainable due to endotracheal tube Physical Exam Physical Exam: PE held due to COVID + respiratory isolation Results & Data ([facility]) Vital Signs (Past 12 Hours) Vital Signs Temp Pulse Pulse Resp BP BP Pulse Ox 07/06/21 08:21 76 34 H 91 07/06/21 07:00 39.3 C H 78 26 H 90/34 L 91 07/06/21 06:30 39.3 C H 73 31 H 97/33 L 88 L 07/06/21 06:00 39.2 C H 74 91/39 L 87 L 07/06/21 05:00 39.2 C H 82 30 H 103/35 L 88 L 07/06/21 04:15 87 27 H 89 L 07/06/21 04:00 39.1 C H 87 26 H 106/36 L 88 L 07/06/21 03:00 39.0 C H 90 26 H 109/40 L 99 07/06/21 02:15 39.0 C H 90 25 H 117/39 L 98 07/06/21 02:00 39.0 C H 90 25 H 115/39 L 93 07/06/21 01:45 38.9 C H 94 H 22 89 L 07/06/21 01:30 38.9 C H 93 H 24 124/44 L 88 L 07/06/21 01:15 38.8 C H 88 23 82 L 07/06/21 01:00 38.8 C H 90 23 115/44 L 84 L 07/06/21 00:45 38.7 C H 89 21 86 L 07/06/21 00:30 38.6 C H 113 H 26 H 120/47 L 84 L 07/06/21 00:15 38.5 C H 115 H 26 H 83 L 07/06/21 00:00 38.4 C H 92 H 18 88 L 07/05/21 23:45 38.3 C H 88 21 90 07/05/21 23:30 38.2 C H 86 26 H 116/43 L 92 07/05/21 23:00 37.9 C H 118 H 27 H 124/53 L 93 07/05/21 22:35 127 H 29 H 86 L 07/05/21 22:30 37.7 C H 128 H 25 H 87/56 L 87 L 07/05/21 22:00 37.5 C 117 H 120 H 22 112/51 L 127/43 L 91 07/05/21 21:45 135 H 104/40 L Laboratory Results Laboratory Tests 07/06/21 07/06/21 05:10 05:10 WBC 38.40 H* Hgb 11.0 L Hct 36.9 L Plt Count 562 H Sodium 135 L Potassium 6.4 H* Chloride 104 Carbon Dioxide 21 BUN 91 H Creatinine 3.85 H D PG Care Time/CCT Total # of Minutes Spent Total Time Spent with Patient: Total time spent is greater than 50% in coordination of care (as documented) at patient's floor/unit and/or counseling patient: Coding Level of Care Code 15146 Subseq Hosp Care Lvl 3 Diagnoses SALIMA (acute kidney injury) N17.9 2019 novel coronavirus-infected pneumonia (NCIP) U07.1; J12.82 Hypertension I10 Hyperkalemia E87.5
[2021-07-06] MEDS: DOCUSATE SODIUM SYRUP 100 MG/10 ML UDC PO SCH (09:55)
[2021-07-06] MEDS: SENNA 8.6 MG TAB PO SCH (09:56)
[2021-07-06] MEDS: LANSOPRAZOLE 30 MG SOLTAB PO SCH (09:56)
[2021-07-06] MEDS: POLYETHYLENE (MIRALAX) 17 GM PACK PO SCH (09:56)
[2021-07-06] MEDS: AMIODARONE 200 MG TAB PO SCH (10:04)
[2021-07-06] MEDS ORDERED: MoRPHine SULFATE 2 MG/ML CARP IV PRN (10:19)
[2021-07-06 11:13] LABS: Magnesium 2.8 mg/dl (1.8-2.4); Phosphorus 6.1 mg/dl (2.5-4.9)
--- NOTE | 2021-07-06 11:15 | Discharge Summary ---
Date of Service July 06, 2021 Admission HPI Per Admitting Provider Geronimo Mcclain is a 75 y/o male w/ Afib on Eliquis and hypertension who presents w/ slightly worsening productive cough (white/guido sputum), SOB, BARAJAS, low grade fever (daily, ~100.4) since 8 days ago. He presents today because of persistent symptoms and because his family was concerned. Not covid immunized. Tested covid pos on 06/21/21. PCP in [place]. 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 Loose stool x 1 today. No subj fever/chills/myalgia. Not orthopneic. Some fatigue. Denies dyspnea at baseline and denies hx of asthma/copd, inhaler use, or CHF.5 days of dark dirty brown urine. Last meds this AM. He has not been taking medications for his symptoms other than Motrin today (denies using on previous days) ED course: 1L LR bolus. dexamethasone IV 6 mg x1. vitals: 86 on RA. now 95 on 3L. wbc 9.28. Hb 13.4. Na 132L. BUN 37. Cr 2.4. fasting glucose 175H. covid pending. Lipase wnl. NT proBNP 505. Principal Diagnosis COVID 19 pneumonia ARDS Acute respiratory failure Discharge Exam no pulse, no respirations, unresponsive, pupils fixed, no heart tones, no breath sounds Discharge Data Allergies Allergy/AdvReac Type Severity Reaction Status Date / Time No Known Allergies Allergy Unverified 06/25/21 17:54 Consultations 06/25/21 17:12 ED Decision to Admit Stat 06/28/21 08:18 Consult Press Tender [employer] Goods Routine 06/30/21 06:42 Consult Nephrology Routine 07/04/21 13:51 Consult Palliative Care Routine 07/05/21 11:25 Consult Cardiology Routine Hospital Course (1) Acute respiratory failure with hypoxia: 75 y/o male who presents w/ covid PNA, day 9 of symptoms when he was admitted (06/17/21 onset). Pt with rapid escalation to high flow then to bipap at 100% oxygen still with desaturations, decision to intubate 06/28, day 9 of mechanical ventilation baricitinib daily started and stopped due to intubation Dexamethasone 6mg IV daily x 10 days bronchoscopy 07/03, found to have mucous plugging, suctioned out oxygen requirements improved after bronchoscopy and left sided aeration improved however, respiratory status worsened the past 48 hours, up to PEEP 14 and FiO2 70% family discussion at the bedside with , daughter, 4 sons changed to DNR and withdrawal of care patient after stopping vasopressors, time of 11:09 AM, family at the bedside (2) ARDS (adult respiratory distress syndrome): dexamethasone goal negative net fluids with Bumex, attempted HD on 07/04, only 600mL removed, hypotensive, had to stop attempted HD again on 07/05, could not tolerate intubated, high PEEP of 14 and FiO2 70% see above (3) Shock: unclear if this was septic or cardiovascular initially on Levophed, switched to Neosynephrine due to afib with RVR now requiring max doses of Lj, added Levophed and Vasopressin just for MAP > 65 family visited at the bedside, made decision to withdraw care stopped vasopressors and he at 11:09 AM (4) 2018 novel coronavirus-infected pneumonia (NCIP): - defer remdesivir because gfr <30, SALIMA - decadron IV 6mg daily, baricitinib stopped when intubated mechanical ventilation since 06/28, getting worse the past several days see above (5) SALIMA (acute kidney injury): likely ATN, getting worse, BUN and Cr trended up, Cr is >3 today cannot keep potassium normal despite Bumex and potassium binders HD catheter placed 07/04 for emergent HD, did not tolerate full HD session due to hypotension did not tolerated HD on 07/05 either, afib with RVR nephrology following, appreciate their help see above (6) Hyperkalemia: difficult to improve gave Bumex and Kayexalate changed tube feeds to low K formula attempted HD to correct K but did not tolerate (7) Atrial fibrillation: went into RVR rates 150, hypotensive on 07/04 resolved with amiodarone bolus 150mg continue Amiodarone 200mg BID and heparin drip for anticoagulation another round of afib RVR on 07/05 with HD very unstable see above (8) Blood glucose elevated: - low dose SSI Aspart w/ goal 140-180 - patient not on diabetes medications at home - check BSG ACHS -Hemoglobin A1c 7.4 sugars stable FEN/GI: tube feeding ppx: heparin drip code: full dispo: icu Family updated and relayed the severity of his illness. long talk with his daughter Juliana Terrell will keep her updated this weekend remains full code Total Time Total Time Spent Total Time Spent (In Minutes): 70 Total Time Includes: Examination of the Patient and Other (65 minutes with family) Discharge Plan Discharge Items Reason For Visit: HAS COVID,SOB,OXYGEN LEVELS ARE DOWN, Follow-up/Referrals: Dima Garcia [Primary Care Provider] - Medications and DC Order Prescriptions: No Action amlodipine [Norvasc] 10 mg tablet 10 mg PO QAM RF: 0 flecainide 50 mg tablet 50 mg PO Q12H RF: 0 lisinopril [Zestril] 5 mg tablet 5 mg PO QAM RF: 0 metoprolol succinate [Toprol XL] 25 mg tablet extended release 24 hr 25 mg PO QAM RF: 0 Xarelto 20 mg tablet 20 mg PO PM RF: 0 Admission Data Admit Date/Time: 06/25/21 15:02 Attending Provider: Elias Lu Admit Provider: Noah Singh Primary Care Provider: Dima Garcia Other Providers: Mark Echavarria ; Wes Chiang ; Talita Armstrong ; Rich Ellis ; Pavel Yost ; Alice Karimi Kevin C. ; Shu Avalos ; Tj Perez ; Dima Hill ; Juanito Barker ; Asher Keyes ; Toño Hunter Jr ; Luis Caldwell ; Amparo Santos ; Safia Bowling ; Travis Chavez ; Travis Miranda ; Scott Leary ; Abbie Bermudez ; Elizabeth Houston ; Willi Esparza ; Nathaniel Davey ; Geronimo Lambert Coding Level of Care Code D/C DAY MANAGEMENT >30 MINS Diagnoses Acute respiratory failure with hypoxia J96.01 ARDS (adult respiratory distress syndrome) J80 2019 novel coronavirus-infected pneumonia (NCIP) U07.1; J12.82 SALIMA (acute kidney injury) N17.9 Hyperkalemia E87.5 Atrial fibrillation I48.91 Atrial fibrillation type: unspecified Blood glucose elevated R73.9 Shock R57.9
--- NOTE | 2021-07-06 11:17 | Death Pronouncement Note ---
Date of Service July 06, 2021 Pronouncement Note Admission Date Admission Date: June 25, 2021 Date and Time of Date of : 07/06/21 Time of : 11:09 PCOD Preliminary cause of : COVID-19 Contributing Factors (1) Acute respiratory failure with hypoxia: (2) ARDS (adult respiratory distress syndrome): (3) 2019 novel coronavirus-infected pneumonia (NCIP): (4) SALIMA (acute kidney injury): (5) Hyperkalemia: (6) Atrial fibrillation: (7) Blood glucose elevated: Hospital Course Hospital Course: see discharge summary Additional Data Confirmation of : no pulse, no respirations, no heart sounds and pupils fixed and dilated Family: at bedside Attending/PCP notified?: Yes Attending physician: Elias Lu, DO Was code activated?: No Autopsy requested?: No forensic medical examiner notified?: No Organ bank notified?: No Advance directives: No Coding Level of Care Code None Diagnoses Acute respiratory failure with hypoxia J96.01 ARDS (adult respiratory distress syndrome) J80 2019 novel coronavirus-infected pneumonia (NCIP) U07.1; J12.82 SALIMA (acute kidney injury) N17.9 Hyperkalemia E87.5 Atrial fibrillation I48.91 Atrial fibrillation type: unspecified Blood glucose elevated R73.9
--- NOTE | 2021-07-06 15:46 | Critical Care Progress Note ---
Date of Service July 06, 2021 Assessment & Plan (1) ARDS (adult respiratory distress syndrome): (2) Ventilator dependence: (3) 2019 novel coronavirus-infected pneumonia (NCIP): (4) Acute respiratory failure with hypoxia: (5) Hypervolemia: (6) Atrial fibrillation: (7) Hypertension: (8) Hyperkalemia: (9) Shock: Plan: Reason Critically Ill: 75-year-old male with history of atrial fibrillation on Eliquis and flecainide, hypertension, likely underlying CKD who presented with COVID-19 pneumonia. Requires ICU level care for intensive management of his respiratory status and mechanical ventilation. Patient had severely worsening respiratory status and hemodynamics overnight. He was intolerant of hemodialysis. He had worsening infiltrates noted on his chest imaging. His blood gas analysis was consistent with combined hypercapnic and metabolic acidosis despite hemodialysis. He developed worsening septic shock despite antibiotics. Hospitalist team had extensive discussions with the patient's family. The family ultimately elected to proceed with comfort measures only and palliative extubation. I believe this was appropriate. The patient was extubated and . Admission and Anticipated Discharge Date Admission Date: June 25, 2021 Subjective He had worsening hemodynamic instability after hemodialysis last night. He has severe respiratory and metabolic acidosis. He also had worsening white count and fever. Review of Systems Review of Systems: Unobtainable due to cognitive status and Unobtainable due to endotracheal tube Physical Exam Physical Exam: Constitutional: Patient intubated and sedated. No obvious distress. Eyes: Pupils are equal round and reactive to light. Conjunctivae are normal. Anicteric sclera. Ears nose, mouth and throat: Endotracheal tube in place. Neck: Trachea is midline. Visual inspection is normal. Respiratory: Coarse lung sounds on the ventilator. No wheezes. Cardiovascular: Regular rate and rhythm. No murmurs. 1+ pitting edema in the lower extremities. Gastrointestinal: Normal bowel sounds, soft, nontender and nondistended. No hepatosplenomegaly noted. Musculoskeletal: No cyanosis. Patient is able to move all extremities. Skin: No rashes, warm dry and intact. Neurologic: Difficult to assess given intubation and sedation status. Psychiatric: Unable to assess as the patient is intubated. Results & Data Results & Data ([facility]) Vital Signs (Past 12 Hours) Vital Signs Temp Pulse Resp BP Pulse Ox 07/06/21 10:00 101.5 F H 75 30 H 95/30 L 86 L 07/06/21 09:00 102.0 F H 80 30 H 101/32 L 89 L 07/06/21 08:21 76 34 H 91 07/06/21 08:00 102.4 F H 71 30 H 80/31 L 89 L 07/06/21 07:00 102.7 F H 78 26 H 90/34 L 91 07/06/21 06:30 102.7 F H 73 31 H 97/33 L 88 L 07/06/21 06:00 102.6 F H 74 91/39 L 87 L 07/06/21 05:00 102.6 F H 82 30 H 103/35 L 88 L 07/06/21 04:15 87 27 H 89 L 07/06/21 04:00 102.4 F H 87 26 H 106/36 L 88 L Vital signs, labs and imaging noted Coding Level of Care Code 64931 Subseq Hosp Care Lvl 2 Diagnoses ARDS (adult respiratory distress syndrome) J80 Ventilator dependence Z99.11 2019 novel coronavirus-infected pneumonia (NCIP) U07.1; J12.82 Acute respiratory failure with hypoxia J96.01 Hypervolemia E87.70 Atrial fibrillation I48.91 Atrial fibrillation type: unspecified Hypertension I10 Hyperkalemia E87.5 Shock R57.9 (1) Atrial fibrillation Atrial fibrillation type: unspecified Qualified Code(s): I48.91 - Unspecified atrial fibrillation
[2021-07-06] MEDS ORDERED: DEXTROSE 5% 100 ML BAG IV ONE (16:16)
[2021-07-06] MEDS ORDERED: CALCIUM CHLORIDE 10% 10 ML SYR IV ONE (16:16)
[2021-07-06] MEDS ORDERED: AMIODARONE HCL INJ 50 MG/ML 3 ML VIAL IV ONE (16:16)
[2021-07-06] MEDS ORDERED: PIPERACILLIN/TAZOBACTAM 4.5 GM in DEXTROSE 5% 100 ML IV SCH (20:00)
== END 2021-07-06 16:17 | disposition expired | DRG 207 ==
LOC: ED 15:01 → SUATTDRO 15:02 → EDINP 15:02 → 2S 21:32 → 2E 06-28 07:28 → 1E 06-29 14:18